=== PATIENT | male | born 1935 | race Caucasian/White ===

== ENCOUNTER 2019-03-17 09:53 | Emergency (ER) | payer MEDICARE, BC, SELFPAY ==
--- NOTE | ~2019-03-17 | CT_ITS ---
EXAMINATION: CT brain wo con EXAM DATE: 03/17/2019 11:10 INDICATION: Confusion, temporary change in awareness. TECHNIQUE: Spiral CT of the head was performed without contrast. Axial, coronal and sagittal images were reviewed. The dose-length product (DLP) for this examination was 605.33 mGy-cm. The exposure w as tailored according to patient size, and iterative reconstruction (ASIR) was used as additional dos e reduction technique. There is no prior study for comparison. FINDINGS: There is no acute intraparenchymal hemorrhage. No evidence of intraparenchymal brain mass lesion. No evidence of acute infarction. Please note that initial head CT has limited sensitivity f or small or acute infarctions. There is mild periventricular and subcortical hypodensity, nonspecific but probably related to small vessel ischemic disease. There is moderate prominence of the sulci a nd ventricles related to cerebral atrophy. There is intracranial carotid arteriosclerosis. There a re no extra-axial collections. There is no mass effect or midline shift. Patient has had bilateral ocular lens surgery. Soft tissue is unremarkable. Mild left maxillary sinus mucoperiosteal thickeni ng. Mildly dense fluid in the left maxillary sinus. IMPRESSION: 1. No acute intracranial findings. 2. Chronic age related findings. 3. Left maxillary sinus mucoperiosteal thickening and fluid. Reviewed, dictated and finalized at location B. [employer]OR OF EVENT MANAGEMENT
[2019-03-17 10:22] VITALS: BP 115/55; PULSE 55; RESP 15; TEMP 36.2; O2SAT 100
--- NOTE | 2019-03-17 10:33 | ED.AMS ---
HPI - Altered Mental Status General Chief Complaint: Altered Mental Status Stated Complaint: confusion Time Seen by Provider: 03/17/19 10:18 Source: patient and family Mode of arrival: ambulatory Limitations: no limitations History of Present Illness HPI narrative: Pt is an 83 y/o male who presents to the ED, from [facility], with c/o increased confusion since last night. Pt's son states that the facility he lives at found him wandering around outside this morning. Pt denies a fall, PUGH, or CP. He notes that he has knee pain. Per son, pt's mental status has been declining recently. A complete HPI is limited d/t pt's dementia. complaint: confusion Onset (ago): day(s) (last night) Consistency of symptoms: getting Worse Context: other (dementia) Associated symptoms: other (knee pain) Related Data Allergies Allergy/AdvReac Type Severity Reaction Status Date / Time lisinopril Allergy Unknown cough Verified 03/17/19 10:37 nicardipine Allergy Unknown gynecomasti Verified 03/17/19 10:37 a Review of Systems Review of Systems: Narrative: A complete ROS is limited d/t pt's dementia. Cardiovascular: Cardiovascular: Denies chest pain Musculoskeletal: Musculoskeletal: Reports arthralgias (knee) Neurologic: Reports confusion and Denies headache(s) [facility] Past Medical History Medical History (Updated 03/17/19 @ 11:39 by Maynor Gardner MD) Dementia Surgical History Surgical History No history of previous surgery Family History Family History (Updated 05/20/17 @ 15:02 by DOCTOR UNKNOWN) Sibling Hypertension Family history of cardiovascular disease Family history of malignant neoplasm of breast Father Patient's father is , Onset Age: 72 Carcinoma of colon Malignant neoplasm of prostate Grandparent Diabetes mellitus Family history of malignant neoplasm of esophagus Mother Depression Family history of cardiovascular disease Social History Social History (Updated 03/17/19 @ 11:10 by Yong Alicea) Smoking status: Former smoker Tobacco type: cigarettes Additional smoking assessment comments: A couple cigarettes a day for a few years Alcohol intake: former Substance use: never Living arrangements: assisted living Gender identity (if verbalized by the patient): Male Spiritual care concerns: No Agree to blood products: Yes Exam Narrative: Exam Narrative: GENERAL: Well-appearing, well-nourished, and in no acute distress. HEAD: Normocephalic, atraumatic. EYES: PERRLA and EOMI. ENT: Nares clear, no rhinorrhea or epistaxis. Mucous membranes moist. NECK: Supple. CHEST: Clear to auscultation. No respiratory distress. HEART: Regular rate and rhythm. No murmur heard. Normal peripheral pulses. ABDOMEN: Soft, no ntender, non distended, normal active bowel sounds. EXTREMITIES: Normal range of motion. has one plus edema. SKIN: Warm, dry, no rash. NEURO: No focal deficits. Alert PSYCH: Normal mood and affect. Course Course Emergency Course: Inform the son about his lab work, CT findings. Advised to continue home medication. Vital Signs Vital signs: Vital Signs Temperature 36.2 C L 03/17/19 10:22 Pulse Rate 55 L 03/17/19 10:22 Respiratory Rate 15 03/17/19 10:22 Blood Pressure 115/55 L 03/17/19 10:22 Pulse Oximetry 100 03/17/19 10:22 Temperature 36.2 C L 03/17/19 10:22 Pulse Rate 69 03/17/19 11:08 Respiratory Rate 18 03/17/19 11:08 Blood Pressure 129/55 L 03/17/19 11:08 Pulse Oximetry 97 03/17/19 11:08 MDM - Altered Mental Status Lab Data Result diagrams: 03/17/19 10:56 03/17/19 10:56 Labs: Lab Results 03/17/19 03/17/19 03/17/19 Range/Units 10:56 10:56 11:00 WBC 7.2 (4.5-10.0) K/mm3 RBC 3.74 L (4.6-6.20) M/mm3 Hgb 10.6 L (14.0-18.0) g/dL Hct 34.5 L (42.0-52.0) % MCV 92.2 (80-100) fl MCH 28.3 (26-
--- NOTE | 2019-03-17 11:07 | PC.NURSE ---
PT TO CT SCAN VIA STRETCHER.
[2019-03-17 11:08] VITALS: BP 129/55; PULSE 69; RESP 18; O2SAT 97
[2019-03-17 11:10] LABS: Basophils Percent Auto 0.3 % (0.2-1.2); Eosinophils Absolute Auto 0.1 K/mm3 (0-0.3); Eosinophils Percent Auto 1.7 % (0-4.4); Hematocrit 34.5 % (42.0-52.0); Hemoglobin 10.6 g/dL (14.0-18.0); Immature Granulocyte Absolute 0.03 K/mm3 (0.00-0.031); Immature Granulocyte Percent A 0.4 % (0-0.5); Lymphocytes Absolute Auto 1.44 K/mm3 (0.9-3.2); Lymphocytes Percent Auto 20.1 % (18.3-44.2); Mean Corpuscular HGB Conc 30.7 g/dl (32-36); Mean Corpuscular Hemoglobin 28.3 pg (26-34); Mean Corpuscular Volume 92.2 fl (80-100); Mean Platelet Volume 10.3 fl (7.4-10.4); Monocytes Absolute Auto 0.9 K/mm3 (0.1-0.6); Monocytes Percent Auto 13.1 % (2.6-8.5); Neutrophils Absolute Auto 4.6 K/mm3 (1.3-6.7); Neutrophils Percent Auto 64.4 % (45.5-73.1); Platelet Count Result 244 k/mm3 (150-375); Red Blood Count 3.74 M/mm3 (4.6-6.20); Red Cell Distribution Width 14.7 % (11.5-14.5); White Blood Count 7.2 K/mm3 (4.5-10.0)
[2019-03-17 11:15] LABS: Add Urine Microscopic? YES; Appearance Urine Cloudy (Clear); Bacteria Urine Trace /hpf; Bilirubin Urine Negative (Negative); Color Urine Amber (Yellow); Glucose Urine UA Negative (Negative); Hyaline Casts Urine 30-49 /lpf; Ketones Urine Negative (Negative); Leukocyte Esterase Ur Negative LEU/UL (Negative); Mucus Urine Few /lpf; Nitrate Urine Negative (Negative); Protein Urine 2+ mg/dL (Negative); Specific Grav Ur 1.026 (1.001-1.035)
[2019-03-17 11:17] LABS: Blood Urine Negative (Negative)
[2019-03-17 11:27] LABS: Blood Urea Nitrogen 25 mg/dL (9-20); Carbon Dioxide 28 mmol/L (22-30); Chloride 102 mmol/L (98-107); Estimated CRCL calculation 39 ml/min; Estimated Glomerular Filt Rate 42; Glucose 109 mg/dL (75-110); Potassium 4.1 mmol/L (3.4-5.0); Sodium 139 mmol/L (137-145)
[2019-03-17 12:28] VITALS: BP 120/66; PULSE 55; O2SAT 97
== END 2019-03-17 12:30 ==
PROVIDERS: Emergency Provider Family Medicine; PCP Family Medicine
DX: G30.9 Alzheimer's disease, unspecified (principal); F02.80 Dementia in other diseases classified elsewhere, unspecified severity, without behavioral disturbance, psychotic disturbance, mood disturbance, and anxiety; Z87.891 Personal history of nicotine dependence
CPT/HCPCS: 36415; 51701; 70450; 80048; 81001; 85025; 87086; 99284

== ENCOUNTER 2019-07-09 18:49 | Emergency (ER) | payer MEDICARE, BC, SELFPAY ==
[2019-07-09 18:53] VITALS: BP 133/87; PULSE 67; RESP 18; TEMP 36.6; O2SAT 98
--- NOTE | 2019-07-09 19:07 | ED.WOUNDLAC ---
HPI - Wound/Laceration General Chief Complaint: Wound/Laceration Stated Complaint: wound Time Seen by Provider: 07/09/19 19:05 History of Present Illness HPI narrative: He reports swelling to the bilateral lower extremities chronically, worse on the left over the past 3 weeks. This was about the same time he noted a sore on the lateral portion of the left lower leg. Today he contacted his PCP because he felt that it was causing problems with his ability to walk and he was refered to the ED. He denies any pain in the leg. He has a history of DM and lower extremity cellulitis. He does not monitor his blood sugar. Related Data Home Medications Medication Instructions Recorded Confirmed donepezil 5 mg tablet 5 mg PO .QHS tablet 04/23/19 duloxetine 30 mg capsule,delayed 30 mg PO DAILY 04/23/19 release sprinkle risperidone 0.5 mg tablet 0.5 mg PO .QHS tablet 04/23/19 Allergies Allergy/AdvReac Type Severity Reaction Status Date / Time lisinopril Allergy Unknown cough Verified 04/23/19 15:54 nicardipine Allergy Unknown gynecomasti Verified 04/23/19 15:54 a Review of Systems Review of Systems: All systems reviewed & are unremarkable except as noted in HPI and below Constitutional: Constitutional: Denies fever(s) and Denies weakness Cardiovascular: Cardiovascular: Denies chest pain Respiratory: Respiratory: Denies dyspnea Gastrointestinal: Gastrointestinal: Denies nausea Musculoskeletal: Musculoskeletal: Denies back pain Neurologic: Denies dizziness and Denies weakness Endocrine: Endocrine: Reports polydipsia and Reports polyuria Hematologic/Lymphatic: Hematologic/Lymphatic: Denies easy bleeding and Denies easy bruising PMF Past Medical History Medical History (Updated 07/10/19 @ 02:01 by Srinivasa Abdalla MD) Cellulitis of left lower extremity Cellulitis of right lower extremity Dementia Diabetes mellitus Hypertension Lower extremity edema Peripheral neuropathy Surgical History Surgical History No history of previous surgery Family History Family History Sibling Hypertension Family history of cardiovascular disease Family history of malignant neoplasm of breast Father Patient's father is , Onset Age: 72 Carcinoma of colon Malignant neoplasm of prostate Grandparent Diabetes mellitus Family history of malignant neoplasm of esophagus Mother Depression Family history of cardiovascular disease Social History Social History Smoking status: Former smoker Tobacco type: cigarettes Additional smoking assessment comments: A couple cigarettes a day for a few years Alcohol intake: former Substance use: never Gender identity (if verbalized by the patient): Male Spiritual care concerns: No Agree to blood products: Yes Exam Const: General: no acute distress and alert Nutritional Appearance: well nourished Orientation/consciousness: patient oriented x3 HENMT: Head: normal to inspection Resp: Effort & Inspection: normal respiratory effort and tachypneic Auscultation: clear to auscultation bilaterally Cardio: Rate: regular rate Rhythm: regular rhythm GI: GI Palp: Yes Soft to palpation and No Tenderness to palpation present (GI) Skin: Other: Erythema of the left lateral lower leg with mild skin breakdown. No open wounds Neuro: General: patient oriented x3 and moves all extremities Speech: normal speech Extrem: General: edema bilateral Course Vital Signs Vital signs: Vital Signs Temperature 36.6 C 07/09/19 18:53 Pulse Rate 67 07/09/19 18:53 Respiratory Rate 18 07/09/19 18:53 Blood Pressure 133/87 07/09/19 18:53 Pulse Oximetry 98 07/09/19 18:53 Temperature 36.6 C 07/09/19 18:53 Pulse Rate 79 07/09/19 23:01 Respiratory Rate 18 07/09/19 23:01
[2019-07-09 20:06] LABS: Basophils Percent Auto 0.3 % (0.2-1.2); Eosinophils Absolute Auto 0.1 K/mm3 (0-0.3); Eosinophils Percent Auto 1.4 % (0-4.4); Hematocrit 36.2 % (42.0-52.0); Hemoglobin 11.4 g/dL (14.0-18.0); Immature Granulocyte Absolute 0.01 K/mm3 (0.00-0.031); Immature Granulocyte Percent A 0.2 % (0-0.5); Lymphocytes Percent Auto 33.2 % (18.3-44.2); Mean Corpuscular HGB Conc 31.5 g/dl (32-36); Mean Corpuscular Hemoglobin 28.9 pg (26-34); Mean Corpuscular Volume 91.6 fl (80-100); Mean Platelet Volume 10.4 fl (7.4-10.4); Monocytes Absolute Auto 0.7 K/mm3 (0.1-0.6); Monocytes Percent Auto 10.8 % (2.6-8.5); Neutrophils Absolute Auto 3.4 K/mm3 (1.3-6.7); Neutrophils Percent Auto 54.1 % (45.5-73.1); Platelet Count Result 223 k/mm3 (150-375); Red Blood Count 3.95 M/mm3 (4.6-6.20); Red Cell Distribution Width 14.2 % (11.5-14.5); White Blood Count 6.3 K/mm3 (4.5-10.0)
[2019-07-09 20:16] LABS: Partial Thromboplastin Time 38.2 SECONDS (22.3-36.8)
[2019-07-09 20:21] LABS: Alanine Aminotransferase 19 U/L (4-50); Albumin Level 3.9 g/dL (3.5-5.1); Alkaline Phosphatase 82 U/L (38-126); Aspartate Amino Transferase 33 U/L (17-59); Bilirubin,Total 0.2 mg/dL (0.2-1.3); Blood Urea Nitrogen 16 mg/dL (9-20); Calcium 8.8 mg/dL (8.4-10.2); Carbon Dioxide 30 mmol/L (22-30); Chloride 104 mmol/L (98-107); Estimated CRCL calculation 60 ml/min; Estimated Glomerular Filt Rate > 60; Glucose 129 mg/dL (75-110); Potassium 4.3 mmol/L (3.4-5.0); Sodium 139 mmol/L (137-145)
[2019-07-09 20:42] LABS: INR 2.2; Prothrombin Time 23.9 Seconds (11.1-14.7)
[2019-07-09 20:56] VITALS: BP 147/76; PULSE 58; RESP 18; O2SAT 100
[2019-07-09] MEDS: AMOXICILLIN/CLAVULANATE K 875-125 MG TAB 1 TABLET PO (22:20)
[2019-07-09 23:01] VITALS: BP 132/77; PULSE 79; RESP 18; O2SAT 98
== END 2019-07-09 23:02 | disposition home or self-care (01) ==
PROVIDERS: Emergency Provider Emergency Medicine; PCP Family Medicine
DX: L03.116 Cellulitis of left lower limb (principal); F03.90 Unspecified dementia, unspecified severity, without behavioral disturbance, psychotic disturbance, mood disturbance, and anxiety; I10 Essential (primary) hypertension; E11.42 Type 2 diabetes mellitus with diabetic polyneuropathy; Z87.891 Personal history of nicotine dependence
CPT/HCPCS: 36415; 80053; 85025; 85610; 85730; 87040; 99283; A9270

== ENCOUNTER 2019-07-15 16:44 | Outpatient (CLI) | payer MEDICARE, BC, SELFPAY ==
--- NOTE | ~2019-07-15 | XR_ITS ---
XR tibia fibula RT 2V 07/15/2019 17:07 Indication: Leg pain. No known injury. Procedure: 2 views right tibia/fibula Comparison: No prior studies for comparison. Findings: There are multiple radiopaque foreign bodies in the soft tissues. There is extensive arteri al calcification. There is severe osteoarthritis of the right knee. No acute fracture or traumatic ma lalignment. Impression: 1: No acute bone or joint abnormality. 2: Severe osteoarthritis of the right knee. 3: Multiple small foreign bodies in the soft tissues posterior to the tibia. Reviewed, dictated and finalized at location A. Impression: 1: No acute bone or joint abnormality. 2: Severe osteoarthritis of the right knee. 3: Multiple small foreign bodies in the soft tissues posterior to the tibia.
== END 2019-07-15 16:45 | disposition home or self-care (01) ==
PROVIDERS: PCP Family Medicine; Visit Provider Physician Assistant
DX: M17.11 Unilateral primary osteoarthritis, right knee (principal)
CPT/HCPCS: 73590

== ENCOUNTER 2021-05-19 11:51 | Emergency (ER) | payer MEDICARE, SELFPAY ==
[2021-05-19 11:57] VITALS: BP 143/64; PULSE 56; RESP 17; O2SAT 96
[2021-05-19 12:25] LABS: Basophils Percent Auto 0.3 % (0.2-1.2); Eosinophils Percent Auto 0.2 % (0-4.4); Hematocrit 38.7 % (42.0-52.0); Hemoglobin 12.5 g/dL (14.0-18.0); Immature Granulocyte Absolute 0.02 K/mm3 (0.00-0.031); Immature Granulocyte Percent A 0.3 % (0-0.5); Lymphocytes Absolute Auto 1.77 K/mm3 (0.9-3.2); Lymphocytes Percent Auto 28.8 % (18.3-44.2); Mean Corpuscular HGB Conc 32.3 g/dl (32-36); Mean Corpuscular Hemoglobin 31.3 pg (26-34); Mean Platelet Volume 10.7 fl (7.4-10.4); Monocytes Absolute Auto 0.9 K/mm3 (0.1-0.6); Monocytes Percent Auto 15.1 % (2.6-8.5); Neutrophils Absolute Auto 3.4 K/mm3 (1.3-6.7); Neutrophils Percent Auto 55.3 % (45.5-73.1); Platelet Count Result 181 k/mm3 (150-375); Red Blood Count 3.99 M/mm3 (4.6-6.20); Red Cell Distribution Width 13.8 % (11.5-14.5); White Blood Count 6.2 K/mm3 (4.5-10.0)
[2021-05-19 12:34] LABS: INR 1.1
[2021-05-19 12:35] LABS: Alanine Aminotransferase 30 U/L (4-50); Albumin Level 3.9 g/dL (3.5-5.1); Alkaline Phosphatase 56 U/L (38-126); Anion Gap 9 mmol/L (8-16); Aspartate Amino Transferase 108 U/L (17-59); Bilirubin,Total 0.6 mg/dL (0.2-1.3); Blood Urea Nitrogen 29 mg/dL (9-20); Calcium 8.2 mg/dL (8.4-10.2); Carbon Dioxide 23 mmol/L (22-30); Chloride 102 mmol/L (98-107); Estimated CRCL calculation 49 ml/min; Estimated Glomerular Filt Rate 58; Glucose 145 mg/dL (65-110); Partial Thromboplastin Time 20.4 SECONDS (22.3-36.8); Potassium 4.5 mmol/L (3.4-5.0); Sodium 134 mmol/L (137-145)
[2021-05-19] MEDS: SODIUM CHLORIDE 0.9% IV 1,000 ML 999 ML IV CONT (12:45)
--- NOTE | 2021-05-19 13:16 | ED.GENADULT ---
HPI - General Adult General Chief complaint: GI Bleed Stated complaint: weakness - dark tarry stool Time Seen by Provider: 05/19/21 12:25 Source: patient, family and EMS Mode of arrival: EMS Limitations: no limitations History of Present Illness HPI narrative: Patient is 85 years old white male came to the emergency room from retirement because of fall. Patient while having a bowel movement, diarrhea, got up and feels down. Patient denies loss of consciousness, head injury, or any other injuries. The retirement staff reported that patient have darker stool. Patient denies any fever, chills, nausea, vomiting, abdominal pain or urinary symptoms. Patient have dementia, DNR. Patient son at the bedside. Related Data Allergies Allergy/AdvReac Type Severity Reaction Status Date / Time lisinopril Allergy Unknown cough Verified 05/25/20 16:34 nicardipine Allergy Unknown gynecomasti Verified 05/25/20 16:34 a Review of Systems Review of Systems: CONSTITUTIONAL: Denies fever, chills, or sweats. EYES: Denies visual changes, redness, or discharge. ENT: Denies rhinorrhea, congestion, sore throat, or otalgia. CARDIOVASCULAR: Denies chest pain, palpitations, or edema. RESPIRATORY: Denies cough or dyspnea. GASTROINTESTINAL: Denies abdominal pain, nausea, vomiting, or diarrhea. GENITOURINARY: Denies dysuria or hematuria. SKIN: Denies rash or itching. MUSCULOSKELETAL: Denies back pain, joint pain, or myalgia. NEUROLOGIC: Denies headache, numbness, or weakness. PSYCHIATRIC: Denies anxiety or depression. ROS unobtainable: Yes unobtainable due to mental status PMFSH Past Medical History Medical History (Updated 05/19/21 @ 14:05 by Shayan Cage MD) Cellulitis of left lower extremity Cellulitis of right lower extremity Dementia Diabetes mellitus Hypertension Lower extremity edema Peripheral neuropathy Surgical History Surgical History No history of previous surgery Family History Family History Sibling Hypertension Family history of cardiovascular disease Family history of malignant neoplasm of breast Father Patient's father is , Onset Age: 72 Carcinoma of colon Malignant neoplasm of prostate Grandparent Diabetes mellitus Family history of malignant neoplasm of esophagus Mother Depression Family history of cardiovascular disease Social History Social History Tobacco type: cigarettes Additional smoking assessment comments: A couple cigarettes a day for a few years Alcohol intake: former Substance use: never Gender identity (if verbalized by the patient): Male Spiritual care concerns: No Agree to blood products: Yes Exam Narrative: General appearance: Well-developed, well-nourished Skin: Normal color Head: Normocephalic, nontraumatic Eyes: Clear conjunctiva ENT: Oropharynx normal, ears normal, nose normal Neck: Supple, nontender Chest and respiratory: Airway patent, no respiratory distress, no accessory muscle use Heart: Regular rate/rhythm Abdomen: Soft, nontender, no organomegaly, quiet bowel sounds, rectal exam showed dark greenish stool, guaiac negative Vascular: Normal peripheral pulses, normal capillary refill. Musculoskeletal: Normal range of motion, nontender back Neurologic: Alert and oriented to his name only, Course Course Emergency Course: Stable Vital Signs Vital signs: Vital Signs Pulse Rate 56 L 05/19/21 11:57 Respiratory Rate 17 05/19/21 11:57 Blood Pressure 143/64 H 05/19/21 11:57 Pulse Oximetry 96 05/19/21 11:57
[2021-05-19 14:11] VITALS: BP 151/75; PULSE 61; RESP 23; O2SAT 98
[2021-05-19 14:55] VITALS: BP 151/75; PULSE 61; RESP 18; O2SAT 98
== END 2021-05-19 15:00 ==
PROVIDERS: Emergency Medicine; Emergency Provider Emergency Medicine; PCP Family Medicine
DX: Z04.3 Encounter for examination and observation following other accident (principal); R19.7 Diarrhea, unspecified; F03.90 Unspecified dementia, unspecified severity, without behavioral disturbance, psychotic disturbance, mood disturbance, and anxiety; E11.42 Type 2 diabetes mellitus with diabetic polyneuropathy; I10 Essential (primary) hypertension; Z79.01 Long term (current) use of anticoagulants; Z66 Do not resuscitate; W18.11XA Fall from or off toilet without subsequent striking against object, initial encounter
CPT/HCPCS: 36415; 80053; 85025; 85610; 85730; 86850; 86900; 86901; 96360; 99283; J7030

== ENCOUNTER 2022-03-19 09:58 | Emergency (ER) | payer MEDICARE, SELFPAY ==
[2022-03-19] VITALS (10 sets, daily range): BP systolic 134–164; BP diastolic 59–93; PULSE 58–77; RESP 16–28; TEMP 36.9; O2SAT 93–100
--- NOTE | ~2022-03-19 | XR_ITS ---
EXAMINATION: XR chest 1V portable INDICATION: Tachypnea TECHNIQUE: Portable AP chest at 1537 hours COMPARISON: 02/10/2019 FINDINGS: The lung volumes are low. There is mild atelectasis of the lung bases. No pleural effusion or pneumothorax. The cardiomediastinal silhouette is normal. IMPRESSION: 1. Mild atelectasis of the lung bases. Reviewed, dictated and finalized at location L. ROL PANEL ASSEMBLER
--- NOTE | ~2022-03-19 | CT_ITS ---
EXAMINATION: CT brain wo con INDICATION: Altered mental status COMPARISON: 03/17/2019 TECHNIQUE: Standard unenhanced head CT. The dose-length product (DLP) was 605.33 mGy-cm. The mA was a djusted according to patient size. Iterative reconstruction technique was employed. FINDINGS: There is no acute intraparenchymal hemorrhage. No evidence of mass lesion. No evidence of a cute infarction. There is mild periventricular and subcortical hypodensity probably related to small vessel ischemic disease. There is mild prominence of the sulci and ventricles related to cerebral atr ophy. Intracranial calcified cerebral atherosclerosis is noted. There are no extra-axial collections. There is no mass effect or midline shift. Changes in the globes are likely from ocular lens surgery. There is a right mastoid effusion. IMPRESSION: 1. No acute intracranial abnormality. 2. Age related findings. Reviewed, dictated and finalized at location L. STITCH SHOULDER JOINER
--- NOTE | 2022-03-19 13:28 | ECG_ITS ---
Measurements Intervals [place] Rate: 64 P: -23 MS: 158 QRS: -49 QRSD: 110 T: 33 QT: 432 QTc: 446 Interpretive Statements SINUS RHYTHM LEFT AXIS DEVIATION INTRAVENTRICULAR CONDUCTION DELAY BORDERLINE R WAVE PROGRESSION, ANTERIOR LEADS BASELINE ARTIFACT- I, II, III, AVR, AVL, AVF, V1-V2 BORDERLINE ECG NO PREVIOUS ECG AVAILABLE FOR COMPARISON Electronically Signed On 03-19-2022 15:13:02 HEEL BREASTER by Vamsi Mancilla D.O.
--- NOTE | 2022-03-19 13:28 | ED.AMS ---
HPI - Altered Mental Status General Chief Complaint: Altered Mental Status Stated Complaint: UTI? Time Seen by Provider: 03/19/22 13:17 History of Present Illness HPI narrative: 86-year-old male with a history of Alzheimer's dementia currently living nursing facility, hx PE on eliquis sent here due to concerns of increased confusion. According to patient's nurse, he has been wandering the halls at nighttime and has been forgetting where his room is which is abnormal for him. She has also noticed a strong odor to his urine. Patient's POA is present in the room and denies any acute confusion, states that patient is at his baseline currently which is ANO x3. POA tells me that the nurse taking care of him is new and is not aware of his baseline. Patient himself denies any complaints, denies any pain. Related Data Allergies Allergy/AdvReac Type Severity Reaction Status Date / Time lisinopril Allergy Unknown cough Verified 10/17/21 09:13 nicardipine Allergy Unknown gynecomasti Verified 10/17/21 09:13 a Review of Systems Review of Systems: ROS unobtainable: Yes unobtainable due to mental status PMFSH Past Medical History Medical History Cellulitis of left lower extremity Cellulitis of right lower extremity Colon polyps Dementia 10.17.21 mmse 5 bed manager judith gaviria resuscitation: no cpr, no intubation. 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 Diabetes mellitus Groin rash History of ischemic colitis 2005 Hx pulmonary embolism 2017 Lower extremity edema Peripheral neuropathy Venous stasis ulcer Yeast infection of the skin Surgical History Surgical History H/O hemicolectomy ischemic colitis 2005 Family History Family History Sibling Hypertension Family history of cardiovascular disease Family history of malignant neoplasm of breast Father Patient's father is , Onset Age: 72 Carcinoma of colon Malignant neoplasm of prostate Grandparent Diabetes mellitus Family history of malignant neoplasm of esophagus Mother Depression Family history of cardiovascular disease Social History Social History (Updated 10/17/21 @ 09:17 by Jeremiah Donald MA) Smoking status: Former smoker Tobacco type: cigarettes Additional smoking assessment comments: A couple cigarettes a day for a few years Alcohol intake: former Substance use: never Living arrangements: assisted living Gender identity (if verbalized by the patient): Male Spiritual care concerns: No Agree to blood products: Yes Exam Narrative: APPEARANCE: Well appearing, no pain in distress, well-nourished. Head: Normocephalic and atraumatic. EYES: Entropia of right eye noted; POA states is chronic. PERRLA/EOMI, conjunctivae clear NOSE: No nasal drainage EARS: External ear normal in appearance THROAT: Oropharynx is clear. Mucous membranes are moist. NECK: Supple. No adenopathy, no masses. RESPIRATORY: Airway patent, respirations nonlabored. Clear to auscultation bilaterally, no rales, rhonchi, wheezing. CARDIOVASCULAR: Regular rate and rhythm without murmurs, rubs, or gallops. ABDOMINAL: Normoactive bowel sounds. Soft, nontender, nondistended. No rebound tenderness or guarding. MUSCULOSKELETAL: Extremities are warm and well-perfused. Moves all extremities well. No edema. NEURO: Alert and oriented x3. Normal speech. No focal neurologic deficits. SKIN: Skin is warm and dry. No rashes. PSYCHIATRIC: Normal affect/mood. Course Vital Signs Vital signs: Vital Signs Temperature 98.4 F 03/19/22 10:01 Pulse Rate 58 L 03/19/22 10:01 Respiratory Rate 20 03/19/22 10:01 Blood Pressure 134/59 L 03/19/22 10:01 Pulse Oximetry 96 03/19/22 10:01 Oxygen Delivery Room Air 03/19/22 10:01 Avery
--- NOTE | 2022-03-19 13:29 | PC.NURSE ---
EDP at bedside to assess pt .
[2022-03-19 14:12] LABS: Basophils Percent Auto 0.5 % (0.2-1.2); Eosinophils Absolute Auto 0.1 K/mm3 (0-0.3); Eosinophils Percent Auto 2.1 % (0-4.4); Hematocrit 45.1 % (42.0-52.0); Hemoglobin 13.7 g/dL (14.0-18.0); Immature Granulocyte Absolute 0.01 K/mm3 (0.00-0.031); Immature Granulocyte Percent A 0.2 % (0-0.5); Immature Platelet Fraction Pct 3.1 % (0.9-11.2); Lymphocytes Absolute Auto 1.99 K/mm3 (0.9-3.2); Mean Corpuscular HGB Conc 30.4 g/dl (32-36); Mean Corpuscular Hemoglobin 31.4 pg (26-34); Mean Corpuscular Volume 103.2 fl (80-100); Mean Platelet Volume 10.4 fl (7.4-10.4); Monocytes Absolute Auto 0.7 K/mm3 (0.1-0.6); Neutrophils Absolute Auto 3.7 K/mm3 (1.3-6.7); Neutrophils Percent Auto 56.2 % (45.5-73.1); Platelet Count Result 161 k/mm3 (150-375); Red Blood Count 4.37 M/mm3 (4.6-6.20); Red Cell Distribution Width 13.1 % (11.5-14.5); White Blood Count 6.6 K/mm3 (4.5-10.0)
[2022-03-19 14:20] LABS: Alanine Aminotransferase 23 U/L (6-50); Albumin Level 3.8 g/dL (3.5-5.1); Alkaline Phosphatase 83 U/L (38-126); Anion Gap 6 mmol/L (8-16); Aspartate Amino Transferase 31 U/L (17-59); Bilirubin,Total 0.4 mg/dL (0.2-1.3); Blood Urea Nitrogen 19 mg/dL (9-20); Calcium 8.7 mg/dL (8.4-10.2); Carbon Dioxide 31 mmol/L (22-30); Chloride 103 mmol/L (98-107); Estimated CRCL calculation 62 ml/min; Estimated Glomerular Filt Rate > 60; Glucose 118 mg/dL (65-110); Magnesium 1.9 mg/dL (1.6-2.3); Potassium 4.2 mmol/L (3.4-5.0); Sodium 140 mmol/L (137-145)
[2022-03-19 14:31] LABS: Appearance Urine Clear (Clear); Bilirubin Urine Negative (Negative); Blood Urine Negative (Negative); Color Urine Yellow (Yellow); Glucose Urine UA Negative (Negative); Ketones Urine Negative (Negative); Leukocyte Esterase Ur 2+ LEU/UL (Negative); Nitrate Urine Negative (Negative); Protein Urine Negative (Negative); Specific Grav Ur 1.015 (1.001-1.035); Squamous Epithelial Cell Urine Rare /hpf (Few); Urobilinogen Urine 0.2 mg/dL (<2.0); pH Urine 8.5 (5.0-9.0)
[2022-03-19 14:32] LABS: INR 1.1; Partial Thromboplastin Time 33.5 SECONDS (22.3-36.8); Prothrombin Time 14.1 Seconds (11.1-14.7)
[2022-03-19 14:38] LABS: Add Urine Microscopic? YES
== END 2022-03-19 16:58 ==
PROVIDERS: Emergency Provider Physician Assistant; PCP Family Medicine
DX: N39.0 Urinary tract infection, site not specified (principal); G30.9 Alzheimer's disease, unspecified; F02.80 Dementia in other diseases classified elsewhere, unspecified severity, without behavioral disturbance, psychotic disturbance, mood disturbance, and anxiety; E11.42 Type 2 diabetes mellitus with diabetic polyneuropathy; Z90.49 Acquired absence of other specified parts of digestive tract; Z86.711 Personal history of pulmonary embolism; Z86.010 Personal history of colon polyps; Z87.891 Personal history of nicotine dependence; Z79.01 Long term (current) use of anticoagulants; I45.9 Conduction disorder, unspecified; R94.31 Abnormal electrocardiogram [ECG] [EKG]
CPT/HCPCS: 36415; 70450; 71045; 80053; 81001; 83735; 85025; 85055; 85610; 85730; 87086; 93005; 96365; 99284; J0696

== ENCOUNTER 2022-10-14 15:40 | Emergency (ER) | payer MEDICARE, SELFPAY ==
[2022-10-14] VITALS (18 sets, daily range): BP systolic 155–185; BP diastolic 60–94; PULSE 55–80; RESP 17–28; TEMP 36.1–36.6; O2SAT 95–100
--- NOTE | ~2022-10-14 | CT_ITS ---
EXAMINATION: CT cervical spine wo con DATE: 10/14/2022 22:04 INDICATION: Neck pain. Fall. TECHNIQUE: Computed tomography (CT) of the cervical spine was performed without intravenous contrast. Automated exposure control and iterative reconstruction technique were employed. The dose-length pro duct was 695.57 mGy-cm. COMPARISON: None FINDINGS: Bone alignment is normal. Vertebral body heights are normal. There is mildly decreased disc height at C3-C4 and moderately decreased disc height from C4-C5 through C6-C7. There are bridging en dplate osteophytes from T2 to T5, consistent with diffuse idiopathic skeletal hyperostosis. The follo wing disc levels are specifically discussed: C2-C3: There is severe right and mild left uncovertebral joint osteoarthritis. There is severe bilate ral facet joint osteoarthritis. There is moderate right and mild left neural foraminal stenosis. Ther e is mild central canal stenosis. C3-C4: There is ankylosis of the uncovertebral joints with moderate hypertrophy. There is ankylosis o f the facet joints with moderate left hypertrophy. There is moderate bilateral neural foraminal steno sis. There is mild central canal stenosis. C4-C5: There is a calcified central extrusion. There is severe right and moderate left uncovertebral joint osteoarthritis. There is severe bilateral facet joint osteoarthritis. There is moderate right a nd mild left neural foraminal stenosis. There is mild central canal stenosis. C5-C6: There is severe bilateral uncovertebral joint osteoarthritis. There is mild bilateral facet josh int osteoarthritis. There is mild bilateral neural foraminal stenosis. There is mild central canal st enosis. C6-C7: There is moderate right and severe left uncovertebral joint osteoarthritis. There is severe ri ght and moderate left facet joint osteoarthritis. There is mild bilateral neural foraminal stenosis. There is mild central canal stenosis. C7-T1: There is no uncovertebral joint osteoarthritis. There is severe bilateral facet joint osteoart hritis. There is mild bilateral neural foraminal stenosis. There is no central canal stenosis. IMPRESSION: 1. No fracture. 2. Moderate cervical spondylosis. Reviewed, dictated and finalized at location E.
--- NOTE | ~2022-10-14 | CT_ITS ---
EXAMINATION: CT lumbar spine wo con DATE: 10/14/2022 22:04 INDICATION: Back pain. Fall. TECHNIQUE: Computed tomography (CT) of the lumbar spine was performed without intravenous contrast. A utomated exposure control and iterative reconstruction technique were employed. The dose-length produ ct was 1300.59 mGy-cm. COMPARISON: None FINDINGS: There is a 2.3 cm cyst in left kidney. There is 5 degrees levocurvature of lumbar spine. Th ere are changes of posterior fusion procedure from L2 to L4 with pedicle screws. The L2 pedicle screw s penetrate the superior endplate. There is mild chronic anterior wedging of T11-L1 vertebral bodies. There is mild chronic height loss of L3 vertebral body. There is severely decreased disc height at L 1-L2, moderately decreased disc height at L2-L3, severely decreased disc height at L3-L4, mildly decr eased disc height at L4-L5, and severely decreased disc height at L5-S1. The following disc levels ar e specifically discussed: L1-L2: The disc is bulging. There is moderate right and severe left facet joint osteoarthritis. There is mild bilateral neural foraminal stenosis. There is mild central canal stenosis. L2-L3: The disc is bulging There is mild right facet joint hypertrophy. There is moderate bilateral n eural foraminal stenosis. There is mild central canal stenosis with posterior decompression. L3-L4: The disc is bulging. There is moderate bilateral facet joint hypertrophy. There is moderate bi lateral neural foraminal stenosis. There is mild central canal stenosis with posterior decompression. L4-L5: The disc is bulging. There is severe bilateral facet joint osteoarthritis. There is moderate b ilateral neural foraminal stenosis. There is mild central canal stenosis. L5-S1: The disc is bulging. There is moderate right and severe left facet joint osteoarthritis. There is moderate bilateral neural foraminal stenosis. There is mild central canal stenosis. IMPRESSION: 1. No acute fracture. 2. Severe lumbar spondylosis. 3. Posterior fusion procedure from L2 to L4. Reviewed, dictated and finalized at location E.
--- NOTE | ~2022-10-14 | XR_ITS ---
EXAMINATION: XR chest 1V portable DATE: 10/14/2022 20:32 INDICATION: Frequent falls. Back pain. TECHNIQUE: A single frontal view of the chest was obtained. COMPARISON: Chest single view 03/19/2022 FINDINGS: The lung volumes are small. There is no pneumonia, pleural effusion, or pneumothorax. The h eart size is normal. IMPRESSION: 1. No acute cardiopulmonary disease. Reviewed, dictated and finalized at location E.
--- NOTE | ~2022-10-14 | CT_ITS ---
EXAMINATION: CT brain wo con DATE: 10/14/2022 22:04 INDICATION: Head injury. TECHNIQUE: Computed tomography (CT) of the head was performed without intravenous contrast. The mA wa s adjusted according to patient size. Iterative reconstruction technique was employed. The dose-lengt h product was 832.33 mGy-cm. COMPARISON: Head CT 03/19/2022, brain MRI 08/08/2017 FINDINGS: There is no intracranial hemorrhage, acute infarction, or abnormal intracranial mass lesion . There are scattered areas of low attenuation in the cerebral white matter, which is within normal l imits for the patient's age. The ventricles are normal in size. There are likely changes of ocular le ns replacement surgeries. There is an old blowout fracture of medial wall of right orbit. There is mi ld mucosal thickening in the paranasal sinuses. There is fixation of the mandible. There is a right m astoid effusion. There is cerumen in the external auditory canals. IMPRESSION: 1. Normal aging brain. Reviewed, dictated and finalized at location E. IMPRESSION: 1. Normal aging brain.
--- NOTE | 2022-10-14 20:11 | ECG_ITS ---
Measurements Intervals [place] Rate: 64 P: 201 AR: 145 QRS: 232 QRSD: 126 T: 123 QT: 413 QTc: 427 Interpretive Statements SINUS RHYTHM POOR R-WAVE PROGRESSION, POSSIBLE PREVIOUS ANTERIOR [place] LEFTWARD AXIS TRANSPOSITION OF RIGHT AND LEFT ARM LEAD ABNORMAL ECG COMPARED TO ECG 03/19/2022 13:51:26 ARM LEAD REVERSAL IS PRESENT ON THIS TRACING Electronically Signed On 10-15-2022 12:01:24 CDT by Leander Jackson M.D.
[2022-10-14 20:33] LABS: Appearance Urine Clear (Clear); Bacteria Urine 1+ /hpf; Bilirubin Urine Negative (Negative); Color Urine Yellow (Yellow); Glucose Urine UA Negative (Negative); Ketones Urine Negative (Negative); Leukocyte Esterase Ur 1+ LEU/UL (Negative); Nitrate Urine Negative (Negative); Protein Urine 1+ mg/dL (Negative); Specific Grav Ur 1.014 (1.001-1.035); Squamous Epithelial Cell Urine Occasional /hpf (Few); Urobilinogen Urine 0.2 mg/dL (<2.0); pH Urine 6.5 (5.0-9.0)
[2022-10-14 20:40] LABS: Add Urine Microscopic? YES
[2022-10-14 21:41] LABS: Basophils Percent Auto 0.4 % (0.2-1.2); Eosinophils Absolute Auto 0.1 K/mm3 (0-0.3); Eosinophils Percent Auto 1.3 % (0-4.4); Hematocrit 40.8 % (42.0-52.0); Hemoglobin 13.2 g/dL (14.0-18.0); Immature Granulocyte Absolute 0.04 K/mm3 (0.00-0.031); Immature Granulocyte Percent A 0.6 % (0-0.5); Lymphocytes Absolute Auto 1.62 K/mm3 (0.9-3.2); Lymphocytes Percent Auto 22.5 % (18.3-44.2); Mean Corpuscular HGB Conc 32.4 g/dl (32-36); Mean Corpuscular Hemoglobin 31.5 pg (26-34); Mean Corpuscular Volume 97.4 fl (80-100); Mean Platelet Volume 10.4 fl (7.4-10.4); Monocytes Absolute Auto 0.7 K/mm3 (0.1-0.6); Monocytes Percent Auto 9.7 % (2.6-8.5); Neutrophils Absolute Auto 4.7 K/mm3 (1.3-6.7); Neutrophils Percent Auto 65.5 % (45.5-73.1); Platelet Count Result 208 k/mm3 (150-375); Red Blood Count 4.19 M/mm3 (4.6-6.20); Red Cell Distribution Width 13.2 % (11.5-14.5); White Blood Count 7.2 K/mm3 (4.5-10.0)
[2022-10-14 21:50] LABS: Lactic Acid Reflex 1.4 mmol/L (0.7-2.0)
[2022-10-14 22:47] LABS: Alanine Aminotransferase 39 U/L (6-50); Albumin Level 4.2 g/dL (3.5-5.1); Alkaline Phosphatase 67 U/L (38-126); Anion Gap 13 mmol/L (8-16); Aspartate Amino Transferase 73 U/L (17-59); Bilirubin,Total 0.9 mg/dL (0.2-1.3); Blood Urea Nitrogen 18 mg/dL (9-20); Calcium 8.9 mg/dL (8.4-10.2); Carbon Dioxide 31 mmol/L (22-30); Chloride 95 mmol/L (98-107); Estimated CRCL calculation 87 ml/min; Estimated Glomerular Filt Rate > 60; Glucose 131 mg/dL (65-110); Magnesium 1.8 mg/dL (1.6-2.3); Potassium 4.4 mmol/L (3.4-5.0); Sodium 139 mmol/L (137-145)
--- NOTE | 2022-10-14 23:20 | ED.GENADULT ---
HPI - General Adult General Chief complaint: Fall Stated complaint: increased falls Time Seen by Provider: 10/14/22 19:57 History of Present Illness HPI narrative: Patient 87-year-old gentleman who presents the emergency department with chief complaint of falls. The patient had 2 falls today and the family noticed that he also has been complaining of burning with urination. The patient complained of pain in his lumbar region reports that he had no nausea vomiting family is unsure if he had any kind of head injury patient currently just complains of low back pain and burning with urination. Related Data Allergies Allergy/AdvReac Type Severity Reaction Status Date / Time lisinopril Allergy Unknown cough Verified 04/16/22 08:59 nicardipine Allergy Unknown gynecomasti Verified 04/16/22 08:59 a Review of Systems Review of Systems: A 10 system review of systems was completed on the patient and is negative except for what is stated in the HPI. Nursing and ancillary documentation was reviewed. 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 Diabetes mellitus Groin rash History of ischemic colitis 2005 Hx pulmonary embolism 2017 Lower extremity edema Peripheral neuropathy Venous stasis ulcer Yeast infection of the skin Surgical History Surgical History H/O hemicolectomy ischemic colitis 2005 Family History Family History Sibling Hypertension Family history of cardiovascular disease Family history of malignant neoplasm of breast Father Patient's father is , Onset Age: 72 Carcinoma of colon Malignant neoplasm of prostate Grandparent Diabetes mellitus Family history of malignant neoplasm of esophagus Mother Depression Family history of cardiovascular disease Social History Social History Smoking status: Former smoker Tobacco type: cigarettes Additional smoking assessment comments: A couple cigarettes a day for a few years Alcohol intake: former Substance use: never Living arrangements: assisted living Gender identity (if verbalized by the patient): Male Spiritual care concerns: No Agree to blood products: Yes Exam Narrative: GENERAL: Well-appearing, well-nourished, and in no acute distress. HEAD: Normocephalic, atraumatic. EYES: PERRLA and EOMI. ENT: Nares clear, no rhinorrhea or epistaxis. Mucous membranes moist. NECK: Supple. CHEST: Clear to auscultation. No respiratory distress. HEART: Regular rate and rhythm. No murmur heard. Normal peripheral pulses. ABDOMEN: Soft, nontender, nondistended, normal active bowel sounds. Back: There is tenderness to palpation of the lumbar spine EXTREMITIES: Normal range of motion. No edema. SKIN: Warm, dry, no rash. NEURO: No focal deficits. Alert and oriented x3. PSYCH: Normal mood and affect. Course Vital Signs Vital signs: Vital Signs Temperature 36.1 C L 10/14/22 15:58 Pulse Rate 55 L 10/14/22 15:58 Respiratory Rate 18 10/14/22 15:58 Blood Pressure 155/60 H 10/14/22 15:58 Pulse Oximetry 100 10/14/22 15:58 Oxygen Delivery Room Air 10/14/22 15:58 Temperature 36.6 C 10/14/22 19:35 Pulse Rate 65 10/14/22 22:23 Respiratory Rate 19 10/14/22 22:23 Blood Pressure 172/79 H 10/14/22 22:23 Pulse Oximetry 100 10/14/22 22:23 Oxygen Delivery Room Air 10/14/22 15:58 Medical Decision Making MDM Narrative Medical decision making narrative: Differential diagnosis includes head i
[2022-10-15] VITALS (11 sets, daily range): BP systolic 165–186; BP diastolic 70–86; PULSE 67–82; RESP 17–27; O2SAT 94–98
--- NOTE | 2022-10-15 04:15 | PC.NURSE ---
EMS arrived to take patient back to [facility]. Notified [facility].
== END 2022-10-15 04:16 ==
PROVIDERS: Emergency Provider Emergency Medicine; PCP Family Medicine
DX: N39.0 Urinary tract infection, site not specified (principal); F03.90 Unspecified dementia, unspecified severity, without behavioral disturbance, psychotic disturbance, mood disturbance, and anxiety; E11.9 Type 2 diabetes mellitus without complications; W19.XXXA Unspecified fall, initial encounter
CPT/HCPCS: 36415; 70450; 71045; 72125; 72131; 80053; 81001; 83605; 83735; 85025; 87086; 87088; 93005; 99284

== ENCOUNTER 2023-02-08 08:34 | Emergency (ER) | payer MEDICARE, SELFPAY ==
[2023-02-08 08:43] VITALS: BP 146/60; PULSE 61; RESP 16; TEMP 36.3; O2SAT 98
--- NOTE | 2023-02-08 09:12 | ED.EXTPRO ---
HPI - Extremity Problem General Chief complaint: Extremity Problem,Nontraumatic Stated complaint: Infected Toe Time Seen by Provider: 02/08/23 09:04 Source: patient, family (Son) and RN notes reviewed Mode of arrival: ambulatory Limitations: no limitations History of Present Illness HPI Narrative: Son presents patient today from his senior living complaining of pain to the right 1st toe/toenail x1 week. States they do have a visiting mica patcher, but he has not come for a visit in some time. Related Data Home Medications Medication Instructions Recorded Confirmed donepezil 10 mg tablet 10 mg PO DAILY 01/28/23 02/08/23 risperidone 1 mg tablet 1 mg PO DIRECTED 01/28/23 02/08/23 cephalexin 250 mg capsule 250 mg PO DAILY 02/08/23 02/08/23 Allergies Allergy/AdvReac Type Severity Reaction Status Date / Time lisinopril Allergy Unknown cough Verified 02/08/23 08:51 nicardipine Allergy Unknown gynecomasti Verified 02/08/23 08:51 a Review of Systems Review of Systems: CONSTITUTIONAL: Denies body aches, fever, chills, or sweats. EYES: Denies visual changes, redness, or discharge. ENT: Denies rhinorrhea, congestion, sore throat, or otalgia. CARDIOVASCULAR: Denies chest pain, palpitations, or edema. RESPIRATORY: Denies cough or dyspnea. GASTROINTESTINAL: Denies abdominal pain, nausea, vomiting, or diarrhea. GENITOURINARY: Denies dysuria or hematuria. SKIN: Denies rash, itching, or wounds. MUSCULOSKELETAL: + right great toe pain NEUROLOGIC: Denies headache, numbness, tingling, or weakness. PSYCH: Denies depression or anxiety. 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 Diabetes mellitus Groin rash History of ischemic colitis 2005 Hx pulmonary embolism 2017 Lower extremity edema Peripheral neuropathy Venous stasis ulcer Yeast infection of the skin Surgical History Surgical History H/O hemicolectomy ischemic colitis 2005 Family History Family History Sibling Hypertension Family history of cardiovascular disease Family history of malignant neoplasm of breast Father Patient's father is , Onset Age: 72 Carcinoma of colon Malignant neoplasm of prostate Grandparent Diabetes mellitus Family history of malignant neoplasm of esophagus Mother Depression Family history of cardiovascular disease Social History Social History Smoking status: Former smoker Tobacco type: cigarettes Additional smoking assessment comments: A couple cigarettes a day for a few years Alcohol intake: former Substance use: never Lack of Transportation: No Lack of Food: Never True Current Housing: I Have Housing Concerned About Future Housing: No Difficulty Paying Gas/Electric Bills: No Difficulty Paying for Meds: No Currently Unemployed: No Education: High School Diploma/GED Difficulty w/ Childcare or Family Care: No Living arrangements: assisted living Gender identity (if verbalized by the patient): Male Spiritual care concerns: No Agree to blood products: Yes Comments At time of signature, I have reviewed and agree with nursing past medical, surgical, social and family history unless otherwise noted. Please see nursing chart for further information. There is no relevant family history pertinent to the presenting complaint Exam Narrative: GENERAL: Well-appearing, well-nourished, and in no acute distress. HEAD: Normocephalic, atraumatic. EYES: EOMI. No redness or drainage.
== END 2023-02-08 09:22 | disposition home or self-care (01) ==
PROVIDERS: Emergency Provider Nurse Practitioner; PCP Family Medicine
DX: L60.0 Ingrowing nail (principal); L03.031 Cellulitis of right toe; Z87.891 Personal history of nicotine dependence; E11.42 Type 2 diabetes mellitus with diabetic polyneuropathy; F03.90 Unspecified dementia, unspecified severity, without behavioral disturbance, psychotic disturbance, mood disturbance, and anxiety; Z86.711 Personal history of pulmonary embolism
CPT/HCPCS: 99213; G0463

== ENCOUNTER 2023-02-13 14:46 | Emergency (ER) | payer MEDICARE, SELFPAY ==
--- NOTE | ~2023-02-13 | US_ITS ---
EXAMINATION: US venous doppler [facility] DATE: 02/13/2023 23:41 INDICATION: pain, swelling, redness . TECHNIQUE: Grayscale images without and with compression and Doppler images of the left lower extremi ty veins were obtained. COMPARISON: None FINDINGS: Lower extremity swelling, redness and open lesions. Left peroneal veins not visualized confidently. T he left common femoral vein, profunda (deep) femoral vein, femoral vein, popliteal vein, posterior t ibial veins, and greater saphenous vein are patent. IMPRESSION: Peroneal veins not visualized due to lower extremity swelling and edema. Otherwise patent left lower extremity veins, without evidence of deep venous thrombosis. Reviewed, dictated and finalized at location K. T PILE HAMMER OPERATOR IMPRESSION: Peroneal veins not visualized due to lower extremity swelling and edema. Otherwise patent left lower extremity veins, without evidence of deep venous th rombosis.
--- NOTE | ~2023-02-13 | XR_ITS ---
EXAMINATION: XR foot LT min 3V DATE: 02/14/2023 01:32 INDICATION: Left foot pain and swelling. TECHNIQUE: 3 views of left foot were obtained. COMPARISON: None. FINDINGS: Bone alignment is normal. No acute fracture. There is mild osteoarthritis of first metatars ophalangeal joint and some of the interphalangeal joints and midfoot joints. There are enthesophytes at the posterior and plantar aspects of calcaneal tuberosity. IMPRESSION: 1. Mild polyarticular osteoarthritis. Reviewed, dictated and finalized at location A. T DEVELOPER AUTOMATIC
[2023-02-13 14:49] VITALS: BP 155/70; PULSE 70; RESP 20; TEMP 36.6; O2SAT 96
[2023-02-13 20:53] VITALS: BP 199/90; PULSE 64; TEMP 37.2; O2SAT 99
[2023-02-13 23:34] LABS: Basophils Percent Auto 0.3 % (0.2-1.2); Eosinophils Absolute Auto 0.1 K/mm3 (0-0.3); Eosinophils Percent Auto 1.1 % (0-4.4); Hematocrit 41.5 % (42.0-52.0); Hemoglobin 13.4 g/dL (14.0-18.0); Immature Granulocyte Absolute 0.02 K/mm3 (0.00-0.031); Immature Granulocyte Percent A 0.3 % (0-0.5); Lymphocytes Absolute Auto 1.27 K/mm3 (0.9-3.2); Lymphocytes Percent Auto 17.6 % (18.3-44.2); Mean Corpuscular HGB Conc 32.3 g/dl (32-36); Mean Corpuscular Hemoglobin 31.1 pg (26-34); Mean Corpuscular Volume 96.3 fl (80-100); Mean Platelet Volume 10.3 fl (7.4-10.4); Monocytes Absolute Auto 0.8 K/mm3 (0.1-0.6); Monocytes Percent Auto 10.7 % (2.6-8.5); Neutrophils Absolute Auto 5.1 K/mm3 (1.3-6.7); Platelet Count Result 221 k/mm3 (150-375); Red Blood Count 4.31 M/mm3 (4.6-6.20); Red Cell Distribution Width 13.3 % (11.5-14.5); White Blood Count 7.2 K/mm3 (4.5-10.0)
[2023-02-13 23:54] LABS: Alanine Aminotransferase 23 U/L (6-50); Albumin Level 3.8 g/dL (3.5-5.1); Alkaline Phosphatase 80 U/L (38-126); Anion Gap 6 mmol/L (8-16); Aspartate Amino Transferase 35 U/L (17-59); Bilirubin,Total 0.6 mg/dL (0.2-1.3); Blood Urea Nitrogen 14 mg/dL (9-20); Calcium 9.1 mg/dL (8.4-10.2); Carbon Dioxide 29 mmol/L (22-30); Chloride 102 mmol/L (98-107); Estimated CRCL calculation 58 ml/min; Estimated Glomerular Filt Rate > 60; Glucose 129 mg/dL (65-110); Potassium 4.5 mmol/L (3.4-5.0); Sodium 137 mmol/L (137-145)
[2023-02-14 00:05] LABS: NT Pro B Type Natriuretic Pept 309 pg/mL (19.9-100)
--- NOTE | 2023-02-14 00:07 | ED.EXTPRO ---
HPI - Extremity Problem General Chief complaint: Extremity Problem,Nontraumatic Stated complaint: foot swelling and pain Time Seen by Provider: 02/13/23 22:12 Source: patient, family and old records reviewed Mode of arrival: EMS Limitations: no limitations History of Present Illness HPI Narrative: Patient is an 87-year-old male who presents the ED via EMS with report of left foot infection. Patient is a resident of [facility]. Son at bedside office assistant providing information. He reports patient has been having issues with his left 1st toenail over the last week. The toenail has been growing outward and laterally and seeming to fall off. Patient was seen at an urgent care for this and prescribed Bactrim, however records show that was concerned about cellulitis in R foot. Has been taking this as prescribed, but denied improvement of redness, swelling of L foot. Presented here for further evaluation. Son reports patient went to the bathroom in the ED waiting room and when he returned, the toenail of L 1st toe had been avulsed off. Patient denies any fevers. Denies significant pain. He has been ambulatory, though is mostly sedentary at [place]. Reports some degree of chronic lower extremity edema. Denies previous history of CHF. Related Data Home Medications Medication Instructions Recorded Confirmed donepezil 10 mg tablet 10 mg PO DAILY 01/28/23 02/08/23 risperidone 1 mg tablet 1 mg PO DIRECTED 01/28/23 02/08/23 cephalexin 250 mg capsule 250 mg PO DAILY 02/08/23 02/08/23 Allergies Allergy/AdvReac Type Severity Reaction Status Date / Time lisinopril Allergy Unknown cough Verified 02/08/23 08:51 nicardipine Allergy Unknown gynecomasti Verified 02/08/23 08:51 a Review of Systems Review of Systems: CONSTITUTIONAL: Denies fever, chills, or sweats. SKIN: See HPI MUSCULOSKELETAL: See HPI. NEUROLOGIC: Denies headache, dizziness, numbness. 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 Diabetes mellitus Groin rash History of ischemic colitis 2005 Hx pulmonary embolism 2017 Lower extremity edema Peripheral neuropathy Venous stasis ulcer Yeast infection of the skin Surgical History Surgical History H/O hemicolectomy ischemic colitis 2005 Family History Family History Sibling Hypertension Family history of cardiovascular disease Family history of malignant neoplasm of breast Father Patient's father is , Onset Age: 72 Carcinoma of colon Malignant neoplasm of prostate Grandparent Diabetes mellitus Family history of malignant neoplasm of esophagus Mother Depression Family history of cardiovascular disease Social History Social History Smoking status: Former smoker Tobacco type: cigarettes Additional smoking assessment comments: A couple cigarettes a day for a few years Alcohol intake: former Substance use: never Lack of Transportation: No Lack of Food: Never True Current Housing: I Have Housing Concerned About Future Housing: No Difficulty Paying Gas/Electric Bills: No Difficulty Paying for Meds: No Currently Unemployed: No Education: High School Diploma/GED Difficulty w/ Childcare or Family Care: No Living arrangements: assisted living Gender identity (if verbalized by the patient): Male Spiritual care concerns: No Agree to blood products: Yes Exam Narrative:
[2023-02-14 00:29] VITALS: BP 168/77; PULSE 63; RESP 17; O2SAT 96
[2023-02-14 01:41] VITALS: BP 122/98; PULSE 68; RESP 17; O2SAT 98
== END 2023-02-14 03:52 ==
PROVIDERS: Emergency Provider Physician Assistant; PCP Family Medicine
DX: L03.032 Cellulitis of left toe (principal); S91.202A Unspecified open wound of left great toe with damage to nail, initial encounter; R60.0 Localized edema; F03.90 Unspecified dementia, unspecified severity, without behavioral disturbance, psychotic disturbance, mood disturbance, and anxiety; G62.9 Polyneuropathy, unspecified; Z86.711 Personal history of pulmonary embolism; Z86.010 Personal history of colon polyps; Z87.891 Personal history of nicotine dependence; Z90.49 Acquired absence of other specified parts of digestive tract; Z79.01 Long term (current) use of anticoagulants; X58.XXXA Exposure to other specified factors, initial encounter
CPT/HCPCS: 36415; 73630; 80053; 83880; 85025; 93971; 99284

== ENCOUNTER 2023-03-28 13:50 | Emergency (ER) | payer MEDICARE, SELFPAY ==
[2023-03-28] VITALS (12 sets, daily range): BP systolic 112–187; BP diastolic 47–90; PULSE 60–74; RESP 13–28; TEMP 36.3; O2SAT 96–100
--- NOTE | ~2023-03-28 | US_ITS ---
EXAMINATION: US venous doppler [facility] DATE: 03/28/2023 19:16 INDICATION: Lower limb swelling. TECHNIQUE: Grayscale ultrasound images without and with compression and Doppler ultrasound images of the bilateral lower extremity veins were obtained. COMPARISON: Ultrasound 02/13/23 FINDINGS: The visualized portions of right common femoral vein, profunda (deep) femoral vein, femoral vein, pop liteal vein, and greater saphenous vein outflow are patent. The calf veins are not well evaluated due to edema. The visualized portions of left common femoral vein, profunda femoral vein, femoral vein, popliteal v ein, and greater saphenous vein outflow are patent. The calf veins are not well evaluated due to peter a. IMPRESSION: 1. No deep venous thrombosis. Reviewed, dictated and finalized at location E. 400 CONSULTANT
--- NOTE | ~2023-03-28 | XR_ITS ---
EXAMINATION: XR chest 2V DATE: 03/28/2023 16:53 INDICATION: Lower extremity edema. TECHNIQUE: Frontal and lateral views of the chest were obtained. COMPARISON: Chest single view 10/14/2022 FINDINGS: The patient is rotated to his left. There is mild elevation of right hemidiaphragm. There i s mild atelectasis at the lung bases. No pleural effusion or pneumothorax. The heart size is normal. IMPRESSION: 1. Mild atelectasis at the lung bases. Reviewed, dictated and finalized at location E. SUPPORT SPECIALIST
--- NOTE | 2023-03-28 16:57 | ECG_ITS ---
Measurements Intervals [place] Rate: 62 P: 39 OR: 175 QRS: -53 QRSD: 110 T: 30 QT: 421 QTc: 430 Interpretive Statements SINUS RHYTHM LEFT ANTERIOR FASCICULAR BLOCK [QRS AXIS <= -45, QR IN I, RS IN II] POSSIBLE ANTERIOR MYOCARDIAL INFARCTION , OF INDETERMINATE AGE [30 ms Q WAVE IN V3/V4, OR R < 0.2 mV IN V4] ABNORMAL ECG COMPARED TO ECG 10/14/2022 21:22:42 LEFT ANTERIOR FASCICULAR BLOCK NOW PRESENT Electronically Signed On 03-29-2023 8:01:47 CIRCLE SHEAR OPERATOR by Bebeto Mckeon M.D.
[2023-03-28 17:13] LABS: Basophils Percent Auto 0.3 % (0.2-1.2); Eosinophils Absolute Auto 0.2 K/mm3 (0-0.3); Eosinophils Percent Auto 2.1 % (0-4.4); Hematocrit 38.6 % (42.0-52.0); Immature Granulocyte Absolute 0.02 K/mm3 (0.00-0.031); Immature Granulocyte Percent A 0.3 % (0-0.5); Lymphocytes Absolute Auto 2.35 K/mm3 (0.9-3.2); Lymphocytes Percent Auto 33.1 % (18.3-44.2); Mean Corpuscular HGB Conc 31.1 g/dl (32-36); Mean Corpuscular Hemoglobin 30.2 pg (26-34); Mean Corpuscular Volume 97.2 fl (80-100); Mean Platelet Volume 9.9 fl (7.4-10.4); Monocytes Absolute Auto 0.9 K/mm3 (0.1-0.6); Monocytes Percent Auto 13.1 % (2.6-8.5); Neutrophils Absolute Auto 3.6 K/mm3 (1.3-6.7); Neutrophils Percent Auto 51.1 % (45.5-73.1); Platelet Count Result 205 k/mm3 (150-375); Red Blood Count 3.97 M/mm3 (4.6-6.20); Red Cell Distribution Width 13.4 % (11.5-14.5); White Blood Count 7.1 K/mm3 (4.5-10.0)
--- NOTE | 2023-03-28 17:22 | ED.EXTPRO ---
HPI - Extremity Problem General Chief complaint: Extremity Problem,Nontraumatic Stated complaint: bilateral leg swelling Time Seen by Provider: 03/28/23 16:57 Source: patient Mode of arrival: EMS Limitations: dementia History of Present Illness HPI Narrative: Patient is an 87 y/o male, with PMH of dementia, who presents to the ED via EMS with report of BLE swelling. patient is a resident of [facility]. He is a poor historian at baseline due to dementia. Alert & oriented x1 at baseline and currently upon my evaluation. Per [place] report, patient was sent to the ED today for evaluation of lower extremity swelling that has been ongoing for the last several days. Patient noted to have redness to lower extremities as well as avulsion of 1st toenail on right foot. Per records, patient has been seen in the ED for similar sx's in the past, has had issues with toenail avulsion in the past. Patient denies any acute complaints. He c/o soreness to feet. Denies difficulty breathing. Denies chest pain. No known fevers. Related Data Home Medications Medication Instructions Recorded Confirmed donepezil 10 mg tablet 10 mg PO DAILY 01/28/23 02/19/23 risperidone 1 mg tablet 1 mg PO DIRECTED 01/28/23 02/19/23 cephalexin 250 mg capsule 250 mg PO DAILY 02/08/23 02/19/23 Allergies Allergy/AdvReac Type Severity Reaction Status Date / Time lisinopril Allergy Unknown cough Verified 02/19/23 13:38 nicardipine Allergy Unknown gynecomasti Verified 02/19/23 13:38 a cimetidine Allergy Unknown Verified 03/28/23 14:58 Review of Systems Review of Systems: CONSTITUTIONAL: Denies fever, chills, or sweats. CARDIOVASCULAR: See HPI. RESPIRATORY: See HPI GASTROINTESTINAL: Denies abdominal pain, nausea, vomiting. MUSCULOSKELETAL: See HPI. NEUROLOGIC: Denies headache, dizziness, numbness, or weakness. 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 Diabetes mellitus Groin rash History of ischemic colitis 2005 Hx pulmonary embolism 2017 Lower extremity edema Peripheral neuropathy Venous stasis ulcer Yeast infection of the skin Surgical History Surgical History H/O hemicolectomy ischemic colitis 2005 Family History Family History Sibling Hypertension Family history of cardiovascular disease Family history of malignant neoplasm of breast Father Patient's father is , Onset Age: 72 Carcinoma of colon Malignant neoplasm of prostate Grandparent Diabetes mellitus Family history of malignant neoplasm of esophagus Mother Depression Family history of cardiovascular disease Social History Social History Smoking status: Former smoker Tobacco type: cigarettes Additional smoking assessment comments: A couple cigarettes a day for a few years Alcohol intake: former Substance use: never Lack of Transportation: No Lack of Food: Never True Current Housing: I Have Housing Concerned About Future Housing: No Difficulty Paying Gas/Electric Bills: No Difficulty Paying for Meds: No Currently Unemployed: No Education: High School Diploma/GED Difficulty w/ Childcare or Family Care: No Living arrangements: assisted living Gender identity (if verbalized by the patient): Male Spiritual care concerns: No Agree to blood products: Yes Exam Narrative: GENERAL: Elderly, obese with BMI of 37.7, non-toxic, in n
[2023-03-28 17:26] LABS: Alanine Aminotransferase 20 U/L (6-50); Albumin Level 3.4 g/dL (3.5-5.1); Alkaline Phosphatase 75 U/L (38-126); Anion Gap 4 mmol/L (8-16); Aspartate Amino Transferase 36 U/L (17-59); Bilirubin,Total 0.5 mg/dL (0.2-1.3); Blood Urea Nitrogen 20 mg/dL (9-20); Calcium 8.7 mg/dL (8.4-10.2); Carbon Dioxide 29 mmol/L (22-30); Chloride 103 mmol/L (98-107); Estimated CRCL calculation 64 ml/min; Estimated Glomerular Filt Rate > 60; Glucose 145 mg/dL (65-110); Potassium 4.3 mmol/L (3.4-5.0); Sodium 136 mmol/L (137-145)
[2023-03-28 17:37] LABS: NT Pro B Type Natriuretic Pept 104 pg/mL (19.9-100)
[2023-03-28 17:38] LABS: Troponin I < 0.012 ng/mL (0.000-0.034)
--- NOTE | 2023-03-28 19:39 | PC.NURSE ---
Assume care of pt. Report from TONI Sellers. Pt resting quietly per cart in nad at this time. Son at bedside. Pt at this time is axox1, normal per son.
[2023-03-28] MEDS: DOXYCYCLINE HYCLATE 100 MG TABLET PO (22:14)
--- NOTE | 2023-03-28 22:28 | PC.NURSE ---
Attempted second time for report to [facility]. Message left with pcts for pt's acute care assistant to call to ED to receive report.
== END 2023-03-28 22:28 ==
PROVIDERS: Physician Assistant; Emergency Provider Physician Assistant; PCP Family Medicine
DX: L03.116 Cellulitis of left lower limb (principal); L03.115 Cellulitis of right lower limb; S91.201A Unspecified open wound of right great toe with damage to nail, initial encounter; F03.90 Unspecified dementia, unspecified severity, without behavioral disturbance, psychotic disturbance, mood disturbance, and anxiety; E11.42 Type 2 diabetes mellitus with diabetic polyneuropathy; Z86.010 Personal history of colon polyps; Z86.711 Personal history of pulmonary embolism; Z87.891 Personal history of nicotine dependence; Z90.49 Acquired absence of other specified parts of digestive tract; Z79.01 Long term (current) use of anticoagulants; I44.4 Left anterior fascicular block; R94.31 Abnormal electrocardiogram [ECG] [EKG]; X58.XXXA Exposure to other specified factors, initial encounter
CPT/HCPCS: 36415; 71046; 80053; 83880; 84484; 85025; 93005; 93970; 99284; A9270

== ENCOUNTER 2023-05-13 10:02 | Outpatient (CLI) | payer MEDICARE, SELFPAY ==
--- NOTE | ~2023-05-13 | US_ITS ---
US pelvic limited 05/13/2023 10:36 Indication: Urinary incontinence Procedure: High-resolution ultrasound pelvis using transabdominal technique. Comparison: No prior studies for comparison. Findings: Bladder wall is unremarkable. Prevoid volume is 10 6 cc. Postvoid volume is 55 cc. No abnor mal pelvic masses are identified. Impression: 1: Small post void residual measures 55 cc. Reviewed, dictated and finalized at location L. Impression: 1: Small post void residual measures 55 cc.
== END 2023-05-13 10:03 ==
LOC: MICIMG 10:03
PROVIDERS: PCP Family Medicine; Visit Provider Family Medicine
DX: R32 Unspecified urinary incontinence (principal)
CPT/HCPCS: 76857

== ENCOUNTER 2023-05-19 09:23 | Inpatient (IN) | payer MEDICARE, SELFPAY ==
[2023-05-19] VITALS (11 sets, daily range): BP systolic 130–182; BP diastolic 59–99; PULSE 59–92; RESP 13–32; TEMP 36.3–37.2; O2SAT 93–100; BMI 36.5
--- NOTE | ~2023-05-19 | US_ITS ---
EXAMINATION: US venous doppler LE RT DATE: 05/19/2023 15:28 INDICATION: swelling . TECHNIQUE: Grayscale images without and with compression and Doppler images of the right lower extrem ity veins were obtained. COMPARISON: 03/28/2023 FINDINGS: The right common femoral vein, profunda (deep) femoral vein, femoral vein, popliteal vein, gastrocnem ius vein, and greater saphenous vein are patent. IMPRESSION: The posterior tibial and peroneal veins could not be visualized due to swelling/edema. Otherwise, pat ent right lower extremity veins, with evidence of deep venous thrombosis. Reviewed, dictated and finalized at location [facility]. IMPRESSION: The posterior tibial and peroneal veins could not be visualized due to swelling /edema. Otherwise, patent right lower extremity veins, with evidence of deep ve nous thrombosis.
--- NOTE | ~2023-05-19 | MR_ITS ---
MRI of the right foot CLINICAL HISTORY: Cellulitis, osteomyelitis TECHNIQUE: Sagittal T1-weighted, STIR, T2 fat-sat images, coronal T1-weighted and T2 fat-sat images, and axial T1-weighted and T2 fat-sat images were performed. Following intravenous administration of 2 0 cc MultiHance gadolinium, T1-weighted fat-sat imaging was performed in the axial, coronal, and sagi ttal planes. FINDINGS: Bone marrow signals throughout the foot are preserved. No fracture or bone marrow edema. No hypointense T1 marrow signal to suggest osteoarthritis. There are scattered minimal degenerative myra nges at the interphalangeal joints of the toes. Remaining joint spaces are well preserved. No signifi cant joint effusion seen. Flexor and extensor tendons appear intact. There is mild edematous change of the intrinsic plantar mu sculature of the foot. There is dorsal subcutaneous soft tissue edema of the foot. No mass lesion or fluid collection seen. No suspicious postcontrast enhancement identified. IMPRESSION: No evidence for osteomyelitis or abscess. Mild soft tissue edema at the dorsal aspect of the foot, nonspecific. Correlate for cellulitis. Nonspecific myositis the plantar musculature of the foot. Reviewed, dictated and finalized at [facility].
--- NOTE | ~2023-05-19 | XR_ITS ---
Right foot Technique: AP, oblique, and lateral views were obtained. Clinical History: Erythema Findings: No acute fracture or dislocation is seen. Generalized osteopenia noted. Joint spaces are pr eserved without erosive or degenerative change. Soft tissues are unremarkable. Impression: No acute abnormality identified. Reviewed, dictated and finalized at [facility]. Impression: No acute abnormality identified.
--- NOTE | ~2023-05-19 | XR_ITS ---
XR chest 1V portable 05/20/2023 08:56 Indication: Shortness of breath Procedure: AP portable chest Comparison: No prior studies for comparison. Findings: No focal air space disease, pulmonary edema, pleural effusion or suspected pneumothorax. Le ft basilar atelectasis. Heart size normal. Impression: 1: Left basilar atelectasis. Reviewed, dictated and finalized at location B. Impression: 1: Left basilar atelectasis.
--- NOTE | 2023-05-19 12:20 | ED.LOWEXIN ---
HPI - Extremity Injury (Lower) General Chief Complaint: Extremity Injury, Lower Stated Complaint: bilateral leg swelling Time Seen by Provider: 05/19/23 11:57 Source: patient and family ( Son) Limitations: dementia History of Present Illness HPI Narrative: 87-year-old male presents with bilateral leg swelling though in particular right foot pain, swelling, erythema, and weeping. he does have a history of congestive heart failure for which he is on a diuretic. Denies shortness of breath or chest pain. patient had been seen for Similar previous last month and was diagnosed with bilateral lower extremity cellulitis; completed antibiotics. Related Data Home Medications Medication Instructions Recorded Confirmed donepezil 10 mg tablet 5 mg PO HS 01/28/23 05/19/23 risperidone 1 mg tablet 1 mg PO HS 01/28/23 05/19/23 cephalexin 250 mg capsule 250 mg PO DAILY 02/08/23 05/19/23 apixaban 2.5 mg tablet (Eliquis) 2.5 mg PO BID 05/19/23 05/19/23 atenolol 25 mg tablet 25 mg PO DAILY 05/19/23 05/19/23 finasteride 5 mg tablet 5 mg PO DAILY 05/19/23 05/19/23 gabapentin 300 mg capsule 300 mg PO QID 05/19/23 05/19/23 simvastatin 40 mg tablet 40 mg PO DAILY 05/19/23 05/19/23 Allergies Allergy/AdvReac Type Severity Reaction Status Date / Time lisinopril Allergy Unknown cough Verified 05/19/23 11:19 nicardipine Allergy Unknown gynecomasti Verified 05/19/23 11:19 a cimetidine Allergy Unknown Verified 05/19/23 11:19 [facility] Past Medical History Medical History Cellulitis of left lower extremity Cellulitis of right lower extremity Colon polyps Dementia 8.31.22 mmse 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 Diabetes mellitus Groin rash History of ischemic colitis 2005 Hx pulmonary embolism 2017 Lower extremity edema Peripheral neuropathy Venous stasis ulcer Yeast infection of the skin Surgical History Surgical History H/O hemicolectomy ischemic colitis 2005 Family History Family History Sibling Hypertension Family history of cardiovascular disease Family history of malignant neoplasm of breast Father Patient's father is , Onset Age: 72 Carcinoma of colon Malignant neoplasm of prostate Grandparent Diabetes mellitus Family history of malignant neoplasm of esophagus Mother Depression Family history of cardiovascular disease Social History Social History (Updated 05/19/23 @ 12:32 by Pooja Obando MD) Smoking status: Former smoker Tobacco type: cigarettes Additional smoking assessment comments: A couple cigarettes a day for a few years Alcohol intake: never Substance use: never Lack of Transportation: No Lack of Food: Never True Current Housing: I Have Housing Concerned About Future Housing: No Difficulty Paying Gas/Electric Bills: No Difficulty Paying for Meds: No Currently Unemployed: No Education: High School Diploma/GED Difficulty w/ Childcare or Family Care: No Living arrangements: intermediate Additional living arrangements comments: Cady NEGRON Gender identity (if verbalized by the patient): Male Spiritual care concerns: No Agree to blood products: Yes Exam Narrative: GENERAL: Well-appearing, well-nourished, and in no acute distress. HEAD: Normocephalic, atraumatic. EYES: Non injected, non icteric ENT: Nares clear, no rhinorrhea or epistaxis. NECK: Supple. CHEST: No respiratory distress. HEART: Regular rate and rhythm. . ABDOMEN: Soft, nondistended. EXTREMITIES: 3+ pitting edema in bilateral lower extremities with venous stasis changes. right foot with significant pedal edema as well as erythema and warmth. SKIN: Warm, dry. Multiple small fluid filled
[2023-05-19 12:50] LABS: Basophils Percent Auto 0.2 % (0.2-1.2); Eosinophils Absolute Auto 0.1 K/mm3 (0-0.3); Eosinophils Percent Auto 1.5 % (0-4.4); Hematocrit 41.5 % (42.0-52.0); Immature Granulocyte Absolute 0.03 K/mm3 (0.00-0.031); Immature Granulocyte Percent A 0.3 % (0-0.5); Lymphocytes Absolute Auto 2.23 K/mm3 (0.9-3.2); Mean Corpuscular HGB Conc 31.3 g/dl (32-36); Mean Corpuscular Hemoglobin 30.2 pg (26-34); Mean Corpuscular Volume 96.3 fl (80-100); Mean Platelet Volume 9.8 fl (7.4-10.4); Monocytes Absolute Auto 0.8 K/mm3 (0.1-0.6); Monocytes Percent Auto 8.8 % (2.6-8.5); Neutrophils Absolute Auto 5.7 K/mm3 (1.3-6.7); Neutrophils Percent Auto 64.2 % (45.5-73.1); Platelet Count Result 220 k/mm3 (150-375); Red Blood Count 4.31 M/mm3 (4.6-6.20); Red Cell Distribution Width 13.8 % (11.5-14.5); White Blood Count 8.9 K/mm3 (4.5-10.0)
[2023-05-19 12:58] LABS: Lactic Acid Reflex 1.8 mmol/L (0.7-2.0)
[2023-05-19 13:01] LABS: Alanine Aminotransferase 22 U/L (6-50); Alkaline Phosphatase 97 U/L (38-126); Anion Gap 5 mmol/L (4-12); Aspartate Amino Transferase 35 U/L (17-59); Bilirubin,Total 0.4 mg/dL (0.2-1.3); Blood Urea Nitrogen 19 mg/dL (9-20); CRP < 0.5 mg/dL (<1.0); Calcium 9.3 mg/dL (8.4-10.2); Carbon Dioxide 33 mmol/L (22-30); Chloride 101 mmol/L (98-107); Estimated Glomerular Filt Rate > 60; Glucose 134 mg/dL (65-110); Potassium 3.7 mmol/L (3.4-5.0); Sodium 139 mmol/L (137-145)
[2023-05-19 13:37] LABS: Erythrocyte Sedimentation Rate 84 mm/hr (0-20)
[2023-05-19 16:24] LABS: Appearance Urine Cloudy (Clear); Color Urine Yellow (Yellow)
[2023-05-19 16:26] LABS: Glucose Urine UA Negative (Negative); Ketones Urine Negative (Negative); Protein Urine Negative (Negative); Specific Grav Ur 1.015 (1.001-1.035); pH Urine 8.5 (5.0-9.0)
[2023-05-19 16:27] LABS: Add Urine Microscopic? YES; Bilirubin Urine 1+ (Negative); Blood Urine Negative (Negative); Leukocyte Esterase Ur 1+ LEU/UL (Negative); Nitrate Urine Negative (Negative); Urobilinogen Urine 0.2 mg/dL (<2.0)
[2023-05-19 16:28] LABS: RBC Urine 0-2 /hpf (0-2)
[2023-05-19 16:29] LABS: Bacteria Urine 1+ /hpf; Squamous Epithelial Cell Urine Few /hpf (Few)
[2023-05-19] MEDS: VANCOMYCIN 1,500 MG/NS 500 ML 1,500 MG/500 ML BAG 250 MG IVPB (18:33)
--- NOTE | 2023-05-19 19:17 | PC.NURSE ---
Report given to Betsy MUÑOZ, all questions answered
--- NOTE | 2023-05-19 22:04 | ADMGEN ---
This patient, Luke Damico, was admitted to 3 [facility] Surg Room 322-01. Patient/family oriented to hospital policies and general routines including ID bracelet, bed and alarms, visiting hours, pain management, procedures, bathroom and other care routines, personal items, smoking policy, room service/diet, and visiting hours. Information on how to activate the Rapid Response Team has been discussed. Patient/Family are encouraged to report perceived risks to care and to ask questions if they do not understand what they are told or what they should do.
[2023-05-20 05:46] VITALS: BP 161/72; PULSE 69; RESP 20; TEMP 36.4; O2SAT 96
[2023-05-20 07:09] LABS: Hematocrit 37.1 % (42.0-52.0); Hemoglobin 11.8 g/dL (14.0-18.0); Mean Corpuscular HGB Conc 31.8 g/dl (32-36); Mean Corpuscular Hemoglobin 30.6 pg (26-34); Mean Corpuscular Volume 96.4 fl (80-100); Mean Platelet Volume 10.4 fl (7.4-10.4); Platelet Count Result 192 k/mm3 (150-375); Red Blood Count 3.85 M/mm3 (4.6-6.20); White Blood Count 7.9 K/mm3 (4.5-10.0)
[2023-05-20 07:14] LABS: Anion Gap 3 mmol/L (4-12); Blood Urea Nitrogen 16 mg/dL (9-20); Calcium 8.8 mg/dL (8.4-10.2); Carbon Dioxide 29 mmol/L (22-30); Chloride 107 mmol/L (98-107); Estimated CRCL calculation 75 ml/min; Estimated Glomerular Filt Rate > 60; Glucose 130 mg/dL (65-110); Potassium 3.7 mmol/L (3.4-5.0); Sodium 139 mmol/L (137-145)
--- NOTE | 2023-05-20 07:15 | PM.IMHP ---
H&P: HPI History of Present Illness Date/Time: 05/20/23 05:30 Chief Complaint: Worsening leg swelling Narrative: 87-year-old male with a past medical history of CHF, borderline diabetes, dementia, BPH, heart failure and chronic lymphedema who presented to the ER via private vehicle where his probably his family members due to increased leg swelling and right foot pain. Patient has had a history of recurrent infections of his lower extremities with his last admission be for left lower extremity cellulitis in 2019. Patient had decreased leg swelling right greater than left. The family had noted erythema and weeping the right lower extremity notably to the right foot and dorsum of the foot. Patient denied having any increased shortness of breath from baseline or chest pain. He was evaluated in February and was diagnosed with bilateral lower extremity cellulitis and completed a course of Keflex. He was evaluated again on the 11 May and given a course of Keflex which he completed as well. He denies any fevers or chills. He had a venous Doppler performed in the ER of the right lower extremity that was negative hand x-ray of the right foot which demonstrated no acute process. He received 1 dose of Ancef in the ER. Source of information is ER records and past medical records. The patient is only alert and oriented to person and the fact that he is at [facility]. He is confused as to the month in year and could not provide the name of the manager agency. He denied any leg pain and did not recall exactly why he was brought to the hospital. 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 Diabetes mellitus Groin rash History of ischemic colitis 2005 Hx pulmonary embolism 2017 Lower extremity edema Peripheral neuropathy Venous stasis ulcer Yeast infection of the skin Surgical History Surgical History H/O hemicolectomy ischemic colitis 2005 Family History Family History Sibling Hypertension Family history of cardiovascular disease Family history of malignant neoplasm of breast Father Patient's father is , Onset Age: 72 Carcinoma of colon Malignant neoplasm of prostate Grandparent Diabetes mellitus Family history of malignant neoplasm of esophagus Mother Depression Family history of cardiovascular disease Social History Social History (Updated 05/20/23 @ 07:52 by Rima Palma DO) Social History: Code status: DNR/DNI Healthcare power of senior attorney: Karen Smoking status: Former smoker Tobacco type: cigarettes Additional smoking assessment comments: A couple cigarettes a day for a few years Alcohol intake: never Substance use: never Lack of Transportation: No Lack of Food: Never True Current Housing: I Have Housing Concerned About Future Housing: No Difficulty Paying Gas/Electric Bills: No Difficulty Paying for Meds: No Currently Unemployed: No Education: High School Diploma/GED Difficulty w/ Childcare or Family Care: No Living arrangements: [facility] Additional living arrangements comments: Cady NEGRON Gender identity (if verbalized by the patient): Male Spiritual care concerns: No Agree to blood products: Yes Meds Home Medications and Allergies Home Medications Medication Instructions Recorded Confirmed Type ferrous sulfate 325 mg (65 mg 325 mg PO BID #60 tabs 04/24/20 05/19/23 Rx iron) table
[2023-05-20 08:07] LABS: NT Pro B Type Natriuretic Pept 662 pg/mL (19.9-100)
[2023-05-20 08:26] VITALS: O2SAT 95
[2023-05-20] MEDS: FUROSEMIDE INJ 40 MG/4 ML VIAL IV PUSH ×2 (09:00→18:00)
[2023-05-20] MEDS: FINASTERIDE 5 MG TABLET PO (09:00)
[2023-05-20] MEDS: atenoloL 25 MG TABLET PO (09:00)
[2023-05-20] MEDS: APIXABAN 2.5 MG TABLET PO ×2 (09:00→20:08)
[2023-05-20] MEDS: FERROUS SULFATE 325 MG TABLET DR BY MOUTH ×2 (09:00→18:00)
[2023-05-20] MEDS: GABAPENTIN 300 MG CAPSULE PO ×2 (09:00→14:03)
[2023-05-20] MEDS: SIMVASTATIN 20 MG TABLET 40 MG PO (09:00)
[2023-05-20] MEDS: DULoxetine HCL 30 MG CAPSULE.DR PO (09:01)
[2023-05-20] MEDS: PIPERACILLN/TAZ 3.375GM/NS50ML 3.375 GM/50 ML BAG IVPB ×4 (09:01→23:06)
--- NOTE | 2023-05-20 09:48 | PM.IMPN ---
Progress Note: A&P Assessment and Plan (1) Cellulitis of foot, right: Code(s): L03.115 - Cellulitis of right lower limb Status: Acute Assessment and Plan: Failed outpatient Keflex x2, IV Zosyn and vancomycin in place. MRI ordered to assess for osteomyelitis. (2) Cellulitis of toe of right foot: Code(s): L03.031 - Cellulitis of right toe Status: Acute Assessment and Plan: Failed outpatient Keflex x2, IV Zosyn and vancomycin in place. MRI ordered to assess for osteomyelitis. (3) Type 2 diabetes mellitus with diabetic neuropathy, unspecified: Qualifiers: Diabetes mellitus supervisor intermediates insulin use: without prison use Qualified Code(s): E11.40 - Type 2 diabetes mellitus with diabetic neuropathy, unspecified Code(s): E11.40 - Type 2 diabetes mellitus with diabetic neuropathy, unspecified Status: Acute Assessment and Plan: Fingerstick glucose ACHS with sliding scale insulin (4) [facility] (current) use of anticoagulants: Code(s): Z79.01 - [facility] (current) use of anticoagulants Status: Acute Assessment and Plan: Continue Eliquis (5) Venous stasis dermatitis: Code(s): I87.2 - Venous insufficiency (chronic) (peripheral) Status: Acute Assessment and Plan: Noted (6) Dementia: Qualifiers: Dementia type: Alzheimer's Alzheimer's disease onset: unspecified onset Dementia behavioral disturbance: without behavioral disturbance Qualified Code(s): G30.9 - Alzheimer's disease, unspecified; F02.80 - Dementia in other diseases classified elsewhere without behavioral disturbance Code(s): F03.90 - Unspecified dementia, unspecified severity, without behavioral disturbance, psychotic disturbance, mood disturbance, and anxiety Status: Acute Assessment and Plan: Chronic, worsened by being hospitalized. Time Spent With Patient Time with patient: 25 - 35 minutes Subjective Date/time seen: 05/20/23 09:48 Interval history: This is an 87-year-old male patient admitted to the hospital for recurrent right foot cellulitis. Patient has failed outpatient antibiotics with Keflex 2 separate rounds. Initiated vancomycin on admission. Will obtain MRI to assess for osteomyelitis. Discussed with patient's son who is POA and the son notes that patient has significant dementia which explains his confusion. Vital signs stable. Review of Systems Review of Systems: All systems reviewed & are unremarkable except as noted in HPI and below Exam Narrative: Weight 114.8 kg BMI 36.3 Const: Other: No acute distress, elderly, obese HENMT: Other: Mucous membranes are tacky, upper dentures in place, poor dentition in lower jaw, crowded posterior oropharynx Eyes: Other: No scleral icterus, pupils are equal and reactive Neck: Other: Large neck circumference, nontender, no JVD Resp: Other: Decreased breath sounds bilaterally, no increased work of breathing Cardio: Other: Regular rate, 2+ palpable pulses bilateral upper extremities difficult to palpate lower atrial pulses due to edema GI: Other: Obese, nontender, lower abdominal scar noted : Other: Incontinent of urine Skin: Other: Chronic venous stasis changes of bilateral lower extremities almost circumferential in the calves skin is pink slightly erythematous but equal and warmth, however patient has significant increased warmth of the dorsum of the right foot with a small ulcer to the top of the 3rd toe with a small amount clear drainage, there is some yellow-colored vesicles on the left upper calf laterally at the top of the the patient has venous stasis changes although there is no increased warmth around the area to suggest infection Neuro: Other: Patient is alert oriented only to person, speech is clear, no facial asymmetry, is moving extremities equally, confused as to month in year and why he wa
[2023-05-20 13:54] VITALS: BP 132/57; PULSE 57; RESP 18; TEMP 36.9; O2SAT 97
[2023-05-20] MEDS: VANCOMYCIN 1,500 MG/NS 500 ML 1,500 MG/500 ML BAG 250 MG IVPB (14:39)
[2023-05-20] MEDS: GABAPENTIN 300 MG CAPSULE 600 MG PO (20:08)
[2023-05-20] MEDS: DONEPEZIL HCL 5 MG TABLET PO (20:08)
[2023-05-20] MEDS: risperiDONE 1 MG TABLET PO (20:08)
[2023-05-20 21:10] VITALS: BP 141/68; PULSE 58; RESP 20; TEMP 36.6; O2SAT 94
[2023-05-21] VITALS (11 sets, daily range): BP systolic 141–169; BP diastolic 51–73; PULSE 60–71; RESP 16–20; TEMP 36.1–36.7; O2SAT 94–100
--- NOTE | 2023-05-21 04:52 | PC.NURSE ---
Attempt to insert barrientos catheter for urinary retention. 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 Note clear yellow urine from meatus in small amts. Area cleansed with betadine, and attempt per this RN to place #10F barrientos without success. #8F barrientos then attempted, also unsuccessful. RN Francis notifying RAMÓN Araujo.
[2023-05-21] MEDS: PIPERACILLN/TAZ 3.375GM/NS50ML 3.375 GM/50 ML BAG IVPB (05:12)
[2023-05-21] MEDS: VANCOMYCIN 1,500 MG/NS 500 ML 1,500 MG/500 ML BAG 250 MG IVPB (06:09)
--- NOTE | 2023-05-21 06:56 | PC.NURSE ---
It was noticed that pt was just persistently dribbling urine and pt complained of severe pain when urinating. It was also noticed that when pt urinates along with his severe pain his penis will swell up while he tries to be but he does not get a stream of urine, only dribbles. A bladder scan showed 360cc, Gayle Leal notified. She ordered a 1x straight cath to be done. Pt was unable to be cath'd due to urethra opening being too small. Unable to insert the catheter and the smallest catheter available also would not fit. Gayle came to assess the pt and decided on a Urology consult and to continue with bladder scans.
[2023-05-21 07:05] LABS: Basophils Percent Auto 0.5 % (0.2-1.2); Eosinophils Absolute Auto 0.3 K/mm3 (0-0.3); Eosinophils Percent Auto 3.7 % (0-4.4); Hematocrit 37.8 % (42.0-52.0); Immature Granulocyte Absolute 0.02 K/mm3 (0.00-0.031); Immature Granulocyte Percent A 0.3 % (0-0.5); Lymphocytes Absolute Auto 1.94 K/mm3 (0.9-3.2); Lymphocytes Percent Auto 24.7 % (18.3-44.2); Mean Corpuscular HGB Conc 31.7 g/dl (32-36); Mean Corpuscular Hemoglobin 30.4 pg (26-34); Mean Corpuscular Volume 95.7 fl (80-100); Mean Platelet Volume 10.2 fl (7.4-10.4); Monocytes Percent Auto 12.8 % (2.6-8.5); Neutrophils Absolute Auto 4.6 K/mm3 (1.3-6.7); Platelet Count Result 184 k/mm3 (150-375); Red Blood Count 3.95 M/mm3 (4.6-6.20); White Blood Count 7.9 K/mm3 (4.5-10.0)
[2023-05-21 07:14] LABS: Alanine Aminotransferase 22 U/L (6-50); Albumin Level 3.4 g/dL (3.5-5.1); Alkaline Phosphatase 75 U/L (38-126); Anion Gap 6 mmol/L (4-12); Aspartate Amino Transferase 40 U/L (17-59); Bilirubin,Total 0.9 mg/dL (0.2-1.3); Blood Urea Nitrogen 19 mg/dL (9-20); Calcium 8.6 mg/dL (8.4-10.2); Carbon Dioxide 31 mmol/L (22-30); Chloride 102 mmol/L (98-107); Estimated CRCL calculation 59 ml/min; Estimated Glomerular Filt Rate > 60; Glucose 122 mg/dL (65-110); Magnesium 1.9 mg/dL (1.6-2.3); Potassium 3.2 mmol/L (3.4-5.0); Sodium 139 mmol/L (137-145)
--- NOTE | 2023-05-21 09:00 | PM.IMPN ---
Progress Note: A&P Assessment and Plan (1) Cellulitis of foot, right: Code(s): L03.115 - Cellulitis of right lower limb Status: Acute Assessment and Plan: Failed outpatient Keflex x2, IV Zosyn and vancomycin in place. MRI ordered to assess for osteomyelitis. 4/3: Stopping Zosyn and placed on Rocephin Showing improvement in redness Expect to change to oral agents tomorrow MRI negative for osteomyelitis (2) Cellulitis of toe of right foot: Code(s): L03.031 - Cellulitis of right toe Status: Acute Assessment and Plan: see # 1 (3) Type 2 diabetes mellitus with diabetic neuropathy, unspecified: Qualifiers: Diabetes mellitus custodial insulin use: without terminal gauger use Qualified Code(s): E11.40 - Type 2 diabetes mellitus with diabetic neuropathy, unspecified Code(s): E11.40 - Type 2 diabetes mellitus with diabetic neuropathy, unspecified Status: Acute Assessment and Plan: Fingerstick glucose ACHS with sliding scale insulin 4/3: Blood glucose ranging 122-140 (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: Code(s): 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 Status: Acute Assessment and Plan: Continue Eliquis (5) Venous stasis dermatitis: Code(s): I87.2 - Venous insufficiency (chronic) (peripheral) Status: Acute Assessment and Plan: Noted (6) Dementia: Qualifiers: Alzheimer's disease onset: unspecified onset Dementia behavioral disturbance: without behavioral disturbance Dementia type: Alzheimer's Qualified Code(s): G30.9 - Alzheimer's disease, unspecified; F02.80 - Dementia in other diseases classified elsewhere without behavioral disturbance Code(s): F03.90 - Unspecified dementia, unspecified severity, without behavioral disturbance, psychotic disturbance, mood disturbance, and anxiety Status: Acute Assessment and Plan: Chronic, worsened by being hospitalized. (7) Urinary retention: Code(s): R33.9 - Retention of urine, unspecified Status: Acute Assessment and Plan: Post void residual 350 ml with overflow unsuccessful placement of barrientos catheter urology was consulted see below (8) Acquired phimosis of penis: Code(s): N47.1 - Phimosis Status: Acute Assessment and Plan: Urology was unable to place barrientos 4/3: Taken to the OR for dorsal slit circumcision and barrientos catheter insertion Plan Feeding:regular diet Analgesia:tylenol Thromboembolic prophylaxis: Ulcer prophylaxis: Glycemic control: Bowel regimen: Lines: Antibiotics: Disposition: Subjective Date/time seen: 05/21/23 09:00 Interval history: HPI obtained from the chart, 87-year-old male with a past medical history of CHF, borderline diabetes, dementia, BPH, heart failure and chronic lymphedema who presented to the ER via private vehicle where his probably his family members due to increased leg swelling and right foot pain.? Patient has had a history of recurrent infections of his lower extremities with his last admission be for left lower extremity cellulitis in 2019.? Patient had decreased leg swelling right greater than left.? The family had noted erythema and weeping the right lower extremity notably to the right foot and dorsum of the foot.? Patient denied having any increased shortness of breath from baseline or chest pain.? He was evaluated in February and was diagnosed with bilateral lower extremity cellulitis and completed a course of Keflex.? He was evaluated again on the 11 May and given a course of Keflex which he completed as well.? He denies any fevers or chills.? He had a venous Doppler performed in the ER of the right lower extremity that was negative hand x-ray of the right foot which demonstrated no acute process.? He received 1 dose of Ancef in the ER. Interval history: 05/20: Patient is seen sitting in chair. He is alert and
[2023-05-21] MEDS: cefTRIAXone 2 GM/NS 100 ML 2 GM/100 ML BAG IVPB (10:42)
--- NOTE | 2023-05-21 10:44 | WPDURCON ---
Assessment and Plan Assessment and plan (1) Acquired phimosis of penis: Code(s): N47.1 - Phimosis Status: Acute Assessment and Plan: Will proceed to OR this afternoon for dorsal slit circumcision and barrientos catheter placement with Dr. Vences. Discussed details of procedure, risks, benefits with patient and POA. Continue NPO diet (2) Urinary retention: Code(s): R33.9 - Retention of urine, unspecified Status: Acute Assessment and Plan: Noted to have overflow incontinence and PVR >350 cc. Secondary to above. Proceed to OR as above. Urology Consult Note HPI Date Seen: 05/21/23 Requesting Physician: Tobin Thomas MD Primary Care Provider: Fany Mcgraw MD Consult Narrative Narrative: Luke Damico is a 87 year old male with a history of BPH on finasteride, recurrent UTIs followed by Dr. Silverio (recently started on daily suppressive Keflex), and prior PE on Eliquis who is being seen in consultation for urinary retention. He is a poor historian and not able to provide much reliable history. He was noted to have persistent urinary leakage. A bladder scan was completed with 360 cc. Attempts at barrientos catheterization by nursing staff were unsuccessful. At the time of my evaluation, the patient denies suprapubic pain or pressure. He has no urge to void. His vital signs are stable. His WBC is within normal limits at 7.9. Creatinine normal at 1.0. Urine culutre collected on 05/19/23 was negative. On examination, he is noted to have phimosis. He did not tolerate attempts to reduce phimosis at the bedside, therefore will proceed to OR this afternoon for dorsal slit circumcision and barrientos catheter placement. Dr. Vences discussed details of procedure with patient and he was agreeable. At the patients request, I spoke with the patient's son/POA via phone who is also agreeable to proceed. All questions answered. 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 Diabetes mellitus Groin rash History of ischemic colitis 2005 Hx pulmonary embolism 2017 Lower extremity edema Peripheral neuropathy Venous stasis ulcer Yeast infection of the skin Surgical History Surgical History H/O hemicolectomy ischemic colitis 2005 Family History Family History Sibling Hypertension Family history of cardiovascular disease Family history of malignant neoplasm of breast Father Patient's father is , Onset Age: 72 Carcinoma of colon Malignant neoplasm of prostate Grandparent Diabetes mellitus Family history of malignant neoplasm of esophagus Mother Depression Family history of cardiovascular disease Social History Social History (Updated 05/20/23 @ 07:52 by Rima Palma DO) Social History: Code status: DNR/DNI Healthcare power of family law attorney: Karen Smoking status: Former smoker Tobacco type: cigarettes Additional smoking assessment comments: A couple cigarettes a day for a few years Alcohol intake: never Substance use: never Lack of Transportation: No Lack of Food: Never True Current Housing: I Have Housing Concerned About Future Housing: No Difficulty Paying Gas/Electric Bills: No Difficulty Paying for Meds: No Currently Unemployed: No Education: High School Diploma/GED Difficulty w/ Childcare or Family Care: No Living arrangements: longterm Additional living arrangements comments: Cady NEGRON Gender identity (if ve
--- NOTE | 2023-05-21 12:49 | WPDHPUPDATE1 ---
History and Physical Update Update Date/Time: 05/21/23 12:49 History and Physical has been reviewed, including an updated exam of the patient. There are NO changes in the patient's condition. Risks, benefits, and alternatives have been discussed and questions answered. Patient agrees to proceed with procedure.
--- NOTE | 2023-05-21 14:15 | WPDANESEPPF ---
Anes - Initial Pre Proc Eval Procedure: Operation Date: 05/21/23 14:30 Proposed Procedures p Dorsal Slit Circumcision, - Tequila Vences MD s Cystoscopy with Howard Catheter Placement - Tequila Vences MD Date/Time: 05/21/23 14:15 Surgeon: Tobin Thomas MD Pre Op Diagnosis: Cellulitis (failed outpatient therapy) + UTI Patient Data Age: 87 Gender: M Height: 1.78 m Weight: 110.5 kg Last Vital Signs Temp 98.1 F 05/21/23 06:00 Pulse 60 05/21/23 06:00 Resp 20 05/21/23 06:00 BP 168/73 H 05/21/23 06:00 Pulse Ox 94 05/21/23 06:00 O2 Del Method Room Air 05/21/23 12:17 Allergies Allergy/AdvReac Type Severity Reaction Status Date / Time lisinopril Allergy Unknown cough Verified 05/19/23 11:19 nicardipine Allergy Unknown gynecomasti Verified 05/19/23 11:19 a cimetidine Allergy Unknown Verified 05/19/23 11:19 Home Medications Medication Instructions Recorded Confirmed Type ferrous sulfate 325 mg (65 mg 325 mg PO BID #60 tabs 04/24/20 05/19/23 Rx iron) tablet duloxetine 30 mg capsule,delayed 30 mg PO DAILY #90 caps 05/23/20 05/19/23 Rx release donepezil 10 mg tablet 5 mg PO HS 01/28/23 05/19/23 History risperidone 1 mg tablet 1 mg PO HS 01/28/23 05/19/23 History cephalexin 250 mg capsule 250 mg PO DAILY 02/08/23 05/19/23 History Diabetic shoes #1 ea 02/19/23 05/19/23 Rx furosemide 40 mg tablet 40 mg PO QAM #30 tabs 04/02/23 05/19/23 Rx apixaban 2.5 mg tablet (Eliquis) 2.5 mg PO BID 05/19/23 05/19/23 History atenolol 25 mg tablet 25 mg PO DAILY 05/19/23 05/19/23 History finasteride 5 mg tablet 5 mg PO DAILY 05/19/23 05/19/23 History gabapentin 300 mg capsule 300 mg PO QID 05/19/23 05/19/23 History simvastatin 40 mg tablet 40 mg PO DAILY 05/19/23 05/19/23 History Laboratory Tests 05/21/23 06:42 WBC 7.9 K/mm3 (4.5-10.0) RBC 3.95 L M/mm3 (4.6-6.20) Hgb 12.0 L g/dL (14.0-18.0) Hct 37.8 L % (42.0-52.0) MCV 95.7 fl (80-100) MCH 30.4 pg (26-34) MCHC 31.7 L g/dl (32-36) RDW 14.0 % (11.5-14.5) Plt Count 184 k/mm3 (150-375) MPV 10.2 fl (7.4-10.4) Immature Gran % (Auto) 0.3 % (0-0.5) Neut % (Auto) 58.0 % (45.5-73.1) Lymph % (Auto) 24.7 % (18.3-44.2) [place] % (Auto) 12.8 H % (2.6-8.5) Eos % (Auto) 3.7 % (0-4.4) Baso % (Auto) 0.5 % (0.2-1.2) Lymph # (Auto) 1.94 K/mm3 (0.9-3.2) [place] # (Auto) 1.0 H K/mm3 (0.1-0.6) Eos # (Auto) 0.3 K/mm3 (0-0.3) Baso # (Auto) 0.0 K/mm3 (0.0-0.1) Abs Immat Gran (auto) 0.02 K/mm3 (0.00-0.031) Absolute Neuts (auto) 4.6 K/mm3 (1.3-6.7) Absolute Nucleated RBC 0.000 K/mm3 (0.0-0.012) Nucleated RBC % 0.0 % (0.0-0.2) Sodium 139 mmol/L (137-145) Potassium 3.2 L mmol/L (3.4-5.0) Chloride 102 mmol/L (98-107) Carbon Dioxide 31 H mmol/L (22-30) Anion Gap 6 L mmol/L (4-12) BUN 19 mg/dL (9-20) Creatinine 1.00 mg/dL (0.7-1.3) Estim Creat Clear Calc 59 ml/min Estimated GFR > 60 (59 - ) Glucose 122 H mg/dL (65-110) Calcium 8.6 mg/dL (8.4-10.2) Magnesium 1.9 mg/dL (1.6-2.3) Total Bilirubin 0.9 mg/dL (0.2-1.3) AST 40 U/L (17-59) ALT 22 U/L (6-50) Alkaline Phosphatase 75 U/L (38-126) Total Protein 7.0 g/dL (6.3-8.2) Albumin 3.4 L g/dL (3.5-5.1) Patient hx anesthesia problems: none Family hx anesthesia problems: none Results Review: All pre-operative results and documents have been reviewed as part of the pre-operative evaluation. FOR[facility] Past Medical History Medical History Cellulitis of left lower extremity Cellulitis of right lower extremity Colon polyps Dementia 8.31.22 mmse 5 hand tube winder judith gaviria resuscitation: no cpr, no intubation. 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
--- NOTE | 2023-05-21 14:21 | SUR.PREOP ---
1417-Dr. Vences made aware by Lucas Chan RN that pt had 2 doses of Eliquis yesterday.
[2023-05-21] MEDS: LIDOCAINE HCL 2% GEL UROJET 10 ML PKG MUCOUS MEM (14:44)
[2023-05-21] MEDS: BUPivacaine HCL 0.5% 10 ML AMP 20 ML INFILTRATE (14:45)
--- NOTE | 2023-05-21 14:56 | W.PM.PROC2 ---
Procedure Note - Detailed Date of Procedure 05/21/23 Pre-op Diagnosis Phimosis Urinary retention Post-op Diagnosis Same Procedure Performed Dorsal slit circumcision, Howard catheter insertion Surgeon Tequila Vences MD Anesthesia General Indications This 87-year-old gentleman has a history of chronic urine tract infections. Upon examination patient was found to have phimotic unretractable foreskin. I discussed the risks and benefits. The patient agrees to proceed with dorsal slit circumcision to allow for catheter drainage Description of Procedure Informed consent was obtained. Patient taken the operating room. He was given preoperative IV antibiotics floor. He was induced anesthesia. The patient had only a pinpoint opening in the foreskin. We injected 0.5% Marcaine without epinephrine into the dorsum of the preputial skin. We then incised the phimotic foreskin dorsally. We then re-prepped the glans that was now visible. Electrocautery was performed to the bleeding sites. We then used a 3-0 Vicryl suture at the most proximal portion of the incision to act as a stay suture we then used interrupted 3-0 chromic sutures to reapproximate skin edges. The patient a appropriate cosmetic result. The glans was visible and normal in appearance without mass. We then placed a 16 F Howard catheter with return of clear urine. Patient was taken recovery room stable condition Urine Output 50 Drains Yes Packing No Pathology None sent Complications No immediate complications Condition Stable Disposition PACU
[2023-05-21] MEDS: LACTATED RINGERS 1,000 ML 30 ML IV CONT (15:02)
[2023-05-21 15:20] LABS: Glucose Point of Care 140 mg/dl (65-105)
--- NOTE | 2023-05-21 16:10 | PC.NURSE ---
Returned from OR per stretcher at 1610. Report received from TONI Mckeon.
[2023-05-21] MEDS: FERROUS SULFATE 325 MG TABLET DR BY MOUTH (17:16)
[2023-05-21] MEDS: SIMVASTATIN 20 MG TABLET 40 MG PO (17:16)
[2023-05-21] MEDS: atenoloL 25 MG TABLET PO (17:16)
[2023-05-21] MEDS: DULoxetine HCL 30 MG CAPSULE.DR PO (17:17)
[2023-05-21] MEDS: FINASTERIDE 5 MG TABLET PO (17:17)
[2023-05-21] MEDS: GABAPENTIN 300 MG CAPSULE PO (17:19)
[2023-05-21] MEDS: POTASSIUM CHLORIDE 20 MEQ ER TABLET 40 MEQ PO (17:22)
[2023-05-21] MEDS: FUROSEMIDE INJ 40 MG/4 ML VIAL IV PUSH (17:33)
[2023-05-21] MEDS: POTASSIUM CHLORIDE 20 MEQ ER TABLET 40 MEQ (17:34)
--- NOTE | 2023-05-21 19:10 | PC.NURSE ---
On 05/21/23, the CLOTH WEIGHER, Ольга, provided care and completed [facility] on this patient. I have reviewed the CLOTH WEIGHER's documentation and agree with the findings.
[2023-05-21] MEDS: GABAPENTIN 300 MG CAPSULE 600 MG PO (20:19)
[2023-05-21] MEDS: DONEPEZIL HCL 5 MG TABLET PO (20:20)
[2023-05-21] MEDS: risperiDONE 1 MG TABLET PO (20:20)
[2023-05-21 23:29] LABS: Vancomycin Trough 13.5 ug/mL (10.0-20.0)
[2023-05-22] MEDS: VANCOMYCIN 1,500 MG/NS 500 ML 1,500 MG/500 ML BAG 250 MG IVPB (00:34)
[2023-05-22 05:56] VITALS: BP 147/57; PULSE 64; RESP 16; TEMP 36.4; O2SAT 93
[2023-05-22 06:43] LABS: Basophils Percent Auto 0.4 % (0.2-1.2); Eosinophils Absolute Auto 0.3 K/mm3 (0-0.3); Hematocrit 37.9 % (42.0-52.0); Hemoglobin 11.8 g/dL (14.0-18.0); Immature Granulocyte Absolute 0.03 K/mm3 (0.00-0.031); Immature Granulocyte Percent A 0.4 % (0-0.5); Lymphocytes Absolute Auto 1.72 K/mm3 (0.9-3.2); Lymphocytes Percent Auto 20.8 % (18.3-44.2); Mean Corpuscular HGB Conc 31.1 g/dl (32-36); Mean Corpuscular Hemoglobin 30.3 pg (26-34); Mean Corpuscular Volume 97.2 fl (80-100); Mean Platelet Volume 10.6 fl (7.4-10.4); Monocytes Percent Auto 12.3 % (2.6-8.5); Neutrophils Absolute Auto 5.1 K/mm3 (1.3-6.7); Neutrophils Percent Auto 62.1 % (45.5-73.1); Platelet Count Result 200 k/mm3 (150-375); Red Cell Distribution Width 13.9 % (11.5-14.5); White Blood Count 8.3 K/mm3 (4.5-10.0)
[2023-05-22 06:55] LABS: Alanine Aminotransferase 20 U/L (6-50); Albumin Level 3.4 g/dL (3.5-5.1); Alkaline Phosphatase 70 U/L (38-126); Anion Gap 1 mmol/L (4-12); Aspartate Amino Transferase 35 U/L (17-59); Bilirubin,Total 0.7 mg/dL (0.2-1.3); Blood Urea Nitrogen 19 mg/dL (9-20); Calcium 8.7 mg/dL (8.4-10.2); Carbon Dioxide 32 mmol/L (22-30); Chloride 103 mmol/L (98-107); Estimated CRCL calculation 65 ml/min; Estimated Glomerular Filt Rate > 60; Glucose 121 mg/dL (65-110); Potassium 3.7 mmol/L (3.4-5.0); Sodium 136 mmol/L (137-145)
[2023-05-22] MEDS: DULoxetine HCL 30 MG CAPSULE.DR PO (08:14)
[2023-05-22] MEDS: FERROUS SULFATE 325 MG TABLET DR BY MOUTH ×2 (08:14→16:42)
[2023-05-22] MEDS: SIMVASTATIN 20 MG TABLET 40 MG PO (08:14)
[2023-05-22] MEDS: FUROSEMIDE 40 MG TABLET PO (08:14)
[2023-05-22] MEDS: FINASTERIDE 5 MG TABLET PO (08:14)
[2023-05-22 08:15] VITALS: PULSE 66
[2023-05-22] MEDS: atenoloL 25 MG TABLET PO (08:15)
[2023-05-22] MEDS: cefTRIAXone 2 GM/NS 100 ML 2 GM/100 ML BAG IVPB (08:16)
[2023-05-22] MEDS: GABAPENTIN 300 MG CAPSULE PO ×2 (08:25→13:05)
--- NOTE | 2023-05-22 08:35 | WPDANESPN ---
Anes - Prog Note Post-Op Date/Time: 05/22/23 08:35 Vital Signs: Last Vital Signs Temp 36.4 C L 05/22/23 05:56 Pulse 64 05/22/23 05:56 Resp 16 05/22/23 05:56 BP 147/57 H 05/22/23 05:56 Pulse Ox 93 05/22/23 05:56 O2 Del Method Room Air 05/21/23 15:55 O2 Flow Rate 8 05/21/23 15:15 Pain Score (VAS): 0 I/O: Intake & Output 05/21/23 05/22/23 05/22/23 23:59 07:59 15:59 Intake Total 360 500 Output Total 1350 800 Balance -990 -300 Laboratory Tests 05/22/23 05:47 05/22/23 05:47 05/21/23 05/21/23 05/22/23 15:16 23:08 05:47 WBC 8.3 RBC 3.90 L Hgb 11.8 L Hct 37.9 L MCV 97.2 MCH 30.3 MCHC 31.1 L RDW 13.9 Plt Count 200 MPV 10.6 H Immature Gran % (Auto) 0.4 Neut % (Auto) 62.1 Lymph % (Auto) 20.8 [place] % (Auto) 12.3 H Eos % (Auto) 4.0 Baso % (Auto) 0.4 Lymph # (Auto) 1.72 [place] # (Auto) 1.0 H Eos # (Auto) 0.3 Baso # (Auto) 0.0 Abs Immat Gran (auto) 0.03 Absolute Neuts (auto) 5.1 Absolute Nucleated RBC 0.000 Nucleated RBC % 0.0 Sodium 136 L Potassium 3.7 Chloride 103 Carbon Dioxide 32 H Anion Gap 1 L BUN 19 Creatinine 0.90 Estim Creat Clear Calc 65 Estimated GFR > 60 Glucose 121 H POC Capillary Glucose 140 H Calcium 8.7 Magnesium 2.0 Total Bilirubin 0.7 AST 35 ALT 20 Alkaline Phosphatase 70 Total Protein 7.0 Albumin 3.4 L Vancomycin Trough 13.5 Patient Feedback: Patient satisfied with anesthetic care.
--- NOTE | 2023-05-22 09:30 | P.PNIM_ITS ---
Progress Note: A&P Assessment and Plan (1) Cellulitis of foot, right: Code(s): L03.115 - Cellulitis of right lower limb Status: Acute Assessment and Plan: Failed outpatient Keflex x2, IV Zosyn and vancomycin in place. MRI ordered to assess for osteomyelitis. 05/20: * Stopping Zosyn and placed on Rocephin * Showing improvement in redness * Expect to change to oral agents tomorrow * MRI negative for osteomyelitis 05/21: * Cellulitis is improved with less erythema, warmth, and no pain. No edema * Bilateral feet are extremely dry. Applied Eucerin cream. * Can DC Rocephin and vancomycin * Transition oral amoxicillin for 14 day treatment given recurrent cellulitis * I do not feel strongly that he needs MRSA coverage as there is no open and draining areas (2) Cellulitis of toe of right foot: Code(s): L03.031 - Cellulitis of right toe Status: Acute Assessment and Plan: see # 1 (3) Type 2 diabetes mellitus with diabetic neuropathy, unspecified: Qualifiers: Diabetes mellitus snf insulin use: without snf use Qualified Code(s): E11.40 - Type 2 diabetes mellitus with diabetic neuropathy, unspecified Code(s): E11.40 - Type 2 diabetes mellitus with diabetic neuropathy, unspecified Status: Acute Assessment and Plan: Fingerstick glucose ACHS with sliding scale insulin 05/20: * Blood glucose ranging 122-140 (4) long term care administrator (current) use of anticoagulants: Code(s): Z79.01 - long term care administrator (current) use of anticoagulants Status: Acute Assessment and Plan: Continue Eliquis (5) Venous stasis dermatitis: Code(s): I87.2 - Venous insufficiency (chronic) (peripheral) Status: Acute Assessment and Plan: Noted (6) Dementia: Qualifiers: Alzheimer's disease onset: unspecified onset Dementia behavioral disturbance: without behavioral disturbance Dementia type: Alzheimer's Qualified Code(s): G30.9 - Alzheimer's disease, unspecified; F02.80 - Dementia in other diseases classified elsewhere without behavioral disturbance Code(s): F03.90 - Unspecified dementia, unspecified severity, without behavioral disturbance, psychotic disturbance, mood disturbance, and anxiety Status: Acute Assessment and Plan: Chronic, worsened by being hospitalized. (7) Urinary retention: Code(s): R33.9 - Retention of urine, unspecified Status: Acute Assessment and Plan: Post void residual 350 ml with overflow * unsuccessful placement of barrientos catheter * urology was consulted * see below (8) Acquired phimosis of penis: Code(s): N47.1 - Phimosis Status: Acute Assessment and Plan: Urology was unable to place barrientos 05/20: * Taken to the OR for dorsal slit circumcision and barrientos catheter insertion 05/21: * Postop day 1 dorsal slit circumcision with Barrientos placement * Awaiting further recommendations from Urology for Barrientos removal and follow-up Plan Feeding:regular diet Analgesia:tylenol Thromboembolic prophylaxis: Ulcer prophylaxis: Glycemic control: Bowel regimen: Lines: Antibiotics: Disposition: Discharged to [facility] when okay with Urology Subjective Date/time seen: 05/22/23 09:30 Interval history: HPI obtained from the chart, 87-year-old male with a past medical history of CHF, borderline diabetes, dementia, BPH, heart failure and chronic lymphedema who presented to the ER via private vehicle where his probably his family members due to increased leg
--- NOTE | 2023-05-22 09:30 | PM.IMPN ---
Progress Note: A&P Assessment and Plan (1) Cellulitis of foot, right: Code(s): L03.115 - Cellulitis of right lower limb Status: Acute Assessment and Plan: Failed outpatient Keflex x2, IV Zosyn and vancomycin in place. MRI ordered to assess for osteomyelitis. 4/3: Stopping Zosyn and placed on Rocephin Showing improvement in redness Expect to change to oral agents tomorrow MRI negative for osteomyelitis 4/: Cellulitis is improved with less erythema, warmth, and no pain. No edema Bilateral feet are extremely dry. Applied Eucerin cream. Can DC Rocephin and vancomycin Transition oral amoxicillin for 14 day treatment given recurrent cellulitis I do not feel strongly that he needs MRSA coverage as there is no open and draining areas (2) Cellulitis of toe of right foot: Code(s): L03.031 - Cellulitis of right toe Status: Acute Assessment and Plan: see # 1 (3) Type 2 diabetes mellitus with diabetic neuropathy, unspecified: Qualifiers: Diabetes mellitus manager terminal insulin use: without senior living use Qualified Code(s): E11.40 - Type 2 diabetes mellitus with diabetic neuropathy, unspecified Code(s): E11.40 - Type 2 diabetes mellitus with diabetic neuropathy, unspecified Status: Acute Assessment and Plan: Fingerstick glucose ACHS with sliding scale insulin 05/20: Blood glucose ranging 122-140 (4) halfway (current) use of anticoagulants: Code(s): Z79.01 - intermediate accountant (current) use of anticoagulants Status: Acute Assessment and Plan: Continue Eliquis (5) Venous stasis dermatitis: Code(s): I87.2 - Venous insufficiency (chronic) (peripheral) Status: Acute Assessment and Plan: Noted (6) Dementia: Qualifiers: Alzheimer's disease onset: unspecified onset Dementia behavioral disturbance: without behavioral disturbance Dementia type: Alzheimer's Qualified Code(s): G30.9 - Alzheimer's disease, unspecified; F02.80 - Dementia in other diseases classified elsewhere without behavioral disturbance Code(s): F03.90 - Unspecified dementia, unspecified severity, without behavioral disturbance, psychotic disturbance, mood disturbance, and anxiety Status: Acute Assessment and Plan: Chronic, worsened by being hospitalized. (7) Urinary retention: Code(s): R33.9 - Retention of urine, unspecified Status: Acute Assessment and Plan: Post void residual 350 ml with overflow unsuccessful placement of barrientos catheter urology was consulted see below (8) Acquired phimosis of penis: Code(s): N47.1 - Phimosis Status: Acute Assessment and Plan: Urology was unable to place barrientos 05/20: Taken to the OR for dorsal slit circumcision and barrientos catheter insertion 05/21: Postop day 1 dorsal slit circumcision with Barrientos placement Awaiting further recommendations from Urology for Barrientos removal and follow-up Plan Feeding:regular diet Analgesia:tylenol Thromboembolic prophylaxis: Ulcer prophylaxis: Glycemic control: Bowel regimen: Lines: Antibiotics: Disposition: Discharged to [facility] when okay with Urology Subjective Date/time seen: 05/22/23 09:30 Interval history: HPI obtained from the chart, 87-year-old male with a past medical history of CHF, borderline diabetes, dementia, BPH, heart failure and chronic lymphedema who presented to the ER via private vehicle where his probably his family members due to increased leg swelling and right foot pain.? Patient has had a history of recurrent infections of his lower extremities with his last admission be for left lower extremity cellulitis in 2019.? Patient had decreased leg swelling right greater than left.? The family had noted erythema and weeping the right lower extremity notably to the right foot and dorsum of the foot.? Patient denied having any increased shortness of breath from baseline or chest
--- NOTE | 2023-05-22 09:35 | WPDUROPN2 ---
Progress Note: A&P Assessment and Plan (1) Acquired phimosis of penis: Code(s): N47.1 - Phimosis Status: Acute Assessment and Plan: Underwent dorsal slit circumcision and barrientos catheter placement on 05/21/[address] Vences. Tolerated this well. (2) Urinary retention: Code(s): R33.9 - Retention of urine, unspecified Status: Acute Assessment and Plan: Noted to have overflow incontinence and PVR >350 cc. Secondary to phimosis as above. Anticipate he will be able to void without difficulty following procedure. Remove barrientos today. Monitor urine output to ensure patient is voiding well following removal. (3) Recurrent UTI: Code(s): N39.0 - Urinary tract infection, site not specified Status: Acute Assessment and Plan: Likely related to phimosis and retention. Anticipate resolution of recurrent infections following dorsal slit circumcision. Plan Okay to resume Eliquis tomorrow 05/23/23 Subjective Subjective Date/Time Seen: 05/22/23 09:35 Interval history: Doing well today. Sitting up in bed and appears comfortable. Offers no complaints. Denies penile pain or discomfort. No issues with barrientos catheter which is draining clear yellow urine. Further history unobtainable due to dementia. Review of Systems Review of Systems: ROS unobtainable: Yes unobtainable due to mental status Exam Narrative: General: Awake, alert, comfortable, no acute distress HEENT: Normocephalic, atraumatic, sclerae anicteric Respiratory: Normal respiratory effort, no accessory muscle use Abdomen: Nondistended, soft, nontender : glans penis visible without erythema, urethral meatus without drainage or bleeding, surrounding skin incision intact without signs of infection, covered with dressing with scant dried blood, barrientos draining clear yellow urine. Skin: Normal coloration, warm and dry Neurologic: No focal neuro deficits noted Psychiatric: Pleasantly confused Objective Data Vital Signs Vital Signs: Vital Signs - 24 hr 05/21/23 12:17 05/21/23 13:50 05/21/23 15:02 Temperature 97.7 F 98.1 F Pulse Rate 65 71 Respiratory Rate 18 16 Blood Pressure 153/70 H 162/70 H Pulse Oximetry 99 100 Oxygen Delivery Room Air Room Air Simple Face Mask Oxygen Flow Rate 8 05/21/23 15:15 05/21/23 15:20 05/21/23 15:30 Temperature Pulse Rate 69 65 Respiratory Rate 20 20 Blood Pressure 169/71 H 154/72 H Pulse Oximetry 100 97 95 Oxygen Delivery Simple Face Mask Room Air Room Air Oxygen Flow Rate 8 05/21/23 15:42 05/21/23 15:55 05/21/23 17:16 Temperature Pulse Rate 67 67 68 Respiratory Rate 20 20 Blood Pressure 157/62 H 163/67 H Pulse Oximetry 100 99 Oxygen Delivery Room Air Room Air Oxygen Flow Rate 05/21/23 18:13 05/21/23 22:00 05/22/23 05:56 Temperature 96.9 F L 97.3 F L 97.5 F L Pulse Rate 65 61 64 Respiratory Rate 18 18 16 Blood Pressure 141/51 H 153/53 H 147/57 H Pulse Oximetry 95 96 93 Oxygen Delivery Oxygen Flow Rate 05/22/23 08:15 Temperature Pulse Rate 66 Respiratory Rate Blood Pressure Pulse Oximetry Oxygen Delivery Oxygen Flow Rate Intake/Output Intake/Output: Intake & Output 05/19/23 05/20/23 05/21/23 05/22/23 23:59 23:59 23:59 23:59 Intake Total 550 1620 1010 500 Output Total 50 1400 800 Balance 550 1570 -390 -300 Meds/Results Medications: Active Medications Generic Name Dose Route Start Last Admin Trade Name Rosi PRN Reason Stop Dose Admin Acetaminophen 650 mg 05/19/23 17:55 Acetaminophen 325 Mg Tablet PO Q4H PRN Mild Pain (1-3) or Fever Atenolol 25 mg 05/20/23 09:00 05/22/23 08:15 Atenolol 25 Mg Tablet PO 25 mg DAILY CATHERINE Administration Donepezil HCl 5 mg 05/20/23 21:00 05/21/23 20:20 Donepezil Hcl 5 Mg Tablet PO 5 mg HS CATHERINE Administration Duloxetine HCl 30 mg 05/20/23 09:00 05/22/23 08:14 Duloxetine Hcl 30 Mg Capsule.Dr PO 30 mg
[2023-05-22] MEDS: EUCERIN CREAM 120 GM JAR 1 APPLIC TOPICAL (12:58)
[2023-05-22] MEDS: AMOXICILLIN 500 MG CAPSULE PO (13:05)
[2023-05-22 14:07] VITALS: BP 127/52; PULSE 62; RESP 17; TEMP 36.7; O2SAT 100
[2023-05-22] MEDS: CEPHALEXIN 500 MG CAPSULE PO (17:33)
--- NOTE | 2023-05-22 18:35 | PC.NURSE ---
On 05/22/23, the PARKING ATTENDANT, Ольга, provided care and [facility]. I have reviewed the PARKING ATTENDANT's documentation and agree with the findings.
[2023-05-22 20:34] VITALS: BP 166/67; PULSE 65; RESP 16; TEMP 36.3; O2SAT 98
[2023-05-22] MEDS: DONEPEZIL HCL 5 MG TABLET PO (20:37)
[2023-05-22] MEDS: risperiDONE 1 MG TABLET PO (20:37)
[2023-05-22] MEDS: GABAPENTIN 300 MG CAPSULE 600 MG PO (20:38)
[2023-05-23 05:02] VITALS: BP 140/48; PULSE 70; RESP 16; TEMP 36.5; O2SAT 93
[2023-05-23] MEDS: CEPHALEXIN 500 MG CAPSULE PO ×2 (05:11→13:19)
[2023-05-23 07:27] LABS: Basophils Percent Auto 0.4 % (0.2-1.2); Eosinophils Absolute Auto 0.3 K/mm3 (0-0.3); Eosinophils Percent Auto 4.1 % (0-4.4); Hematocrit 37.4 % (42.0-52.0); Hemoglobin 11.5 g/dL (14.0-18.0); Immature Granulocyte Absolute 0.03 K/mm3 (0.00-0.031); Immature Granulocyte Percent A 0.4 % (0-0.5); Lymphocytes Absolute Auto 1.48 K/mm3 (0.9-3.2); Lymphocytes Percent Auto 18.8 % (18.3-44.2); Mean Corpuscular HGB Conc 30.7 g/dl (32-36); Mean Corpuscular Hemoglobin 29.9 pg (26-34); Mean Corpuscular Volume 97.4 fl (80-100); Mean Platelet Volume 10.4 fl (7.4-10.4); Monocytes Absolute Auto 1.1 K/mm3 (0.1-0.6); Monocytes Percent Auto 14.5 % (2.6-8.5); Neutrophils Absolute Auto 4.9 K/mm3 (1.3-6.7); Neutrophils Percent Auto 61.8 % (45.5-73.1); Platelet Count Result 191 k/mm3 (150-375); Red Blood Count 3.84 M/mm3 (4.6-6.20); Red Cell Distribution Width 14.1 % (11.5-14.5); White Blood Count 7.9 K/mm3 (4.5-10.0)
[2023-05-23 07:44] LABS: Alanine Aminotransferase 19 U/L (6-50); Albumin Level 3.3 g/dL (3.5-5.1); Alkaline Phosphatase 70 U/L (38-126); Anion Gap 2 mmol/L (4-12); Aspartate Amino Transferase 28 U/L (17-59); Bilirubin,Total 0.5 mg/dL (0.2-1.3); Blood Urea Nitrogen 31 mg/dL (9-20); Calcium 8.8 mg/dL (8.4-10.2); Carbon Dioxide 32 mmol/L (22-30); Chloride 103 mmol/L (98-107); Estimated CRCL calculation 46 ml/min; Estimated Glomerular Filt Rate 52; Glucose 132 mg/dL (65-110); Magnesium 2.1 mg/dL (1.6-2.3); Potassium 3.7 mmol/L (3.4-5.0); Sodium 137 mmol/L (137-145)
[2023-05-23] MEDS: GABAPENTIN 300 MG CAPSULE PO ×2 (10:41→13:20)
[2023-05-23 10:43] VITALS: PULSE 66
[2023-05-23] MEDS: atenoloL 25 MG TABLET PO (10:43)
[2023-05-23] MEDS: DULoxetine HCL 30 MG CAPSULE.DR PO (10:43)
[2023-05-23] MEDS: FUROSEMIDE 40 MG TABLET PO (10:43)
[2023-05-23] MEDS: FINASTERIDE 5 MG TABLET PO (10:44)
[2023-05-23] MEDS: FERROUS SULFATE 325 MG TABLET DR BY MOUTH (10:44)
[2023-05-23] MEDS: SIMVASTATIN 20 MG TABLET 40 MG PO (10:44)
[2023-05-23] MEDS: EUCERIN CREAM 120 GM JAR 1 APPLIC TOPICAL (10:45)
--- NOTE | 2023-05-23 10:45 | WPDUROPN2 ---
Progress Note: A&P Assessment and Plan (1) Acquired phimosis of penis: Code(s): N47.1 - Phimosis Status: Acute Assessment and Plan: Underwent dorsal slit circumcision and barrientos catheter placement on 05/21/[address] Vences. Tolerated this well. Okay for discharge from urologic standpoint. He has follow up scheduled in 1 month. (2) Urinary retention: Code(s): R33.9 - Retention of urine, unspecified Status: Acute Assessment and Plan: Noted to have overflow incontinence and PVR >350 cc. Secondary to phimosis as above. Retention has resolved following circumcision. Barrientos removed on 05/22/23 and he has had multiple incontinent voids. (3) Recurrent UTI: Code(s): N39.0 - Urinary tract infection, site not specified Status: Acute Assessment and Plan: Likely related to phimosis and retention. Anticipate resolution of recurrent infections following dorsal slit circumcision. Plan Okay to resume Eliquis. Subjective Subjective Date/Time Seen: 05/23/23 10:45 Interval history: Doing well today. Offers no complaints. No pain surrounding surgical site. Unable to provide much history due to dementia. Has been having incontinent voids following barrientos removal. Review of Systems Review of Systems: ROS unobtainable: Yes unobtainable due to mental status Exam Narrative: General: Awake, alert, comfortable, no acute distress HEENT: Normocephalic, atraumatic, sclerae anicteric Respiratory: Normal respiratory effort, no accessory muscle use Abdomen: Nondistended, soft, nontender : glans penis visible without erythema, urethral meatus without drainage or bleeding, surrounding skin incision intact without signs of infection Skin: Normal coloration, warm and dry Neurologic: No focal neuro deficits noted Psychiatric: Pleasantly confused Objective Data Vital Signs Vital Signs: Vital Signs - 24 hr 05/22/23 14:07 05/22/23 20:34 05/23/23 05:02 Temperature 98.0 F 97.4 F L 97.7 F Pulse Rate 62 65 70 Respiratory Rate 17 16 16 Blood Pressure 127/52 L 166/67 H 140/48 L Pulse Oximetry 100 98 93 Intake/Output Intake/Output: Intake & Output 05/20/23 05/21/23 05/22/23 05/23/23 23:59 23:59 23:59 23:59 Intake Total 1620 1010 1770 240 Output Total 50 1400 950 Balance 1570 -390 820 240 Meds/Results Medications: Active Medications Generic Name Dose Route Start Last Admin Trade Name Rosi PRN Reason Stop Dose Admin Acetaminophen 650 mg 05/19/23 17:55 Acetaminophen 325 Mg Tablet PO Q4H PRN Mild Pain (1-3) or Fever Atenolol 25 mg 05/20/23 09:00 05/22/23 08:15 Atenolol 25 Mg Tablet PO 25 mg DAILY CATHERINE Administration Cephalexin HCl 500 mg 05/22/23 18:00 05/23/23 05:11 Cephalexin 500 Mg Capsule PO 05/25/23 23:59 500 mg Q6HR CATHERINE Administration Donepezil HCl 5 mg 05/20/23 21:00 05/22/23 20:37 Donepezil Hcl 5 Mg Tablet PO 5 mg HS CATHERINE Administration Duloxetine HCl 30 mg 05/20/23 09:00 05/22/23 08:14 Duloxetine Hcl 30 Mg Capsule.Dr PO 30 mg DAILY CATHERINE Administration Ferrous Sulfate 325 mg 05/20/23 09:00 05/22/23 16:42 Ferrous Sulfate [address] BY MOUTH 325 mg BID CATHERINE Administration Finasteride 5 mg 05/20/23 09:00 05/22/23 08:14 Finasteride 5 Mg Tablet PO 5 mg DAILY CATHERINE Administration Furosemide 40 mg 05/22/23 09:00 05/22/23 08:14 Furosemide 40 Mg Tablet PO 40 mg DAILY CATHERINE Administration Gabapentin 300 mg 05/20/23 08:00 05/22/23 13:05 Gabapentin 300 Mg Capsule PO 300 mg 0800,1300 CATHERINE Administration Gabapentin 600 mg 05/20/23 21:00 05/22/23 20:38 Gabapentin 300 Mg Capsule PO 600 mg HS CATHERINE Administration Multi-Ingred Cream/Lotion/Oil/Oint 1 applic 05/22/23 09:00 05/22/23 12:58 Eucerin Cream 120 Gm Jar TOPICAL 1 applic DAILY CATHERINE Administration Ondansetron HCl 4 mg 05/19/23 17:55 Ondansetron Inj 4 Mg/2 Ml Vial IV PUSH
[2023-05-23 13:38] VITALS: BP 139/69; PULSE 57; RESP 17; TEMP 36.8; O2SAT 97
--- NOTE | 2023-05-23 14:16 | PM.DS ---
DS: Admitting Diagnosis Discharge Date 05/22 Admitting Diagnosis cellulitis DS: Discharge Diagnosis Discharge Diagnosis (1) Acquired phimosis of penis: Code(s): N47.1 - Phimosis Status: Acute Assessment and Plan: Underwent dorsal slit circumcision and barrientos catheter placement on 05/21/[address] Vences. Tolerated this well. Okay for discharge from urologic standpoint. He has follow up scheduled in 1 month. (2) Urinary retention: Code(s): R33.9 - Retention of urine, unspecified Status: Acute Assessment and Plan: Noted to have overflow incontinence and PVR >350 cc. Secondary to phimosis as above. Retention has resolved following circumcision. Barrientos removed on 05/22/23 and he has had multiple incontinent voids. (3) Recurrent UTI: Code(s): N39.0 - Urinary tract infection, site not specified Status: Acute Assessment and Plan: Likely related to phimosis and retention. Anticipate resolution of recurrent infections following dorsal slit circumcision. Plan Okay to resume Eliquis. DS: Summary Hospital Course Reason for hospitalization: cellulitis Hospital Course: 87-year-old male with a past medical history of CHF, borderline diabetes, dementia, BPH, heart failure and chronic lymphedema who presented to the ER via private vehicle where his probably his family members due to increased leg swelling and right foot pain.? Patient has had a history of recurrent infections of his lower extremities with his last admission be for left lower extremity cellulitis in 2019.? Patient had decreased leg swelling right greater than left.? The family had noted erythema and weeping the right lower extremity notably to the right foot and dorsum of the foot.? Patient denied having any increased shortness of breath from baseline or chest pain.? He was evaluated in February and was diagnosed with bilateral lower extremity cellulitis and completed a course of Keflex.? He was evaluated again on the 11 May and given a course of Keflex which he completed as well.? He denies any fevers or chills.? He had a venous Doppler performed in the ER of the right lower extremity that was negative hand x-ray of the right foot which demonstrated no acute process.? He received 1 dose of Ancef in the ER. Interval history: 05/20: Patient is seen sitting in chair. He is alert and orientated? to person only. He reports difficulty with urinating but he cannot tell me how long this has been a problem. He is a poor historian given his confusion. His right foot has redness to the distal aspect but it appears to be improving. There is slight warmth present but no pain with palpation. He is going to the OR today for dorsal slit circumcision and barrientos catheter insertion after a barrientos was unable to be placed for urinary retention and overflow incontinence. 05/21:? Patient is seen sitting up at the bedside with his son present.? I updated son on the plan of care.? MRI was negative for concerns for osteomyelitis.? Patient is postop day 1 after having a distal circumcision with Barrientos placement.? The cellulitis to his right foot is improved from yesterday.? The son reports that the redness and swelling has gone down considerably since his admission.? Will transition to oral antibiotics today.? From my standpoint he is okay to discharge back to [facility].? Son says that in [facility] would like him to go to the rehab portion of the facility given his prolonged hospitalization.? Awaiting to see how long his Barrientos catheter needs to be in place and further recs from Urology prior to discharge. Status at Discharge Cognitive/behavioral status at discharge: A&Ox1-2 Time Spent with Patient Time attestation: Total time spent providing and/or coordinating discharge services:45 Exam Narrative: General: well appearing, well developed, well nourished, appears stated age. HEENT: normocephalic, atraumatic. Mucous membranes moist. EOMI, PERRLA, bilate
--- NOTE | 2023-05-23 14:26 | PCOTNOTE ---
Attempted to see Patient this P.M. Patient declined, stating, I'm done for today, I'm so tired .
== END 2023-05-23 17:55 | DRG 603 ==
LOC: ANHED 12:16 → ANH3MEDSUR 20:03
PROVIDERS: Internal Medicine; Nurse Practitioner; Urology; Admitting Provider Internal Medicine; Emergency Provider Student in an Organized Health Care Education/Training Program; PCP Family Medicine; Visit Provider Nurse Practitioner Acute Care
PROC: 0VTTXZZ Resection of Prepuce, External Approach (ICD-10-PCS; CPT 54161; principal; 2023-05-21 14:30)
DX: L03.115 Cellulitis of right lower limb (principal); N39.0 Urinary tract infection, site not specified; L03.031 Cellulitis of right toe; E11.621 Type 2 diabetes mellitus with foot ulcer; E11.42 Type 2 diabetes mellitus with diabetic polyneuropathy; L97.519 Non-pressure chronic ulcer of other part of right foot with unspecified severity; I89.0 Lymphedema, not elsewhere classified; I50.9 Heart failure, unspecified; I87.2 Venous insufficiency (chronic) (peripheral); N40.1 Benign prostatic hyperplasia with lower urinary tract symptoms; N47.1 Phimosis; R33.8 Other retention of urine; F03.90 Unspecified dementia, unspecified severity, without behavioral disturbance, psychotic disturbance, mood disturbance, and anxiety; Z86.010 Personal history of colon polyps; Z79.01 Long term (current) use of anticoagulants; Z86.711 Personal history of pulmonary embolism; Z87.891 Personal history of nicotine dependence
CPT/HCPCS: 36415; 71045; 73630; 73720; 80048; 80053; 80202; 81001; 82948; 83605; 83735; 83880; 85025; 85027; 85652; 86140; 87086; 87088; 93971; 96365; 96366; 96367; 97110; 97116; 97161; 97165; 97530; 97535; 99285; A9270; A9577; G0378; J0696; J1940; J2405; J2543; J2704; J3010; J3370; J7030; J7120

== ENCOUNTER 2023-08-12 14:51 | Emergency (ER) | payer MEDICARE, BC, SELFPAY ==
--- NOTE | ~2023-08-12 | CT_ITS ---
CTA brain carotid Ordering provider: Barry Kwok MD History: . vision change . Comparison: None. Technique: CT angiogram head and neck was performed following timed intravenous injection of contrast . Thin slice axial images and reformatted coronal images were obtained. Three dimensional reformatted images of the brain were also obtained using a evolso workstation. Radiation reduction technique ut ilized. The dose-length product was 1835.48 mGy-cm. 100 mL Omnipaque 350 was given IV. FINDINGS: HEAD: --ANTERIOR AND MIDDLE CEREBRAL ARTERIES AND BRANCHES: Normal caliber and contour. --INTERNAL CAROTID ARTERIES: Mild atheromatous disease but no significant stenosis. No occlusion. --BASILAR ARTERY AND BRANCHES: Normal caliber and contour. No atheromatous disease. --POSTERIOR CEREBRAL ARTERIES: Normal caliber and contour --POSTERIOR COMMUNICATING ARTERIES: The right is demonstrated and continues as the right posterior ce rebral artery. The left is small in caliber. --ANEURYSM: None visualized. --BRAIN: Mild brain atrophy with deep white matter ischemic changes and ventricular dilatation.--BONE S AND SUPERFICIAL SOFT TISSUES: Normal. --PARANASAL SINUSES AND MASTOIDS: Right maxillary sinus disease. Bilateral ethmoid sinus disease. NECK: --RIGHT CERVICAL CAROTID SYSTEM: Mild atheromatous disease of the carotid bulb and proximal internal carotid artery without significant stenosis. Percent stenosis per NASCET criteria is 80%. No carotid dissection. Otherwise, no significant atheromatous disease or stenosis of the cervical carotid syste m. --LEFT CERVICAL CAROTID SYSTEM: Mild atheromatous disease of the carotid bulb and proximal internal c arotid artery without significant stenosis. Percent stenosis per NASCET criteria is 40%. No carotid dissection. Otherwise, no significant atheromatous disease or stenosis of the cervical carotid system. --VERTEBRAL ARTERIES: Dominant left vertebral artery. Otherwise, Normal caliber and contour. --VISUALIZED AORTIC ARCH AND BRANCHING VESSELS: Mild atheromatous disease but no significant stenosis . --SOFT TISSUES: Normal. --CERVICAL SPINE: Age appropriate degenerative changes. IMPRESSION: 1. CTA head and neck. Percent stenosis per NASCET criteria is 80% on the right and 40% on the left Reviewed, dictated and finalized at location A. IMPRESSION: 1. CTA head and neck. Percent stenosis per NASCET criteria is 80% on the rig ht and 40% on the left
[2023-08-12 14:52] VITALS: BP 148/63; PULSE 59; RESP 22; TEMP 36.9; O2SAT 95
--- NOTE | 2023-08-12 15:09 | PC.NURSE ---
ems states they did FAST ED test in route that was zero
--- NOTE | 2023-08-12 15:42 | ED.EYEPROB ---
HPI - Eye Problem General Chief complaint: Eye Problems Stated complaint: VISUAL CHANGES Time Seen by Provider: 08/12/23 15:19 History of Present Illness HPI Narrative: 87-year-old male presenting to the emergency department for evaluation for possible loss of vision on left eye. Upon arrival emergency department patient denies any vision complaints. Patient's visual jones are intact for both eyes. Patient denies any complaints at this time. Patient also does have a recent COVID diagnosis. Related Data Home Medications Medication Instructions Recorded Confirmed donepezil 10 mg tablet 5 mg PO HS 01/28/23 06/19/23 risperidone 1 mg tablet 1 mg PO HS 01/28/23 06/19/23 apixaban 2.5 mg tablet (Eliquis) 2.5 mg PO BID 05/19/23 06/19/23 gabapentin 300 mg capsule 300 mg PO QID 05/19/23 06/19/23 simvastatin 40 mg tablet 40 mg PO DAILY 05/19/23 06/19/23 Allergies Allergy/AdvReac Type Severity Reaction Status Date / Time lisinopril Allergy Unknown cough Verified 06/19/23 14:55 nicardipine Allergy Unknown gynecomasti Verified 06/19/23 14:55 a cimetidine Allergy Unknown Verified 06/19/23 14:55 Review of Systems Review of Systems: All systems reviewed & are unremarkable except as noted in HPI and below PMFSH Past Medical History Medical History (Updated 08/12/23 @ 18:10 by Barry Kwok MD) Acquired phimosis of penis Cellulitis of left lower extremity Cellulitis of right lower extremity Colon polyps Dementia 8.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 Diabetes mellitus Groin rash History of ischemic colitis 2005 Hx pulmonary embolism 2017 Lower extremity edema Peripheral neuropathy Venous stasis ulcer Yeast infection of the skin Surgical History Surgical History H/O hemicolectomy ischemic colitis 2005 Family History Family History Sibling Hypertension Family history of cardiovascular disease Family history of malignant neoplasm of breast Father Patient's father is , Onset Age: 72 Carcinoma of colon Malignant neoplasm of prostate Grandparent Diabetes mellitus Family history of malignant neoplasm of esophagus Mother Depression Family history of cardiovascular disease Social History Social History Social History: Code status: DNR/DNI Healthcare power of environmental attorney: Karen Smoking status: Former smoker Tobacco type: cigarettes Additional smoking assessment comments: A couple cigarettes a day for a few years Alcohol intake: never Substance use: never Lack of Transportation: No Lack of Food: Never True Current Housing: I Have Housing Concerned About Future Housing: No Difficulty Paying Gas/Electric Bills: No Difficulty Paying for Meds: No Currently Unemployed: No Education: High School Diploma/GED Difficulty w/ Childcare or Family Care: No Living arrangements: [facility] Additional living arrangements comments: [facility] Gender identity (if verbalized by the patient): Male Spiritual care concerns: No Agree to blood products: Yes Exam Narrative: APPEARANCE: Well appearing, no pain, no distress, well-nourished. HEAD: normocephalic, atraumatic. EYES: PERRLA/EOMI, conjunctivae clear. Visual jones intact for both eyes. Normal fundus exam NOSE: Normal no drainage EARS:TMS clear with good light reflex. THROAT: Pharynx clear, no exudate. NECK: Supple. No adenopathy, no masses. RESPIRATORY: Airway patent, respirations nonlabored. Clear to auscultation bilaterally, no rales, rhonchi, wheezing. CARDIOVASCULAR: Regular rate and rhythm without murmurs rubs or gallops. ABDOMINAL: Soft, nontender, nondistended, normal bowel sounds MUSCULOSKELETA
[2023-08-12 16:50] VITALS: BP 155/69; PULSE 69; RESP 22; O2SAT 96
[2023-08-12 17:01] LABS: Estimated Glomerular Filt Rate 52
[2023-08-12 19:00] VITALS: BP 149/83; PULSE 65; RESP 20; O2SAT 97
--- NOTE | 2023-08-12 19:46 | PC.NURSE ---
called family member ALCIDES about patient update at 180, all questions answered. 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 after giving report I called Cady craven for report at 194 and to give ETA. all questions answered.
[2023-08-12 20:00] VITALS: BP 150/86; PULSE 83; RESP 21; TEMP 37; O2SAT 96
== END 2023-08-12 20:00 ==
PROVIDERS: Emergency Provider Emergency Medicine; PCP Family Medicine
DX: H54.62 Unqualified visual loss, left eye, normal vision right eye (principal); E11.9 Type 2 diabetes mellitus without complications; F03.90 Unspecified dementia, unspecified severity, without behavioral disturbance, psychotic disturbance, mood disturbance, and anxiety; Z87.891 Personal history of nicotine dependence
CPT/HCPCS: 70496; 70498; 99284; Q9967

== ENCOUNTER 2023-08-22 07:34 | Observation (INO) | payer MEDICARE, SELFPAY ==
[2023-08-22] VITALS (20 sets, daily range): BP systolic 144–178; BP diastolic 53–96; PULSE 54–71; RESP 15–30; TEMP 36.2–36.6; O2SAT 93–100; BMI 37.3
--- NOTE | ~2023-08-22 | CT_ITS ---
EXAMINATION: CT brain wo con DATE: 08/22/2023 09:03 INDICATION: Fall. TECHNIQUE: Computed tomography (CT) of the head was performed without intravenous contrast. The mA wa s adjusted according to patient size. Iterative reconstruction technique was employed. The dose-lengt h product was 908.00 mGy-cm. COMPARISON: Head CT 08/12/2023 FINDINGS: There are scattered areas of low attenuation in the cerebral white matter, which is within normal limits for the patient's age. There is no intracranial hemorrhage, acute infarction, or abnorm al intracranial mass lesion. The ventricles are normal in size. There is mucosal thickening in the pa ranasal sinuses.. There is dependent fluid in the maxillary sinuses. There is an old blowout fracture of medial wall of right orbit. There are likely changes of ocular lens replacement surgeries. The ma stoid air cells are normal. There is cerumen in the external auditory canals. IMPRESSION: 1. Stable moderate nonspecific cerebral white matter disease, which likely represents chronic small v essel ischemic disease. Reviewed, dictated and finalized at location A. IMPRESSION: 1. Stable moderate nonspecific cerebral white matter disease, which likely repr esents chronic small vessel ischemic disease.
--- NOTE | ~2023-08-22 | CT_ITS ---
EXAMINATION: CT abdomen pelvis w con DATE: 08/22/2023 09:17 INDICATION: Left lower quadrant abdominal pain. TECHNIQUE: Computed tomography (CT) of the abdomen and pelvis was performed with 100 mL Omnipaque 350 intravenous contrast. Automated exposure control and iterative reconstruction technique were employe d. The dose-length product was 1636.79 mGy-cm. COMPARISON: None. FINDINGS: The visualized portions of the lung bases demonstrate mild atelectasis. No pleural effusion . The heart size is normal. No pericardial effusion. The liver, gallbladder, spleen, pancreas, and ad renal glands are normal. There is cortical thinning of the kidneys. There is a 2.1 cm cyst in left ki dney. The bladder is distended. The prostate is mildly enlarged. There is diverticulosis of the colon without evidence of diverticulitis. There are changes of right hemicolectomy. There are no pathologi mana enlarged lymph nodes. There is no free intraperitoneal fluid. There is a right inguinal hernia containing fat. There is bilateral gynecomastia. There are bridging endplate osteophytes at multiple levels in the thoracic spine, consistent with diffuse idiopathic skeletal hyperostosis (DISH). There is severe lumbar spondylosis. There are changes of posterior fusion procedure from L2 to L4. There ar e Schmorl's nodes at multiple levels. IMPRESSION: 1. No etiology for the patient's symptoms. Reviewed, dictated and finalized at location A.
--- NOTE | ~2023-08-22 | XR_ITS ---
EXAMINATION: XR chest 1V portable DATE: 08/22/2023 08:52 INDICATION: Weakness. TECHNIQUE: A single frontal view of the chest was obtained. COMPARISON: Chest single view 05/20/2023 FINDINGS: There is mild elevation of right hemidiaphragm. No pneumonia, pleural effusion, or pneumoth orax. The heart size is normal. IMPRESSION: 1. No acute cardiopulmonary disease. Reviewed, dictated and finalized at location A.
--- NOTE | ~2023-08-22 | CT_ITS ---
EXAMINATION: CT cervical spine wo con DATE: 08/22/2023 09:11 INDICATION: Neck injury. Fall from chair. TECHNIQUE: Computed tomography (CT) of the cervical spine was performed without intravenous contrast. Automated exposure control and iterative reconstruction technique were employed. The dose-length pro duct was 519.44 mGy-cm. COMPARISON: CT cervical spine 10/14/2022 FINDINGS: Bone alignment is normal. Vertebral body heights are normal. There is moderately decreased disc height at C4-C5 and severely decreased disc height at C5-C6 and C6-C7. The following disc levels are specifically discussed: C2-C3: There is severe right and moderate left uncovertebral joint osteoarthritis. There is severe bi lateral facet joint osteoarthritis. There is moderate right and mild left neural foraminal stenosis. There is mild central canal stenosis. C3-C4: There is ankylosis of the uncovertebral joints with severe hypertrophy. There is ankylosis of the facet joints with moderate left hypertrophy. There is moderate bilateral neural foraminal stenosi s. There is mild central canal stenosis. C4-C5: There is severe bilateral uncovertebral joint osteoarthritis. There is severe bilateral facet joint osteoarthritis. There is moderate right and mild left neural foraminal stenosis. There is mild central canal stenosis. C5-C6: There is severe bilateral uncovertebral joint osteoarthritis. There is moderate right and mild left facet joint osteoarthritis. There is mild bilateral neural foraminal stenosis. There is mild ce ntral canal stenosis. C6-C7: There is severe bilateral uncovertebral joint osteoarthritis. There is severe bilateral facet joint osteoarthritis. There is mild bilateral neural foraminal stenosis. There is mild central canal stenosis. C7-T1: There is no uncovertebral joint osteoarthritis. There is severe bilateral facet joint osteoart hritis. There is mild bilateral neural foraminal stenosis. There is no central canal stenosis. IMPRESSION: 1. No fracture. 2. Severe cervical spondylosis. Reviewed, dictated and finalized at location A.
--- NOTE | 2023-08-22 07:46 | ECG_ITS ---
Test Date: 2023-08-22 08:12:24 Measurements Intervals [place] Rate: 59 P: 100 LA: 220 QRS: -58 QRSD: 117 T: 28 QT: 444 QTc: 441 Interpretive Statements SINUS BRADYCARDIA WITH FIRST DEGREE AV BLOCK LEFT ANTERIOR FASCICULAR BLOCK BASELINE ARTIFACT- I, II, III, AVR, AVL, AVF, V1-V6 ABNORMAL ECG No previous ECG available for comparison Electronically Signed On 08-22-2023 08:26:35 CDT by Vamsi Mancilla D.O.
--- NOTE | 2023-08-22 08:02 | ED.GENADULT ---
HPI - General Adult General Chief complaint: Weakness Stated complaint: weakness Time Seen by Provider: 08/22/23 07:36 History of Present Illness HPI narrative: Patient 87-year-old gentleman presents time of generalized weakness. Patient is resident of [facility] and slid out of his chair this morning patient is on an anticoagulant patient reports no real significant pain but was unable to get up after a fall when EMS picked up patient the had difficulty ambulating and they decided to bring the patient to the emergency department for evaluation. The patient does have underlying dementia and history is limited Related Data Home Medications Medication Instructions Recorded Confirmed risperidone 1 mg tablet 1 mg PO HS 01/28/23 08/22/23 apixaban 2.5 mg tablet (Eliquis) 2.5 mg PO BID 05/19/23 08/22/23 gabapentin 300 mg capsule 300 mg PO BID 05/19/23 08/22/23 simvastatin 40 mg tablet 40 mg PO DAILY 05/19/23 08/22/23 cephalexin 500 mg capsule 500 mg PO DAILY 08/22/23 08/22/23 donepezil 10 mg tablet 10 mg PO HS 08/22/23 08/22/23 gabapentin 300 mg capsule 600 mg PO HS 08/22/23 08/22/23 Allergies Allergy/AdvReac Type Severity Reaction Status Date / Time lisinopril Allergy Unknown cough Verified 08/22/23 07:41 nicardipine Allergy Unknown gynecomasti Verified 08/22/23 07:41 a cimetidine Allergy Unknown Verified 08/22/23 07:41 Review of Systems Review of Systems: A 10 system review of systems was completed on the patient and is negative except for what is stated in the HPI. Nursing and ancillary documentation was reviewed. [facility] Past Medical History Medical History Acquired phimosis of penis Aortic arch atherosclerosis CTA 08.12.23 VISUALIZED AORTIC ARCH AND BRANCHING VESSELS: Mild atheromatous disease but no significant stenosis. BPH loc w urin obs/LUTS Carotid stenosis CTA 08.12.23: RIGHT CERVICAL CAROTID SYSTEM: stenosis 80%. No carotid dissection. --LEFT CERVICAL CAROTID SYSTEM: stenosis 40%. No carotid dissection. 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 Diabetes mellitus Entropion and trichiasis of eyelid Frequent falls Groin rash History of ischemic colitis 2005 Hx pulmonary embolism 2017 long-term (current) use of anticoagulants hx pulmonary embolism Peripheral neuropathy Recurrent UTI Stage 3a chronic kidney disease (CKD) Urinary retention Venous stasis ulcer Yeast infection of the skin Surgical History Surgical History H/O hemicolectomy ischemic colitis 2005 Family History Family History Sibling Hypertension Family history of cardiovascular disease Family history of malignant neoplasm of breast Father Patient's father is , Onset Age: 72 Carcinoma of colon Malignant neoplasm of prostate Grandparent Diabetes mellitus Family history of malignant neoplasm of esophagus Mother Depression Family history of cardiovascular disease Social History Social History Social History: Code status: DNR/DNI Healthcare power of real estate attorney: Karen Smoking status: Unknown if ever smoked Tobacco type: cigarettes Additional smoking assessment comments: A couple cigarettes a day for a few years Alcohol intake: never Substance use: never Lack of Transportation: No Lack of Food: Never True Current Housing: I Have Housing Concerned About Future Housing: No Difficulty Paying Gas/Electric Bills: No Difficulty Paying for Meds: No Currently Unemployed: No Education: High School Diploma/GED Difficulty w/ Childcare or Family Care: No Living arrangements: [facility]
[2023-08-22 08:08] LABS: Basophils Percent Auto 0.3 % (0.2-1.2); Eosinophils Absolute Auto 0.2 K/mm3 (0-0.3); Eosinophils Percent Auto 2.2 % (0-4.4); Hematocrit 38.9 % (42.0-52.0); Hemoglobin 12.8 g/dL (14.0-18.0); Immature Granulocyte Absolute 0.05 K/mm3 (0.00-0.031); Immature Granulocyte Percent A 0.7 % (0-0.5); Lymphocytes Absolute Auto 1.79 K/mm3 (0.9-3.2); Lymphocytes Percent Auto 24.5 % (18.3-44.2); Mean Corpuscular HGB Conc 32.9 g/dl (32-36); Mean Corpuscular Hemoglobin 30.1 pg (26-34); Mean Corpuscular Volume 91.5 fl (80-100); Mean Platelet Volume 9.8 fl (7.4-10.4); Monocytes Absolute Auto 0.8 K/mm3 (0.1-0.6); Monocytes Percent Auto 10.8 % (2.6-8.5); Neutrophils Absolute Auto 4.5 K/mm3 (1.3-6.7); Neutrophils Percent Auto 61.5 % (45.5-73.1); Platelet Count Result 198 k/mm3 (150-375); Red Blood Count 4.25 M/mm3 (4.6-6.20); Red Cell Distribution Width 13.9 % (11.5-14.5); White Blood Count 7.3 K/mm3 (4.5-10.0)
[2023-08-22 08:23] LABS: Lactic Acid Reflex 1.2 mmol/L (0.7-2.0)
[2023-08-22 08:24] LABS: Alanine Aminotransferase 21 U/L (6-50); Alkaline Phosphatase 76 U/L (38-126); Anion Gap 7 mmol/L (4-12); Aspartate Amino Transferase 34 U/L (17-59); Bilirubin,Total 0.8 mg/dL (0.2-1.3); Blood Urea Nitrogen 18 mg/dL (9-20); Carbon Dioxide 31 mmol/L (22-30); Chloride 103 mmol/L (98-107); Estimated CRCL calculation 70 ml/min; Estimated Glomerular Filt Rate > 60; Glucose 128 mg/dL (65-110); Magnesium 1.8 mg/dL (1.6-2.3); Potassium 3.6 mmol/L (3.4-5.0); Sodium 141 mmol/L (137-145)
[2023-08-22 08:25] LABS: Add Urine Microscopic? YES; Appearance Urine Clear (Clear); Bacteria Urine None Seen /hpf; Bilirubin Urine Negative (Negative); Blood Urine Negative (Negative); Color Urine Yellow (Yellow); Glucose Urine UA Negative (Negative); Ketones Urine Negative (Negative); Leukocyte Esterase Ur 1+ LEU/UL (Negative); Need Manual Microscopic Reviewed; Nitrate Urine Negative (Negative); Non Pathogenic Casts 0-2; Protein Urine Negative (Negative); RBC Urine 0-2 /hpf (0-2); Specific Grav Ur 1.008 (1.001-1.035); Squamous Epithelial Cell Urine None Seen /hpf (Few); Urobilinogen Urine 0.2 mg/dL (<2.0); WBC Urine 0-5 /hpf (0-3)
[2023-08-22 08:25] LABS: INR 1.1; Prothrombin Time 14.4 Seconds (11.1-14.7)
[2023-08-22 08:27] LABS: Partial Thromboplastin Time 29.5 Seconds (22.3-36.8)
[2023-08-22 08:36] LABS: NT Pro B Type Natriuretic Pept 155 pg/mL (19.9-100); Troponin I < 0.012 ng/mL (0.000-0.034)
[2023-08-22 08:47] LABS: Influenza A QL RT-PCR Negative (Negative); Influenza B QL RT-PCR Negative (Negative); RSV RNA, RT-PCR Negative (Negative); SARS-CoV-2 RNA PCR Positive (Negative)
[2023-08-22] MEDS: MAGNESIUM SULF 1 GM/D5W 100 ML 1 GM/100 ML BAG IVPB (09:22)
[2023-08-22] MEDS: REMDESIVIR 200 MG/NS 250 ML 200 MG/250 ML BAG 250 MG IVPB (10:42)
--- NOTE | 2023-08-22 10:52 | PC.NURSE ---
updates given to NH and family
--- NOTE | 2023-08-22 11:05 | ADMGEN ---
This patient, Luke Damico, was admitted to Medical Room 244-. Patient/family oriented to hospital policies and general routines including ID bracelet, bed and alarms, visiting hours, pain management, procedures, bathroom and other care routines, personal items, smoking policy, room service/diet, and visiting hours. Information on how to activate the Rapid Response Team has been discussed. Patient/Family are encouraged to report perceived risks to care and to ask questions if they do not understand what they are told or what they should do.
--- NOTE | 2023-08-22 13:22 | PM.IMHP ---
H&P: HPI History of Present Illness Date/Time: 08/22/23 13:22 Chief Complaint: Weakness Narrative: 87 y/o M presents here with weakness with PMH of phimosis, dementia, diabetes, ischemic colitis in 2004, PE in 2017, peripheral neuropathy, urinary retention, frequent UTIs, and venous stasis ulcers. The patient presents here via EMS from [facility] with generalized weakness. EMS originally called for lift assist after patient slid out of his recliner this morning. EMS reported to ED staff that patient was more you weak than usual and was unable to ambulate without heavy assistance. Patient has history of dementia, currently A&Ox1 (self only). The patient is currently reporting mild fatigue a few days prior that has since resolved. Denying cough, shortness of breath, palpitations, fever, chills, or body aches. Also told the ED staff that he was experiencing left lower quadrant pain this morning. Now denying pain. Limited HPI given dementia. Initial VS at presentation: 97.5? F, HR 65, RR 24, 178/88, 100% on RA. ED workup showed: No leukocytosis, hemoglobin 12.8, normal coags, no significant electrolyte derangements, creatinine 0.8 and GFR >60, lactic 1.2, initial troponin negative, BNP 155, UA showed 1+ leuks, and tested positive for COVID. CXR showed no acute cardiopulmonary disease. Head CT showed stable moderate nonspecific cerebral white matter disease. C-spine CT showed no fracture and severe cervical spondylosis. CT of the abdomen/pelvis showed no etiology for patient's symptoms. Review of Systems Review of Systems: Limited, unreliable ROS unobtainable: Yes unobtainable due to mental status PMFSH Past Medical History Medical History Acquired phimosis of penis Aortic arch atherosclerosis CTA 08.12.23 VISUALIZED AORTIC ARCH AND BRANCHING VESSELS: Mild atheromatous disease but no significant stenosis. BPH loc w urin obs/LUTS Carotid stenosis CTA 08.12.23: RIGHT CERVICAL CAROTID SYSTEM: stenosis 80%. No carotid dissection. --LEFT CERVICAL CAROTID SYSTEM: stenosis 40%. No carotid dissection. Colon polyps Dementia 8.31. 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 hx pulmonary embolism Peripheral neuropathy Recurrent UTI Stage 3a chronic kidney disease (CKD) Urinary retention Venous stasis ulcer Yeast infection of the skin Surgical History Surgical History H/O hemicolectomy ischemic colitis 2005 Family History Family History Sibling Hypertension Family history of cardiovascular disease Family history of malignant neoplasm of breast Father Patient's father is , Onset Age: 72 Carcinoma of colon Malignant neoplasm of prostate Grandparent Diabetes mellitus Family history of malignant neoplasm of esophagus Mother Depression Family history of cardiovascular disease Social History Social History Social History: Code status: DNR/DNI Healthcare power of sports attorney: Karen Smoking status: Unknown if ever smoked Tobacco type: cigarettes Additional smoking assessment comments: A couple cigarettes a day for a few years Alcohol intake: never Substance use: never Lack of Transportation: No Lack of Food: Never True Current Housing: I Have Housing Concerned About Future Housing: No Difficulty Paying Gas/Electric Bills: No Difficulty Paying for Meds: No Currently Unemployed: No Education: High School Diploma/GED Difficulty w/ Childcare or F
[2023-08-22 16:41] LABS: Glucose Point of Care 138 mg/dl (65-105)
[2023-08-22] MEDS: GABAPENTIN 300 MG CAPSULE PO (16:57)
[2023-08-22] MEDS: FERROUS SULFATE 325 MG TABLET DR PO (16:57)
[2023-08-22] MEDS: risperiDONE 1 MG TABLET PO (19:43)
[2023-08-22] MEDS: BENZONATATE 100 MG CAPSULE PO (19:43)
[2023-08-22] MEDS: GABAPENTIN 300 MG CAPSULE 600 MG PO (19:43)
[2023-08-22] MEDS: APIXABAN 2.5 MG TABLET PO (19:43)
[2023-08-22] MEDS: ACETAMINOPHEN 325 MG TABLET 650 MG PO (19:44)
[2023-08-22] MEDS: DONEPEZIL HCL 10 MG TABLET PO (19:44)
[2023-08-23 05:00] LABS: Basophils Percent Auto 0.3 % (0.2-1.2); Eosinophils Absolute Auto 0.1 K/mm3 (0-0.3); Eosinophils Percent Auto 2.2 % (0-4.4); Hematocrit 36.9 % (42.0-52.0); Hemoglobin 11.8 g/dL (14.0-18.0); Immature Granulocyte Absolute 0.03 K/mm3 (0.00-0.031); Immature Granulocyte Percent A 0.5 % (0-0.5); Lymphocytes Absolute Auto 1.78 K/mm3 (0.9-3.2); Lymphocytes Percent Auto 29.8 % (18.3-44.2); Mean Corpuscular Hemoglobin 29.9 pg (26-34); Mean Corpuscular Volume 93.4 fl (80-100); Mean Platelet Volume 10.7 fl (7.4-10.4); Monocytes Absolute Auto 0.8 K/mm3 (0.1-0.6); Monocytes Percent Auto 12.7 % (2.6-8.5); Neutrophils Absolute Auto 3.3 K/mm3 (1.3-6.7); Neutrophils Percent Auto 54.5 % (45.5-73.1); Platelet Count Result 188 k/mm3 (150-375); Red Blood Count 3.95 M/mm3 (4.6-6.20); Red Cell Distribution Width 13.7 % (11.5-14.5)
[2023-08-23 05:11] LABS: Alanine Aminotransferase 17 U/L (6-50); Albumin Level 3.4 g/dL (3.5-5.1); Alkaline Phosphatase 73 U/L (38-126); Anion Gap 3 mmol/L (4-12); Aspartate Amino Transferase 26 U/L (17-59); Bilirubin,Total 0.5 mg/dL (0.2-1.3); Blood Urea Nitrogen 19 mg/dL (9-20); CRP 0.8 mg/dL (<1.0); Calcium 8.3 mg/dL (8.4-10.2); Carbon Dioxide 34 mmol/L (22-30); Chloride 102 mmol/L (98-107); Estimated CRCL calculation 62 ml/min; Estimated Glomerular Filt Rate > 60; Glucose 116 mg/dL (65-110); Potassium 3.2 mmol/L (3.4-5.0); Sodium 139 mmol/L (137-145)
[2023-08-23 05:22] LABS: Hemoglobin A1C 6.1 % (<5.7)
[2023-08-23 05:36] VITALS: BP 143/57; PULSE 60; RESP 18; TEMP 36.6; O2SAT 96
[2023-08-23 05:47] LABS: Magnesium 2.1 mg/dL (1.6-2.3)
[2023-08-23] MEDS: POTASSIUM CHLORIDE 20 MEQ ER TABLET PO (06:20)
--- NOTE | 2023-08-23 07:04 | P.PNIM_ITS ---
Progress Note: A&P Assessment and Plan (1) COVID: Code(s): U07.1 - COVID-19 Status: Acute (2) Generalized weakness: Code(s): R53.1 - Weakness Status: Acute (3) Stage 3a chronic kidney disease (CKD): Code(s): N18.31 - Chronic kidney disease, stage 3a Status: Acute (4) Type 2 diabetes mellitus with diabetic neuropathy, unspecified: Qualifiers: Diabetes mellitus rn long term care insulin use: without long-term use Qualified Code(s): E11.40 - Type 2 diabetes mellitus with diabetic neuropathy, unspecified Code(s): E11.40 - Type 2 diabetes mellitus with diabetic neuropathy, unspecified Status: Acute Plan COVID * on RA, afebrile, No WBC * Supportive care. * Monitor for COVID pneumonia, acute respiratory distress syndrome. * remdesivir for 5 days for patient with high risk for hypoxemia * supplemental oxygen as needed to maintain 90% oxygen saturation Currently 97% on RA * CXR with no cardiopulmonary process * monitor LFTs daily * incentive spirometer while awake * DuoNebs * procalcitonin/CRP negative * guaifenesin scheduled for cough * Antipyretics Generalized Weakness * Secondary COVID/UTI (Treatment for UTI prior to admission) * PT/OT Chronic Kidney Disease * Stable * Avoid nephrotoxic drugs. * Monitor antihypertensive drug therapy. * Avoid NSAIDs. * Routine CMP monitoring GFR. * Monitor electrolytes especially potassium. Diabetes * HX of not on medication currently * A1c 6.1 * Diet control * follow-up with PCP o/p HX Anemia: Resumed Iron supplement, monitor H&H HX Dementia: Resumed donepezil Hx BPH: Resumed finasteride HX neuropathy: resumed gabapentin Code status: Full code per patient DVT prophylaxis: Eliquis Stress ulcer prophylaxis: Protonix PT/OT notes: PT/OT pending Disposition: Patient was admitted for generalized weakness and COVID-19 on RA. PT/OT pending will continue with supportive care plan to discharge back to [facility] when medically stable. Time Spent With Patient Time with patient: 15 - 25 minutes Subjective Date/time seen: 08/23/23 07:04 Interval history: Admission: Medical Chart 87 y/o M presents here with weakness with PMH of phimosis, dementia, diabetes, ischemic colitis in 2005, PE in 2017, peripheral neuropathy, urinary retention, frequent UTIs, and venous stasis ulcers. The patient presents here via EMS from [facility] with generalized weakness. EMS originally called for lift assist after patient slid out of his recliner this morning. EMS reported to ED staff that patient was more you weak than usual and was unable to ambulate without heavy assistance. Patient has history of dementia, currently A&Ox1 (self only). The patient is currently reporting mild fatigue a few days prior that has since resolved. Denying cough, shortness of breath, palpitations, fever, chills, or body aches. Also told the ED staff that he was experiencing left lower quadrant pain this morning. Now denying pain. Limited HPI given dementia. Initial VS at presentation: 97.5? F, HR 65, RR 24, 178/88, 100% on RA. ED workup showed: No leukocytosis, hemoglobin 12.8, normal coags, no significant electrolyte derangements, creatinine 0.8 and GFR >60, lactic 1.2, initial troponin negative, BNP 155, UA showed 1+ leuks, and tested positive for COVID. CXR showed no acute cardiopulmonary disease. Head CT showed stable moderate nonspecific cerebral white matter disease. C-spine CT showed no
--- NOTE | 2023-08-23 07:04 | PM.IMPN ---
Progress Note: A&P Assessment and Plan (1) COVID: Code(s): U07.1 - COVID-19 Status: Acute (2) Generalized weakness: Code(s): R53.1 - Weakness Status: Acute (3) Stage 3a chronic kidney disease (CKD): Code(s): N18.31 - Chronic kidney disease, stage 3a Status: Acute (4) Type 2 diabetes mellitus with diabetic neuropathy, unspecified: Qualifiers: Diabetes mellitus intermediate card tender insulin use: without jail use Qualified Code(s): E11.40 - Type 2 diabetes mellitus with diabetic neuropathy, unspecified Code(s): E11.40 - Type 2 diabetes mellitus with diabetic neuropathy, unspecified Status: Acute Plan COVID on RA, afebrile, No WBC Supportive care. Monitor for COVID pneumonia, acute respiratory distress syndrome. remdesivir for 5 days for patient with high risk for hypoxemia supplemental oxygen as needed to maintain 90% oxygen saturation Currently 97% on RA CXR with no cardiopulmonary process monitor LFTs daily incentive spirometer while awake DuoNebs procalcitonin/CRP negative guaifenesin scheduled for cough Antipyretics Generalized Weakness Secondary COVID/UTI (Treatment for UTI prior to admission) PT/OT Chronic Kidney Disease Stable Avoid nephrotoxic drugs. Monitor antihypertensive drug therapy. Avoid NSAIDs. Routine CMP monitoring GFR. Monitor electrolytes especially potassium. Diabetes HX of not on medication currently A1c 6.1 Diet control follow-up with PCP o/p HX Anemia: Resumed Iron supplement, monitor H&H HX Dementia: Resumed donepezil Hx BPH: Resumed finasteride HX neuropathy: resumed gabapentin Code status: Full code per patient DVT prophylaxis: Eliquis Stress ulcer prophylaxis: Protonix PT/OT notes: PT/OT pending Disposition: Patient was admitted for generalized weakness and COVID-19 on RA. PT/OT pending will continue with supportive care plan to discharge back to [facility] when medically stable. Time Spent With Patient Time with patient: 15 - 25 minutes Subjective Date/time seen: 08/23/23 07:04 Interval history: Admission: Medical Chart 87 y/o M presents here with weakness with PMH of phimosis, dementia, diabetes, ischemic colitis in 2005, PE in 2017, peripheral neuropathy, urinary retention, frequent UTIs, and venous stasis ulcers. The patient presents here via EMS from [facility] with generalized weakness. EMS originally called for lift assist after patient slid out of his recliner this morning. EMS reported to ED staff that patient was more you weak than usual and was unable to ambulate without heavy assistance. Patient has history of dementia, currently A&Ox1 (self only). The patient is currently reporting mild fatigue a few days prior that has since resolved. Denying cough, shortness of breath, palpitations, fever, chills, or body aches. Also told the ED staff that he was experiencing left lower quadrant pain this morning. Now denying pain. Limited HPI given dementia. Initial VS at presentation: 97.5? F, HR 65, RR 24, 178/88, 100% on RA. ED workup showed: No leukocytosis, hemoglobin 12.8, normal coags, no significant electrolyte derangements, creatinine 0.8 and GFR >60, lactic 1.2, initial troponin negative, BNP 155, UA showed 1+ leuks, and tested positive for COVID. CXR showed no acute cardiopulmonary disease. Head CT showed stable moderate nonspecific cerebral white matter disease. C-spine CT showed no fracture and severe cervical spondylosis. CT of the abdomen/pelvis showed no etiology for patient's symptoms. 08/23/2023: Patient in no acute distress denied any complaints remains on RA. Plan was to discharge back to SNF however they are unable to take him back today since he is COVID+. Replenished K+ otherwise labs unremarkable and afebrile overnight. PT/OT pending. Review of Systems Review of Systems: Limited, unreliable ROS unob
[2023-08-23] MEDS: GABAPENTIN 300 MG CAPSULE PO ×2 (09:36→18:01)
[2023-08-23] MEDS: FERROUS SULFATE 325 MG TABLET DR PO ×2 (09:36→18:01)
[2023-08-23] MEDS: FUROSEMIDE 40 MG TABLET PO (09:36)
[2023-08-23] MEDS: MULTIVITAMINS THERAPEUTIC TAB (*BKC) 1 TABLET PO (09:36)
[2023-08-23] MEDS: APIXABAN 2.5 MG TABLET PO ×2 (09:36→20:28)
[2023-08-23] MEDS: guaiFENesin 12 HR 600 MG TABCR PO ×2 (09:36→20:28)
[2023-08-23] MEDS: DULoxetine HCL 30 MG CAPSULE.DR PO (09:36)
[2023-08-23] MEDS: CEPHALEXIN 500 MG CAPSULE PO (09:36)
[2023-08-23] MEDS: SIMVASTATIN 20 MG TABLET 40 MG PO (09:36)
[2023-08-23] MEDS: FOLIC ACID 1 MG TABLET PO (09:36)
[2023-08-23] MEDS: BENZONATATE 100 MG CAPSULE PO ×2 (09:36→20:28)
[2023-08-23] MEDS: FINASTERIDE 5 MG TABLET PO (09:36)
[2023-08-23 09:37] VITALS: PULSE 76
[2023-08-23] MEDS: atenoloL 25 MG TABLET PO (09:37)
[2023-08-23] MEDS: REMDESIVIR 100 MG/NS 250 ML 100 MG/250 ML BAG 250 MG IVPB (09:38)
[2023-08-23 10:25] VITALS: O2SAT 98
[2023-08-23] MEDS: POTASSIUM CHLORIDE 20 MEQ ER TABLET 40 MEQ PO (12:14)
[2023-08-23 14:00] VITALS: BP 128/54; PULSE 59; RESP 16; TEMP 36.3; O2SAT 96
--- NOTE | 2023-08-23 14:44 | PCRCNOTE ---
Pt. states does not wear a home CPAP/BIPAP.
[2023-08-23] MEDS: DONEPEZIL HCL 10 MG TABLET PO (20:28)
[2023-08-23] MEDS: GABAPENTIN 300 MG CAPSULE 600 MG PO (20:28)
[2023-08-23] MEDS: risperiDONE 1 MG TABLET PO (20:28)
[2023-08-23 20:37] VITALS: BP 154/66; PULSE 67; RESP 18; TEMP 36.8; O2SAT 98
[2023-08-24 05:15] LABS: Hematocrit 36.4 % (42.0-52.0); Hemoglobin 11.7 g/dL (14.0-18.0); Mean Corpuscular HGB Conc 32.1 g/dl (32-36); Mean Corpuscular Hemoglobin 30.5 pg (26-34); Mean Corpuscular Volume 94.8 fl (80-100); Mean Platelet Volume 10.6 fl (7.4-10.4); Platelet Count Result 181 k/mm3 (150-375); Red Blood Count 3.84 M/mm3 (4.6-6.20); Red Cell Distribution Width 14.2 % (11.5-14.5); White Blood Count 7.5 K/mm3 (4.5-10.0)
[2023-08-24 05:19] LABS: INR 1.2; Prothrombin Time 15.9 Seconds (11.1-14.7)
[2023-08-24 05:33] LABS: Alanine Aminotransferase 16 U/L (6-50); Albumin Level 3.3 g/dL (3.5-5.1); Alkaline Phosphatase 69 U/L (38-126); Anion Gap 4 mmol/L (4-12); Aspartate Amino Transferase 30 U/L (17-59); Bilirubin,Total 0.6 mg/dL (0.2-1.3); Blood Urea Nitrogen 19 mg/dL (9-20); Calcium 8.4 mg/dL (8.4-10.2); Carbon Dioxide 30 mmol/L (22-30); Chloride 105 mmol/L (98-107); Estimated CRCL calculation 69 ml/min; Estimated Glomerular Filt Rate > 60; Glucose 116 mg/dL (65-110); Potassium 3.9 mmol/L (3.4-5.0); Sodium 139 mmol/L (137-145)
[2023-08-24 05:38] VITALS: BP 142/65; PULSE 55; RESP 18; TEMP 36.2; O2SAT 95
--- NOTE | 2023-08-24 07:18 | PM.IMPN ---
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 Monitor for COVID pneumonia, acute respiratory distress syndrome. remdesivir for 5 days for patient with high risk for hypoxemia supplemental oxygen as needed to maintain 90% oxygen saturation Currently 97% on RA CXR with no cardiopulmonary process monitor LFTs daily incentive spirometer while awake DuoNebs procalcitonin/CRP negative guaifenesin scheduled for cough Antipyretics Generalized Weakness Secondary COVID/UTI (Treatment for UTI prior to admission) PT/OT Chronic Kidney Disease Stable Avoid nephrotoxic drugs. Monitor antihypertensive drug therapy. Avoid NSAIDs. Routine CMP monitoring GFR. Monitor electrolytes especially potassium. Diabetes HX of not on medication currently A1c 6.1 Diet control follow-up with PCP o/p HX Anemia: Resumed Iron supplement, monitor H&H HX Dementia: Resumed donepezil Hx BPH: Resumed finasteride HX neuropathy: resumed gabapentin Code status: Full code per patient DVT prophylaxis: Eliquis Stress ulcer prophylaxis: Protonix PT/OT notes: PT/OT pending Disposition: Patient was admitted for generalized weakness and COVID-19 on RA. PT/OT pending will continue with supportive care plan to discharge back to [facility] when medically stable. Time Spent With Patient Time with patient: 15 - 25 minutes Subjective Date/time seen: 08/24/23 07:18 Interval history: Admission: Medical Chart 87 y/o M presents here with weakness with PMH of phimosis, dementia, diabetes, ischemic colitis in 2005, PE in 2017, peripheral neuropathy, urinary retention, frequent UTIs, and venous stasis ulcers. The patient presents here via EMS from [facility] with generalized weakness. EMS originally called for lift assist after patient slid out of his recliner this morning. EMS reported to ED staff that patient was more you weak than usual and was unable to ambulate without heavy assistance. Patient has history of dementia, currently A&Ox1 (self only). The patient is currently reporting mild fatigue a few days prior that has since resolved. Denying cough, shortness of breath, palpitations, fever, chills, or body aches. Also told the ED staff that he was experiencing left lower quadrant pain this morning. Now denying pain. Limited HPI given dementia. Initial VS at presentation: 97.5? F, HR 65, RR 24, 178/88, 100% on RA. ED workup showed: No leukocytosis, hemoglobin 12.8, normal coags, no significant electrolyte derangements, creatinine 0.8 and GFR >60, lactic 1.2, initial troponin negative, BNP 155, UA showed 1+ leuks, and tested positive for COVID. CXR showed no acute cardiopulmonary disease. Head CT showed stable moderate nonspecific cerebral white matter disease. C-spine CT showed no fracture and severe cervical spondylosis. CT of the abdomen/pelvis showed no etiology for patient's symptoms. 08/23/2023: Patient in no acute distress denied any complaints remains on RA. Plan was to discharge back to SNF however they are unable to take him back today since he is COVID+. Replenished K+ otherwise labs unremarkable and afebrile overnight. PT/OT pending. 08/24/2023: Patient with no complaints appears comfortable A&O x 1-2. Denies CP
[2023-08-24 08:00] VITALS: O2SAT 95
[2023-08-24] MEDS: BENZOCAINE/MENTHOL (*BKC) 18 EA LOZENGE 1 LOZENGE PO (09:24)
[2023-08-24] MEDS: SIMVASTATIN 20 MG TABLET 40 MG PO (09:24)
[2023-08-24 09:25] VITALS: PULSE 69
[2023-08-24] MEDS: atenoloL 25 MG TABLET PO (09:25)
[2023-08-24] MEDS: CEPHALEXIN 500 MG CAPSULE PO (09:25)
[2023-08-24] MEDS: DULoxetine HCL 30 MG CAPSULE.DR PO (09:25)
[2023-08-24] MEDS: FOLIC ACID 1 MG TABLET PO (09:25)
[2023-08-24] MEDS: APIXABAN 2.5 MG TABLET PO ×2 (09:25→20:19)
[2023-08-24] MEDS: FERROUS SULFATE 325 MG TABLET DR PO ×2 (09:25→17:47)
[2023-08-24] MEDS: FUROSEMIDE 40 MG TABLET PO (09:25)
[2023-08-24] MEDS: guaiFENesin 12 HR 600 MG TABCR PO ×2 (09:26→20:19)
[2023-08-24] MEDS: MULTIVITAMINS THERAPEUTIC TAB (*BKC) 1 TABLET PO (09:26)
[2023-08-24] MEDS: GABAPENTIN 300 MG CAPSULE PO ×2 (09:26→17:47)
[2023-08-24] MEDS: FINASTERIDE 5 MG TABLET PO (09:26)
[2023-08-24] MEDS: REMDESIVIR 100 MG/NS 250 ML 100 MG/250 ML BAG 250 MG IVPB (11:32)
[2023-08-24 14:00] VITALS: BP 120/58; PULSE 78; RESP 16; TEMP 36.7; O2SAT 95
[2023-08-24 19:30] VITALS: PULSE 78; RESP 16; O2SAT 95
[2023-08-24] MEDS: GABAPENTIN 300 MG CAPSULE 600 MG PO (20:18)
[2023-08-24] MEDS: DONEPEZIL HCL 10 MG TABLET PO (20:18)
[2023-08-24] MEDS: BENZONATATE 100 MG CAPSULE PO (20:19)
[2023-08-24] MEDS: ACETAMINOPHEN 325 MG TABLET 650 MG PO (20:19)
[2023-08-24] MEDS: risperiDONE 1 MG TABLET PO (20:19)
[2023-08-24 20:49] VITALS: BP 150/56; PULSE 64; RESP 16; TEMP 36.8; O2SAT 100
[2023-08-25 04:57] VITALS: BP 131/54; PULSE 60; RESP 16; TEMP 36.5; O2SAT 95
[2023-08-25 05:13] LABS: Hematocrit 38.7 % (42.0-52.0); Hemoglobin 12.7 g/dL (14.0-18.0); Mean Corpuscular HGB Conc 32.8 g/dl (32-36); Mean Corpuscular Hemoglobin 30.8 pg (26-34); Mean Corpuscular Volume 93.7 fl (80-100); Mean Platelet Volume 10.5 fl (7.4-10.4); Platelet Count Result 201 k/mm3 (150-375); Red Blood Count 4.13 M/mm3 (4.6-6.20); White Blood Count 8.7 K/mm3 (4.5-10.0)
[2023-08-25 05:22] LABS: Alanine Aminotransferase 17 U/L (6-50); Albumin Level 3.5 g/dL (3.5-5.1); Alkaline Phosphatase 76 U/L (38-126); Anion Gap 6 mmol/L (4-12); Aspartate Amino Transferase 26 U/L (17-59); Bilirubin,Total 0.6 mg/dL (0.2-1.3); Blood Urea Nitrogen 20 mg/dL (9-20); Calcium 8.5 mg/dL (8.4-10.2); Carbon Dioxide 34 mmol/L (22-30); Chloride 98 mmol/L (98-107); Estimated CRCL calculation 62 ml/min; Estimated Glomerular Filt Rate > 60; Glucose 121 mg/dL (65-110); Potassium 3.9 mmol/L (3.4-5.0); Sodium 138 mmol/L (137-145)
[2023-08-25] MEDS: REMDESIVIR 100 MG/NS 250 ML 100 MG/250 ML BAG 250 MG IVPB (09:25)
[2023-08-25 09:32] VITALS: PULSE 60
[2023-08-25] MEDS: FINASTERIDE 5 MG TABLET PO (09:32)
[2023-08-25] MEDS: FUROSEMIDE 40 MG TABLET PO (09:32)
[2023-08-25] MEDS: DULoxetine HCL 30 MG CAPSULE.DR PO (09:32)
[2023-08-25] MEDS: CEPHALEXIN 500 MG CAPSULE PO (09:32)
[2023-08-25] MEDS: atenoloL 25 MG TABLET PO (09:32)
[2023-08-25] MEDS: guaiFENesin 12 HR 600 MG TABCR PO ×2 (09:32→21:35)
[2023-08-25] MEDS: FOLIC ACID 1 MG TABLET PO (09:32)
[2023-08-25] MEDS: APIXABAN 2.5 MG TABLET PO ×2 (09:32→21:39)
[2023-08-25] MEDS: FERROUS SULFATE 325 MG TABLET DR PO ×2 (09:33→16:41)
[2023-08-25] MEDS: MULTIVITAMINS THERAPEUTIC TAB (*BKC) 1 TABLET PO (09:33)
[2023-08-25] MEDS: GABAPENTIN 300 MG CAPSULE PO ×2 (09:36→16:41)
[2023-08-25] MEDS: SIMVASTATIN 20 MG TABLET 40 MG PO (09:36)
--- NOTE | 2023-08-25 09:44 | PM.IMPN ---
Progress Note: A&P Assessment and Plan (1) COVID: Code(s): U07.1 - COVID-19 Status: Acute (2) Generalized weakness: Code(s): R53.1 - Weakness Status: Acute (3) Stage 3a chronic kidney disease (CKD): Code(s): N18.31 - Chronic kidney disease, stage 3a Status: Acute (4) Type 2 diabetes mellitus with diabetic neuropathy, unspecified: Qualifiers: Diabetes mellitus supervisor intermediates insulin use: without assisted use Qualified Code(s): E11.40 - Type 2 diabetes mellitus with diabetic neuropathy, unspecified Code(s): E11.40 - Type 2 diabetes mellitus with diabetic neuropathy, unspecified Status: Acute Plan COVID on RA, afebrile, No WBC Supportive care. Monitor for COVID pneumonia, acute respiratory distress syndrome. remdesivir for 5 days for patient with high risk for hypoxemia supplemental oxygen as needed to maintain 90% oxygen saturation Currently 97% on RA CXR with no cardiopulmonary process monitor LFTs daily incentive spirometer while awake DuoNebs procalcitonin/CRP negative guaifenesin scheduled for cough Antipyretics Generalized Weakness Secondary COVID/UTI (Treatment for UTI prior to admission) PT/OT Chronic Kidney Disease Stable Avoid nephrotoxic drugs. Monitor antihypertensive drug therapy. Avoid NSAIDs. Routine CMP monitoring GFR. Monitor electrolytes especially potassium. Diabetes HX of not on medication currently A1c 6.1 Diet control follow-up with PCP o/p HX Anemia: Resumed Iron supplement, monitor H&H HX Dementia: Resumed donepezil Hx BPH: Resumed finasteride HX neuropathy: resumed gabapentin Code status: Full code per patient DVT prophylaxis: Eliquis Stress ulcer prophylaxis: Protonix PT/OT notes: PT/OT pending Disposition: Patient was admitted for generalized weakness and COVID-19 on RA. PT/OT [facility] will not take patient back due to COVID + status CC working on SNF placement. Time Spent With Patient Time with patient: 15 - 25 minutes Subjective Date/time seen: 08/25/23 09:44 Interval history: Admission: Medical Chart 87 y/o M presents here with weakness with PMH of phimosis, dementia, diabetes, ischemic colitis in 2005, PE in 2017, peripheral neuropathy, urinary retention, frequent UTIs, and venous stasis ulcers. The patient presents here via EMS from [facility] with generalized weakness. EMS originally called for lift assist after patient slid out of his recliner this morning. EMS reported to ED staff that patient was more you weak than usual and was unable to ambulate without heavy assistance. Patient has history of dementia, currently A&Ox1 (self only). The patient is currently reporting mild fatigue a few days prior that has since resolved. Denying cough, shortness of breath, palpitations, fever, chills, or body aches. Also told the ED staff that he was experiencing left lower quadrant pain this morning. Now denying pain. Limited HPI given dementia. Initial VS at presentation: 97.5? F, HR 65, RR 24, 178/88, 100% on RA. ED workup showed: No leukocytosis, hemoglobin 12.8, normal coags, no significant electrolyte derangements, creatinine 0.8 and GFR >60, lactic 1.2, initial troponin negative, BNP 155, UA showed 1+ leuks, and tested positive for COVID. CXR showed no acute cardiopulmonary disease. Head CT showed stable moderate nonspecific cerebral white matter disease. C-spine CT showed no fracture and severe cervical spondylosis. CT of the abdomen/pelvis showed no etiology for patient's symptoms. 08/23/2023: Patient in no acute distress denied any complaints remains on RA. Plan was to discharge back to SNF however they are unable to take him back today since he is COVID+. Replenished K+ otherwise labs unremarkable and afebrile overnight. PT/OT pending. 08/24/2023: Patient with no complaints appears comfortable A&O x 1-2. Denies CP or SOB remains o
[2023-08-25 09:50] VITALS: PULSE 60; RESP 16; O2SAT 95
[2023-08-25 14:00] VITALS: BP 128/60; PULSE 64; RESP 16; TEMP 36.5; O2SAT 96
[2023-08-25] MEDS: ACETAMINOPHEN 325 MG TABLET 650 MG PO (14:40)
[2023-08-25 20:38] VITALS: BP 153/58; PULSE 58; RESP 18; TEMP 36.7; O2SAT 97
[2023-08-25] MEDS: risperiDONE 1 MG TABLET PO (21:00)
[2023-08-25] MEDS: GABAPENTIN 300 MG CAPSULE 600 MG PO (21:30)
[2023-08-25] MEDS: DONEPEZIL HCL 10 MG TABLET PO (21:39)
[2023-08-26 04:42] VITALS: BP 131/60; PULSE 58; RESP 16; TEMP 36.6; O2SAT 95
[2023-08-26 05:05] LABS: Hematocrit 38.9 % (42.0-52.0); Hemoglobin 12.5 g/dL (14.0-18.0); Mean Corpuscular HGB Conc 32.1 g/dl (32-36); Mean Corpuscular Hemoglobin 30.2 pg (26-34); Mean Platelet Volume 10.6 fl (7.4-10.4); Platelet Count Result 202 k/mm3 (150-375); Red Blood Count 4.14 M/mm3 (4.6-6.20); White Blood Count 8.8 K/mm3 (4.5-10.0)
[2023-08-26 05:10] LABS: INR 1.4; Prothrombin Time 17.6 Seconds (11.1-14.7)
[2023-08-26 05:14] LABS: Alanine Aminotransferase 17 U/L (6-50); Albumin Level 3.4 g/dL (3.5-5.1); Alkaline Phosphatase 72 U/L (38-126); Anion Gap 6 mmol/L (4-12); Aspartate Amino Transferase 27 U/L (17-59); Bilirubin,Total 0.6 mg/dL (0.2-1.3); Blood Urea Nitrogen 24 mg/dL (9-20); Calcium 8.6 mg/dL (8.4-10.2); Carbon Dioxide 32 mmol/L (22-30); Chloride 100 mmol/L (98-107); Estimated CRCL calculation 62 ml/min; Estimated Glomerular Filt Rate > 60; Glucose 125 mg/dL (65-110); Potassium 3.9 mmol/L (3.4-5.0); Sodium 138 mmol/L (137-145)
[2023-08-26 09:03] VITALS: PULSE 64
[2023-08-26] MEDS: FINASTERIDE 5 MG TABLET PO (09:03)
[2023-08-26] MEDS: atenoloL 25 MG TABLET PO (09:03)
[2023-08-26] MEDS: SIMVASTATIN 20 MG TABLET 40 MG PO (09:03)
[2023-08-26 09:04] VITALS: PULSE 64; RESP 18; O2SAT 95
[2023-08-26] MEDS: DULoxetine HCL 30 MG CAPSULE.DR PO (09:04)
[2023-08-26] MEDS: guaiFENesin 12 HR 600 MG TABCR PO ×2 (09:04→20:35)
[2023-08-26] MEDS: CEPHALEXIN 500 MG CAPSULE PO (09:04)
[2023-08-26] MEDS: MULTIVITAMINS THERAPEUTIC TAB (*BKC) 1 TABLET PO (09:04)
[2023-08-26] MEDS: GABAPENTIN 300 MG CAPSULE PO ×2 (09:04→16:39)
[2023-08-26] MEDS: FUROSEMIDE 40 MG TABLET PO (09:04)
[2023-08-26] MEDS: FERROUS SULFATE 325 MG TABLET DR PO ×2 (09:04→16:39)
[2023-08-26] MEDS: APIXABAN 2.5 MG TABLET PO ×2 (09:04→20:35)
[2023-08-26] MEDS: FOLIC ACID 1 MG TABLET PO (09:04)
[2023-08-26] MEDS: REMDESIVIR 100 MG/NS 250 ML 100 MG/250 ML BAG 250 MG IVPB (09:51)
--- NOTE | 2023-08-26 12:12 | PM.IMPN ---
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 Monitor for COVID pneumonia, acute respiratory distress syndrome. remdesivir for 5 days for patient with high risk for hypoxemia supplemental oxygen as needed to maintain 90% oxygen saturation Currently 97% on RA CXR with no cardiopulmonary process monitor LFTs daily incentive spirometer while awake DuoNebs procalcitonin/CRP negative guaifenesin scheduled for cough Antipyretics Generalized Weakness Secondary COVID/UTI (Treatment for UTI prior to admission) PT/OT Chronic Kidney Disease Stable Avoid nephrotoxic drugs. Monitor antihypertensive drug therapy. Avoid NSAIDs. Routine CMP monitoring GFR. Monitor electrolytes especially potassium. Diabetes HX of not on medication currently A1c 6.1 Diet control follow-up with PCP o/p HX Anemia: Resumed Iron supplement, monitor H&H HX Dementia: Resumed donepezil Hx BPH: Resumed finasteride HX neuropathy: resumed gabapentin Code status: Full code per patient DVT prophylaxis: Eliquis Stress ulcer prophylaxis: Protonix PT/OT notes: PT/OT pending Disposition: Patient was admitted for generalized weakness and COVID-19 on RA. PT/OT [facility] will not take patient back due to COVID + status CC working on SNF placement. Time Spent With Patient Time with patient: 15 - 25 minutes Subjective Date/time seen: 08/26/23 12:12 Interval history: Admission: Medical Chart 87 y/o M presents here with weakness with PMH of phimosis, dementia, diabetes, ischemic colitis in 2005, PE in 2017, peripheral neuropathy, urinary retention, frequent UTIs, and venous stasis ulcers. The patient presents here via EMS from [facility] with generalized weakness. EMS originally called for lift assist after patient slid out of his recliner this morning. EMS reported to ED staff that patient was more you weak than usual and was unable to ambulate without heavy assistance. Patient has history of dementia, currently A&Ox1 (self only). The patient is currently reporting mild fatigue a few days prior that has since resolved. Denying cough, shortness of breath, palpitations, fever, chills, or body aches. Also told the ED staff that he was experiencing left lower quadrant pain this morning. Now denying pain. Limited HPI given dementia. Initial VS at presentation: 97.5? F, HR 65, RR 24, 178/88, 100% on RA. ED workup showed: No leukocytosis, hemoglobin 12.8, normal coags, no significant electrolyte derangements, creatinine 0.8 and GFR >60, lactic 1.2, initial troponin negative, BNP 155, UA showed 1+ leuks, and tested positive for COVID. CXR showed no acute cardiopulmonary disease. Head CT showed stable moderate nonspecific cerebral white matter disease. C-spine CT showed no fracture and severe cervical spondylosis. CT of the abdomen/pelvis showed no etiology for patient's symptoms. 08/23/2023: Patient in no acute distress denied any complaints remains on RA. Plan was to discharge back to SNF however they are unable to take him back today since he is COVID+. Replenished K+ otherwise labs unremarkable and afebrile overnight. PT/OT pending. 08/24/2023: Patient with no complaints appears comfortable A&O x 1-2. Denies CP or SOB remains o
[2023-08-26 14:00] VITALS: BP 115/54; PULSE 65; RESP 17; TEMP 36.4; O2SAT 98
[2023-08-26 19:41] VITALS: BP 155/85; PULSE 69; RESP 18; TEMP 36.4; O2SAT 98
[2023-08-26 20:00] VITALS: PULSE 69; RESP 18; O2SAT 98
[2023-08-26] MEDS: GABAPENTIN 300 MG CAPSULE 600 MG PO (20:35)
[2023-08-26] MEDS: BENZONATATE 100 MG CAPSULE PO (20:35)
[2023-08-26] MEDS: ACETAMINOPHEN 325 MG TABLET 650 MG PO (20:35)
[2023-08-26] MEDS: risperiDONE 1 MG TABLET PO (20:35)
[2023-08-26] MEDS: DONEPEZIL HCL 10 MG TABLET PO (20:35)
[2023-08-27 05:15] LABS: Hematocrit 37.4 % (42.0-52.0); Hemoglobin 11.8 g/dL (14.0-18.0); Mean Corpuscular HGB Conc 31.6 g/dl (32-36); Mean Corpuscular Hemoglobin 29.9 pg (26-34); Mean Corpuscular Volume 94.9 fl (80-100); Mean Platelet Volume 10.9 fl (7.4-10.4); Platelet Count Result 228 k/mm3 (150-375); Red Blood Count 3.94 M/mm3 (4.6-6.20); White Blood Count 7.4 K/mm3 (4.5-10.0)
[2023-08-27 05:30] LABS: Alanine Aminotransferase 16 U/L (6-50); Albumin Level 3.3 g/dL (3.5-5.1); Alkaline Phosphatase 71 U/L (38-126); Anion Gap 8 mmol/L (4-12); Aspartate Amino Transferase 37 U/L (17-59); Bilirubin,Total 0.4 mg/dL (0.2-1.3); Blood Urea Nitrogen 33 mg/dL (9-20); Calcium 8.8 mg/dL (8.4-10.2); Carbon Dioxide 30 mmol/L (22-30); Chloride 100 mmol/L (98-107); Estimated CRCL calculation 51 ml/min; Estimated Glomerular Filt Rate > 60; Glucose 132 mg/dL (65-110); Potassium 3.8 mmol/L (3.4-5.0); Sodium 138 mmol/L (137-145)
[2023-08-27 06:00] VITALS: BP 133/48; PULSE 60; RESP 18; TEMP 36.9; O2SAT 95
--- NOTE | 2023-08-27 07:06 | P.PNIM_ITS ---
Progress Note: A&P Assessment and Plan (1) COVID: Code(s): U07.1 - COVID-19 Status: Acute (2) Generalized weakness: Code(s): R53.1 - Weakness Status: Acute (3) Stage 3a chronic kidney disease (CKD): Code(s): N18.31 - Chronic kidney disease, stage 3a Status: Acute (4) Type 2 diabetes mellitus with diabetic neuropathy, unspecified: Qualifiers: Diabetes mellitus line prep cook insulin use: without shelter use Qualified Code(s): E11.40 - Type 2 diabetes mellitus with diabetic neuropathy, unspecified Code(s): E11.40 - Type 2 diabetes mellitus with diabetic neuropathy, unspecified Status: Acute Plan COVID * on RA, afebrile, No WBC * Supportive care. * Monitor for COVID pneumonia, acute respiratory distress syndrome. * remdesivir for 5 days for patient with high risk for hypoxemia * supplemental oxygen as needed to maintain 90% oxygen saturation Currently 97% on RA * CXR with no cardiopulmonary process * monitor LFTs daily * incentive spirometer while awake * DuoNebs * procalcitonin/CRP negative * guaifenesin scheduled for cough * Antipyretics Generalized Weakness * Secondary COVID/UTI (Treatment for UTI prior to admission) * PT/OT Chronic Kidney Disease * Stable * Avoid nephrotoxic drugs. * Monitor antihypertensive drug therapy. * Avoid NSAIDs. * Routine CMP monitoring GFR. * Monitor electrolytes especially potassium. Diabetes * HX of not on medication currently * A1c 6.1 * Diet control * follow-up with PCP o/p HX Anemia: Resumed Iron supplement, monitor H&H HX Dementia: Resumed donepezil Hx BPH: Resumed finasteride HX neuropathy: resumed gabapentin Code status: Full code per patient DVT prophylaxis: Eliquis Stress ulcer prophylaxis: Protonix PT/OT notes: PT/OT pending Disposition: Patient was admitted for generalized weakness and COVID-19 on RA. PT/OT [facility] not [facility] patient [facility] due to COVID + status CC working on SNF placement. Subjective Date/time seen: 08/27/23 07:06 Interval history: 87 y/o M presents here with weakness with PMH of phimosis, dementia, diabetes, ischemic colitis in 2005, PE in 2017, peripheral neuropathy, urinary retention, frequent UTIs, and venous stasis ulcers. 08/26: Review of Systems Review of Systems: ROS unobtainable: Yes unobtainable due to mental status Objective Data Vital Signs Vital Signs: Vital Signs - 24 hr 08/26/23 09:03 08/26/23 09:04 08/26/23 14:00 Temperature 97.6 F Pulse Rate 64 64 65 Respiratory Rate 18 17 Blood Pressure 115/54 L Pulse Oximetry 95 98 Oxygen Delivery Room Air 08/26/23 19:41 08/26/23 20:00 08/27/23 06:00 Temperature 97.5 F L 98.5 F Pulse Rate 69 69 60 Respiratory Rate 18 18 18 Blood Pressure 155/85 H 133/48 L Pulse Oximetry 98 98 95 Oxygen Delivery Room Air Intake/Output Intake/Output: Intake & Output 08/24/23 08/25/23 08/26/23 08/27/23 23:59 23:59 23:59 23:59 Intake Total 1600 1080 870 Output Total 200 1350 2100 305 Balance 4563 -270 -1230 -305 Meds/Results Medications: Acti
--- NOTE | 2023-08-27 07:06 | PM.IMPN ---
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 Monitor for COVID pneumonia, acute respiratory distress syndrome. remdesivir for 5 days for patient with high risk for hypoxemia supplemental oxygen as needed to maintain 90% oxygen saturation Currently 97% on RA CXR with no cardiopulmonary process monitor LFTs daily incentive spirometer while awake DuoNebs procalcitonin/CRP negative guaifenesin scheduled for cough Antipyretics Generalized Weakness Secondary COVID/UTI (Treatment for UTI prior to admission) PT/OT Chronic Kidney Disease Stable Avoid nephrotoxic drugs. Monitor antihypertensive drug therapy. Avoid NSAIDs. Routine CMP monitoring GFR. Monitor electrolytes especially potassium. Diabetes HX of not on medication currently A1c 6.1 Diet control follow-up with PCP o/p HX Anemia: Resumed Iron supplement, monitor H&H HX Dementia: Resumed donepezil Hx BPH: Resumed finasteride HX neuropathy: resumed gabapentin Code status: Full code per patient DVT prophylaxis: Eliquis Stress ulcer prophylaxis: Protonix PT/OT notes: PT/OT pending Disposition: Patient was admitted for generalized weakness and COVID-19 on RA. PT/OT [facility] will not take patient back due to COVID + status CC working on SNF placement. Subjective Date/time seen: 08/27/23 07:06 Interval history: 87 y/o M presents here with weakness with PMH of phimosis, dementia, diabetes, ischemic colitis in 2005, PE in 2017, peripheral neuropathy, urinary retention, frequent UTIs, and venous stasis ulcers. 08/26: Review of Systems Review of Systems: ROS unobtainable: Yes unobtainable due to mental status Objective Data Vital Signs Vital Signs: Vital Signs - 24 hr 08/26/23 09:03 08/26/23 09:04 08/26/23 14:00 Temperature 97.6 F Pulse Rate 64 64 65 Respiratory Rate 18 17 Blood Pressure 115/54 L Pulse Oximetry 95 98 Oxygen Delivery Room Air 08/26/23 19:41 08/26/23 20:00 08/27/23 06:00 Temperature 97.5 F L 98.5 F Pulse Rate 69 69 60 Respiratory Rate 18 18 18 Blood Pressure 155/85 H 133/48 L Pulse Oximetry 98 98 95 Oxygen Delivery Room Air Intake/Output Intake/Output: Intake & Output 08/24/23 08/25/23 08/26/23 08/27/23 23:59 23:59 23:59 23:59 Intake Total 1600 1080 870 Output Total 200 1350 2100 305 Balance 8422 -456 -6690 -305 Meds/Results Medications: Active Medications Generic Name Dose Route Start Last Admin Trade Name Freq PRN Reason Stop Dose Admin Acetaminophen 650 mg 08/22/23 10:01 08/26/23 20:35 Acetaminophen 325 Mg Tablet PO 650 mg Q4H PRN Administration Mild Pain (1-3) or Fever Albuterol/Ipratropium 3 ml 08/22/23 13:40 Ipratropium 0.5 Mg/Albuterol Sulfate 2.5 Mg Ampul.Neb 3 Ml INHALATION Q6HRT PRN Shortness Of Breath Or Wheezing Apixaban 2.5 mg 08/22/23 21:00 08/26/23 20:35 Apixaban 2.5 Mg Tablet PO 2.5 mg Q12HR CATHERINE Administration Atenolol 25 mg 08/23/23 09:00 08/26/23 09:03 Atenolol 25 Mg Tablet PO 25 mg DAILY CATHERINE Administration Benzocaine 1 lozenge 08/22/23 13:41 08/24/23 09:24 Benzocaine/Menthol (*Bkc) 18 Ea Lozenge PO 1 lozenge PRN PRN Administration Sore Throat Benzonatate 100 mg
[2023-08-27 08:42] VITALS: PULSE 70
[2023-08-27] MEDS: FERROUS SULFATE 325 MG TABLET DR PO (08:42)
[2023-08-27] MEDS: SIMVASTATIN 20 MG TABLET 40 MG PO (08:42)
[2023-08-27] MEDS: CEPHALEXIN 500 MG CAPSULE PO (08:42)
[2023-08-27] MEDS: guaiFENesin 12 HR 600 MG TABCR PO (08:42)
[2023-08-27] MEDS: FINASTERIDE 5 MG TABLET PO (08:42)
[2023-08-27] MEDS: MULTIVITAMINS THERAPEUTIC TAB (*BKC) 1 TABLET PO (08:42)
[2023-08-27] MEDS: DULoxetine HCL 30 MG CAPSULE.DR PO (08:42)
[2023-08-27] MEDS: atenoloL 25 MG TABLET PO (08:42)
[2023-08-27] MEDS: FOLIC ACID 1 MG TABLET PO (08:42)
[2023-08-27] MEDS: APIXABAN 2.5 MG TABLET PO (08:43)
[2023-08-27] MEDS: FUROSEMIDE 40 MG TABLET PO (08:43)
[2023-08-27] MEDS: GABAPENTIN 300 MG CAPSULE PO (08:43)
[2023-08-27] MEDS: ACETAMINOPHEN 325 MG TABLET 650 MG PO (12:21)
[2023-08-27 14:00] VITALS: BP 127/58; PULSE 55; RESP 18; TEMP 36.7; O2SAT 98
--- NOTE | 2023-08-28 13:17 | PM.DS ---
DS: Admitting Diagnosis Discharge Date 08/27/23 Admitting Diagnosis Shortness of breath DS: Discharge Diagnosis Discharge Diagnosis Plan COVID on RA, afebrile, No WBC Supportive care. Monitor for COVID pneumonia, acute respiratory distress syndrome. remdesivir for 5 days for patient with high risk for hypoxemia supplemental oxygen as needed to maintain 90% oxygen saturation Currently 97% on RA CXR with no cardiopulmonary process monitor LFTs daily incentive spirometer while awake DuoNebs procalcitonin/CRP negative guaifenesin scheduled for cough Antipyretics Generalized Weakness Secondary COVID/UTI (Treatment for UTI prior to admission) PT/OT Chronic Kidney Disease Stable Avoid nephrotoxic drugs. Monitor antihypertensive drug therapy. Avoid NSAIDs. Routine CMP monitoring GFR. Monitor electrolytes especially potassium. Diabetes HX of not on medication currently A1c 6.1 Diet control follow-up with PCP o/p HX Anemia: Resumed Iron supplement, monitor H&H HX Dementia: Resumed donepezil Hx BPH: Resumed finasteride HX neuropathy: resumed gabapentin DS: Summary Hospital Course Reason for hospitalization: COVID Hospital Course: 87 y/o M presents here with weakness with PMH of phimosis, dementia, diabetes, ischemic colitis in 2005, PE in 2017, peripheral neuropathy, urinary retention, frequent UTIs, and venous stasis ulcers. He was diagnosed with COVID in received remdesivir for 5 days. His stay was uneventful and prolonged as his initial SNF did not bed availability. He was discharged in stable condition. Time Spent with Patient Time attestation: Total time spent providing and/or coordinating discharge services: 65 Exam Narrative: General: well appearing, appears stated age. HEENT: normocephalic, atraumatic. Mucous membranes moist. EOMI, PERRLA, bilateral sclera anicteric, no conjunctival injection. Neck supple without JVD, lymphadenopathy, or bruit. Respiratory: clear and diminished auscultation bilaterally. No rales/rhonic/wheezes. Cardiovascular: Regular rate and rhythm, normal S1-S2 upon auscultation. No murmurs, rubs, or clicks. PMI is nondisplaced, capillary refill less than 3 second. Abdomen: Soft, round, no pulsatile masses, nondistended and nontender. No rebound, no guarding. No CVA tenderness, no hepatosplenomegaly. Bowel sounds present to all four quadrants. No high pitch or tinkling sounds, resonant to percussion. Extremities: No cyanosis, clubbing, or edema present. Pulses are palpable 2/2. Active ROM to all four extremities. Neuro: Alert and orientated 1-2. PERRLA. Cranial nerves 2-12 intact without focal deficit. Skin: Warm, dry, and intact, without rash, erythema, or lesion. Lines: Incisions: Psych: pleasant, cooperative, normal speech, normal affect, no hallucinations, no dysarthria Discharge Plan Discharge Attending physician on discharge: Tu Venegas Consulting providers: Gayle Leal; Vamsi Mancilla; Rodolfo Madrigal V. Discharging Clinician: Peace Haywood Patient Disposition: SNF Activity: june shower Diet: diabetic Discharge Instructions: Continue take medications as prescribed. Your diagnosed with COVID and completed 5 days of remdesivir. You are on room air not requiring oxygen. Discharge disposition: Take medications as prescribed Monitor blood pressures Avoid social areas, you wear a mask when in social settings Encouraged to continue with yearly vaccinations Return to the emergency department if he developed sudden shortness of breath, chest pain, nausea, vomiting, upset stomach or intractable diarrhea Return to the emergency department if you develop fever greater than 101.5 Follow-up with the primary care physician within 1-2 weeks Thank you for choosing [facility] for your healthcare needs Stand Alone Forms: General Discharge Information Follow-up/Referrals: Fany Mcgraw MD [Prim
== END 2023-08-27 16:48 ==
LOC: ANHED 07:47 → ANH2MED 10:36
PROVIDERS: General Practice; Nurse Practitioner Family; Student in an Organized Health Care Education/Training Program; Admitting Provider Internal Medicine; Emergency Provider Emergency Medicine; PCP Family Medicine; Visit Provider Nurse Practitioner Acute Care
DX: U07.1 COVID-19 (principal); R53.1 Weakness; N18.31 Chronic kidney disease, stage 3a; E11.22 Type 2 diabetes mellitus with diabetic chronic kidney disease; E11.42 Type 2 diabetes mellitus with diabetic polyneuropathy; D64.9 Anemia, unspecified; F03.90 Unspecified dementia, unspecified severity, without behavioral disturbance, psychotic disturbance, mood disturbance, and anxiety; I70.0 Atherosclerosis of aorta; I65.23 Occlusion and stenosis of bilateral carotid arteries; N40.1 Benign prostatic hyperplasia with lower urinary tract symptoms; Z86.711 Personal history of pulmonary embolism; Z79.01 Long term (current) use of anticoagulants; Z66 Do not resuscitate
CPT/HCPCS: 36415; 70450; 71045; 72125; 74177; 80053; 81001; 82948; 83036; 83605; 83735; 83880; 84145; 84484; 85025; 85027; 85610; 85730; 86140; 87637; 93005; 96365; 96366; 96367; 97110; 97161; 97166; 97530; 97535; 99285; A9270; G0378; J0248; J3475; Q9967

== ENCOUNTER 2024-06-25 04:26 | Emergency (ER) | payer MEDICARE, SELFPAY ==
--- NOTE | ~2024-06-25 | CT_ITS ---
CT head without contrast Indication: Head injury COMPARISON: 08/22/2023 Technique: Serial scans were obtained through the brain without the administration of contrast. Dose reduction technique was used on this scan by utilizing automated exposure control and iterative recon struction technique. The dose-length product (DLP) was 681.00 mGy-cm. Findings: There is no evidence of intracranial hemorrhage, mass lesion, or acute infarct. The ventri cles and subarachnoid spaces are dilated, consistent with moderate atrophy. Low attenuation regions are seen within the periventricular white matter bilaterally, likely representing changes from chroni c microvascular ischemic disease. There is no evidence of edema, mass effect or midline shift. The visualized paranasal sinuses and mastoid air cells are clear. Soft tissue/hematoma present in the sca lp at the left forehead. Impression: No intracranial hemorrhage, mass, or acute infarct. Atrophy and chronic white matter changes, as above. Soft tissue swelling/hematoma in the scalp at the left forehead. Reviewed, dictated and finalized at [facility]. Impression: No intracranial hemorrhage, mass, or acute infarct. Atrophy and chronic white matter changes, as above. Soft tissue swelling/hematoma in the scalp at the left forehead.
--- NOTE | ~2024-06-25 | XR_ITS ---
AP and lateral views of the right tibia/fibula Clinical History: Trauma Findings: No acute fracture or dislocation is seen. Osseous alignment is anatomic. Joint there is adv anced degenerative change of the medial compartment of the knee.. Soft tissues are unremarkable. Impression: No acute fracture or dislocation seen. Degenerative change at the knee, as above. Reviewed, dictated and finalized at location . Impression: No acute fracture or dislocation seen. Degenerative change at the knee, as above.
--- NOTE | ~2024-06-25 | CT_ITS ---
CT Facial Bones and Cervical Spine Clinical Indication: Injury Technique: Contiguous axial scans were obtained through the facial bones and cervical spine followed by coronal and sagittal reconstructions. Dose reduction technique was used on this scan by utilizing automated exposure control and iterative reconstruction technique. The dose-length product (DLP) was 523.76 mGy-cm. Findings: CT facial bones: Suspected acute, essentially nondisplaced bilateral nasal bone fractures. There is o ld blowout fracture of the right lamina papyracea. The visualized paranasal sinuses are clear. Intrao rbital soft tissues appear normal. There is advanced degenerative change of the bilateral temporomand ibular joints. CT cervical spine: No fractures or subluxation. There is moderate to advanced degenerative disc narr owing from C3 through C7. There is advanced degenerative change at the articulation of the odontoid p rocess with the anterior arch of C1. There is extensive facet arthropathy throughout the cervical spi ne bilaterally. There is severe right neural foraminal narrowing at C2-C3 with mild left neural winsome inal narrowing. There is severe bilateral neural foraminal narrowing at C3-C4. There is severe right neural foraminal narrowing at C4-C5 with moderate to severe left neural foraminal narrowing as well. There is advanced bilateral neural foraminal narrowing at C5-C6. There is mild degenerative change ot herwise at C6-C7. No prevertebral soft tissue swelling. Impression: Probable acute nondisplaced bilateral nasal bone fractures. Old blowout fracture of the right lamina papyracea. Advanced degenerative change of the bilateral temporomandibular joints. No fracture or subluxation of the cervical spine. Extensive, advanced degenerative change of the cervical spine, as above. Reviewed, dictated and finalized at [facility]. Impression: Probable acute nondisplaced bilateral nasal bone fractures. Old blowout fracture of the right lamina papyracea. Advanced degenerative change of the bilateral temporomandibular joints. No fracture or subluxation of the cervical spine. Extensive, advanced degenerative change of the cervical spine, as above.
[2024-06-25 04:27] VITALS: BP 151/52; PULSE 74; RESP 17; O2SAT 97
--- NOTE | 2024-06-25 04:38 | ECG_ITS ---
Test Date: 2024-06-25 04:40:13 Measurements Intervals [place] Rate: 66 P: 34 NC: 175 QRS: -52 QRSD: 124 T: 48 QT: 424 QTc: 447 Interpretive Statements SINUS RHYTHM LEFT ANTERIOR FASCICULAR BLOCK [QRS AXIS <= -45, QR IN I, RS IN II] Compared to ECG 08/22/2023 08:12:24 NO SIGNIFICANT CHANGES Electronically Signed On 06-25-2024 12:14:00 CDT by Moe Garcia M.D.
[2024-06-25 04:43] VITALS: BP 151/52; PULSE 67; RESP 20; O2SAT 97
--- OUTSIDE RECORDS SUMMARY | 2024-06-25 04:52 | XMS_ITS | Patient Health Record ---
Author Organization [facility] As [employer] Address [address] [place] [address] Care Team Providers Care Fish Drier Name Role Phone Von Chambers Unavailable [phone] Migration, Provider Unavailable Unavailable Allergies Allergen (clinical drug ingredient) Drug/Non Drug Allergy documented on EMR Reaction Allergy Type Onset Date Status cimetidine Cimetidine Unknown Drug Allergy 04/22/2023 Acti ve lisinopril Lisinopril Unknown Drug Allergy 04/22/2023 Acti ve Reason For Referral No Information Medications Medication SIG (Take, Route, Frequency, Duration) Notes Start Date End Date Status Atenolol 25 MG Oral 04/22/2023 Acti ve Furosemide 40 MG Oral 04/22/2023 Ac tive Finasteride 5 MG Oral 04/22/2023 Ac tive Nystatin 338942 UNIT/GM External 04/22/2023 Active Simvastatin 40 MG Oral 04/22/2023 A ctive COVID-19 mRNA Vac-Agata([employer]) 30 MCG/0.3ML Intramuscular *Reorder from [employer] for eRx and Interaction Alerts* 04/22/2023 Active Eliquis 2.5 MG Oral 04/22/2023 Acti ve Donepezil HCl 10 MG Oral 04/22/2023 Active Gabapentin 300 MG TAKE 1 CAPSULE BY MOUTH TWICE DAILY AND 2 CAPSULES EVERY NIGHT AT BEDTIME for 30 appointment needed Active Acetaminophen-Codein e #3 300-30 MG Oral 04/22/2023 Active risperiDONE 1 MG 1 tablet Oral Once a day for 30 days 04/22/2023 Active Triamcinolone Acetonide 0.1% External 04/22/2023 Active Immunizations Vaccine Route Administration Date Status Comme nts Pfizer [employer] Covid-19 Vac cine 2nd dose Unknown 02/23/2020 Administered Pfizer [employer] Covid-19 Vac cine 2nd dose Unknown 03/15/2020 Administered Social History Sex Assigned At : Social History Observation Description Sex Assigned At Male Vital Signs Heart Rate 56 /min 10/29/2023 Height-cm 175.26 cm 10/29/2023 Blood pressure diastolic 65 mm Hg 10/29/2023 Weight-kg 108.86 kg 10/29/2023 Height 69.00 in 10/29/2023 Blood pressure systolic 135 mm Hg 10/29/2023 Weight 240 lbs 10/29/2023 BMI 35.44 kg/m2 10/29/2023 Encounters Encounter Location Date Provider Diagnosis [address] [address] 10/29/2023 Von Chambers Major depressive disorder, recurrent, 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 ; Primary insomnia F51.01 ; Generalized anxiety disorder F41.1 ; Mild cognitive impairment, so stated G31.84 and Other polyneuropathy G62.[address] [address] 07/05/2023 Provider Migration [address] [address] 07/06/2023 Provider Migration [address] [address] 09/23/2023 Von Chambers Major depressive disorder, recurrent, severe with psychotic symptoms F33.[address] [address] 02/12/2024 Von Chambers Assessments Encounter Date Diagnosis (ICD Code) Assessment Notes Treatment Notes Treatment Clinical Notes Section Notes 09/23/2023 Major depressive disorder, recurrent, severe with psychotic symptoms (ICD-10 - F33.3) 10/29/2023 Major depressive disorder, recurrent, mild (ICD-10 - F33.0) risperidone 1mg hs 10/29/2023 Primary insomnia (ICD-10 - F51.01) 10/29/2023 Generalized anxiety disorder (ICD-10 - F41.1) 10/29/2023 Mild cognitive impairment, so stated (ICD-10 - G31.84) donepezil 10mg hs 10/29/2023 Other polyneuropathy (ICD-10 - G62.89) gabapentin 300 mg capsule - Take 1 capsule twice daily and 2 capsules at bedtime Plan Of Treatment No Information Insurance Providers Payer Name Payer Address Payer Phone Subscriber Number Group Number Insured Name Patient Relationship to Insured Coverage Start Date Coverage End Date [facility] [address] [place] [address] [id number] DUSTY GLASS Self - patient is the insured Medical (General) History Medical History History ICD Code Problems: Diabetic peripheral neuropathy Generalized anxiety disorder Memory impairment 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
--- OUTSIDE RECORDS SUMMARY | 2024-06-25 04:52 | XMS_ITS ---
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 Name Role Phone Von Chambers Unavailable [phone] Allergies Allergen (clinical drug ingredient) Drug/Non Drug Allergy documented on EMR Reaction Allergy Type Onset Date Status cimetidine Cimetidine Unknown Drug Allergy 04/22/2023 Acti ve lisinopril Lisinopril Unknown Drug Allergy 04/22/2023 Acti ve REASON FOR VISIT Follow Up Visit Medications Medication SIG (Take, Route, Frequency, Duration) Notes Start Date End Date Status Finasteride 5 MG Oral 04/22/2023 Ac tive Donepezil HCl 10 MG Oral 04/22/2023 Active risperiDONE 1 MG 1 tablet Oral Once a day for 30 days 04/22/2023 Active COVID-19 mRNA Vac-Agata(Pfizer) 30 MCG/0.3ML Intramuscular *Reorder from [employer] for eRx and Interaction Alerts* 04/22/2023 Active Triamcinolone Acetonide 0.1% External 04/22/2023 Active Eliquis 2.5 MG Oral 04/22/2023 Acti ve Acetaminophen-Codein e #3 300-30 MG Oral 04/22/2023 Active Atenolol 25 MG Oral 04/22/2023 Acti ve Furosemide 40 MG Oral 04/22/2023 Ac tive Nystatin 202236 UNIT/GM External 04/22/2023 Active Simvastatin 40 MG Oral 04/22/2023 A ctive Gabapentin 300 MG 4 capsules Oral see sign for 30 days take 1 capsule twice daily, take 2 capsules at bedtime 04/22/2023 Active Social History Sex Assigned At : Social History Observation Description Sex Assigned At Male Vital Signs Blood pressure systolic 135 mm Hg 10/29/19 24 Blood pressure diastolic 65 mm Hg 024 Heart Rate 56 /min 10/29/2023 Height 69.00 in 10/29/2023 Weight 240 lbs 10/29/2023 BMI 35.44 kg/m2 10/29/2023 Height-cm 175.26 cm 10/29/2023 Weight-kg 108.86 kg 10/29/2023 Encounters Encounter Location Date Provider Diagnosis [facility] [employer] [facility] [address] [facility] [address] [place] [address] 10/29/2023 Von Chambers Major depressive disorder, recurrent, 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 ; Primary insomnia F51.01 ; Generalized anxiety disorder F41.1 ; Mild cognitive impairment, so stated G31.84 and Other polyneuropathy G62.89 Assessments Encounter Date Diagnosis (ICD Code) Assessment Notes Treatment Notes Treatment Clinical Notes Section Notes 10/29/2023 Major depressive disorder, recurrent, mild (ICD-10 - F33.0) risperidone 1mg hs 10/29/2023 Primary insomnia (ICD-10 - F51.01) 10/29/2023 Generalized anxiety disorder (ICD-10 - F41.1) 10/29/2023 Mild cognitive impairment, so stated (ICD-10 - G31.84) donepezil 10mg hs 10/29/2023 Other polyneuropathy (ICD-10 - G62.89) gabapentin 300 mg capsule - Take 1 capsule twice daily and 2 capsules at bedtime Plan Of Treatment Medication Medication Name Sig Start Date Stop Date Notes risperiDONE 1 MG 1 tablet Oral Once a day for 30 days 06/2023 Gabapentin 300 MG 4 capsules Oral see sign for 30 days 06/2023 Treatment Notes Assessment Notes Major depressive disorder, recurrent, mi ld risperidone 1mg hs Mild cognitive impairment, so stated don epezil 10mg hs Other polyneuropathy gabapentin 300 mg c apsule - Take 1 capsule twice daily and 2 capsules at bedtime Next Appt Details Follow Up: 6 Months, Reason: f/u dementia, depression Progress Notes * YANG GLASSOB: 8 (88 yo M)Acc No.[id number]:10/29/2023 Patient: DUSTY XIE Provider: RIDDHI CABANHNChichi :1935 A ge:88 Y S ex:Male Date:10/29/2023 Address:[address] [place] [address] [facility] Subjective: * Chief Complaints: * 1 . Follow Up Visit. * HPI: D epression screening: PHQ-9 L ittle interest or pleasure in doing things?Not at all F eeling down, depressed, or hopeless N ot at all T rouble falling or staying asleep, or sleeping too much N ot at all F eeling tired or having little energy N ot at all P oor appetite or overeating N ot at all F eeling bad about yourself or that you are a failure, or have let yourself or your family down N ot at all T rouble concentrating on things, such as reading the newspaper or watching television N early every day M oving or speaking so slowly that other people could have noticed; or the opposite, being so fidgety or restless that you have been moving around a lot more than usual N ot at all T houghts that you would be better off or of hurting yourself in some way N ot at all T otal Score 3 I nterpretation M inimal Depression D epression Screening: KAITY-7 (2018 Edition) F eeling nervous, anxious, or on edge N ot at all N ot being able to stop or control worrying?Several days W orrying too much about different things N ot at all T rouble relaxing N ot at all B eing so restless that it is hard to sit still N ot at all B ecoming easily annoyed or irritable N ot at all F eeling afraid as if something awful might happen N ot at all T otal KAITY-7 Score 1 I f you checked any problems, how difficult have they made it for you to do your work, take care of things at home, or get along with other people? E xtremely difficult I nterpretation of Total ( 0 to 4) No Anxiety H istory of Presenting Problem: Psychosis h as thought has things in his body that shouldn't be there h x hallucinations. Memory d ementia progressing, some delusions, Short term memory impaired, no anger, no aggression. C ontributing Factors: ... r esides at [facility]. * Medical History: P elham: Diabetic peripheral neuropathy, Generalized anxiety disorder, Memory impairment, Mild neurocognitive disorder, Mild recurrent major depression, Primary insomnia, Recurrent major depressive episodes, severe, with psychosis, ,. * Medications: T aking Nystatin [id number] UNIT/GM Powder External , Taking Simvastatin 40 MG Tablet Oral , Taking Atenolol 25 MG Tablet Oral , Taking Furosemide 40 MG Tablet Oral , Taking Eliquis 2.5 MG Tablet Oral , Taking Acetaminophen-Codeine #3 300-30 MG Tablet Oral , Taking Triamcinolone Acetonide 0.1% Cream External , Taking COVID-19 mRNA Vac-Agata(Pfizer) 30 MCG/0.3ML Suspension Intramuscular , Notes to Pharmacist: *Reorder from [facility] for eRx and Interaction Alerts*, Taking Gabapentin 300 MG Capsule Oral , Taking Finasteride 5 MG Tablet Oral , Taking Donepezil HCl 10 MG Tablet Oral , Taking risperiDONE 1 MG Tablet 1 tablet Oral Once a day , Discontinued Cephalexin 250 MG Capsule Oral , Discontinued Sulfamethoxazole-Trimethoprim 800- 160 MG Tablet Oral , Discontinued Tobramycin 0.30% Solution Ophthalmic , Discontinued Doxycycline Monohydrate 100 MG Tablet Oral , Discontinued Myrbetriq 25 MG Tablet Extended Release 24 Hour Oral , Discontinued Ciclopirox 8% Solution External , Discontinued amLODIPine Besylate 5 MG Tablet Oral , Discontinued DULoxetine HCl 30 MG Capsule Delayed Release Particles 1 capsule Oral Once a day , Medication List reviewed and reconciled with the patient * Allergies: C imetidine: Allergy - Onset Date 04/22/2023, Lisinopril: Allergy - Onset Date 04/22/2023. Objective: * Vitals: B P:135/65mm Hg, HR:56/min, Wt:240lbs, Wt-k.86 kg, Ht: 69.00 in, Ht-cm: 175.26 cm, BMI:35.44Index, Body Surface Area: 2.3. * Examination: P sychiatry: Separation from caregiver during interview process: s on present. Abnormal body movements: s itting in w/c, propelled by son.? Assessment: * Assessment: 1. M ajor depressive disorder, recurrent, mild - F33.0 (Primary) 2 . P rimary insomnia - F51.01 3 . G eneralized anxiety disorder - F41.1 4 . M ild cognitive impairment, so stated - G31.84 5 . O ther polyneuropathy - G62.89 Plan: * Treatment: 2. M ild cognitive impairment, so stated Notes:donepezil 10mg hs 3. O ther polyneuropathy Refill Gabapentin Capsule, 300 MG, 4 capsules, Oral, see sign take 1 capsule twice daily, take 2 capsules at bedtime, 30 days, 120, Refills 5. Notes: gabapentin 300 mg capsule -Take 1 capsule twice daily and 2 capsules at bedtime * Procedure Codes: G 2211 VISIT COMPLEXITY INHERENT TO ONGOING CARE RELATED TO A PATIENT'S SINGLE, SERIOUS CONDITION OR A COMPLEX CONDITION * Follow Up: 6 Months (Reason: f/u dementia, depression) * Billing Information: * Visit Code: 39506 OFFICE OUTPATIENT VISIT 25 MINUTES DETAILED HISTORY AND EXAM/MODERATE MEDICAL DECISION MAKING. * Procedure Codes: G2211 VISIT COMPLEXITY INHERENT TO ONGOING CARE RELATED TO A PATIENT'S SINGLE, SERIOUS CONDITION OR A COMPLEX CONDITION. * Electronic signature of KUN De La Paz on 06/25/2024 at 04:52 AM CDT Sign off status: Pending * Provider: KUN CABAN Date: 0 10/29/2023 Generated for Austen la/Bradly/Bertram on: 0 06/25/2024 04:52 AM CDT History and Physical Notes * HPI (History of Present Illness) Category Sub-Category Detail Notes Category Not es History of Presenting Problem Psychosis has thought has things in hi s body that shouldn't be there hx hallucinations Memory dementia progressing , some delusions, Short term memory impaired, no anger, no aggression Contributing Factors ... resides at [facility] Depression screening PHQ-9 Little inte rest or pleasure in doing things: Not at all Feeling down, depressed, or hopeless: No t at all Trouble falling or staying asleep, or sl eeping too much: Not at all Feeling tired or having little energy: N ot at all Poor appetite or overeating: Not at all Feeling bad about yourself o r that you are a failure, or have let yourself or your family down: Not at all Trouble concentrating on thi ngs, such as reading the newspaper or watching television: Nearly every day Moving or speaking so slowly that other people could have noticed; or the opposite, being so fidgety or restless that you have been moving around a lot more than usual: Not at all Thoughts that you would be b reymundo off or of hurting yourself in some way: Not at all Total Score: 3 Interpretation: Minimal Depression Depression Screening KAITY-7 (2018 Edition) Feelin g nervous, anxious, or on edge: Not at all Not being able to stop or control worryi ng: Several days Worrying too much about different things : Not at all Trouble relaxing: Not at all Being so restless that it is hard to sit still: Not at all Becoming easily annoyed or irritable: No t at all Feeling afraid as if something awful deb ht happen: Not at all Total KAITY-7 Score: 1 If you checked any problems, how difficult have they made it for you to do your work, take care of things at home, or get along with other people?: Extremely difficult Interpretation of Total: (0 to 4) No Anx iety Examination Category Sub-Category Detail Notes Category Not es Psychiatry Abnormal body movements: sitting in w/c, propelled by son Separation from caregiver during intervi ew process: son present
--- OUTSIDE RECORDS SUMMARY | 2024-06-25 04:52 | XMS_ITS | Clinical Summary ---
Author Organization [facility] Address [address] [place] [address] Care Team Providers Care Bindery Chief Name Role Phone Fany Mcgraw MD Primary Care Provider [phone] Source Comments [facility],non-owned Affiliates and Associated Physician Practices is amultiple site organization consisting of ambulatory clinics and hospital sitesin [place], [place], [place] and [place]. This disclosure is being madepursuant to the Care Everywhere program and may not contain all information available regarding this patient. Last updated 17.[facility] Allergies Active Allergy Reactions Criticality Noted Date Comments Cimetidine Other 11/28/2021 unknown Lisinopril Other 11/28/2021 Unknown Nicardipine Other 11/28/2021 Unknown Shellfish Allergy Anaphylaxis,Urticari a ,Rash High 11/28/2021 Nausea, itching, anaphylaxis Medications * Be aware that medications may not be up to date on this document. Alwaysverify current medications with the patient. amLODIPine (Norvasc) 5 MG tablet TAKE 1 TABLET BY MOUTH DAILY IN THE MORNING 09/11/2021 Active Eliquis 2.5 MG tablet Take 2.5 mg by mouth 2 times daily 10/04/2021 Active atenolol (Tenormin) 25 MG tablet Take 25 mg by mouth once daily 10/04/2021 Active donepezil (Aricept) 5 MG tablet Take 5 mg by mouth at bedtime 05/14/2021 Active DULoxetine (Cymbalta) 30 MG capsule Take 30 mg by mouth once daily 07/22/2021 Active gabapentin (Neurontin) 300 MG capsule TAKE 1 CAPSULE BY MOUTH TWICE DAILY AND 2 CAPSULES EVERY NIGHT AT BEDTIME 07/22/2021 Active finasteride (Proscar) 5 MG tablet Take 5 mg by mouth once daily 10/04/2021 Active risperiDONE (RisperDAL) 0.5 MG tablet TAKE 1 TABLET BY MOUTH EVERY DAY AT BEDTIME 07/22/2021 Active simvastatin (Zocor) 40 MG tablet Take 40 mg by mouth at bedtime 09/11/2021 Active ferrous sulfate 325 (65 FE) MG tablet Take 325 mg by mouth once daily Active loperamide (Imodium) 2 MG capsule Take 1 (one) capsule by mouth 4 times daily as needed for Diarrhea Active erythromycin (Romycin) 5 MG/GM ophthalmic ointment Instill into left eye 4 times daily Apply thin ribbon to lower lid(s) 3.5 g 2 12/17/2021 Active Active Problems Problem Noted Date Diagnosed Date Entropion of left eyelid 12/17/2021 Family History Medical History Relation Name Comments Cancer - Colon Father Cancer - Prostate Father Depression Mother Relation Name Status Comments Father Mother Social History Tobacco Use Types Packs/Day Years Used Date Smoking Tobacco: Former Cigarettes Smokeless Tobacco: Never Tobacco Cessation:Counseling Given: Not Answered Alcohol Use Standard Drinks/Week Comments Not Currently 0 (1 standard drink = 0.6 oz pur e alcohol) AUDIT-C Answer Date Recorded Q1: How often do you have a drink containing alcohol? Never 12/17/2021 Q2: How many drinks containi ng alcohol do you have on a typical day when you are drinking? Patient does not drink Q3: How often do you have si x or more drinks on one occasion? Never 12/17/2021 Sex and Gender Information Value Date Recorded Sex Assigned at Not on file Legal Sex Male 3:25 PM CDT Gender Identity Not on file Sexual Orientation Not on file Last Filed Vital Signs Vital Sign Reading Time Taken Comments Blood Pressure 115/77 12/17/2021 4:25 PM CDT Pulse 70 12/17/2021 4:25 PM CDT Temperature 36.6 C (97.8 F) 12/17/2021 3:45 PM CDT Respiratory Rate 19 12/17/2021 4:25 PM CDT Oxygen Saturation 98% 12/17/2021 4:25 PM CDT Inhaled Oxygen Concentration - - Weight 107 kg (236 lb) 12/17/2021 11:49 AM CDT Height 175.3 cm (5' 9 ) 12/17/2021 11:49 AM CDT Body Mass Index 34.85 12/17/2021 11:49 AM CDT Plan of Treatment Health Maintenance Due Date Last Done Comments DTAP/TDAP/TD VACCINES (1 - Tdap) 1954 PNEUMOCOCCAL VACCINE 50+ (1 of 1 - PCV) 08/29/1987 ZOSTER VACCINE (1 of 2) 08/29/1987 Respiratory Syncytial Virus (RSV) Vaccine Pt: or over 60 yrs (1 - 1-dose 75+ series) 2012 COVID-19 VACCINE ( - 2023-2 5 season) 2023 DEPRESSION SCREENING 02/18/2024 INFLUENZA VACCINE (Season Ended) 2024 HEPATITIS B VACCINE Aged Out No longe r eligible based on patient's age to complete this topic HIB VACCINE Aged Out No longer eligi ble based on patient's age to complete this topic HPV VACCINE Aged Out No longer eligi ble based on patient's age to complete this topic MENINGOCOCCAL (Group B) VACC INE SHARED DECISION-MAKING Aged Out No longer eligibl e based on patient's age to complete this topic MENINGOCOCCAL GROUPS A/C/Y/W VACCINE Aged Out No longer eligible b ased on patient's age to complete this topic Insurance [facility] Care Address: [facility] [address] [place] [address] UHC MANAGED MEDICARE ADV Advance Directives Documents on File Type Date Recorded 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
--- OUTSIDE RECORDS SUMMARY | 2024-06-25 04:53 | XMS_ITS | Patient Health Record ---
Author Organization [facility] Address [address] [place] [address] Support Name Relationship Address Phone Luke Damico Guarantor Unknown [phone] Reason For Referral No Information Medications Medication SIG (Take, Route, Frequency, Duration) Notes Start Date End Date Status Aspirin 81 81 MG Oral 02/20/2004 Ac tive Atenolol 50 MG TAKE 1 TABLET IN THE MORNING AND ONE-HALF (1/2) TABLET IN THE EVENING Oral 04/19/2016 Active CPAP 11 cm H2O *Reorder from [facility] for eRx and Interaction Alerts* 09/08/2008 Active Immunizations Vaccine Route Administration Date Status Comme nts Pneumococcal conjugate PCV 13 Unknown 08/18/2002 Administered migrated LegPatid= [id number] Date=08/18/2002 Vac= PCV series Pneumococcal conjugate PCV 13 Unknown 01/28/2004 Administered migrated LegPatid= [id number] Date=01/28/2004 Vac= PCV series Pneumococcal conjugate PCV 13 Unknown 2010 Administered migrated LegPatid= [id number] Date=2010 Vac= Pneumonia vaccine Influenza high dose > 65 [facility] IM Intramuscular 11/25/2014 Administered Problems Problem Type SNOMED Code ICD Code Onset Dates Problem Status W/U Status Risk Notes Problem Scabies (721103825) Scabies (B86) Active confir med Problem Mononeuropathy due t o type 1 diabetes mellitus (disorder) (659113602) 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 Wait for the treatme tn. Problem Pure hypercholesterolemia (472673000) Pure hypercholesterolemia (E78.0) 2004 Active confirmed Problem Obstructive sleep apnea syndrome (disorder) (03621987) Obstructive sleep apnea (adult) (pediatric) (G47.33) 2008 Active confirmed Problem Pruritus (985705524) Pruritus, unspecified (L29.9) Active confirmed Problem Dermatitis (176201883) Dermatitis, unspecified (L30.9) Active confirmed Problem Fibromyalgia (760315085) Fibromyalgia (M79.7) 2005 Active confirmed Problem Type II diabetes mellitus without complication (746655371) Type 2 diabetes mellitus without complications (E11.9) 2004 Active confirmed Problem Essential hypertension (85944807) Essential (primary) hypertension (I10) 2004 Active confirmed Plan Of Treatment No Information Insurance Providers Payer Name Payer Address Payer Phone Subscriber Number Group Number Insured Name Patient Relationship to Insured Coverage Start Date Coverage End Date DO NOT USE [place] [id number] Luke Damico Self - patient is the insured [employer] [address] [place] [address] [id number] Luke Damico Self - patient is the insured 7 [facility] [place] [address] [place] [address] [id number] Luke Damico Self - patient is the insured [employer] [address] [place] [address] [id number] Luke Damico Self - patient is the insured [facility] [address] [place] [address] [id number] Luke Damico Self - patient is the insured 1 Medical (General) History Surgical History Surgery Date(Month/Year) Parotid Gland: right dissection 1980; 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 COLON. ISHBandar COLIMARGRET S., Date of Procedure: 2004; 2011-02-15 Varicocele; 2011-02-15 Lumbar disc surgery: 1971; 2011-02-15 Lumbosacral spine surgery: L2-3 Fusion a nd decompression; 2014-04-25
--- NOTE | 2024-06-25 06:58 | ED.FALL ---
HPI - Fall General Chief Complaint: Fall Stated Complaint: fall/hit face, spinal tenderness Time Seen by Provider: 06/25/24 04:36 Source: EMS Mode of arrival: EMS Limitations: dementia History of Present Illness HPI Narrative: 88-year-old with a history of fibromyalgia, dementia was brought in from senior care with the complaints of fall. Patient was found on the floor. As per the EMS patient has frequent falls and last night he had another fall and sustained facial abrasions and bruises. Upon arrival to the ER patient is wide awake alert has no complaints except for headache. he was placed in C collar MD complaint: fall Onset (ago): unknown Fall from: standing Fall witnessed: yes, by living facility staff Place fall occurred: senior care/SNF Location of injury: face Related Data Home Medications ?Medication ?Instructions ?Recorded ?Confirmed ?Last Taken ?Type gabapentin 300 mg capsule 300 mg PO BID 05/19/23 01/27/24 Unknown History donepezil 10 mg tablet 10 mg PO HS 08/22/23 01/27/24 Unknown History gabapentin 300 mg capsule 600 mg PO HS 08/22/23 01/27/24 Unknown History magnesium hydroxide 400 mg/5 mL 5 ml PO DAILY PRN 09/25/23 01/27/24 Unknown History oral suspension (Milk of Magnesia) Allergies Allergy/AdvReac Type Severity Reaction Status Date / Time lisinopril Allergy Unknown cough Verified 01/27/24 14:32 nicardipine Allergy Unknown gynecomasti Verified 01/27/24 14:32 a cimetidine Allergy Unknown Verified 01/27/24 14:32 Review of Systems Review of Systems: ROS unobtainable: Yes unobtainable due to mental status PMFSH Past Medical History Medical History Aortic arch atherosclerosis CTA 08.12.23 VISUALIZED AORTIC ARCH AND BRANCHING VESSELS: Mild atheromatous disease but no significant stenosis. Carotid stenosis CTA 08.12.23: RIGHT CERVICAL CAROTID SYSTEM: stenosis 80%. No carotid dissection. --LEFT CERVICAL CAROTID SYSTEM: stenosis 40%. No carotid dissection. 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 Yeast infection of the skin Groin rash Surgical History Surgical History H/O hemicolectomy ischemic colitis 2005 Family History Family History Sibling Hypertension Family history of cardiovascular disease Family history of malignant neoplasm of breast Father Patient's father is , Onset Age: 72 Carcinoma of colon Malignant neoplasm of prostate Grandparent Diabetes mellitus Family history of malignant neoplasm of esophagus Mother Depression Family history of cardiovascular disease Social History Social History Social History: Code status: DNR/DNI Healthcare power of sports attorney: Karen Smoking status: Unknown if ever smoked Tobacco type: cigarettes Additional smoking assessment comments: A couple cigarettes a day for a few years Alcohol intake: never Substance use: never Lack of Transportation: No Lack of Food: Never True Current Housing: I Have Housing Concerned About Future Housing: No Difficulty Paying Gas/Electric Bills: No Difficulty Paying for Meds: No Currently Unemployed: No Education: High School Diploma/GED Difficulty w/ Childcare or Family Care: No Living arrangements: senior care Additional living arrangements comments: [facility] Gender identity (if verbalized by the patient): Male Spiritual care concerns: No Agree to blood products: Yes Exam Narrative: GENERAL: Well-appearing, well-nourished, and in no acute distress. HEAD: Normocephalic, atraumatic. has abrasion on the left eye brow EYES: PERRLA and EOMI. ENT: Nares clear, no rhinorrhea or epistaxis. Mucous membranes moist.abrasion on the nose NECK: Supple. CHEST: Clear to auscultation. No respiratory distress. HEART: Regular rate and rhythm. No murmur heard. Normal peripheral pulses. ABDOMEN: Soft, nontender, nondistended, normal active bowel sounds. EXTREMITIES: Normal range of motion. No edema. SKIN: Warm, dry, no rash. NEURO: No focal deficits. Alert and oriented x3. PSYCH: Normal mood and affect. Course Course Emergency Course: Notified patient about his CT findings. There is no suturable laceration on his face. Discharging to the senior care with fall precautions Vital Signs Vital signs: Vital Signs Pulse Rate 74 06/25/24 04:27 Respiratory Rate 17 06/25/24 04:27 Blood Pressure 151/52 H 06/25/24 04:27 Pulse Oximetry 97 06/25/24 04:27 Oxygen Delivery Room Air 06/25/24 04:27 Pulse Rate 67 06/25/24 04:43 Respiratory Rate 20 06/25/24 04:43 Blood Pressure 151/52 H 06/25/24 04:43 Pulse Oximetry 97 06/25/24 04:43 Oxygen Delivery Room Air 06/25/24 04:27 MDM - Fall Differential Diagnosis Differential diagnosis: Likely syncope, concussion with loss of consciousness and concussion without loss of consciousness Medical Records Attestation: I reviewed the patient's medical records. Imaging Data Radiologist's impression: ITS Impressions Head CT 06/25/24 05:33 Impression: No intracranial hemorrhage, mass, or acute infarct. Atrophy and chronic white matter changes, as above. Soft tissue swelling/hematoma in the scalp at the left forehead. Head/Cervical Spine/Facial Bones CT 06/25/24 05:34 Impression: Probable acute nondisplaced bilateral nasal bone fractures. Old blowout fracture of the right lamina papyracea. Advanced degenerative change of the bilateral temporomandibular joints. No fracture or subluxation of the cervical spine. Extensive, advanced degenerative change of the cervical spine, as above. Tibia/Fibula X-Ray 06/25/24 06:08 Impression: No acute fracture or dislocation seen. Degenerative change at the knee, as above. ECG Data EKG #1: ECG completion date: 06/25/24 ECG completion time: 04:40 EKG Interpretation: normal rate (66), sinus rhythm, non-specific ST changes, no ST changes and normal QRS Discharge Plan Discharge Clinical Impression: Contusion of face Qualifiers: Encounter type: initial encounter Qualified Code(s): S00.83XA - Contusion of other part of head, initial encounter Fracture closed, nasal bone Qualifiers: Encounter type: initial encounter Qualified Code(s): S02.2XXA - Fracture of nasal bones, initial encounter for closed fracture Contusion of leg, right Qualifiers: Encounter type: initial encounter Qualified Code(s): S80.11XA - Contusion of right lower leg, initial encounter Patient Disposition: NH Retirement/Asst Living Condition: Stable Instructions: Contusion in Adults (ED), Abrasion (ED) Patient Language: Chadian Prescriptions: No Action (DME) Diabetic shoes See Rx Instructions .Route .MEDSUPPLY Qty: 1 0RF Rx Instructions: As directed magnesium hydroxide [Milk of Magnesia] 400 mg/5 mL suspension 5 ml PO DAILY PRN (DME) folding wheel chair See Rx Instructions .Route .MEDSUPPLY Qty: 1 0RF Rx Instructions: As directed gabapentin 300 mg capsule 300 mg PO BID gabapentin 300 mg Capsule 600 mg PO HS donepezil 10 mg tablet 10 mg PO HS folic acid 1 mg Tablet 1 mg PO DAILY Qty: 30 0RF multivitamin with folic acid [Thera] 400 mcg Tablet 1 tablet PO QAM Qty: 30 0RF atenolol 25 mg tablet 25 mg PO DAILY Qty: 90 5RF risperidone [Risperdal] 2 mg tablet 2 mg PO QHS Qty: 90 3RF bisacodyl 10 mg suppository 10 mg RECTAL DAILY PRN (Reason: constipation) Qty: 12 0RF loperamide [Anti-Diarrheal (loperamide)] 2 mg tablet 2 mg PO .COMPLEX PRN (Reason: loose stool) Qty: 30 8RF Rx Instructions: 2 mg orally PRN; administer 2 after first loose stool, then 1 after each loose stool until symptoms controlled; do not exceed 8 mg per 24 hrs furosemide 40 mg tablet See Rx Instructions .ROUTE .COMPLEX Qty: 90 0RF Dose Instruction: TAKE 1 TABLET BY MOUTH EVERY MORNING Rx Instructions: TAKE 1 TABLET BY MOUTH EVERY MORNING sulfamethoxazole-trimethoprim [Bactrim DS] 800-160 mg tablet 1 tablet PO Q12H Qty: 14 0RF potassium chloride 10 mEq capsule, extended release 10 meq PO DAILY Qty: 30 3RF (DME) diabetic shoes See Rx Instructions .Route .MEDSUPPLY Qty: 1 1RF Rx Instructions: As directed finasteride 5 mg tablet See Rx Instructions .ROUTE .COMPLEX Qty: 90 1RF Dose Instruction: TAKE 1 TABLET BY MOUTH DAILY Rx Instructions: TAKE 1 TABLET BY MOUTH DAILY Eliquis 2.5 mg tablet See Rx Instructions .ROUTE .COMPLEX Qty: 180 1RF Dose Instruction: TAKE 1 TABLET BY MOUTH TWICE DAILY Rx Instructions: TAKE 1 TABLET BY MOUTH TWICE DAILY (DME) vaccine See Rx Instructions .Route .MEDSUPPLY Qty: 1 0RF Rx Instructions: Administer Covid and RSV vaccines Follow-up/Referrals: Fany Mcgraw MD [Primary Care Provider] - Time of Disposition: 06:59
[2024-06-25] MEDS: HYDROGEN PEROXIDE 3% SOLN(*SP) 473 ML BOTTLE (07:02)
[2024-06-25 07:30] VITALS: BP 105/54; PULSE 74; RESP 16; TEMP 36.6; O2SAT 97
--- NOTE | 2024-06-25 07:31 | PC.NURSE ---
Addendum entered by Violetta Alfaro RN 06/25/24 08:02: Pt getting agitated when RN attempted wound care & cleaning off dried blood. Pt pushing RN away stating Don't touch Original Note: Assumed care of pt. A/O x2. Hematoma to left forehead & eye with bruising. No open lacerations noted. Abrasions to face
[2024-06-25 07:57] VITALS: BP 148/75; PULSE 71; RESP 18; TEMP 36.6; O2SAT 97
== END 2024-06-25 07:57 ==
PROVIDERS: Emergency Provider Family Medicine; PCP Family Medicine
DX: S00.83XA Contusion of other part of head, initial encounter (principal); S02.2XXA Fracture of nasal bones, initial encounter for closed fracture; S80.11XA Contusion of right lower leg, initial encounter; W19.XXXA Unspecified fall, initial encounter; Z91.81 History of falling; F03.90 Unspecified dementia, unspecified severity, without behavioral disturbance, psychotic disturbance, mood disturbance, and anxiety; M79.7 Fibromyalgia; N18.31 Chronic kidney disease, stage 3a; Z86.711 Personal history of pulmonary embolism; Z79.01 Long term (current) use of anticoagulants; E11.9 Type 2 diabetes mellitus without complications
CPT/HCPCS: 70450; 70486; 72125; 73590; 93005; 99284; A9270; J2003

== ENCOUNTER 2024-11-13 11:53 | Inpatient (IN) | payer MEDICARE, SELFPAY ==
[2024-11-13] VITALS (7 sets, daily range): BP systolic 110–170; BP diastolic 67–89; PULSE 62–65; RESP 18–20; TEMP 36.4; O2SAT 98–100; BMI 34.0
--- NOTE | ~2024-11-13 | XR_ITS ---
EXAMINATION: XR chest 1V portable COMPARISON: No comparisons available. HISTORY: Syncope FINDINGS: The lungs are clear, no effusion. No pneumothorax. Heart is normal size. Mediastinal and hilar contours are within normal limits. Bony thorax no acute abnormality. Miscellaneous: None Impression: No acute cardiopulmonary abnormality. Reviewed, dictated and finalized at location P. Impression: No acute cardiopulmonary abnormality.
--- NOTE | ~2024-11-13 | CT_ITS ---
EXAMINATION: CT brain rachid carlos, 11/13/2024 14:35 CDT HISTORY: syncope, best possible images, patient could not hold still COMPARISON: No comparisons available. Technique: Axial images obtained of the brain without contrast. One or more of the following dose reduction techniques were used: automated exposure control, adjustment of the mA and/or kV according to patient size, use of iterative reconstruction technique. Findings: No acute infarct or parenchymal hemorrhage. No abnormal mass or mass effect. No midline shift. No extra-axial fluid collections. No hydrocephalus. Mastoid air cells unremarkable. Sinuses and orbits unremarkable. No acute fracture. No significant facial or scalp soft tissue swelling evident. No radiopaque foreign body is seen. Impression: Motion artifact limits evaluation. No acute infarct or hemorrhage Reviewed, dictated and finalized at location P. Impression: Motion artifact limits evaluation. No acute infarct or hemorrhage
--- NOTE | ~2024-11-13 | XR_ITS ---
Examination: XR chest 1V portable Clinical History: Edema Comparison: Hours prior Technique: Portable AP Findings: Heart size normal. Left basilar opacities. No acute bony abnormality. IMPRESSION: 1. Left basilar atelectasis and/or airspace disease. Reviewed, dictated and finalized at location R.
--- NOTE | 2024-11-13 12:59 | ED.AMS ---
HPI - Altered Mental Status General Chief Complaint: Altered Mental Status Stated Complaint: ?syncope, leg pain Time Seen by Provider: 11/13/24 12:54 Source: family and EMS Mode of arrival: EMS History of Present Illness HPI narrative: detention, complaining of brief episode of unresponsiveness prior to arrival history of Alzheimer, bilateral lower extremity edema, patient told EMS that he was trying to get some sleep. Related Data Home Medications ?Medication ?Instructions ?Recorded ?Confirmed ?Last Taken ?Type gabapentin 300 mg capsule 300 mg PO BID 05/19/23 07/20/24 Unknown History gabapentin 300 mg capsule 600 mg PO HS 08/22/23 07/20/24 Unknown History magnesium hydroxide 400 mg/5 mL 5 ml PO DAILY PRN 09/25/23 07/20/24 Unknown History oral suspension (Milk of Magnesia) Allergies Allergy/AdvReac Type Severity Reaction Status Date / Time lisinopril Allergy Unknown cough Verified 07/20/24 14:13 nicardipine Allergy Unknown gynecomasti Verified 07/20/24 14:13 a cimetidine Allergy Unknown Verified 07/20/24 14:13 Review of Systems Review of Systems: ROS unobtainable: Yes unobtainable due to mental status PMFSH Past Medical History Medical History COVID-19 Aortic arch atherosclerosis CTA 08.12.23 VISUALIZED AORTIC ARCH AND BRANCHING VESSELS: Mild atheromatous disease but no significant stenosis. Carotid stenosis CTA 08.12.23: RIGHT CERVICAL CAROTID SYSTEM: stenosis 80%. No carotid dissection. --LEFT CERVICAL CAROTID SYSTEM: stenosis 40%. No carotid dissection. 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 Yeast infection of the skin Groin rash Surgical History Surgical History H/O hemicolectomy ischemic colitis 2005 Family History Family History Sibling Hypertension Family history of cardiovascular disease Family history of malignant neoplasm of breast Father Patient's father is , Onset Age: 72 Carcinoma of colon Malignant neoplasm of prostate Grandparent Diabetes mellitus Family history of malignant neoplasm of esophagus Mother Depression Family history of cardiovascular disease Social History Social History Social History: Code status: DNR/DNI Healthcare power of trademark attorney: Karen Smoking status: Unknown if ever smoked Tobacco type: cigarettes Additional smoking assessment comments: A couple cigarettes a day for a few years Alcohol intake: never Substance use: never Lack of Transportation: No Lack of Food: Never True Current Housing: I Have Housing Concerned About Future Housing: No Difficulty Paying Gas/Electric Bills: No Difficulty Paying for Meds: No Currently Unemployed: No Education: High School Diploma/GED Difficulty w/ Childcare or Family Care: No Living arrangements: care home Additional living arrangements comments: [facility] Gender identity (if verbalized by the patient): Male Spiritual care concerns: No Agree to blood products: Yes Exam Narrative: General appearance: Well-developed, well-nourished, laying down in bed, sleepy, responsive to painful stimulation, mouth breather Skin: Normal color, lower extremity edema bilaterally Head: Normocephalic, nontraumatic Eyes: Clear conjunctiva ENT: Dry oral cavity Neck: Supple, nontender Chest and respiratory: Airway patent, no respiratory distress, no accessory muscle use Heart: Regular rate/rhythm Abdomen: Soft, nontender, no organomegaly, quiet bowel sounds Vascular: Normal peripheral pulses, normal capillary refill. Musculoskeletal: Normal range of motion, nontender back Neurologic: Alert and oriented oriented to his name only, trying to answer questions his mouth is extremely dry Course Vital Signs Vital signs: Vital Signs Temperature 36.4 C 11/13/24 12:00 Pulse Rate 65 11/13/24 12:00 Respiratory Rate 20 11/13/24 12:00 Blood Pressure 169/75 H 11/13/24 12:00 Pulse Oximetry 99 11/13/24 12:00 Oxygen Delivery Room Air 11/13/24 12:00 Temperature 36.4 C 11/13/24 12:00 Pulse Rate 63 11/13/24 15:17 Respiratory Rate 20 11/13/24 15:17 Blood Pressure 128/67 11/13/24 15:17 Pulse Oximetry 98 11/13/24 15:17 Oxygen Delivery Room Air 11/13/24 12:09 MDM - Altered Mental Status MDM Narrative Medical decision making narrative: Patient came with unresponsiveness for few seconds Vital sign: Blood pressure 169/75 otherwise within normal limit Physical examination showing sleepy, yawning patient does not look in pain or distress, oral breathing, 3+ edema lower extremity bilaterally Differential diagnose: Orthostatic hypotension, electrolyte imbalance, dehydration, infection Blood workup today includes CBC, CMP, troponin and proBNP showed BMP of [address] head without contrast showed no acute abnormalities Chest x-ray showed no acute cardiopulmonary Urinalysis showed evidence of infection Diagnosis syncope-suspected, urinary tract infection Differential Diagnosis Differential diagnosis: Likely other (As above) Medical Records Attestation: I reviewed the patient's medical records. Lab Data Attestation: I reviewed the patient's lab results. 11/13/24 13:25 11/13/24 13:25 Labs: Lab Results 11/13/24 11/13/24 Range/Units 13:25 14:20 WBC 5.7 (4.5-10.0) K/mm3 RBC 4.22 L (4.6-6.20) M/mm3 Hgb 12.4 L (14.0-18.0) g/dL Hct 38.4 L (42.0-52.0) % MCV 91.0 (80-100) fl MCH 29.4 (26-34) pg MCHC 32.3 (32-36) g/dl RDW 13.5 (11.5-14.5) % Plt Count 192 (150-375) k/mm3 MPV 9.7 (7.4-10.4) fl Immature Gran % (Auto) 0.3 (0-0.5) % Neut % (Auto) 53.3 (45.5-73.1) % Lymph % (Auto) 31.6 (18.3-44.2) % [place] % (Auto) 11.2 H (2.6-8.5) % Eos % (Auto) 3.3 (0-4.4) % Baso % (Auto) 0.3 (0.2-1.2) % Lymph # (Auto) 1.81 (0.9-3.2) K/mm3 [place] # (Auto) 0.6 (0.1-0.6) K/mm3 Eos # (Auto) 0.2 (0-0.3) K/mm3 Baso # (Auto) 0.0 (0.0-0.1) K/mm3 Abs Immat Gran (auto) 0.02 (0.00-0.031) K/mm3 Absolute Neuts (auto) 3.1 (1.3-6.7) K/mm3 Absolute Nucleated RBC 0.000 (0.0-0.012) K/mm3 Nucleated RBC % 0.0 (0.0-0.2) % PT 13.9 (11.1-14.7) Seconds INR 1.1 APTT 33.5 (22.3-36.8) Seconds Sodium 139 (137-145) mmol/L Potassium 3.8 (3.4-5.0) mmol/L Chloride 101 (98-107) mmol/L Carbon Dioxide 33 H (22-30) mmol/L Anion Gap 5 (4-12) mmol/L BUN 25 H (9-20) mg/dL Creatinine 1.06 (0.7-1.3) mg/dL Estim Creat Clear Calc 56 ml/min Estimated GFR > 60 (59 - ) Glucose 135 H (65-110) mg/dL Calcium 9.0 (8.4-10.2) mg/dL Total Bilirubin 0.2 (0.2-1.3) mg/dL AST 37 (17-59) U/L ALT 32 (6-50) U/L Alkaline Phosphatase 117 (38-126) U/L Troponin I < 0.012 (0.000-0.034) ng/mL NT-Pro-B Natriuret Pep 477 H (19.9-100) pg/mL Total Protein 7.5 (6.3-8.2) g/dL Albumin 3.8 (3.5-5.1) g/dL Urine Color Yellow (Yellow) Urine Appearance Clear (Clear) Urine pH 5.0 (5.0-9.0) Ur Specific [place] 1.009 (1.001-1.035) Urine Protein Negative (Negative) mg/dL Urine Glucose (UA) Negative (Negative) mg/dL Urine Ketones Negative (Negative) mg/dL Ur Blood (Man) Trace (Negative) Urine Nitrate Positive H (Negative) Urine Bilirubin Negative (Negative) Urine Urobilinogen 0.2 (<2.0) mg/dL Leukocyte Esterase Rfl 2+ H (Negative) KELLY/UL Urine RBC 0-2 (0-2) /hpf Urine WBC 6-10 H (0-3) /hpf Ur Squamous Epith Cells None seen (Few) /hpf Urine Bacteria 4+ H /hpf Urine Casts 0-2 Imaging Data Radiologist's impression: Impressions Chest X-Ray 11/13/24 14:19 Impression: No acute cardiopulmonary abnormality. Head CT 11/13/24 15:04 Impression: Motion artifact limits evaluation. No acute infarct or hemorrhage ECG Data EKG #1: Attestation: I personally reviewed and interpreted this ECG as follows: ECG completion date: 11/13/24 Interpretation: Sinus bradycardia at 57 beats per minute, poor R-wave progression, anterior septal myocardial infarction of indeterminate age, Critical Care Time Critical Care Time Critical Care Time: Yes Total Critical Care Time: 30 Discharge Plan Discharge Clinical Impression: Urinary tract infection, Syncope Patient Disposition: Still a Patient Condition: Stable Patient Language: Congolese Prescriptions: No Action (DME) Diabetic shoes See Rx Instructions .Route .MEDSUPPLY Qty: 1 0RF Rx Instructions: As directed magnesium hydroxide [Milk of Magnesia] 400 mg/5 mL suspension 5 ml PO DAILY PRN (DME) diabetic shoes See Rx Instructions .Route .MEDSUPPLY Qty: 1 0RF Rx Instructions: As directed (DME) folding wheel chair See Rx Instructions .Route .MEDSUPPLY Qty: 1 0RF Rx Instructions: As directed gabapentin 300 mg capsule 300 mg PO BID gabapentin 300 mg Capsule 600 mg PO HS folic acid 1 mg Tablet 1 mg PO DAILY Qty: 30 0RF multivitamin with folic acid [Thera] 400 mcg Tablet 1 tablet PO QAM Qty: 30 0RF atenolol 25 mg tablet 25 mg PO DAILY Qty: 90 5RF risperidone [Risperdal] 2 mg tablet 2 mg PO QHS Qty: 90 3RF loperamide [Anti-Diarrheal (loperamide)] 2 mg tablet 2 mg PO .COMPLEX PRN (Reason: loose stool) Qty: 30 8RF Rx Instructions: 2 mg orally PRN; administer 2 after first loose stool, then 1 after each loose stool until symptoms controlled; do not exceed 8 mg per 24 hrs potassium chloride 10 mEq capsule, extended release 10 meq PO DAILY Qty: 30 3RF (DME) diabetic shoes See Rx Instructions .Route .MEDSUPPLY Qty: 1 1RF Rx Instructions: As directed finasteride 5 mg tablet See Rx Instructions .ROUTE .COMPLEX Qty: 90 1RF Dose Instruction: TAKE 1 TABLET BY MOUTH DAILY Rx Instructions: TAKE 1 TABLET BY MOUTH DAILY Eliquis 2.5 mg tablet See Rx Instructions .ROUTE .COMPLEX Qty: 180 1RF Dose Instruction: TAKE 1 TABLET BY MOUTH TWICE DAILY Rx Instructions: TAKE 1 TABLET BY MOUTH TWICE DAILY (DME) vaccine See Rx Instructions .Route .MEDSUPPLY Qty: 1 0RF Rx Instructions: Administer Covid and RSV vaccines furosemide 40 mg tablet See Rx Instructions .ROUTE .COMPLEX Qty: 90 0RF Dose Instruction: TAKE 1 TABLET BY MOUTH EVERY MORNING Rx Instructions: TAKE 1 TABLET BY MOUTH EVERY MORNING Follow-up/Referrals: Fany Mcgraw MD [Physician, Family Practice]
--- NOTE | 2024-11-13 13:03 | ECG_ITS ---
Test Date: 2024-11-13 15:12:30 Measurements Intervals [place] Rate: 57 P: 255 ME: 122 QRS: -53 QRSD: 116 T: 55 QT: 439 QTc: 431 Interpretive Statements SINUS BRADYCARDIA LEFT ANTERIOR FASCICULAR BLOCK Electronically Signed On 11-14-2024 20:44:52 CDT by Rafa Poon D.O
--- OUTSIDE RECORDS SUMMARY | 2024-11-13 13:06 | XMS_ITS | Patient Health Record ---
Author Organization [facility] [employer] Address [address] [place] [address] Care Team Providers Care Cassandra Architect Name Role Phone Von Chambers Unavailable [phone] Allergies Allergen (clinical drug ingredient) Drug/Non Drug Allergy documented on EMR Reaction Allergy Type Onset Date Status cimetidine Cimetidine Unknown Drug Allergy 04/22/2023 Acti ve lisinopril Lisinopril Unknown Drug Allergy 04/22/2023 Acti ve Reason For Referral No Information Medications Medication SIG (Take, Route, Frequency, Duration) Notes Start Date End Date Status Atenolol 25 MG Tablet Oral 04/22/2023 Active risperiDONE 1 MG Tablet TAKE 1 TABLET BY MOUTH DAILY; Duration: 30 Active Furosemide 40 MG Tablet Oral 04/22/2023 Active Finasteride 5 MG Tablet Oral 04/22/2023 Active Nystatin 684757 UNIT/GM Powder External 04/22/2023 Active Simvastatin 40 MG Tablet Oral 04/22/2023 Active COVID-19 mRNA Vac-Agata([employer]) 30 MCG/0.3ML Suspension Intramuscular *Reorder from [email or web address] for eRx and Interaction Alerts* 04/22/2023 Active Eliquis 2.5 MG Tablet Oral 04/22/2023 Active Donepezil HCl 10 MG Tablet Oral 04/22/2023 Active Gabapentin 300 MG Capsule TAKE 1 CAPSULE BY MOUTH TWICE DAILY AND 2 CAPSULES EVERY NIGHT AT BEDTIME; Duration: 30 appointment needed Active Acetaminophen-Codein e #3 300-30 MG Tablet Oral 04/22/2023 Active Triamcinolone Acetonide 0.1% Cream External 04/22/2023 Active Immunizations Vaccine Route Administration Date Status Comme nts Pfizer Bion[employer] Covid-19 Vac cine 2nd dose Unknown 02/23/2020 Administered Pfizer [employer]ion[employer] Covid-19 Vac cine 2nd dose Unknown 03/15/2020 Administered Social History Sex Assigned At : Social History Observation Description Sex Assigned At Male Social History Additional Details Category Social Info Options Details Migrated Social History Migrated Social History Alcohol Intake: None 11/28/2017,Tobacco Years: Former smoker 04/19/2022 Encounters Encounter Location Date Provider Diagnosis [facility] [employer] [address] [facility] [address] [place] [address] 02/12/2024 Von Chambers Plan Of Treatment No Information Insurance Providers Payer Name Payer Address Payer Phone Subscriber Number Group Number Insured Name Patient Relationship to Insured Coverage Start Date Coverage End Date [facility] [address] [place] [address] [id number] DUSTY GLASS Self - patient is the insured Medical (General) History Medical History History ICD Code Problems: Diabetic peripheral neuropathy Generalized anxiety disorder Memory impairment 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
--- OUTSIDE RECORDS SUMMARY | 2024-11-13 13:06 | XMS_ITS | Patient Health Record ---
Author Organization [facility] Address [address] [facility] [address] [place] [address] Support Name Relationship Address Phone Luke Damico Guarantor Unknown [phone] Reason For Referral No Information Medications Medication SIG (Take, Route, Frequency, Duration) Notes Start Date End Date Status Aspirin 81 81 MG Oral 02/20/2004 Ac tive Atenolol 50 MG TAKE 1 TABLET IN THE MORNING AND ONE-HALF (1/2) TABLET IN THE EVENING Oral 04/19/2016 Active CPAP 11 cm H2O *Reorder from [employer] for eRx and Interaction Alerts* 09/08/2008 Active Immunizations Vaccine Route Administration Date Status Comme nts Influenza high dose > 65 [facility] IM Intramuscular 11/25/2014 Administered Pneumococcal conjugate PCV 13 Unknown 08/18/2002 Administered migrated [employer]= [id number] Date=08/18/2002 Vac= PCV series Pneumococcal conjugate PCV 13 Unknown 01/28/2004 Administered migrated [employer]Pat[employer]= [id number] Date=01/28/2004 Vac= PCV series Pneumococcal conjugate PCV 13 Unknown 2010 Administered migrated LegPatid= [id number] Date=2010 Vac= Pneumonia vaccine Problems Problem Type SNOMED Code ICD Code Onset Dates Problem Status W/U Status Risk Notes Problem Scabies (426123369) Scabies (B86) Active confir med Problem Mononeuropathy due t o type 1 diabetes mellitus (disorder) (566074545) 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 Wait for the treatme tn. Problem Pure hypercholesterolemia (649212796) Pure hypercholesterolemia (E78.0) 2004 Active confirmed Problem Obstructive sleep apnea syndrome (disorder) (74316017) Obstructive sleep apnea (adult) (pediatric) (G47.33) 2008 Active confirmed Problem Pruritus (118027265) Pruritus, unspecified (L29.9) Active confirmed Problem Dermatitis (806040996) Dermatitis, unspecified (L30.9) Active confirmed Problem Fibromyalgia (456116224) Fibromyalgia (M79.7) 2005 Active confirmed Problem Type II diabetes mellitus without complication (345661282) Type 2 diabetes mellitus without complications (E11.9) 2004 Active confirmed Problem Essential hypertension (82471067) Essential (primary) hypertension (I10) 2004 Active confirmed Plan Of Treatment No Information Insurance Providers Payer Name Payer Address Payer Phone Subscriber Number Group Number Insured Name Patient Relationship to Insured Coverage Start Date Coverage End Date DO NOT USE [place] [id number] Luke Damico Self - patient is the insured [employer] [address] [place] [phone] [id number] Lkue Damico Self - patient is the insured [id number] [address] [place] [address] [id number] Luke Damico Self - patient is the insured [employer] [address] [place] [address] [phone] [id number] Luke Damico Self - patient is the insured [facility] [address] [place] [address] [id number] Luke Damico Self - patient is the insured 1 Medical (General) History Surgical History Surgery Date(Month/Year) Parotid Gland: right dissection 1980; 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 COLON. MITCH Sneed, Date of Procedure: 2004; 2011-02-15 Varicocele; 2011-02-15 Lumbar disc surgery: 1971; 2011-02-15 Lumbosacral spine surgery: L2-3 Fusion a nd decompression; 2014-04-25
[2024-11-13 13:32] LABS: Hematocrit 38.4 % (42.0-52.0); Hemoglobin 12.4 g/dL (14.0-18.0); Immature Granulocyte Percent A 0.3 % (0-0.5); Lymphocytes Absolute Auto 1.81 K/mm3 (0.9-3.2); Mean Corpuscular HGB Conc 32.3 g/dl (32-36); Mean Corpuscular Hemoglobin 29.4 pg (26-34); Mean Corpuscular Volume 91.0 fl (80-100); Nucleated Red Blood Cells Absolute Auto 0.000 K/mm3 (0.0-0.012); Nucleated Red Blood Cells Perc 0.0 % (0.0-0.2); Platelet Count Result 192 k/mm3 (150-375); Red Blood Count 4.22 M/mm3 (4.6-6.20); White Blood Count 5.7 K/mm3 (4.5-10.0)
[2024-11-13 13:49] LABS: Alanine Aminotransferase 32 U/L (6-50); Albumin Level 3.8 g/dL (3.5-5.1); Alkaline Phosphatase 117 U/L (38-126); Anion Gap 5 mmol/L (4-12); Aspartate Amino Transferase 37 U/L (17-59); Bilirubin,Total 0.2 mg/dL (0.2-1.3); Blood Urea Nitrogen 25 mg/dL (9-20); Calcium 9.0 mg/dL (8.4-10.2); Carbon Dioxide 33 mmol/L (22-30); Chloride 101 mmol/L (98-107); Estimated CRCL calculation 56 ml/min; Estimated Glomerular Filt Rate > 60; Glucose 135 mg/dL (65-110); Potassium 3.8 mmol/L (3.4-5.0); Sodium 139 mmol/L (137-145); Total Protein 7.5 g/dL (6.3-8.2)
[2024-11-13 13:59] LABS: INR 1.1; NT Pro B Type Natriuretic Pept 477 pg/mL (19.9-100); Partial Thromboplastin Time 33.5 Seconds (22.3-36.8); Prothrombin Time 13.9 Seconds (11.1-14.7); Troponin I < 0.012 ng/mL (0.000-0.034)
[2024-11-13 14:31] LABS: Add Urine Microscopic? YES; Appearance Urine Clear (Clear); Glucose Urine UA Negative (Negative); Leukocyte Esterase Ur 2+ LEU/UL (Negative); Nitrate Urine Positive (Negative); Non Pathogenic Casts 0-2; Specific Grav Ur 1.009 (1.001-1.035)
[2024-11-13] MEDS: cefTRIAXone 1 GM in SODIUM CHLORIDE 0.9% IV 50 ML 100 ML IVPB (16:40)
--- NOTE | 2024-11-13 17:03 | ADMGEN ---
This patient, Luke Damico, was admitted to 3 [facility] Surg Room 316-02. Patient/family oriented to hospital policies and general routines including ID bracelet, bed and alarms, visiting hours, pain management, procedures, bathroom and other care routines, personal items, smoking policy, room service/diet, and visiting hours. Information on how to activate the Rapid Response Team has been discussed. Patient/Family are encouraged to report perceived risks to care and to ask questions if they do not understand what they are told or what they should do.
[2024-11-13 17:12] LABS: Troponin I < 0.012 ng/mL (0.000-0.034)
--- NOTE | 2024-11-13 18:16 | P.HP_ITS ---
H&P: HPI History of Present Illness Date/Time: 11/13/24 18:16 Chief Complaint: Altered mental status Narrative: 89-year-old male past medical history of Alzheimer's, BPH, diabetes, CKD stage 3, and frequent falls that presents with altered mental status. HPI is limited as patient is altered mental status. Per the chart in the ED, his intermediate had it complained of brief episode of unresponsiveness so they called EMS. Patient told EMS that he was trying to get some sleep. Patient denies complaints at this time. Lab work in the ED shows hemoglobin of 12.4, carbon dioxide 33, BUN of 25, glucose 135, BNP 477, UA positive with nitrates 2+ leukocyte esterase 0-10 wbc's and 4+ bacteria. Head CT negative for acute process. Chest x-ray negative for acute process. EKG shows junctional rhythm rate of 57 Review of Systems Review of Systems: Altered mental status ROS unobtainable: Yes unobtainable due to mental status PMFSH Past Medical History Medical History COVID-19 Aortic arch atherosclerosis CTA 08.12.23 VISUALIZED AORTIC ARCH AND BRANCHING VESSELS: Mild atheromatous disease but no significant stenosis. Carotid stenosis CTA 08.12.23: RIGHT CERVICAL CAROTID SYSTEM: stenosis 80%. No carotid dissection. --LEFT CERVICAL CAROTID SYSTEM: stenosis 40%. No carotid dissection. 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 Yeast infection of the skin Groin rash Surgical History Surgical History H/O hemicolectomy ischemic colitis 2005 Family History Family History Sibling Hypertension Family history of cardiovascular disease Family history of malignant neoplasm of breast Father Patient's father is , Onset Age: 72 Carcinoma of colon Malignant neoplasm of prostate Grandparent Diabetes mellitus Family history of malignant neoplasm of esophagus Mother Depression Family history of cardiovascular disease Social History Social History Social History: Code status: DNR/DNI Healthcare power of business attorney: Karen Smoking status: Unknown if ever smoked Tobacco type: cigarettes Additional smoking assessment comments: A couple cigarettes a day for a few years Alcohol intake: unknown Substance use: unknown Substance use type: unknown Lack of Transportation: No Lack of Food: Never True Current Housing: I Have Housing Concerned About Future Housing: No Difficulty Paying Gas/Electric Bills: No Difficulty Paying for Meds: No Currently Unemployed: No Education: High School Diploma/GED Difficulty w/ Childcare or Family Care: No Living arrangements: intermediate Additional living arrangements comments: [facility] Gender identity (if verbalized by the patient): Male Spiritual care concerns: No Agree to blood products: Yes Meds Home Medications and Allergies Home Medications ?Medication ?Instructions ?Recorded ?Confirmed ?Type Diabetic shoes #1 ea 02/19/23 07/20/24 Rx gabapentin 300 mg capsule 300 mg PO TID 05/19/2311/13 History atenolol 25 mg tablet 25 mg PO DAILY #90 tabs 04/04/1211/13/24 Rx folding wheel chair #1 ea 06/19/23 07/20/24 Rx folic acid 1 mg tablet 1 mg PO DAILY #30 tabs 08/2611/13/24 Rx multivitamin with folic acid 400 1 tablet PO QAM #30 t abs 08/27/23 11/13/24 Rx mcg tablet (Thera) magnesium hydroxide 400 mg/5 mL 5 ml PO DAILY PRN cons tipation 09/25/23 11/13/24 History oral suspension (Milk of Magnesia) loperamide 2 mg tablet 2 mg PO .COMPLEX PRN loose s tool 02/17/24 11/13/24 Rx (Anti-Diarrheal (loperamide)) #30 tabs risperidone 2 mg tablet (Risperdal) 2 mg PO QHS #90 ta bs 02/17/24 11/13/24 Rx potassium chloride 10 mEq 10 meq PO DAILY #30 caps 11/13/24 Rx capsule,extended release diabetic shoes #1 ea 05/06/24 07/20/24 Rx apixaban 2.5 mg tablet (Eliquis) See Rx Instructions . Route 05/24/24 11/13/24 Rx .COMPLEX #180 tabs finasteride 5 mg tablet See Rx Instructions .Route 0 05/24/24 11/13/24 Rx .COMPLEX #90 tabs vaccine #1 ea 06/01/24 07/20/24 Rx furosemide 40 mg tablet See Rx Instructions .Route 0 07/14/24 11/13/24 Rx .COMPLEX #90 tabs diabetic shoes #1 ea 07/20/24 07/20/24 Rx acetaminophen 325 mg capsule 325 mg PO Q6H PRN pain (s jaycee 11/13/24 11/13/24 History score 1-3) haloperidol 5 mg tablet 5 mg PO HS 11/13/24 11/13/24 History hydroxyzine HCl 50 mg tablet 50 mg PO BID 11/13/24 History Allergies Allergy/AdvReac Type Severity Reaction Status Date / Time lisinopril Allergy Unknown cough Verified 07/20/24 14:13 nicardipine Allergy Unknown gynecomasti Verified 07/20/24 14:13 a cimetidine Allergy Unknown Verified 07/20/24 14:13 Vital Signs Vital Signs - 24 hr 11/13/24 12:00 11/13/24 12:09 11/13/24 12:09 Temperature 97.6 F Pulse Rate 65 63 Respiratory Rate 20 Blood Pressure 169/75 H Pulse Oximetry 99 99 Oxygen Delivery Room Air Room Air 11/13/24 15:17 11/13/24 16:36 Temperature Pulse Rate 63 64 Respiratory Rate 20 19 Blood Pressure 128/67 110/89 Pulse Oximetry 98 98 Oxygen Delivery Exam Narrative: General: well appearing, appears stated age. No acute distress HEENT: normocephalic, atraumatic. Mucous membranes moist. EOMI, PERRLA, bilateral sclera anicteric, no conjunctival injection. Neck supple without JVD, lymphadenopathy, or bruit. Respiratory: Diminished to ascultation bilaterally. No rales/rhonic/wheezes. Cardiovascular: Regular rate and rhythm, normal S1-S2 upon ascultation. No murmurs, rubs, or clicks. PMI is nondisplaced, capillary refill less than 3 second. Abdomen: Soft, round, no pulsatile masses, nondistended and nontender. No rebound, no guarding. No CVA tenderness, no hepatosplenomegaly. Bowel sounds present to all four quadrants. No high pitch or tinkling sounds, resonant to percussion. Extremities: No cyanosis, clubbing, Pulses are palpable 2/2. Active ROM to all four extremities. 3+ pedal edema and 2+ edema in the shins Neuro: Alert and orientated x 0. PERRLA. Cranial nerves 2-12 intact without focal deficit. Skin: Warm, dry, and intact, without rash, erythema, or lesion. Psych: pleasant, cooperative, normal speech, normal affect, no hallucinations, no dysarthia H&P: Results Labs Labs: Short CBC 11/13/24 Range/Units 13:25 WBC 5.7 (4.5-10.0) K/mm3 Hgb 12.4 L (14.0-18.0) g/dL Hct 38.4 L (42.0-52.0) % Plt Count 192 (150-375) k/mm3 BMP 11/13/24 13:25 Sodium 139 Potassium 3.8 Chloride 101 Carbon Dioxide 33 H BUN 25 H Creatinine 1.06 Glucose 135 H Calcium 9.0 Cardiac Enzymes 11/13/24 11/13/24 Range/Units 13:25 16:45 Troponin I < 0.012 < 0.012 (0.000-0.034) ng/mL Liver Function 11/13/24 Range/Units 13:25 Total Bilirubin 0.2 (0.2-1.3) mg/dL AST 37 (17-59) U/L ALT 32 (6-50) U/L Alkaline Phosphatase 117 (38-126) U/L Albumin 3.8 (3.5-5.1) g/dL Urine 11/13/24 Range/Units 14:20 Urine Color Yellow (Yellow) Urine Appearance Clear (Clear) Urine pH 5.0 (5.0-9.0) Ur Specific [place] 1.009 (1.001-1.035) Urine Protein Negative (Negative) mg/dL Urine Glucose (UA) Negative (Negative) mg/dL Assessment and Plan Assessment and plan (1) Altered mental status: Code(s): R41.82 - Altered mental status, unspecified Status: Acute Assessment and Plan: Infection versus polypharmacy versus advanced dementia Head CT negative for acute findings UA positive for infection Chest x-ray negative for acute findings NPO until more alert (2) Urinary tract infection: Code(s): N39.0 - Urinary tract infection, site not specified Status: Acute Assessment and Plan: IV Rocephin IVF Culture and sensitivity pending (3) Syncope: Code(s): R55 - Syncope and collapse Status: Acute Assessment and Plan: Hospital syncope per intermediate Telemetry monitoring PT OT eval and treat (4) Type 2 diabetes mellitus with diabetic neuropathy, unspecified: Qualifiers: Diabetes mellitus halfway insulin use: without molder inflated ball use Qualifie d Code(s): E11.40 - Type 2 diabetes mellitus with diabetic neuropathy, unspecified Code(s): E11.40 - Type 2 diabetes mellitus with diabetic neuropathy, unspecified Status: Acute Assessment and Plan: Patient on diabetic meds at home A.cGriselda HS SSI (5) Stage 3a chronic kidney disease (CKD): Code(s): N18.31 - Chronic kidney disease, stage 3a Status: Acute Assessment and Plan: BMP in the morning continue monitor (6) Normocytic anemia: Code(s): D64.9 - Anemia, unspecified Status: Chronic Assessment and Plan: No signs of acute bleeding continue to monitor (7) ACS (acute coronary syndrome): Code(s): I24.9 - Acute ischemic heart disease, unspecified Status: Acute Assessment and Plan: Continue Eliquis, atenolol (8) BPH (benign prostatic hyperplasia): Code(s): N40.0 - Benign prostatic hyperplasia without lower urinary tract symptoms Status: Acute Assessment and Plan: Continue Proscar (9) Dementia: Qualifiers: Alzheimer's disease onset: unspecified onset Dementia behavioral disturbance: without behavioral disturbance Dementia type: Alzheimer's Qualified Code(s): G30.9 - Alzheimer's disease, unspecified; F02.80 - Dementia in other diseases classified elsewhere without behavioral disturbance Code(s): F03.90 - Unspecified dementia, unspecified severity, without behavioral disturbance, psychotic disturbance, mood disturbance, and anxiety Status: Acute Assessment and Plan: Hold Haldol tabs and Atarax, risperidone due to altered mental status (10) CHF (congestive heart failure): Code(s): I50.9 - Heart failure, unspecified Status: Acute Assessment and Plan: IV LasixB.i.d. Chest x-ray Daily weights Fluid restriction Quality VTE Prophylaxis VTE prophylaxis: mechanical ordered and pharmacologic ordered Hospitalist MIPS Advance Care Plan I have confirmed that the patient's Advanced Care Plan is present, code status is documented, or surrogate decision maker is listed in patient medical record.: Yes Medication Reconciliation I have utilized all available resources to obtain, update and review the patients current medications (includes all prescriptions, OTC, herbals, cannabis, and nutritional supplements).: Yes
[2024-11-13 20:37] LABS: Troponin I < 0.012 ng/mL (0.000-0.034)
[2024-11-13] MEDS: APIXABAN 2.5 MG TABLET BY MOUTH (20:40)
[2024-11-13] MEDS: ACETAMINOPHEN 325 MG TABLET 650 MG PO (22:27)
[2024-11-13] MEDS: FUROSEMIDE INJ 40 MG/4 ML VIAL IV PUSH (23:13)
[2024-11-14] VITALS (12 sets, daily range): BP systolic 114–173; BP diastolic 68–97; PULSE 61–78; RESP 16–18; TEMP 36.1–36.5; O2SAT 93–100
--- NOTE | 2024-11-14 07:20 | P.PNIM_ITS ---
Progress Note: A&P Assessment and Plan (1) Altered mental status: Code(s): R41.82 - Altered mental status, unspecified Status: Acute Assessment and Plan: * Infection versus polypharmacy versus advanced dementia * Head CT negative for acute findings * UA positive for infection * Chest x-ray negative for acute findings * NPO until more alert * Son states that he appears to be at his baseline mentation status. States that he can sometimes tell you his birthday/ name but otherwise is not very responsive. 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: without terminal gauger supervisor use Qualified Code(s): E11.40 - Type 2 diabetes mellitus with diabetic neuropathy, unspecified Code(s): E11.40 - Type 2 diabetes mellitus with diabetic neuropathy, unspecified Status: Acute Assessment and Plan: * Patient on diabetic meds at home * Deidra THOMPSON * SSI (5) Stage 3a chronic kidney disease (CKD): Code(s): N18.31 - Chronic kidney disease, stage 3a Status: Acute Assessment and Plan: * BMP in the morning continue monitor (6) Normocytic anemia: Code(s): D64.9 - Anemia, unspecified Status: Chronic Assessment and Plan: * No signs of acute bleeding continue to monitor (7) ACS (acute coronary syndrome): Code(s): I24.9 - Acute ischemic heart disease, unspecified Status: Acute Assessment and Plan: * Continue Eliquis, atenolol (8) BPH (benign prostatic hyperplasia): Code(s): N40.0 - Benign prostatic hyperplasia without lower urinary tract symptoms Status: Acute Assessment and Plan: * Continue Proscar (9) Dementia: Qualifiers: Alzheimer's disease onset: unspecified onset Dementia behavioral disturbance: without behavioral disturbance Dementia type: Alzheimer's Qualified Code(s): G30.9 - Alzheimer's disease, unspecified; F02.80 - Dementia in other diseases classified elsewhere without behavioral disturbance Code(s): F03.90 - Unspecified dementia, unspecified severity, without behavioral disturbance, psychotic disturbance, mood disturbance, and anxiety Status: Acute Assessment and Plan: * Hold Haldol tabs and Atarax, risperidone due to altered mental status (10) CHF (congestive heart failure): Code(s): I50.9 - Heart failure, unspecified Status: Acute Assessment and Plan: * IV LasixB.i.d. * Chest x-ray * Daily weights * Fluid restriction Subjective Date/time seen: 11/14/24 07:20 Interval history: 89-year-old male past medical history of Alzheimer's, BPH, diabetes, CKD stage 3, and frequent falls that presents with altered mental status. HPI is limited as patient is altered mental status. 11/14/2024 Patient sitting in bed at time of examination. Accompanied by son who states that the patient's baseline mentation status is A&O times 0-1, and that he can sometimes toe you his birthday or name and that his Alzheimer's/dementia has been declining for the past several months. Blood work remains fairly unremarkable, pending urine cultures. Review of Systems Review of Systems: Altered mental status ROS unobtainable: Yes unobtainable due to mental status Exam Narrative: General: well appearing, appears stated age. No acute distress HEENT: normocephalic, atraumatic. Mucous membranes moist. EOMI, PERRLA, bilateral sclera anicteric, no conjunctival injection. Neck supple without JVD, lymphadenopathy, or bruit. Respiratory: Diminished to auscultation bilaterally. No rales/rhonchi/wheezes. Cardiovascular: Regular rate and rhythm, normal S1-S2 upon auscultation. No murmurs, rubs, or clicks. PMI is nondisplaced, capillary refill less than 3 second. Abdomen: Soft, round, no pulsatile masses, nondistended and nontender. No rebound, no guarding. No CVA tenderness, no hepatosplenomegaly. Bowel sounds present to all four quadrants. No high pitch or tinkling sounds, resonant to percussion. Extremities: No cyanosis, clubbing, Pulses are palpable 2/2. Active ROM to all four extremities. 3+ pedal edema and 2+ edema in the shins Neuro: Alert and orientated x 0. PERRLA. Cranial nerves 2-12 intact without focal deficit. Skin: Warm, dry, and intact, without rash, erythema, or lesion. Psych: pleasant, cooperative, normal speech, normal affect, no hallucinations, no dysarthia Objective Data Vital Signs Vital Signs: Vital Signs - 24 hr 11/13/24 12:00 11/13/24 12:09 11/13/24 12:09 Temperature 97.6 F Pulse Rate 65 63 Respiratory Rate 20 Blood Pressure 169/75 H Pulse Oximetry 99 99 Oxygen Delivery Room Air Room Air 11/13/24 15:17 11/13/24 16:36 11/13/24 18:33 Temperature Pulse Rate 63 64 Respiratory Rate 20 19 Blood Pressure 128/67 110/89 Pulse Oximetry 98 98 Oxygen Delivery Room Air 11/13/24 20:40 11/13/24 22:00 Temperature 97.6 F Pulse Rate 63 Respiratory Rate 18 Blood Pressure 170/70 H Pulse Oximetry 100 100 Oxygen Delivery Room Air Meds/Results Medications: Active Medications Generic Name Dose Route Start Last Admin Trade Name Freq PRN Reason Stop Dose Admin Acetaminophen 650 mg 11/13/24 15:49 11/13/24 22:27 Acetaminophen 325 Mg Tablet PO 650 mg Q4H PRN Administration Mild Pain (1-3) or Fever Acetaminophen 325 mg 11/13/24 18:44 Acetaminophen 325 Mg Tablet PO Q6H PRN pain (scale score 1-3) Apixaban 2.5 mg 11/13/24 21:00 11/13/24 20:40 Apixaban 2.5 Mg Tablet BY MOUTH 2.5 mg Q12HR CATHERINE Administration Atenolol 25 mg 11/14/24 09:00 Atenolol 25 Mg Tablet PO DAILY CATHERINE Dextrose 12.5 gm 11/13/24 18:43 Dextrose 50% 25 Gm/50 Ml Syringe IV PUSH PRN PRN Hypoglycemia Protocol Finasteride 5 mg 11/14/24 09:00 Finasteride 5 Mg Tablet BY MOUTH DAILY [facility] Furosemide 40 mg 11/14/24 09:00 Furosemide 40 Mg Tablet BY MOUTH QAM [facility] Furosemide 40 mg 11/14/24 09:00 Furosemide Inj 40 Mg/4 Ml Vial IV PUSH BID CATHERINE Glucagon 1 mg 11/13/24 18:43 Glucagon For Inj 1 Mg Vial IM PRN PRN Hypoglycemia Protocol Glucose 15 gm 11/13/24 18:43 Glucose Oral Gel 15 Gm Of Glucse In 37.5 Gm Tube PO PRN PRN Hypoglycemia Protocol Ceftriaxone Sodium 1 gm/ 50 mls @ 100 mls/hr 11/14/24 17:00 Sodium Chloride IVPB Q24H CATHERINE Dextrose 1,000 mls @ 100 mls/hr 11/13/24 18:43 Dextrose 5% 1,000 Ml IVPB PRN PRN Hypoglycemia Protocol Insulin Aspart 2 - 5 units 11/14/24 08:00 Insulin Aspart (*Bkc) 100 Units/Ml SUB-Q TIDWM [facility] Protocol Potassium Chloride 10 meq 11/14/24 09:00 Potassium Chloride 10 Meq Er Tablet PO DAILY [facility] Radiology Results: ITS Impressions Head CT 11/13/24 15:04 Impression: Motion artifact limits evaluation. No acute infarct or hemorrhage Labs Labs: Laboratory Results - last 24 hr 11/13/24 11/13/24 11/13/24 13:25 14:20 16:45 WBC 5.7 RBC 4.22 L Hgb 12.4 L Hct 38.4 L MCV 91.0 MCH 29.4 MCHC 32.3 RDW 13.5 Plt Count 192 MPV 9.7 Immature Gran % (Auto) 0.3 Neut % (Auto) 53.3 Lymph % (Auto) 31.6 [place] % (Auto) 11.2 H Eos % (Auto) 3.3 Baso % (Auto) 0.3 Lymph # (Auto) 1.81 [place] # (Auto) 0.6 Eos # (Auto) 0.2 Baso # (Auto) 0.0 Abs Immat Gran (auto) 0.02 Absolute Neuts (auto) 3.1 Absolute Nucleated RBC 0.000 Nucleated RBC % 0.0 PT 13.9 INR 1.1 APTT 33.5 Sodium 139 Potassium 3.8 Chloride 101 Carbon Dioxide 33 H Anion Gap 5 BUN 25 H Creatinine 1.06 Estim Creat Clear Calc 56 Estimated GFR > 60 Glucose 135 H POC Capillary Glucose Calcium 9.0 Total Bilirubin 0.2 AST 37 ALT 32 Alkaline Phosphatase 117 Troponin I < 0.012 < 0.012 NT-Pro-B Natriuret Pep 477 H Total Protein 7.5 Albumin 3.8 Urine Color Yellow Urine Appearance Clear Urine pH 5.0 Ur Specific [place] 1.009 Urine Protein Negative Urine Glucose (UA) Negative Urine Ketones Negative Ur Blood (Man) Trace Urine Nitrate Positive H Urine Bilirubin Negative Urine Urobilinogen 0.2 Leukocyte Esterase Rfl 2+ H Urine RBC 0-2 Urine WBC 6-10 H Ur Squamous Epith Cells None seen Urine Bacteria 4+ H Urine Casts 0-2 11/13/24 11/13/24 20:06 23:13 WBC RBC Hgb Hct MCV MCH MCHC RDW Plt Count MPV Immature Gran % (Auto) Neut % (Auto) Lymph % (Auto) [place] % (Auto) Eos % (Auto) Baso % (Auto) Lymph # (Auto) [place] # (Auto) Eos # (Auto) Baso # (Auto) Abs Immat Gran (auto) Absolute Neuts (auto) Absolute Nucleated RBC Nucleated RBC % PT INR APTT Sodium Potassium Chloride Carbon Dioxide Anion Gap BUN Creatinine Estim Creat Clear Calc Estimated GFR Glucose POC Capillary Glucose 117 H Calcium Total Bilirubin AST ALT Alkaline Phosphatase Troponin I < 0.012 NT-Pro-B Natriuret Pep Total Protein Albumin Urine Color Urine Appearance Urine pH Ur Specific [place] Urine Protein Urine Glucose (UA) Urine Ketones Ur Blood (Man) Urine Nitrate Urine Bilirubin Urine Urobilinogen Leukocyte Esterase Rfl Urine RBC Urine WBC Ur Squamous Epith Cells Urine Bacteria Urine Casts Quality VTE Prophylaxis VTE prophylaxis: mechanical ordered and pharmacologic ordered
[2024-11-14 07:49] LABS: Hematocrit 39.3 % (42.0-52.0); Hemoglobin 12.7 g/dL (14.0-18.0); Immature Granulocyte Percent A 0.2 % (0-0.5); Lymphocytes Absolute Auto 2.02 K/mm3 (0.9-3.2); Mean Corpuscular HGB Conc 32.3 g/dl (32-36); Mean Corpuscular Hemoglobin 29.5 pg (26-34); Mean Corpuscular Volume 91.2 fl (80-100); Nucleated Red Blood Cells Absolute Auto 0.000 K/mm3 (0.0-0.012); Nucleated Red Blood Cells Perc 0.0 % (0.0-0.2); Platelet Count Result 185 k/mm3 (150-375); Red Blood Count 4.31 M/mm3 (4.6-6.20); White Blood Count 6.2 K/mm3 (4.5-10.0)
[2024-11-14 08:19] LABS: Alanine Aminotransferase 32 U/L (6-50); Albumin Level 3.6 g/dL (3.5-5.1); Alkaline Phosphatase 121 U/L (38-126); Anion Gap 4 mmol/L (4-12); Aspartate Amino Transferase 39 U/L (17-59); Bilirubin,Total 0.3 mg/dL (0.2-1.3); Blood Urea Nitrogen 24 mg/dL (9-20); Calcium 9.0 mg/dL (8.4-10.2); Carbon Dioxide 34 mmol/L (22-30); Chloride 99 mmol/L (98-107); Estimated CRCL calculation 64 ml/min; Estimated Glomerular Filt Rate > 60; Glucose 100 mg/dL (65-110); Potassium 3.8 mmol/L (3.4-5.0); Sodium 137 mmol/L (137-145); Total Protein 7.0 g/dL (6.3-8.2)
[2024-11-14] MEDS: FUROSEMIDE INJ 40 MG/4 ML VIAL IV PUSH ×2 (08:56→17:25)
[2024-11-14] MEDS: cefTRIAXone 1 GM in SODIUM CHLORIDE 0.9% IV 50 ML 100 ML IVPB (17:25)
[2024-11-15] VITALS (9 sets, daily range): BP systolic 102–125; BP diastolic 48–71; PULSE 63–87; RESP 16–18; TEMP 36.2–36.5; O2SAT 94–100; BMI 10.0; BMI 32.9
[2024-11-15 06:40] LABS: Hematocrit 43.7 % (42.0-52.0); Hemoglobin 13.8 g/dL (14.0-18.0); Immature Granulocyte Percent A 0.3 % (0-0.5); Lymphocytes Absolute Auto 2.95 K/mm3 (0.9-3.2); Mean Corpuscular HGB Conc 31.6 g/dl (32-36); Mean Corpuscular Hemoglobin 28.9 pg (26-34); Mean Corpuscular Volume 91.4 fl (80-100); Nucleated Red Blood Cells Absolute Auto 0.000 K/mm3 (0.0-0.012); Nucleated Red Blood Cells Perc 0.0 % (0.0-0.2); Platelet Count Result 229 k/mm3 (150-375); Red Blood Count 4.78 M/mm3 (4.6-6.20); White Blood Count 7.7 K/mm3 (4.5-10.0)
[2024-11-15 07:28] LABS: Alanine Aminotransferase 36 U/L (6-50); Albumin Level 3.9 g/dL (3.5-5.1); Alkaline Phosphatase 134 U/L (38-126); Anion Gap 7 mmol/L (4-12); Aspartate Amino Transferase 45 U/L (17-59); Bilirubin,Total 0.5 mg/dL (0.2-1.3); Blood Urea Nitrogen 27 mg/dL (9-20); Calcium 9.4 mg/dL (8.4-10.2); Carbon Dioxide 33 mmol/L (22-30); Chloride 97 mmol/L (98-107); Estimated CRCL calculation 50 ml/min; Estimated Glomerular Filt Rate > 60; Glucose 100 mg/dL (65-110); Potassium 4.1 mmol/L (3.4-5.0); Sodium 137 mmol/L (137-145); Total Protein 7.9 g/dL (6.3-8.2)
--- NOTE | 2024-11-15 07:42 | P.PNIM_ITS ---
Progress Note: A&P Assessment and Plan (1) Altered mental status: Code(s): R41.82 - Altered mental status, unspecified Status: Acute Assessment and Plan: * Infection versus polypharmacy versus advanced dementia * Head CT negative for acute findings * UA positive for infection * Chest x-ray negative for acute findings * NPO until more alert * Son states that he appears to be at his baseline mentation status. States that he can sometimes tell you his birthday/ name but otherwise is not very responsive. Also states that he has been essentially bed-bound for the past several months since arriving to the [facility] facility * Speech/swallow evaluation (2) Urinary tract infection: Code(s): N39.0 - Urinary tract infection, site not specified Status: Acute Assessment and Plan: * IV Rocephin * IVF * Culture and sensitivity pending (3) Syncope: Code(s): R55 - Syncope and collapse Status: Acute Assessment and Plan: * Hospital syncope per intermediate * Telemetry monitoring * PT OT eval and treat (4) Type 2 diabetes mellitus with diabetic neuropathy, unspecified: Qualifiers: Diabetes mellitus terminal operations manager insulin use: without fci use Qualified Code(s): E11.40 - Type 2 diabetes mellitus with diabetic neuropathy, unspecified Code(s): E11.40 - Type 2 diabetes mellitus with diabetic neuropathy, unspecified Status: Acute Assessment and Plan: * Patient on diabetic meds at home * Deidra THOMPSON * SSI (5) Stage 3a chronic kidney disease (CKD): Code(s): N18.31 - Chronic kidney disease, stage 3a Status: Acute Assessment and Plan: * BMP in the morning continue monitor (6) Normocytic anemia: Code(s): D64.9 - Anemia, unspecified Status: Chronic Assessment and Plan: * No signs of acute bleeding continue to monitor (7) ACS (acute coronary syndrome): Code(s): I24.9 - Acute ischemic heart disease, unspecified Status: Acute Assessment and Plan: * Continue Elilalita, atenolol (8) BPH (benign prostatic hyperplasia): Code(s): N40.0 - Benign prostatic hyperplasia without lower urinary tract symptoms Status: Acute Assessment and Plan: * Continue Proscar (9) Dementia: Qualifiers: Alzheimer's disease onset: unspecified onset Dementia behavioral disturbance: without behavioral disturbance Dementia type: Alzheimer's Qualified Code(s): G30.9 - Alzheimer's disease, unspecified; F02.80 - Dementia in other diseases classified elsewhere without behavioral disturbance Code(s): F03.90 - Unspecified dementia, unspecified severity, without behavioral disturbance, psychotic disturbance, mood disturbance, and anxiety Status: Acute Assessment and Plan: * Hold Haldol tabs and Atarax, risperidone due to altered mental status (10) CHF (congestive heart failure): Code(s): I50.9 - Heart failure, unspecified Status: Acute Assessment and Plan: * IV LasixB.i.d. * Chest x-ray * Daily weights * Fluid restriction Subjective Date/time seen: 11/15/24 07:42 Interval history: 89-year-old male past medical history of Alzheimer's, BPH, diabetes, CKD stage 3, and frequent falls that presents with altered mental status. HPI is limited as patient is altered mental status. 11/15/2024 Patient sitting in bed at time of examination. Plan for speech eval/swallow study today. He remains somnolent/minimally responsive. Remains afebrile, no leukocytosis. Urine cultures pending. Review of Systems Review of Systems: Altered mental status ROS unobtainable: Yes unobtainable due to mental status Exam Narrative: General: well appearing, appears stated age. No acute distress HEENT: normocephalic, atraumatic. Mucous membranes moist. EOMI, PERRLA, bilateral sclera anicteric, no conjunctival injection. Neck supple without JVD, lymphadenopathy, or bruit. Respiratory: Diminished to auscultation bilaterally. No rales/rhonchi/wheezes. Cardiovascular: Regular rate and rhythm, normal S1-S2 upon auscultation. No murmurs, rubs, or clicks. PMI is nondisplaced, capillary refill less than 3 second. Abdomen: Soft, round, no pulsatile masses, nondistended and nontender. No rebound, no guarding. No CVA tenderness, no hepatosplenomegaly. Bowel sounds present to all four quadrants. No high pitch or tinkling sounds, resonant to percussion. Extremities: No cyanosis, clubbing, Pulses are palpable 2/2. Active ROM to all four extremities. 3+ pedal edema and 2+ edema in the shins Neuro: Alert and orientated x 0. PERRLA. Cranial nerves 2-12 intact without focal deficit. Skin: Warm, dry, and intact, without rash, erythema, or lesion. Psych: pleasant, cooperative, normal speech, normal affect, no hallucinations, no dysarthia Objective Data Vital Signs Vital Signs: Vital Signs - 24 hr 11/14/24 08:56 11/14/24 09:00 11/14/24 09:00 Temperature Pulse Rate 63 Respiratory Rate Blood Pressure 165/92 H Pulse Oximetry Oxygen Delivery Room Air 11/14/24 12:00 11/14/24 14:00 11/14/24 16:00 Temperature 96.9 F L Pulse Rate 62 64 64 Respiratory Rate 16 Blood Pressure 114/73 Pulse Oximetry 93 Oxygen Delivery 11/14/24 17:32 11/14/24 20:00 11/14/24 20:04 Temperature Pulse Rate 71 Respiratory Rate Blood Pressure 140/68 Pulse Oximetry 100 Oxygen Delivery Room Air 11/14/24 20:41 11/15/24 00:26 11/15/24 04:00 Temperature 97.2 F L Pulse Rate 71 77 85 Respiratory Rate 18 Blood Pressure 142/72 H Pulse Oximetry 100 Oxygen Delivery 11/15/24 05:30 Temperature 97.7 F Pulse Rate 63 Respiratory Rate 16 Blood Pressure 125/71 Pulse Oximetry 94 Oxygen Delivery Meds/Results Medications: Active Medications Generic Name Dose Route Start Last Admin Trade Name Freq PRN Reason Stop Dose Admin Acetaminophen 650 mg 11/13/24 15:49 11/13/24 22:27 Acetaminophen 325 Mg Tablet PO 650 mg Q4H PRN Administration Mild Pain (1-3) or Fever Acetaminophen 325 mg 11/13/24 18:44 Acetaminophen 325 Mg Tablet PO Q6H PRN pain (scale score 1-3) Apixaban 2.5 mg 11/13/24 21:00 11/14/24 08:56 Apixaban 2.5 Mg Tablet BY MOUTH Not Given Q12HR CATHERINE Atenolol 25 mg 11/14/24 09:00 11/14/24 08:56 Atenolol 25 Mg Tablet PO Not Given DAILY CATHERINE Dextrose 12.5 gm 11/13/24 18:43 Dextrose 50% 25 Gm/50 Ml Syringe IV PUSH PRN PRN Hypoglycemia Protocol Finasteride 5 mg 11/14/24 09:00 11/14/24 08:57 Finasteride 5 Mg Tablet BY MOUTH Not Given DAILY CATHERINE Furosemide 40 mg 11/14/24 09:00 11/14/24 08:57 Furosemide 40 Mg Tablet BY MOUTH Not Given QAM CATHERINE Furosemide 40 mg 11/14/24 09:00 11/14/24 17:25 Furosemide Inj 40 Mg/4 Ml Vial IV PUSH 40 mg BID CATHERINE Administration Glucagon 1 mg 11/13/24 18:43 Glucagon For Inj 1 Mg Vial IM PRN PRN Hypoglycemia Protocol Glucose 15 gm 11/13/24 18:43 Glucose Oral Gel 15 Gm Of Glucse In 37.5 Gm Tube PO PRN PRN Hypoglycemia Protocol Ceftriaxone Sodium 1 gm/ 50 mls @ 100 mls/hr 11/14/24 17:00 11/14/24 17:25 Sodium Chloride IVPB 100 mls/hr Q24H CATHERINE Administration Dextrose 1,000 mls @ 100 mls/hr 11/13/24 18:43 Dextrose 5% 1,000 Ml IVPB PRN PRN Hypoglycemia Protocol Insulin Aspart 2 - 5 units 11/14/24 08:00 11/14/24 17:25 Insulin Aspart (*Bkc) 100 Units/Ml SUB-Q Not Given TIDWM CATHERINE Protocol Potassium Chloride 10 meq 11/14/24 09:00 11/14/24 08:57 Potassium Chloride 10 Meq Er Tablet PO Not Given DAILY [facility], [facility]1983 Radiology Results: ITS Impressions Head CT 11/13/24 15:04 Impression: Motion artifact limits evaluation. No acute infarct or hemorrhage Chest X-Ray 11/14/24 08:34 IMPRESSION: 1. Left basilar atelectasis and/or airspace disease. Labs Labs: Laboratory Results - last 24 hr 11/14/24 11/14/24 11/14/24 07:43 07:47 11:34 WBC 6.2 RBC 4.31 L Hgb 12.7 L Hct 39.3 L MCV 91.2 MCH 29.5 MCHC 32.3 RDW 13.2 Plt Count 185 MPV 9.5 Immature Gran % (Auto) 0.2 Neut % (Auto) 51.5 Lymph % (Auto) 32.5 Esmeralda % (Auto) 12.4 H Eos % (Auto) 2.9 Baso % (Auto) 0.5 Lymph # (Auto) 2.02 Esmeralda # (Auto) 0.8 H Eos # (Auto) 0.2 Baso # (Auto) 0.0 Abs Immat Gran (auto) 0.01 Absolute Neuts (auto) 3.2 Absolute Nucleated RBC 0.000 Nucleated RBC % 0.0 Sodium 137 Potassium 3.8 Chloride 99 Carbon Dioxide 34 H Anion Gap 4 BUN 24 H Creatinine 0.88 Estim Creat Clear Calc 64 Estimated GFR > 60 Glucose 100 POC Capillary Glucose 100 100 Calcium 9.0 Total Bilirubin 0.3 AST 39 ALT 32 Alkaline Phosphatase 121 Total Protein 7.0 Albumin 3.6 11/14/24 11/14/24 11/15/24 17:01 22:02 06:07 WBC 7.7 RBC 4.78 Hgb 13.8 L Hct 43.7 MCV 91.4 MCH 28.9 MCHC 31.6 L RDW 13.5 Plt Count 229 MPV 10.0 Immature Gran % (Auto) 0.3 Neut % (Auto) 47.8 Lymph % (Auto) 38.5 Esmeralda % (Auto) 11.7 H Eos % (Auto) 1.4 Baso % (Auto) 0.3 Lymph # (Auto) 2.95 Esmeralda # (Auto) 0.9 H Eos # (Auto) 0.1 Baso # (Auto) 0.0 Abs Immat Gran (auto) 0.02 Absolute Neuts (auto) 3.7 Absolute Nucleated RBC 0.000 Nucleated RBC % 0.0 Sodium 137 Potassium 4.1 Chloride 97 L Carbon Dioxide 33 H Anion Gap 7 BUN 27 H Creatinine 1.11 Estim Creat Clear Calc 50 Estimated GFR > 60 Glucose 100 POC Capillary Glucose 123 H 124 H Calcium 9.4 Total Bilirubin 0.5 AST 45 ALT 36 Alkaline Phosphatase 134 H Total Protein 7.9 Albumin 3.9 Quality VTE Prophylaxis VTE prophylaxis: mechanical ordered and pharmacologic ordered
[2024-11-15] MEDS: FUROSEMIDE INJ 40 MG/4 ML VIAL IV PUSH ×2 (08:41→17:22)
--- NOTE | 2024-11-15 14:22 | PCSTNOTE ---
Please refer to the Bedside Swallow Evaluation in the EMR. Please note, silent aspiration cannot be ruled out at bedside. The above pt, admitted with UTI and syncope, was seen for a bedside swallow evaluation; pt is from a [facility] and has a h/o Alzheimer's. He is currently NPO; the patient is very confused and noted to be edentulous. He was not able to state whether he has dentures & not able to consistently follow directions for an oral motor evaluation (no obvious facial weakness noted). He was positioned upright and presented with 5ml thin liquids via a spoon, applesauce, and pudding trials via a spoon, a crumbled cracker in pudding via a spoon, a bite-sized piece of cracker, and uncontrolled thin liquids via a cup and straw. The oral stages were WFL for the thin liquid and purees; however, the patient demonstrated difficulty masticating the solids due to his poor dentition. The crumbled cracker was independently cleared, but he required a liquid wash to clear the bite-sized cracker piece. No leakage or pocketing was then noted. The pharyngeal stage appeared to trigger promptly with adequate laryngeal elevation. Vocal quality remained clear after each trial; no overt s/s of aspiration were exhibited except after the uncontrolled straw drinking trial. Several more trials of water via cup drinking were tested and again did not reveal any overt s/s of aspiration. Impression: Functional swallowing for a level 4 pureed diet; due to poor dentition pt could not effectively masticate the solid trials; overt s/s of aspiration occurred only after the thin liquids when taken via a straw. Recommendations: level 4 pureed diet and level 0 thin/regular liquids. No Straws. Pt must be positioned upright with all oral intake. Pt may require 1:1 assist at meals due to his sever confusion. Pt could be reassessed upon returning to [place] if dentures are present for possible upgrade from puree.
[2024-11-15] MEDS: cefTRIAXone 1 GM in SODIUM CHLORIDE 0.9% IV 50 ML 100 ML IVPB (17:17)
[2024-11-15] MEDS: APIXABAN 2.5 MG TABLET BY MOUTH (21:49)
[2024-11-16] VITALS (9 sets, daily range): BP systolic 113–127; BP diastolic 50–60; PULSE 58–78; RESP 14–18; TEMP 36.2–36.9; O2SAT 94–96
[2024-11-16 05:59] LABS: Hematocrit 41.6 % (42.0-52.0); Hemoglobin 13.3 g/dL (14.0-18.0); Immature Granulocyte Percent A 0.1 % (0-0.5); Lymphocytes Absolute Auto 2.90 K/mm3 (0.9-3.2); Mean Corpuscular HGB Conc 32.0 g/dl (32-36); Mean Corpuscular Hemoglobin 29.1 pg (26-34); Mean Corpuscular Volume 91.0 fl (80-100); Nucleated Red Blood Cells Absolute Auto 0.000 K/mm3 (0.0-0.012); Nucleated Red Blood Cells Perc 0.0 % (0.0-0.2); Platelet Count Result 212 k/mm3 (150-375); Red Blood Count 4.57 M/mm3 (4.6-6.20); White Blood Count 7.7 K/mm3 (4.5-10.0)
[2024-11-16 06:37] LABS: Alanine Aminotransferase 34 U/L (6-50); Albumin Level 3.8 g/dL (3.5-5.1); Alkaline Phosphatase 126 U/L (38-126); Anion Gap 5 mmol/L (4-12); Aspartate Amino Transferase 39 U/L (17-59); Bilirubin,Total 0.6 mg/dL (0.2-1.3); Blood Urea Nitrogen 42 mg/dL (9-20); Calcium 9.1 mg/dL (8.4-10.2); Carbon Dioxide 33 mmol/L (22-30); Chloride 98 mmol/L (98-107); Estimated CRCL calculation 38 ml/min; Estimated Glomerular Filt Rate 45; Glucose 131 mg/dL (65-110); Potassium 3.9 mmol/L (3.4-5.0); Sodium 136 mmol/L (137-145); Total Protein 7.5 g/dL (6.3-8.2)
--- NOTE | 2024-11-16 07:53 | P.PNIM_ITS ---
Progress Note: A&P Assessment and Plan (1) Altered mental status: Code(s): R41.82 - Altered mental status, unspecified Status: Acute Assessment and Plan: * Infection versus polypharmacy versus advanced dementia * Head CT negative for acute findings * UA positive for infection * Chest x-ray negative for acute findings * NPO until more alert * Son states that he appears to be at his baseline mentation status. States that he can sometimes tell you his birthday/ name but otherwise is not very responsive. Also states that he has been essentially bed-bound for the past several months since arriving to the [facility] * Speech/swallow evaluation (2) Urinary tract infection: Code(s): N39.0 - Urinary tract infection, site not specified Status: Acute Assessment and Plan: * IV Rocephin * IVF * Culture and sensitivity pending (3) Pneumonia: Code(s): J18.9 - Pneumonia, unspecified organism Status: Acute Assessment and Plan: * CXR: Left basilar atelectasis and/or airspace disease * Viral PCR pending * no supplemental O2 requirement * Monitor vital signs, I&Os, neuro status and patient is a fall risk * Follow WBC, serum electrolytes, temperature curves and cultures * Send sputum cultures * Gentle IV fluid resuscitation * Afebrile, no leukocytosis, or adventitious lung sounds * Already was on Ceftriaxone for suspected UTI - will add Azithromycin (4) Syncope: Code(s): R55 - Syncope and collapse Status: Acute Assessment and Plan: * Hospital syncope per assisted * Telemetry monitoring * PT OT eval and treat (5) JAISON (acute kidney injury): Code(s): N17.9 - Acute kidney failure, unspecified Status: Acute Assessment and Plan: * Creatinine: 1.47, GFR: 45, BUN: 42 * IV Fluids: NS @ 100 mls/hr * Trend renal function * Trend electrolytes, correct as needed (6) Type 2 diabetes mellitus with diabetic neuropathy, unspecified: Qualifiers: Diabetes mellitus terminal superintendent insulin use: without terminal superintendent use Qualified Code(s): E11.40 - Type 2 diabetes mellitus with diabetic neuropathy, unspecified Code(s): E11.40 - Type 2 diabetes mellitus with diabetic neuropathy, unspecified Status: Acute Assessment and Plan: * Patient on diabetic meds at home * A.torsten HS * SSI (7) Stage 3a chronic kidney disease (CKD): Code(s): N18.31 - Chronic kidney disease, stage 3a Status: Acute Assessment and Plan: * BMP in the morning continue monitor (8) Normocytic anemia: Code(s): D64.9 - Anemia, unspecified Status: Chronic Assessment and Plan: * No signs of acute bleeding continue to monitor (9) ACS (acute coronary syndrome): Code(s): I24.9 - Acute ischemic heart disease, unspecified Status: Acute Assessment and Plan: * Continue Elilalita, atenolol (10) BPH (benign prostatic hyperplasia): Code(s): N40.0 - Benign prostatic hyperplasia without lower urinary tract symptoms Status: Acute Assessment and Plan: * Continue Proscar (11) Dementia: Qualifiers: Alzheimer's disease onset: unspecified onset Dementia behavioral disturbance: without behavioral disturbance Dementia type: Alzheimer's Qualified Code(s): G30.9 - Alzheimer's disease, unspecified; F02.80 - Dementia in other diseases classified elsewhere without behavioral disturbance Code(s): F03.90 - Unspecified dementia, unspecified severity, without behavioral disturbance, psychotic disturbance, mood disturbance, and anxiety Status: Acute Assessment and Plan: * Hold Haldol tabs and Atarax, risperidone due to altered mental status (12) CHF (congestive heart failure): Code(s): I50.9 - Heart failure, unspecified Status: Acute Assessment and Plan: * IV LasixB.i.d. - switch to oral as patient can take oral medications * Chest x-ray * Daily weights * Fluid restriction Subjective Date/time seen: 11/16/24 07:53 Interval history: 89-year-old male past medical history of Alzheimer's, BPH, diabetes, CKD stage 3, and frequent falls that presents with altered mental status. HPI is limited as patient is altered mental status. 11/16/2024 Patient sitting in bed at time of examination. Denies any pain or complaints today. Does not appear fluid overloaded on exam. Urine culture still pending. Creatinine up from 1.11 -> 1.47, will give fluids for JAISON. CXR suspect atelectasis/pneumonia - will add Azithromycin as pt already on Ceftriaxone. He is afebrile, non-septic, with no adventitious lung sounds. Review of Systems Review of Systems: Altered mental status ROS unobtainable: Yes unobtainable due to mental status Exam Narrative: General: well appearing, appears stated age. No acute distress HEENT: normocephalic, atraumatic. Mucous membranes moist. EOMI, PERRLA, bilateral sclera anicteric, no conjunctival injection. Neck supple without JVD, lymphadenopathy, or bruit. Respiratory: Diminished to auscultation bilaterally. No rales/rhonchi/wheezes. Cardiovascular: Regular rate and rhythm, normal S1-S2 upon auscultation. No murmurs, rubs, or clicks. PMI is nondisplaced, capillary refill less than 3 second. Abdomen: Soft, round, no pulsatile masses, nondistended and nontender. No rebound, no guarding. No CVA tenderness, no hepatosplenomegaly. Bowel sounds present to all four quadrants. No high pitch or tinkling sounds, resonant to percussion. Extremities: No cyanosis, clubbing, Pulses are palpable 2/2. Active ROM to all four extremities. 3+ pedal edema and 2+ edema in the shins Neuro: Alert and orientated x 0. PERRLA. Cranial nerves 2-12 intact without focal deficit. Skin: Warm, dry, and intact, without rash, erythema, or lesion. Psych: pleasant, cooperative, normal speech, normal affect, no hallucinations, no dysarthia Objective Data Vital Signs Vital Signs: Vital Signs - 24 hr 11/15/24 08:00 11/15/24 08:00 11/15/24 10:05 Temperature Pulse Rate 79 Respiratory Rate Blood Pressure Pulse Oximetry Oxygen Delivery Room Air Room Air 11/15/24 14:00 11/15/24 16:00 11/15/24 20:06 Temperature 97.7 F 97.2 F L Pulse Rate 79 72 87 Respiratory Rate 18 16 Blood Pressure 102/50 L 121/48 L Pulse Oximetry 97 100 Oxygen Delivery 11/15/24 20:29 11/15/24 21:47 11/16/24 00:02 Temperature Pulse Rate 79 72 Respiratory Rate Blood Pressure Pulse Oximetry 100 Oxygen Delivery Room Air 11/16/24 04:04 11/16/24 06:05 Temperature 98.1 F Pulse Rate 72 68 Respiratory Rate 18 Blood Pressure 127/58 L Pulse Oximetry 96 Oxygen Delivery Intake/Output Intake/Output: Intake & Output 11/13/24 11/14/24 11/15/24 11/16/24 23:59 23:59 23:59 23:59 Intake Total 50 240 500 Balance 50 240 500 Meds/Results Medications: Active Medications Generic Name Dose Route Start Last Admin Trade Name Freq PRN Reason Stop Dose Admin Acetaminophen 650 mg 11/13/24 15:49 11/13/24 22:27 Acetaminophen 325 Mg Tablet PO 650 mg Q4H PRN Administration Mild Pain (1-3) or Fever Acetaminophen 325 mg 11/13/24 18:44 Acetaminophen 325 Mg Tablet PO Q6H PRN pain (scale score 1-3) Apixaban 2.5 mg 11/13/24 21:00 11/15/24 21:49 Apixaban 2.5 Mg Tablet BY MOUTH 2.5 mg Q12HR CATHERINE Administration Atenolol 25 mg 11/14/24 09:00 11/15/24 10:04 Atenolol 25 Mg Tablet PO Not Given DAILY CATHERINE Dextrose 12.5 gm 11/13/24 18:43 Dextrose 50% 25 Gm/50 Ml Syringe IV PUSH PRN PRN Hypoglycemia Protocol Finasteride 5 mg 11/14/24 09:00 11/15/24 10:04 Finasteride 5 Mg Tablet BY MOUTH Not Given DAILY CATHERINE Furosemide 40 mg 11/14/24 09:00 11/15/24 10:04 Furosemide 40 Mg Tablet BY MOUTH Not Given QAM CATHERINE Furosemide 40 mg 11/14/24 09:00 11/15/24 17:22 Furosemide Inj 40 Mg/4 Ml Vial IV PUSH 40 mg BID CATHERINE Administration Glucagon 1 mg 11/13/24 18:43 Glucagon For Inj 1 Mg Vial IM PRN PRN Hypoglycemia Protocol Glucose 15 gm 11/13/24 18:43 Glucose Oral Gel 15 Gm Of Glucse In 37.5 Gm Tube PO PRN PRN Hypoglycemia Protocol Ceftriaxone Sodium 1 gm/ 50 mls @ 100 mls/hr 11/14/24 17:00 11/15/24 17:17 Sodium Chloride IVPB 100 mls/hr Q24H CATHERINE Administration Dextrose 1,000 mls @ 100 mls/hr 11/13/24 18:43 Dextrose 5% 1,000 Ml IVPB PRN PRN Hypoglycemia Protocol Insulin Aspart 2 - 5 units 11/14/24 08:00 11/15/24 17:44 Insulin Aspart (*Bkc) 100 Units/Ml SUB-Q Not Given TIDWM CATHERINE Protocol Potassium Chloride 10 meq 11/14/24 09:00 11/15/24 10:04 Potassium Chloride 10 Meq Er Tablet PO Not Given DAILY CATHERINE Radiology Results: ITS Impressions Head CT 11/13/24 15:04 Impression: Motion artifact limits evaluation. No acute infarct or hemorrhage Chest X-Ray 11/14/24 08:34 IMPRESSION: 1. Left basilar atelectasis and/or airspace disease. Labs Labs: Laboratory Results - last 24 hr 11/15/24 11/15/24 11/15/24 07:59 17: 20:09 WBC RBC Hgb Hct MCV MCH MCHC RDW Plt Count MPV Immature Gran % (Auto) Neut % (Auto) Lymph % (Auto) Cooper % (Auto) Eos % (Auto) Baso % (Auto) Lymph # (Auto) Cooper # (Auto) Eos # (Auto) Baso # (Auto) Abs Immat Gran (auto) Absolute Neuts (auto) Absolute Nucleated RBC Nucleated RBC % Sodium Potassium Chloride Carbon Dioxide Anion Gap BUN Creatinine Estim Creat Clear Calc Estimated GFR Glucose POC Capillary Glucose 112 H 118 H 180 H Calcium Total Bilirubin AST ALT Alkaline Phosphatase Total Protein Albumin 11/16/24 11/16/24 05:36 07:28 WBC 7.7 RBC 4.57 L Hgb 13.3 L Hct 41.6 L MCV 91.0 MCH 29.1 MCHC 32.0 RDW 13.7 Plt Count 212 MPV 9.7 Immature Gran % (Auto) 0.1 Neut % (Auto) 45.4 L Lymph % (Auto) 37.9 Cooper % (Auto) 15.1 H Eos % (Auto) 1.2 Baso % (Auto) 0.3 Lymph # (Auto) 2.90 Cooper # (Auto) 1.2 H Eos # (Auto) 0.1 Baso # (Auto) 0.0 Abs Immat Gran (auto) 0.01 Absolute Neuts (auto) 3.5 Absolute Nucleated RBC 0.000 Nucleated RBC % 0.0 Sodium 136 L Potassium 3.9 Chloride 98 Carbon Dioxide 33 H Anion Gap 5 BUN 42 H D Creatinine 1.47 H Estim Creat Clear Calc 38 Estimated GFR 45 L Glucose 131 H POC Capillary Glucose 130 H Calcium 9.1 Total Bilirubin 0.6 AST 39 ALT 34 Alkaline Phosphatase 126 Total Protein 7.5 Albumin 3.8 Quality VTE Prophylaxis VTE prophylaxis: mechanical ordered and pharmacologic ordered
--- NOTE | 2024-11-16 08:25 | P.CDI_ITS ---
CDI Query Clarification Request 1) Please specify type and acuity of heart failure if known. * Acute * Chronic * Acute on Chronic * Unknown * Systolic * Diastolic * Combined Systolic and Diastolic * Unknown 2) Please clarify the underlying possible/probable/suspected cause for the altered mental status in the progress notes: ? Encephalopathy (metabolic, COVID, hepatic, hypoxic, uremic, Wernicke, other) ? Neurologic condition (CVA/TIA/NPH/seizure) ? Electrolyte/metabolic imbalance/dehydration ? Infectious process (i.e. meningitis/encephalitis) ? Psychiatric condition ? Respiratory condition ? Dementia ? Other, please specify ? Unknown/unable to determine (1) Altered mental status: Code(s): R41.82 - Altered mental status, unspecified Status: Acute Assessment and Plan: * Infection versus polypharmacy versus advanced dementia * Head CT negative for acute findings * UA positive for infection * Chest x-ray negative for acute findings * NPO until more alert * Son states that he appears to be at his baseline mentation status. States that he can sometimes tell you his birthday/ name but otherwise is not very responsive. Also states that he has been essentially bed-bound for the past several months since arriving to the memory care facility * Speech/swallow evaluation (2) Urinary tract infection: Code(s): N39.0 - Urinary tract infection, site not specified Status: Acute Assessment and Plan: * IV Rocephin * IVF * Culture and sensitivity pending (3) Syncope: Code(s): R55 - Syncope and collapse Status: Acute Assessment and Plan: * [facility] syncope per [facility] * Telemetry monitoring * PT OT eval and treat (4) JAISON (acute kidney injury): Code(s): N17.9 - Acute kidney failure, unspecified Status: Acute Assessment and Plan: * Creatinine: 1.47, GFR: 45, BUN: 42 * IV Fluids: NS @ 100 mls/hr * Trend renal function * Trend electrolytes, correct as needed(5) Type 2 diabetes mellitus with diabetic neuropathy, unspecified: Qualifiers: Diabetes mellitus longterm insulin use: without longterm use Qualified Code(s): E11.40 - Type 2 diabetes mellitus with diabetic neuropathy, unspecified Code(s): E11.40 - Type 2 diabetes mellitus with diabetic neuropathy, unspecified Status: Acute Assessment and Plan: * Patient on diabetic meds at home * A.c. HS * SSI (6) Stage 3a chronic kidney disease (CKD): Code(s): N18.31 - Chronic kidney disease, stage 3a Status: Acute Assessment and Plan: * BMP in the morning continue monitor (7) Normocytic anemia: Code(s): D64.9 - Anemia, unspecified Status: Chronic Assessment and Plan: * No signs of acute bleeding continue to monitor (8) ACS (acute coronary syndrome): Code(s): I24.9 - Acute ischemic heart disease, unspecified Status: Acute Assessment and Plan: * Continue Eliquis, atenolol (9) BPH (benign prostatic hyperplasia): Code(s): N40.0 - Benign prostatic hyperplasia without lower urinary tract symptoms Status: Acute Assessment and Plan: * Continue Proscar (10) Dementia: Qualifiers: Dementia type: Alzheimer's Alzheimer's disease onset: unspecified onset Dementia behavioral disturbance: without behavioral disturbance Qualified Code(s): G30.9 - Alzheimer's disease, unspecified; F02.80 - Dementia in other diseases classified elsewhere without behavioral disturbance Code(s): F03.90 - Unspecified dementia, unspecified severity, without behavioral disturbance, psychotic disturbance, mood disturbance, and anxiety Status: Acute Assessment and Plan: * Hold Haldol tabs and Atarax, risperidone due to altered mental status (11) CHF (congestive heart failure): Code(s): I50.9 - Heart failure, unspecified Status: Acute Assessment and Plan: * IV LasixB.i.d. * Chest x-ray * Daily weights * Fluid restriction BNP 477 IV lasix BID CXR: Impression: No acute cardiopulmonary abnormality. <Erika King RN - Last Filed: 11/16/24 08:36> Clarified Diagnosis Clarified Diagnosis: 1) CHF Unknown type/specificity 2) AMS likely due to dementia worsened by underlying infectious process (UTI, CAP) <Andrew Hylton PA-C - Last Filed: 11/16/24 10:15>
--- NOTE | 2024-11-16 08:25 | WPDCDIQUERY2 ---
CDI Query Clarification Request 1) Please specify type and acuity of heart failure if known. Acute Chronic Acute on Chronic Unknown Systolic Diastolic Combined Systolic and Diastolic Unknown 2) Please clarify the underlying possible/probable/suspected cause for the altered mental status in the progress notes: ? Encephalopathy (metabolic, COVID, hepatic, hypoxic, uremic, Wernicke, other) ? Neurologic condition (CVA/TIA/NPH/seizure) ? Electrolyte/metabolic imbalance/dehydration ? Infectious process (i.e. meningitis/encephalitis) ? Psychiatric condition ? Respiratory condition ? Dementia ? Other, please specify ? Unknown/unable to determine (1) Altered mental status: Code(s): R41.82 - Altered mental status, unspecified Status: Acute Assessment and Plan: Infection versus polypharmacy versus advanced dementia Head CT negative for acute findings UA positive for infection Chest x-ray negative for acute findings NPO until more alert Son states that he appears to be at his baseline mentation status. States that he can sometimes tell you his birthday/ name but otherwise is not very responsive. Also states that he has been essentially bed-bound for the past several months since arriving to the [facility] Speech/swallow evaluation (2) Urinary tract infection: Code(s): N39.0 - Urinary tract infection, site not specified Status: Acute Assessment and Plan: IV Rocephin IVF Culture and sensitivity pending (3) Syncope: Code(s): R55 - Syncope and collapse Status: Acute Assessment and Plan: Hospital syncope per group home Telemetry monitoring PT OT eval and treat (4) JAISON (acute kidney injury): Code(s): N17.9 - Acute kidney failure, unspecified Status: Acute Assessment and Plan: Creatinine: 1.47, GFR: 45, BUN: 42 IV Fluids: NS @ 100 mls/hr Trend renal function Trend electrolytes, correct as needed(5) Type 2 diabetes mellitus with diabetic neuropathy, unspecified: Qualifiers: Diabetes mellitus exterminator termite insulin use: without exterminator termite use Qualified Code(s): E11.40 - Type 2 diabetes mellitus with diabetic neuropathy, unspecified Code(s): E11.40 - Type 2 diabetes mellitus with diabetic neuropathy, unspecified Status: Acute Assessment and Plan: Patient on diabetic meds at home A.c. HS SSI (6) Stage 3a chronic kidney disease (CKD): Code(s): N18.31 - Chronic kidney disease, stage 3a Status: Acute Assessment and Plan: BMP in the morning continue monitor (7) Normocytic anemia: Code(s): D64.9 - Anemia, unspecified Status: Chronic Assessment and Plan: No signs of acute bleeding continue to monitor (8) ACS (acute coronary syndrome): Code(s): I24.9 - Acute ischemic heart disease, unspecified Status: Acute Assessment and Plan: Continue Eliquis, atenolol (9) BPH (benign prostatic hyperplasia): Code(s): N40.0 - Benign prostatic hyperplasia without lower urinary tract symptoms Status: Acute Assessment and Plan: Continue Proscar (10) Dementia: Qualifiers: Dementia type: Alzheimer's Alzheimer's disease onset: unspecified onset Dementia behavioral disturbance: without behavioral disturbance Qualified Code(s): G30.9 - Alzheimer's disease, unspecified; F02.80 - Dementia in other diseases classified elsewhere without behavioral disturbance Code(s): F03.90 - Unspecified dementia, unspecified severity, without behavioral disturbance, psychotic disturbance, mood disturbance, and anxiety Status: Acute Assessment and Plan: Hold Haldol tabs and Atarax, risperidone due to altered mental status (11) CHF (congestive heart failure): Code(s): I50.9 - Heart failure, unspecified Status: Acute Assessment and Plan: IV LasixB.i.d. Chest x-ray Daily weights Fluid restriction BNP 477 IV lasix BID CXR: Impression: No acute cardiopulmonary abnormality. <Erika King RN - Last Filed: 11/16/24 08:36> Clarified Diagnosis Clarified Diagnosis: 1) CHF Unknown type/specificity 2) AMS likely due to dementia worsened by underlying infectious process (UTI, CAP) <Andrew Hylton PA-C - Last Filed: 11/16/24 10:15>
[2024-11-16] MEDS: FINASTERIDE 5 MG TABLET BY MOUTH (08:51)
[2024-11-16] MEDS: APIXABAN 2.5 MG TABLET BY MOUTH ×2 (08:52→20:24)
[2024-11-16] MEDS: POTASSIUM CHLORIDE 10 MEQ ER TABLET PO (08:52)
[2024-11-16] MEDS: FUROSEMIDE 40 MG TABLET BY MOUTH (08:52)
[2024-11-16] MEDS: SODIUM CHLORIDE 0.9% IV 1,000 ML 100 ML IV CONT (08:58)
[2024-11-16] MEDS: AZITHROMYCIN IV 500 MG in SODIUM CHLORIDE 0.9% IV 250 ML IVPB (11:46)
[2024-11-16 12:43] LABS: Influenza A QL RT-PCR Negative (Negative); Influenza B QL RT-PCR Negative (Negative); RSV RNA, RT-PCR Negative (Negative); SARS-CoV-2 RNA PCR Negative (Negative)
[2024-11-16] MEDS: cefTRIAXone 1 GM in SODIUM CHLORIDE 0.9% IV 50 ML 100 ML IVPB (17:22)
[2024-11-17] VITALS (11 sets, daily range): BP systolic 121–167; BP diastolic 48–70; PULSE 50–61; RESP 16–18; TEMP 36.3–36.4; O2SAT 97–100
[2024-11-17 06:49] LABS: Hematocrit 42.5 % (42.0-52.0); Hemoglobin 13.5 g/dL (14.0-18.0); Immature Granulocyte Percent A 0.3 % (0-0.5); Lymphocytes Absolute Auto 2.50 K/mm3 (0.9-3.2); Mean Corpuscular HGB Conc 31.8 g/dl (32-36); Mean Corpuscular Hemoglobin 29.4 pg (26-34); Mean Corpuscular Volume 92.6 fl (80-100); Nucleated Red Blood Cells Absolute Auto 0.000 K/mm3 (0.0-0.012); Nucleated Red Blood Cells Perc 0.0 % (0.0-0.2); Platelet Count Result 204 k/mm3 (150-375); Red Blood Count 4.59 M/mm3 (4.6-6.20); White Blood Count 6.7 K/mm3 (4.5-10.0)
[2024-11-17 07:09] LABS: Alanine Aminotransferase 37 U/L (6-50); Albumin Level 3.8 g/dL (3.5-5.1); Alkaline Phosphatase 111 U/L (38-126); Anion Gap 6 mmol/L (4-12); Aspartate Amino Transferase 42 U/L (17-59); Bilirubin,Total 0.6 mg/dL (0.2-1.3); Blood Urea Nitrogen 42 mg/dL (9-20); Calcium 9.2 mg/dL (8.4-10.2); Carbon Dioxide 35 mmol/L (22-30); Chloride 101 mmol/L (98-107); Estimated CRCL calculation 48 ml/min; Estimated Glomerular Filt Rate 60; Glucose 129 mg/dL (65-110); Potassium 3.7 mmol/L (3.4-5.0); Sodium 142 mmol/L (137-145); Total Protein 7.6 g/dL (6.3-8.2)
--- NOTE | 2024-11-17 07:37 | P.PNIM_ITS ---
Progress Note: A&P Assessment and Plan (1) Altered mental status: Code(s): R41.82 - Altered mental status, unspecified Status: Acute Assessment and Plan: -Infection versus polypharmacy versus advanced dementia -Head CT negative for acute findings -UA positive for infection -Chest x-ray negative for acute findings -Son states that he appears to be at his baseline mentation status. States that he can sometimes tell you his birthday/ name but otherwise is not very responsive. Also states that he has been essentially bed-bound for the past several months since arriving to the [facility] -Speech/swallow evaluation - recommended pureed diet (2) Urinary tract infection: Code(s): N39.0 - Urinary tract infection, site not specified Status: Acute Assessment and Plan: - UA with positive nitrates, 2+ LE, 6-10 WBC, 4+ bacteria - urine culture with gram negative bacilli. Awaiting speciation and sensitivities. - continue IV Rocephin. (3) Pneumonia: Code(s): J18.9 - Pneumonia, unspecified organism Status: Acute Assessment and Plan: -CXR: Left basilar atelectasis and/or airspace disease -Viral PCR pending -no supplemental O2 requirement - s/p gentle IV fluid resuscitation -Afebrile, no leukocytosis, or adventitious lung sounds - currently on Rocephin and azithromycin (4) Syncope: Code(s): R55 - Syncope and collapse Status: Acute Assessment and Plan: -possible syncope per custodial - CT head no acute process -Telemetry monitoring - patient with bradycardia. Stop atenolol. - no further episodes here. May have been related to bradycardia vs. infection? (5) JAISON (acute kidney injury): Code(s): N17.9 - Acute kidney failure, unspecified Status: Acute Assessment and Plan: -Creatinine peaked at 1.47. Baseline 1.0. Cr normalized with IV fluids -Trend renal function (6) Type 2 diabetes mellitus with diabetic neuropathy, unspecified: Qualifiers: Diabetes mellitus retirement insulin use: without retirement use Qualified Code(s): E11.40 - Type 2 diabetes mellitus with diabetic neuropathy, unspecified Code(s): E11.40 - Type 2 diabetes mellitus with diabetic neuropathy, unspecified Status: Acute Assessment and Plan: - continue with low dose SSI - POCT glucose qACHS - hypoglycemia management protocol (7) Stage 3a chronic kidney disease (CKD): Code(s): N18.31 - Chronic kidney disease, stage 3a Status: Acute Assessment and Plan: - monitor BMP (8) BPH (benign prostatic hyperplasia): Code(s): N40.0 - Benign prostatic hyperplasia without lower urinary tract symptoms Status: Acute Assessment and Plan: -Continue Proscar (9) Dementia: Qualifiers: Alzheimer's disease onset: unspecified onset Dementia behavioral disturbance: without behavioral disturbance Dementia type: Alzheimer's Qualified Code(s): G30.9 - Alzheimer's disease, unspecified; F02.80 - Dementia in other diseases classified elsewhere without behavioral disturbance Code(s): F03.90 - Unspecified dementia, unspecified severity, without behavioral disturbance, psychotic disturbance, mood disturbance, and anxiety Status: Acute Assessment and Plan: -Hold Haldol tabs and Atarax, risperidone due to altered mental status (10) CHF (congestive heart failure): Code(s): I50.9 - Heart failure, unspecified Status: Acute Assessment and Plan: - appears euvolemic - continue home Lasix Subjective Date/time seen: 11/17/24 07:37 Interval history: 89-year-old male past medical history of Alzheimer's, BPH, diabetes, CKD stage 3, and frequent falls that presents with altered mental status. HPI is limited as patient is altered mental status. Patient seen and examined at bedside. Patient sleeping, awakens to name and falls back asleep. Review of Systems Review of Systems: ROS unobtainable: Yes unobtainable due to mental status Exam Narrative: General: NAD. Chronically ill-appearing Eyes: EOMI ENT: neck supple Cardiovascular: Regular rate and rhythm Respiratory: Clear to auscultation, respirations even and unlabored on RA Gastrointestinal: Soft, non tender Genitourinary: no suprapubic tenderness Musculoskeletal: No edema Skin: warm, dry Neuro: sleeping, awakens to name, otherwise nonconversive and falls back asleep. Psych: Mood appropriate Objective Data Vital Signs Vital Signs: Vital Signs - 24 hr 11/16/24 08:00 11/16/24 08:55 11/16/24 12:00 Temperature Pulse Rate 78 66 Respiratory Rate Blood Pressure Pulse Oximetry Oxygen Delivery Room Air 11/16/24 13:53 11/16/24 16:00 11/16/24 20:05 Temperature 97.1 F L Pulse Rate 63 58 L 60 Respiratory Rate 18 Blood Pressure 113/50 L Pulse Oximetry 96 Oxygen Delivery 11/16/24 21:25 11/17/24 00:11 11/17/24 04:00 Temperature 98.5 F Pulse Rate 62 58 L 56 L Respiratory Rate 14 Blood Pressure 119/60 Pulse Oximetry 94 Oxygen Delivery 11/17/24 05:30 Temperature 97.4 F L Pulse Rate 55 L Respiratory Rate 16 Blood Pressure 166/69 H Pulse Oximetry 99 Oxygen Delivery Intake/Output Intake/Output: Intake & Output 11/14/24 11/15/24 11/16/24 11/17/24 23:59 23:59 23:59 23:59 Intake Total 50 290 1060 50 Output Total 240 Balance 50 290 820 50 Meds/Results Medications: Active Medications Generic Name Dose Route Start Last Admin Trade Name Freq PRN Reason Stop Dose Admin Acetaminophen 650 mg 11/13/24 15:49 11/13/24 22:27 Acetaminophen 325 Mg Tablet PO 650 mg Q4H PRN Administration Mild Pain (1-3) or Fever Acetaminophen 325 mg 11/13/24 18:44 Acetaminophen 325 Mg Tablet PO Q6H PRN pain (scale score 1-3) Apixaban 2.5 mg 11/13/24 21:00 11/16/24 20:24 Apixaban 2.5 Mg Tablet BY MOUTH 2.5 mg Q12HR CATHERINE Administration Atenolol 25 mg 11/14/24 09:00 11/16/24 08:52 Atenolol 25 Mg Tablet PO 25 mg DAILY CATHERINE Administration Dextrose 12.5 gm 11/13/24 18:43 Dextrose 50% 25 Gm/50 Ml Syringe IV PUSH PRN PRN Hypoglycemia Protocol Finasteride 5 mg 11/14/24 09:00 11/16/24 08:51 Finasteride 5 Mg Tablet BY MOUTH 5 mg DAILY CATHERINE Administration Furosemide 40 mg 11/14/24 09:00 11/16/24 08:52 Furosemide 40 Mg Tablet BY MOUTH 40 mg QAM CATHERINE Administration Furosemide 40 mg 11/14/24 09:00 11/16/24 20:25 Furosemide Inj 40 Mg/4 Ml Vial IV PUSH Not Given On Hold: 11/16/24 17:25 BID CATHERINE Glucagon 1 mg 11/13/24 18:43 Glucagon For Inj 1 Mg Vial IM PRN PRN Hypoglycemia Protocol Glucose 15 gm 11/13/24 18:43 Glucose Oral Gel 15 Gm Of Glucse In 37.5 Gm Tube PO PRN PRN Hypoglycemia Protocol Ceftriaxone Sodium 1 gm/ 50 mls @ 100 mls/hr 11/14/24 17:00 11/16/24 17:22 Sodium Chloride IVPB 100 mls/hr Q24H CATHERINE Administration Dextrose 1,000 mls @ 100 mls/hr 11/13/24 18:43 Dextrose 5% 1,000 Ml IVPB PRN PRN Hypoglycemia Protocol Azithromycin 500 mg/ Sodium 250 mls @ 250 mls/hr 11/16/24 11:00 11/16/24 11:46 Chloride IVPB 11/20/24 11:59 250 mls/hr Q24H CATEHRINE Administration Insulin Aspart 2 - 5 units 11/14/24 08:00 11/16/24 17:22 Insulin Aspart (*Bkc) 100 Units/Ml SUB-Q Not Given TIDWM [facility] Protocol Potassium Chloride 10 meq 11/14/24 09:00 11/16/24 08:52 Potassium Chloride 10 Meq Er Tablet PO 10 meq DAILY CATHERINE Administration Radiology Results: ITS Impressions Head CT 11/13/24 15:04 Impression: Motion artifact limits evaluation. No acute infarct or hemorrhage Chest X-Ray 11/14/24 08:34 IMPRESSION: 1. Left basilar atelectasis and/or airspace disease. Labs Labs: Laboratory Results - last 24 hr 11/16/24 11/16/24 11/16/24 11:15 11:51 16:29 WBC RBC Hgb Hct MCV MCH MCHC RDW Plt Count MPV Immature Gran % (Auto) Neut % (Auto) Lymph % (Auto) [place] % (Auto) Eos % (Auto) Baso % (Auto) Lymph # (Auto) [place] # (Auto) Eos # (Auto) Baso # (Auto) Abs Immat Gran (auto) Absolute Neuts (auto) Absolute Nucleated RBC Nucleated RBC % Sodium Potassium Chloride Carbon Dioxide Anion Gap BUN Creatinine Estim Creat Clear Calc Estimated GFR Glucose POC Capillary Glucose 151 H 156 H Calcium Total Bilirubin AST ALT Alkaline Phosphatase Total Protein Albumin Influenza A (RT-PCR) Negative Influenza B (RT-PCR) Negative RSV (RT-PCR) Negative SARS-CoV-2 RNA (RT-PCR) Negative 11/16/24 11/17/24 11/17/24 20:17 05:54 07:26 WBC 6.7 RBC 4.59 L Hgb 13.5 L Hct 42.5 MCV 92.6 MCH 29.4 MCHC 31.8 L RDW 13.4 Plt Count 204 MPV 9.9 Immature Gran % (Auto) 0.3 Neut % (Auto) 47.5 Lymph % (Auto) 37.1 [place] % (Auto) 12.9 H Eos % (Auto) 1.9 Baso % (Auto) 0.3 Lymph # (Auto) 2.50 [place] # (Auto) 0.9 H Eos # (Auto) 0.1 Baso # (Auto) 0.0 Abs Immat Gran (auto) 0.02 Absolute Neuts (auto) 3.2 Absolute Nucleated RBC 0.000 Nucleated RBC % 0.0 Sodium 142 Potassium 3.7 Chloride 101 Carbon Dioxide 35 H Anion Gap 6 BUN 42 H Creatinine 1.16 Estim Creat Clear Calc 48 Estimated GFR 60 Glucose 129 H POC Capillary Glucose 176 H 121 H Calcium 9.2 Total Bilirubin 0.6 AST 42 ALT 37 Alkaline Phosphatase 111 Total Protein 7.6 Albumin 3.8 Influenza A (RT-PCR) Influenza B (RT-PCR) RSV (RT-PCR) SARS-CoV-2 RNA (RT-PCR) Quality VTE Prophylaxis VTE prophylaxis: mechanical ordered and pharmacologic ordered
[2024-11-17] MEDS: APIXABAN 2.5 MG TABLET BY MOUTH ×2 (08:08→20:32)
[2024-11-17] MEDS: FINASTERIDE 5 MG TABLET BY MOUTH (08:08)
[2024-11-17] MEDS: FUROSEMIDE 40 MG TABLET BY MOUTH (08:10)
[2024-11-17] MEDS: POTASSIUM CHLORIDE 10 MEQ ER TABLET PO (08:11)
[2024-11-17 09:58] LABS: Procalcitonin 0.1 ng/mL
--- NOTE | 2024-11-17 11:14 | PCNFU ---
Nutrition Follow-Up Complete: Inadequate energy intake related to NPO status as evidenced by current diet orders Goal:Diet order PO Intake adequate Pt meeting goal. New goal of continued intake at 75% or greater Pt current nutrition is Pureed level 4, Glucerna shakes BID. Nutrition recommendation: continue with current plan of care Last recorded weight is 103 kg. Bowel Motility: +BM 11/16 Labs Reviewed: Hgb:13.2, BUN:42, Glu:129 Meds Noted: novolog, eliquis, lasix, KCL Skin: WNL Additional Notes:Pt evaluated by speech, recommendations for a pureed diet. Pureed level 4 ordered, Intake good at 50-100%. Glucerna shakes BID in place. Agree with orders, encourage po intake. Monitor for diet orders, intake, wt, labs. Follow up in 7 days.
[2024-11-17] MEDS: AZITHROMYCIN IV 500 MG in SODIUM CHLORIDE 0.9% IV 250 ML IVPB (11:21)
[2024-11-17] MEDS: ACETAMINOPHEN 325 MG TABLET 650 MG PO (16:53)
[2024-11-18 00:02] VITALS: PULSE 65
[2024-11-18 04:04] VITALS: PULSE 57
[2024-11-18 05:59] LABS: Hematocrit 40.5 % (42.0-52.0); Hemoglobin 12.9 g/dL (14.0-18.0); Immature Granulocyte Percent A 0.4 % (0-0.5); Lymphocytes Absolute Auto 2.65 K/mm3 (0.9-3.2); Mean Corpuscular HGB Conc 31.9 g/dl (32-36); Mean Corpuscular Hemoglobin 29.3 pg (26-34); Mean Corpuscular Volume 92.0 fl (80-100); Nucleated Red Blood Cells Absolute Auto 0.000 K/mm3 (0.0-0.012); Nucleated Red Blood Cells Perc 0.0 % (0.0-0.2); Platelet Count Result 212 k/mm3 (150-375); Red Blood Count 4.40 M/mm3 (4.6-6.20); White Blood Count 9.4 K/mm3 (4.5-10.0)
[2024-11-18 06:00] VITALS: BP 154/65; PULSE 60; RESP 16; TEMP 37.2; O2SAT 99
[2024-11-18 06:24] LABS: Alanine Aminotransferase 40 U/L (6-50); Albumin Level 3.8 g/dL (3.5-5.1); Alkaline Phosphatase 113 U/L (38-126); Anion Gap 7 mmol/L (4-12); Aspartate Amino Transferase 40 U/L (17-59); Bilirubin,Total 0.7 mg/dL (0.2-1.3); Blood Urea Nitrogen 35 mg/dL (9-20); Calcium 9.4 mg/dL (8.4-10.2); Carbon Dioxide 31 mmol/L (22-30); Chloride 103 mmol/L (98-107); Estimated CRCL calculation 48 ml/min; Estimated Glomerular Filt Rate 60; Glucose 124 mg/dL (65-110); Potassium 3.8 mmol/L (3.4-5.0); Sodium 141 mmol/L (137-145); Total Protein 7.6 g/dL (6.3-8.2)
[2024-11-18 08:00] VITALS: PULSE 60
[2024-11-18] MEDS: FUROSEMIDE 40 MG TABLET BY MOUTH (08:09)
[2024-11-18] MEDS: FINASTERIDE 5 MG TABLET BY MOUTH (08:09)
[2024-11-18] MEDS: APIXABAN 2.5 MG TABLET BY MOUTH (08:09)
[2024-11-18] MEDS: POTASSIUM CHLORIDE 10 MEQ ER TABLET PO (08:09)
[2024-11-18 11:45] LABS: SARS-CoV-2 RNA PCR Negative (Negative)
--- NOTE | 2024-11-18 13:43 | P.DS_ITS ---
DS: Admitting Diagnosis Discharge Date 11/18/24 Admitting Diagnosis - AMS - UTI - pneumonia - syncope - T2DM - CKD - BPH - dementia - CHF DS: Discharge Diagnosis Discharge Diagnosis (1) Altered mental status: Code(s): R41.82 - Altered mental status, unspecified Status: Acute (2) Urinary tract infection: Code(s): N39.0 - Urinary tract infection, site not specified Status: Acute (3) Pneumonia: Code(s): J18.9 - Pneumonia, unspecified organism Status: Acute (4) Syncope: Code(s): R55 - Syncope and collapse Status: Acute (5) JAISON (acute kidney injury): Code(s): N17.9 - Acute kidney failure, unspecified Status: Acute (6) Type 2 diabetes mellitus with diabetic neuropathy, unspecified: Qualifiers: 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 insulin use: without prison use Qualified Code(s): E11.40 - Type 2 diabetes mellitus with diabetic neuropathy, unspecified Code(s): E11.40 - Type 2 diabetes mellitus with diabetic neuropathy, unspecified Status: Acute (7) Stage 3a chronic kidney disease (CKD): Code(s): N18.31 - Chronic kidney disease, stage 3a Status: Acute (8) BPH (benign prostatic hyperplasia): Code(s): N40.0 - Benign prostatic hyperplasia without lower urinary tract symptoms Status: Acute (9) Dementia: Qualifiers: Alzheimer's disease onset: unspecified onset Dementia behavioral disturbance: without behavioral disturbance Dementia type: Alzheimer's Qualified Code(s): G30.9 - Alzheimer's disease, unspecified; F02.80 - Dementia in other diseases classified elsewhere without behavioral disturbance Code(s): F03.90 - Unspecified dementia, unspecified severity, without behavioral disturbance, psychotic disturbance, mood disturbance, and anxiety Status: Acute (10) CHF (congestive heart failure): Code(s): I50.9 - Heart failure, unspecified Status: Acute DS: Summary Hospital Course Reason for hospitalization: - AMS - UTI - pneumonia - syncope - T2DM - CKD - BPH - dementia - CHF Hospital Course: 89-year-old male past medical history of Alzheimer's, BPH, diabetes, CKD stage 3, and frequent falls that presents with altered mental status. HPI is limited as patient is altered mental status. Per the chart in the ED, his long-term had it complained of brief episode of unresponsiveness so they called EMS. Patient told EMS that he was trying to get some sleep. Lab work in the ED shows hemoglobin of 12.4, carbon dioxide 33, BUN of 25, glucose 135, BNP 477, UA positive with nitrates 2+ leukocyte esterase 0-10 wbc's and 4+ bacteria. Head CT negative for acute process. Chest x-ray negative for acute process. Patient was admitted for concerns for UTI. Patient was started on Rocephin. Urine culture grew Enterobacter cloacae sensitive to fluoroquinolones. Patient was transitioned to Levaquin to complete a 5-day course. There was documented concern for syncope vs. alteration in consciousness at SNF. No documented seizure-like activity. Patient did not have any further loss of consciousness while admitted. Telemetry monitoring showed sinus bradycardia and his atenolol was stopped. He was started on amlodipine for hypertension management. Suspect alteration in consciousness due to UTI. On day of discharge patient was alert and oriented to self which is his baseline. Patient stated that he felt well. Patient was evaluated by speech while admitted who recommended pureed diet with thin liquids. Patient discharged back to his long-term in stable condition. Time Spent with Patient Time attestation: Total time spent providing and/or coordinating discharge services: Time spent: Greater than 30 minutes Exam Narrative: General: NAD. Eyes: EOMI ENT: neck supple Cardiovascular: Regular rate and rhythm Respiratory: Clear to auscultation, respirations even and unlabored on RA Gastrointestinal: Soft, non tender Genitourinary: no suprapubic tenderness Musculoskeletal: No edema Skin: warm, dry Neuro: alert and oriented to self only (baseline) Psych: Mood appropriate DS: Data Data Completed and Pending Completed studies during hospitalization: ITS Impressions Chest X-Ray 11/13/24 14:19 Impression: No acute cardiopulmonary abnormality. Head CT 11/13/24 15:04 Impression: Motion artifact limits evaluation. No acute infarct or hemorrhage Chest X-Ray 11/14/24 08:34 IMPRESSION: 1. Left basilar atelectasis and/or airspace disease. Labs on day of discharge: Labs from last 24 hours 11/18/24 11/18/24 11/18/24 11:23 10:57 07:33 WBC RBC Hgb Hct MCV MCH MCHC RDW Plt Count MPV Immature Gran % (Auto) Neut % (Auto) Lymph % (Auto) Ocean % (Auto) Eos % (Auto) Baso % (Auto) Lymph # (Auto) Ocean # (Auto) Eos # (Auto) Baso # (Auto) Abs Immat Gran (auto) Absolute Neuts (auto) Absolute Nucleated RBC Nucleated RBC % Sodium Potassium Chloride Carbon Dioxide Anion Gap BUN Creatinine Estim Creat Clear Calc Estimated GFR Glucose POC Capillary Glucose 136 H 113 H Calcium Total Bilirubin AST ALT Alkaline Phosphatase Total Protein Albumin SARS-CoV-2 RNA (RT-PCR) Negative 11/18/24 11/17/24 11/17/24 05:40 21:19 16:47 WBC 9.4 RBC 4.40 L Hgb 12.9 L Hct 40.5 L MCV 92.0 MCH 29.3 MCHC 31.9 L RDW 13.2 Plt Count 212 MPV 10.0 Immature Gran % (Auto) 0.4 Neut % (Auto) 58.1 Lymph % (Auto) 28.3 Ocean % (Auto) 11.6 H Eos % (Auto) 1.3 Baso % (Auto) 0.3 Lymph # (Auto) 2.65 Ocean # (Auto) 1.1 H Eos # (Auto) 0.1 Baso # (Auto) 0.0 Abs Immat Gran (auto) 0.04 H Absolute Neuts (auto) 5.4 Absolute Nucleated RBC 0.000 Nucleated RBC % 0.0 Sodium 141 Potassium 3.8 Chloride 103 Carbon Dioxide 31 H Anion Gap 7 BUN 35 H Creatinine 1.16 Estim Creat Clear Calc 48 Estimated GFR 60 Glucose 124 H POC Capillary Glucose 138 H 119 H Calcium 9.4 Total Bilirubin 0.7 AST 40 ALT 40 Alkaline Phosphatase 113 Total Protein 7.6 Albumin 3.8 SARS-CoV-2 RNA (RT-PCR) Discharge Plan Discharge Attending physician on discharge: Coby Ruggiero Consulting providers: Andrew Hylton; Mayda Garcia Discharging Clinician: Mayda Garcia Anticipated Discharge Date/Time: 11/18/24 10:33 Patient Disposition: NH Nursing Home/Asst Living Activity: as tolerated Diet: other - see discharge instructions Discharge Instructions: Patient had speech eval - recommended pureed diet and thin liquids. Patient was started on Levaquin to treat a UTI caused by enterococcus. Also treating for possible pneumonia. Patient needs 2 more doses, every other day starting on 11/19. Hydroxyzine and Haldol were made PRN to avoid altered mental status Atenolol was stopped due to bradycardia. Amlodipine was added for hypertension. Monitor BP and adjust as needed. Return to the emergency department if you develop chest pain, shortness of breath, persistent fever >100.4, confusion, loss of consciousness. Patient Instructions: Antibiotic Form Patient Language: Iranian Stand Alone Forms: General Discharge Information Discharge Medications: New amlodipine [Norvasc] 5 mg Tablet 5 mg PO DAILY 30 Days Qty: 30 0RF levofloxacin 750 mg tablet 750 mg PO Q48H Qty: 2 0RF Rx Instructions: Start 11/19 Continued (DME) Diabetic shoes See Rx Instructions .Route .MEDSUPPLY Qty: 1 0RF Rx Instructions: As directed magnesium hydroxide [Milk of Magnesia] 400 mg/5 mL suspension 5 ml PO DAILY PRN (Reason: constipation) (DME) diabetic shoes See Rx Instructions .Route .MEDSUPPLY Qty: 1 0RF Rx Instructions: As directed ([facility]) folding wheel chair See Rx Instructions .Route .MEDSUPPLY Qty: 1 0RF Rx Instructions: As directed gabapentin 300 mg capsule 300 mg PO TID folic acid 1 mg Tablet 1 mg PO DAILY Qty: 30 0RF multivitamin with folic acid [Thera] 400 mcg Tablet 1 tablet PO QAM Qty: 30 0RF acetaminophen 325 mg capsule 325 mg PO Q6H PRN (Reason: pain (scale score 1-3)) risperidone [Risperdal] 2 mg tablet 2 mg PO QHS Qty: 90 3RF Patient Comments: takes 1/2 tab loperamide [Anti-Diarrheal (loperamide)] 2 mg tablet 2 mg PO .COMPLEX PRN (Reason: loose stool) Qty: 30 8RF Rx Instructions: 2 mg orally PRN; administer 2 after first loose stool, then 1 after each loose stool until symptoms controlled; do not exceed 8 mg per 24 hrs potassium chloride 10 mEq capsule, extended release 10 meq PO DAILY Qty: 30 3RF (DME) diabetic shoes See Rx Instructions .Route .MEDSUPPLY Qty: 1 1RF Rx Instructions: As directed finasteride 5 mg tablet See Rx Instructions .ROUTE .COMPLEX Qty: 90 1RF Dose Instruction: TAKE 1 TABLET BY MOUTH DAILY Rx Instructions: TAKE 1 TABLET BY MOUTH DAILY Eliquis 2.5 mg tablet See Rx Instructions .ROUTE .COMPLEX Qty: 180 1RF Dose Instruction: TAKE 1 TABLET BY MOUTH TWICE DAILY Rx Instructions: TAKE 1 TABLET BY MOUTH TWICE DAILY (DME) vaccine See Rx Instructions .Route .MEDSUPPLY Qty: 1 0RF Rx Instructions: Administer Covid and RSV vaccines furosemide 40 mg tablet See Rx Instructions .ROUTE .COMPLEX Qty: 90 0RF Dose Instruction: TAKE 1 TABLET BY MOUTH EVERY MORNING Rx Instructions: TAKE 1 TABLET BY MOUTH EVERY MORNING Changed hydroxyzine HCl 50 mg tablet 25 mg PO BID PRN (Reason: Anxiety) 30 Days Qty: 30 0RF haloperidol 5 mg tablet 2.5 mg PO HS PRN (Reason: agitation) 30 Days Qty: 30 0RF Patient Comments: takes 1/2 tab Discontinued atenolol 25 mg tablet 25 mg PO DAILY Qty: 90 5RF Date of admission: 11/15/24 15:08 Primary Care Provider: Chacho Davalos Admitting Provider: Omar Thomas Attending physician on admission: Omar Thomas Condition: Stable
== END 2024-11-18 12:35 | DRG 689 ==
LOC: ANHED 15:48 → ANH3MEDSUR 16:46
PROVIDERS: Physician Assistant; Admitting Provider Internal Medicine; Emergency Provider Emergency Medicine; PCP Family Medicine; Visit Provider Internal Medicine
DX: N39.0 Urinary tract infection, site not specified (principal); J18.9 Pneumonia, unspecified organism; I24.9 Acute ischemic heart disease, unspecified; N17.9 Acute kidney failure, unspecified; I50.9 Heart failure, unspecified; R55 Syncope and collapse; N18.31 Chronic kidney disease, stage 3a; R60.0 Localized edema; E11.40 Type 2 diabetes mellitus with diabetic neuropathy, unspecified; E11.22 Type 2 diabetes mellitus with diabetic chronic kidney disease; D63.1 Anemia in chronic kidney disease; D64.89 Other specified anemias; N40.1 Benign prostatic hyperplasia with lower urinary tract symptoms; G30.9 Alzheimer's disease, unspecified; F02.80 Dementia in other diseases classified elsewhere, unspecified severity, without behavioral disturbance, psychotic disturbance, mood disturbance, and anxiety; B96.89 Other specified bacterial agents as the cause of diseases classified elsewhere; I65.23 Occlusion and stenosis of bilateral carotid arteries; R00.1 Bradycardia, unspecified; I70.0 Atherosclerosis of aorta; Z66 Do not resuscitate; Z20.822 Contact with and (suspected) exposure to COVID-19; Z91.81 History of falling; Z86.16 Personal history of COVID-19; Z87.440 Personal history of urinary (tract) infections; Z87.891 Personal history of nicotine dependence; Z79.01 Long term (current) use of anticoagulants; Z79.02 Long term (current) use of antithrombotics/antiplatelets; Z87.19 Personal history of other diseases of the digestive system; Z86.0100 Personal history of colon polyps, unspecified; Z86.711 Personal history of pulmonary embolism; Z74.01 Bed confinement status
CPT/HCPCS: 36415; 70450; 71045; 80053; 81001; 82948; 83880; 84145; 84484; 85025; 85610; 85730; 87086; 87186; 87635; 87637; 92610; 93005; 96374; 96375; 96376; 97165; 99285; A9270; G0378; J0456; J0696; J1938; J7030; J7050

== ENCOUNTER 2024-12-25 10:28 | Emergency (ER) | payer OTHER, MEDICARE, SELFPAY ==
[2024-12-25] VITALS (49 sets, daily range): BP systolic 103–166; BP diastolic 60–130; PULSE 39–64; RESP 14–25; O2SAT 83–100
--- NOTE | ~2024-12-25 | XR_ITS ---
Examination: XR chest 1V portable Clinical History: Shortness of breath Comparison: 11/13/2024 Technique: Portable AP Findings: Heart size normal. Streaky bibasilar airspace opacities. No acute bony abnormality. IMPRESSION: 1. Bibasilar atelectasis and/or airspace disease. 2. Small effusions not excluded. Reviewed, dictated and finalized at location R. CE COMMUNICATIONS DISPATCHER
--- NOTE | 2024-12-25 10:39 | ECG_ITS ---
Test Date: 2024-12-25 10:42:39 Measurements Intervals [place] Rate: 49 P: 0 OH: 0 QRS: -28 QRSD: 127 T: 149 QT: 503 QTc: 456 Interpretive Statements PROBABLE ATRIAL FIBRILLATION WITH SLOW VENTRICULAR RESPONSE HOWEVER BASELINE ARTIFACT LIMITS INTERPRETATION BORDERLINE LEFT AXIS DEVIATION [QRS AXIS < -20] POSSIBLE RIGHT VENTRICULAR CONDUCTION DELAY [RSR (QR) IN V1/V2] ST DEVIATION AND MODERATE T-WAVE ABNORMALITY, CONSIDER LATERAL ISCHEMIA [-0.1+ mV T-WAVE IN I/aVL/V5/V6] ABNORMAL ECG Electronically Signed On 12-25-2024 16:21:11 CLIPPER MACHINE OPERATOR by Bebeto Mckeon M.D.
--- NOTE | 2024-12-25 10:46 | ED_ITS ---
HPI - General Adult General Chief complaint: Unspecified Stated complaint: ?pneumonia Time Seen by Provider: 12/25/24 10:34 Source: patient and EMS Mode of arrival: EMS Limitations: dementia History of Present Illness HPI narrative: 89 years old white male came from [facility] with lethargy, hypoxia. The report states that patient had difficulty eating and swallowing yesterday was suctioned by staff numerous of time without improvement of the oxygenation oxygen running low 80s, was placed on 4 L oxygen by nasal cannula, on arrival to the ED patient is on 100% non-rebreather oxygen saturation 100% Patient is DNR, no family member or significant other at the bedside I did try to call the power of contracts attorney and left a message. Related Data Home Medications ?Medication ?Instructions ?Recorded ?Confirmed ?Last Taken ?Type gabapentin 300 mg capsule 300 mg PO TID 05/19/2311/13 Unknown History magnesium hydroxide 400 mg/5 mL 5 ml PO DAILY PRN cons tipation 09/25/23 11/13/24 Unknown History oral suspension (Milk of Magnesia) acetaminophen 325 mg capsule 325 mg PO Q6H PRN pain (s jaycee 11/13/24 11/13/24 Unknown History score 1-3) Allergies Allergy/AdvReac Type Severity Reaction Status Date / Time lisinopril Allergy Unknown cough Verified 07/20/24 14:13 nicardipine Allergy Unknown gynecomasti Verified 07/20/24 14:13 a cimetidine Allergy Unknown Verified 07/20/24 14:13 Review of Systems 2 Review of Systems: ROS unobtainable: Yes unobtainable due to medical condition PMFSH Past Medical History Medical History COVID-19 Aortic arch atherosclerosis CTA 08.12.23 VISUALIZED AORTIC ARCH AND BRANCHING VESSELS: Mild atheromatous disease but no significant stenosis. Carotid stenosis CTA 08.12.23: RIGHT CERVICAL CAROTID SYSTEM: stenosis 80%. No carotid dissection. --LEFT CERVICAL CAROTID SYSTEM: stenosis 40%. No carotid dissection. 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 Yeast infection of the skin Groin rash Surgical History Surgical History H/O hemicolectomy ischemic colitis 2005 Family History Family History Sibling Hypertension Family history of cardiovascular disease Family history of malignant neoplasm of breast Father Patient's father is , Onset Age: 72 Carcinoma of colon Malignant neoplasm of prostate Grandparent Diabetes mellitus Family history of malignant neoplasm of esophagus Mother Depression Family history of cardiovascular disease Social History Social History Social History: Code status: DNR/DNI Healthcare power of contracts attorney: Karen Tobacco type: cigarettes Additional smoking assessment comments: A couple cigarettes a day for a few years Alcohol intake: unknown Substance use: unknown Substance use type: unknown Lack of Transportation: No Lack of Food: Never True Current Housing: I Have Housing Concerned About Future Housing: No Difficulty Paying Gas/Electric Bills: No Difficulty Paying for Meds: No Currently Unemployed: No Education: High School Diploma/GED Difficulty w/ Childcare or Family Care: No Living arrangements: halfway Additional living arrangements comments: [facility] Gender identity (if verbalized by the patient): Male Spiritual care concerns: No Agree to blood products: Yes Exam 2 Narrative: General appearance: Well-developed, well-nourished Skin: Normal color Head: Normocephalic, nontraumatic Eyes: Clear conjunctiva ENT: Oropharynx normal, ears normal, nose normal Neck: Supple, nontender Chest and respiratory: No accessory muscle use, audible gurgling without cystoscope, diminution of air entry bilaterally Heart: AFib with slow ventricular response Abdomen: Soft, nontender, no organomegaly, quiet bowel sounds Musculoskeletal: Lethargic does not follow verbal commands Neurologic: Lethargic, responsive to painful stimulation only Course Vital Signs Vital signs: Vital Signs Pulse Rate 48 L 12/25/24 10:28 Respiratory Rate 20 12/25/24 10:28 Pulse Oximetry 100 12/25/24 10:28 Oxygen Delivery Non-Rebreather Mask 11/08/25 10:28 Oxygen Flow Rate 15 12/25/24 10:28 Pulse Rate 48 L 12/25/24 18:02 Respiratory Rate 21 H 12/25/24 18:02 Blood Pressure 151/103 H 12/25/24 18:02 Pulse Oximetry 92 12/25/24 18:15 Oxygen Delivery Non-Rebreather Mask 12/25/24 10:28 Oxygen Flow Rate 15 12/25/24 10:58 Medical Decision Making MDM Narrative Medical decision making narrative: Patient came to the ED from memory care unit with lethargy, difficulty breathing, hypoxia Vital signs showing blood pressure 142/104, heart rate AFib with slow ventricular response at 48 beats per minute, saturation 100% on 100% non- rebreather Physical examination showing lethargic patient with audible gurgling, responsive to painful stimulation only Differential diagnosis pneumonia, pulmonary embolism, pleural effusion, sepsis, electrolyte imbalance, dehydration, coronary artery disease Blood workup today include CBC, CMP, coags, lipase, blood culture, CRP, showed SODIUM 147, POTASSIUM 5.5, BUN 58, CREATININE 1.3, AST 115 ALT 146, C-REACTIVE PROTEIN 4.8, PROBNP 729, EKG on arrival AFib with slow ventricular response at 49 beats per minute left axis deviation, resident conduction delay, Chest x-ray showed ATELECTASIS VERSUS INFILTRATION BLOOD GASES ON 100% NON-REBREATHER SHOWED RESPIRATORY ACIDOSIS PATIENT'S SON WHO HAVE THE POWER OF STABLE MANAGER, JAGUAR GLASS REQUESTED COMFORT MEASURES ONLY AND DO NOT TREAT ANY LAB OR IMAGING ABNORMALITIES., PHONE CALL, THE NURSE ON THE CASE/JAY CONFIRMED THE PHONE CONVERSATION. REVENUE FIELD AGENTFLEXOGRAPHIC PRESS SET UP OPERATOR CONSULT ADMIT FOR HOSPICE CARE Differential Diagnosis Differential Diagnosis: As above Vital Signs Vital Signs: Vital Signs Pulse Rate 48 L 12/25/24 10:28 Respiratory Rate 20 12/25/24 10:28 Pulse Oximetry 100 12/25/24 10:28 Oxygen Delivery Non-Rebreather Mask 12/25/24 10:28 Oxygen Flow Rate 15 12/25/24 10:28 Pulse Rate 48 L 12/25/24 18:02 Respiratory Rate 21 H 12/25/24 18:02 Blood Pressure 151/103 H 12/25/24 18:02 Pulse Oximetry 92 12/25/24 18:15 Oxygen Delivery Non-Rebreather Mask 12/25/24 10:28 Oxygen Flow Rate 15 12/25/24 10:58 Lab Data 12/25/24 11:21 Labs: Lab Results 12/25/24 12/25/24 Range/Units 11:21 11:54 PT 15.1 H (11.1-14.7) Seconds INR 1.2 APTT 50.6 H (22.3-36.8) Seconds Sodium 147 H (137-145) mmol/L Potassium 5.5 H (3.4-5.0) mmol/L Chloride 106 (98-107) mmol/L Carbon Dioxide 37 H (22-30) mmol/L Anion Gap 4 (4-12) mmol/L BUN 58 H D (9-20) mg/dL Creatinine 1.31 H (0.7-1.3) mg/dL Estim Creat Clear Calc 42 ml/min Estimated GFR 52 L (59 - ) Glucose 95 (65-110) mg/dL Lactic Acid 0.8 (0.7-2.0) mmol/L Calcium 9.6 (8.4-10.2) mg/dL Total Bilirubin 0.5 (0.2-1.3) mg/dL AST 115 H (17-59) U/L ALT 146 H (6-50) U/L Alkaline Phosphatase 120 (38-126) U/L Troponin I < 0.012 (0.000-0.034) ng/mL C-Reactive Protein 4.8 H (<1.0) mg/dL NT-Pro-B Natriuret Pep 729 H (19.9-100) pg/mL Total Protein 7.7 (6.3-8.2) g/dL Albumin 3.8 (3.5-5.1) g/dL Lipase 113 (23-300) U/L ABG Data ABG results: 12/25/24 11:30 Puncture Site Right radial ABG pH 7.252 L* ABG pCO2 87.6 H* ABG pO2 137.9 H ABG PO2/FiO2 Ratio 1.38 ABG HCO3 37.7 H ABG O2 Saturation 98.2 ABG O2 Content 19.8 ABG Base Excess 6.9 A-a Gradient 487.5 Oxyhemoglobin 96.3 Total Hemoglobin 14.5 O2 Delivery Device Non-rebreather mask O2 Liters/Min Not Reportable FiO2 100 ECG Data EKG #1: Attestation: I personally reviewed and interpreted this ECG as follows: ECG completion date: 12/25/24 Prior ECG tracings: available for review Interpretation: AFib with slow ventricular response at 49 beats per minute, left axis deviation, right ventricular conduction delay, abnormal EKG Critical Care Time Critical Care Time Critical Care Time: Yes Total Critical Care Time: 30 Discharge Plan Discharge Clinical Impression: Acute hypoxemic respiratory failure, Admission for hospice care Patient Disposition: Still a Patient Condition: Critical Patient Language: Amharic Prescriptions: No Action (DME) Diabetic shoes See Rx Instructions .Route .MEDSUPPLY Qty: 1 0RF Rx Instructions: As directed magnesium hydroxide [Milk of Magnesia] 400 mg/5 mL suspension 5 ml PO DAILY PRN (Reason: constipation) (DME) diabetic shoes See Rx Instructions .Route .MEDSUPPLY Qty: 1 0RF Rx Instructions: As directed (DME) folding wheel chair See Rx Instructions .Route .MEDSUPPLY Qty: 1 0RF Rx Instructions: As directed gabapentin 300 mg capsule 300 mg PO TID folic acid 1 mg Tablet 1 mg PO DAILY Qty: 30 0RF multivitamin with folic acid [Thera] 400 mcg Tablet 1 tablet PO QAM Qty: 30 0RF acetaminophen 325 mg capsule 325 mg PO Q6H PRN (Reason: pain (scale score 1-3)) amlodipine [Norvasc] 5 mg Tablet 5 mg PO DAILY 30 Days Qty: 30 0RF levofloxacin 750 mg tablet 750 mg PO Q48H Qty: 2 0RF Rx Instructions: Start 11/19 hydroxyzine HCl 50 mg tablet 25 mg PO BID PRN (Reason: Anxiety) 30 Days Qty: 30 0RF haloperidol 5 mg tablet 2.5 mg PO HS PRN (Reason: agitation) 30 Days Qty: 30 0RF Patient Comments: takes 1/2 tab risperidone [Risperdal] 2 mg tablet 2 mg PO QHS Qty: 90 3RF Patient Comments: takes 1/2 tab loperamide [Anti-Diarrheal (loperamide)] 2 mg tablet 2 mg PO .COMPLEX PRN (Reason: loose stool) Qty: 30 8RF Rx Instructions: 2 mg orally PRN; administer 2 after first loose stool, then 1 after each loose stool until symptoms controlled; do not exceed 8 mg per 24 hrs potassium chloride 10 mEq capsule, extended release 10 meq PO DAILY Qty: 30 3RF (DME) diabetic shoes See Rx Instructions .Route .MEDSUPPLY Qty: 1 1RF Rx Instructions: As directed finasteride 5 mg tablet See Rx Instructions .ROUTE .COMPLEX Qty: 90 1RF Dose Instruction: TAKE 1 TABLET BY MOUTH DAILY Rx Instructions: TAKE 1 TABLET BY MOUTH DAILY Eliquis 2.5 mg tablet See Rx Instructions .ROUTE .COMPLEX Qty: 180 1RF Dose Instruction: TAKE 1 TABLET BY MOUTH TWICE DAILY Rx Instructions: TAKE 1 TABLET BY MOUTH TWICE DAILY (DME) vaccine See Rx Instructions .Route .MEDSUPPLY Qty: 1 0RF Rx Instructions: Administer Covid and RSV vaccines furosemide 40 mg tablet See Rx Instructions .ROUTE .COMPLEX Qty: 90 0RF Dose Instruction: TAKE 1 TABLET BY MOUTH EVERY MORNING Rx Instructions: TAKE 1 TABLET BY MOUTH EVERY MORNING Follow-up/Referrals: Chacho Davalos MD [Primary Care Provider, Family Practice]
--- OUTSIDE RECORDS SUMMARY | 2024-12-25 11:10 | XMS_ITS | Patient Health Record ---
Author Organization [facility] [employer] Address [address] [place] [address] Care Team Providers Care Eligibility Clerk Name Role Phone Von Chambers Unavailable [phone] Allergies Allergen (clinical drug ingredient) Drug/Non Drug [...] 5 MG Tablet Oral 04/22/2023 Active Nystatin 546940 UNIT/GM Powder External 04/22/2023 Active Simvastatin 40 MG Tablet Oral 04/22/2023 Active COVID-19 mRNA Vac-Agata([employer]) 30 MCG/0.3ML Suspension Intramuscular *Reorder from [facility] [facility] [employer] Maintenance for eRx and Interaction Alerts* 04/22/2023 Active [...] 04/19/2022 Encounters Encounter Location Date Provider Diagnosis [facility] [place] [address] [facility] [address] [place] [address] 02/12/2024 Von Chambers Plan Of Treatment No Information Insurance Providers Payer Name Payer Address Payer Phone Subscriber Number Group Number Insured Name Patient Relationship to Insured Coverage Start Date Coverage End Date [facility] [address] [place] [phone] [id number] DUSTY GLASS Self - patient is the insured Medical (General) History Medical History History ICD Code Problems: Diabetic peripheral neuropathy Generalized anxiety disorder Memory impairment 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
--- OUTSIDE RECORDS SUMMARY | 2024-12-25 11:10 | XMS_ITS | Clinical Summary ---
Author Organization [email or web address] Address [address] [place] [address] Care Team Providers Care Schedule Checker Name Role Phone Fany Mcgraw MD Primary Care Provider [phone] Source Comments [email or web address],non-owned Affiliates and Associated Physician Practices is amultiple site organization consisting of ambulatory clinics and hospital sitesin [place], [place], [place] and [place]. This disclosure is being madepursuant to the Care Everywhere program and may not contain all information available regarding this patient. Last updated 17.[email or web address] Allergies Active Allergy Reactions Criticality Noted Date [...] 11:49 AM CDT Height 175.3 cm (5' 9) 12/17/2021 11:49 AM CDT Body Mass Index 34.85 12/17/2021 11:49 AM CDT Plan of Treatment Health Maintenance Due Date Last Done Comments DTAP/TDAP/TD VACCINES (1 - Tdap) 1954 PNEUMOCOCCAL VACCINE 50+ (1 of 1 - PCV) 08/29/1987 ZOSTER VACCINE (1 of 2) 08/29/1987 Respiratory Syncytial Virus (RSV) Vaccine Pt: or over 60 yrs (1 - 1-dose 75+ series) 2012 DEPRESSION SCREENING 02/18/2024 MEDICARE AWV CALENDAR YEAR 2024 COVID-19 VACCINE (1 - 2023-2 5 season) 2024 INFLUENZA VACCINE (#1) 2024 HEPATITIS B VACCINE Aged Out No [...] age to complete this topic Insurance [facility] [facility] Care Address: [id number] [place], [place] [address], [place] [address] UHC MANAGED MEDICARE ADV Advance Directives Documents on File Type Date Recorded 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
--- OUTSIDE RECORDS SUMMARY | 2024-12-25 11:10 | XMS_ITS | Patient Health Record ---
Author Organization [facility] Address [address] [place] [address] Support Name Relationship Address Phone MookieLuke Guarantor Unknown [phone] Reason For Referral No Information Medications Medication SIG (Take, Route, Frequency, Duration) Notes Start Date End Date Status Aspirin 81 81 MG Oral 02/20/2004 Ac tive Atenolol 50 MG TAKE 1 TABLET IN THE MORNING AND ONE-HALF (1/2) TABLET IN THE EVENING Oral 04/19/2016 Active CPAP 11 cm H2O *Reorder from [facility] for eRx and Interaction Alerts* 09/08/2008 Active Immunizations Vaccine Route Administration Date Status Comme nts Pneumococcal conjugate PCV 13 Unknown 08/18/2002 Administered migrated LegPatid= [id number] Date=08/18/2002 Vac= PCV series Pneumococcal conjugate PCV 13 Unknown 01/28/2004 Administered migrated LegPatid= [id number] Date=01/28/2004 Vac= PCV series Pneumococcal conjugate PCV 13 Unknown 2010 Administered migrated LegPatid= [id number] Date=2010 Vac= Pneumonia vaccine Influenza high dose > [address] 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 Wait for the treatme tn. Problem Pure hypercholesterolemia (308425331) Pure hypercholesterolemia (E78.0) 2004 Active confirmed Problem Obstructive sleep apnea syndrome (disorder) (38094881) Obstructive sleep apnea (adult) (pediatric) (G47.33) 2008 Active confirmed Problem Pruritus (444321401) Pruritus, unspecified (L29.9) Active confirmed Problem Dermatitis (364381423) Dermatitis, unspecified (L30.9) Active confirmed Problem Fibromyalgia (771674526) Fibromyalgia (M79.7) 2005 Active confirmed Problem Type II diabetes mellitus without complication (558690420) Type 2 diabetes mellitus without complications (E11.9) 2004 Active confirmed Problem Essential hypertension (11566596) Essential (primary) hypertension (I10) 2004 Active confirmed Plan Of Treatment No Information Insurance Providers Payer Name Payer Address Payer Phone Subscriber Number Group Number Insured Name Patient Relationship to Insured Coverage Start Date Coverage End Date DO NOT USE [place] [id number] Luke Damioc Self - patient is the insured [employer] [address] [place] [address] [phone] [id number] Luke Damico Self - patient is the [facility] [address] [place] [address] [id number] Luke Damico Self - patient is the insured [employer] [address] [place] [address] [phone] [id number] Luke Damico Self - patient is the insured [facility] [address] [place] [address] [id number] Luke Damico Self - patient is the insured 1 Medical (General) History Surgical History Surgery Date(Month/Year) Parotid Gland: right dissection 1980; 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 COLON. MITCH Sneed, Date of Procedure: 2004; 2011-02-15 Varicocele; 2011-02-15 Lumbar disc surgery: 1971; 2011-02-15 Lumbosacral spine surgery: L2-3 Fusion a nd decompression; 2014-04-25
[2024-12-25 11:36] LABS: Alveolar/Arterial O2 Gradient 487.5 mmHg; Fractional Inspired Oxygen 100 %; HCO3 ABG 37.7 mEq/l (22.0-26.0); Oxygen Content ABG 19.8 %vol (16.0-22.0); Oxygen Saturation ABG 98.2 % (95.0-100.0); PO2 ABG 137.9 mmHg (80.0-100.0); PO2 FiO2 Ratio Arterial Blood 1.38 %
--- NOTE | 2024-12-25 11:36 | PC.NURSE ---
Addendum entered by Esthela Grace RN 12/25/24 12:31: 1139 - two person verification on comfort measures/DNR/DNI status of the patient. spoke with patients son Balaji Damico. Dr. Fauzia DIETRICH and this RN both verified the wishes of the family. Original Note: 1139 - two person verification on comfort measures/DNR/DNI status of the patient. spoke with patients son. Dr. Fauzia DIETRICH and this RN both verified the wishes of the family.
[2024-12-25 11:39] LABS: Modified Allen's Test Pass; PCO2 ABG 87.6 mmHg (35.0-45.0); Site Drawn RIGHT RADIAL
[2024-12-25 11:50] LABS: Lipase 113 U/L (23-300)
[2024-12-25 11:54] LABS: Alanine Aminotransferase 146 U/L (6-50); Albumin Level 3.8 g/dL (3.5-5.1); Alkaline Phosphatase 120 U/L (38-126); Anion Gap 4 mmol/L (4-12); Aspartate Amino Transferase 115 U/L (17-59); Bilirubin,Total 0.5 mg/dL (0.2-1.3); Blood Urea Nitrogen 58 mg/dL (9-20); CRP 4.8 mg/dL (<1.0); Calcium 9.6 mg/dL (8.4-10.2); Carbon Dioxide 37 mmol/L (22-30); Chloride 106 mmol/L (98-107); Estimated CRCL calculation 42 ml/min; Estimated Glomerular Filt Rate 52; Glucose 95 mg/dL (65-110); Potassium 5.5 mmol/L (3.4-5.0); Sodium 147 mmol/L (137-145); Total Protein 7.7 g/dL (6.3-8.2)
[2024-12-25 11:59] LABS: NT Pro B Type Natriuretic Pept 729 pg/mL (19.9-100)
[2024-12-25 12:02] LABS: Troponin I < 0.012 ng/mL (0.000-0.034)
[2024-12-25 12:09] LABS: INR 1.2; Prothrombin Time 15.1 Seconds (11.1-14.7)
[2024-12-25 12:10] LABS: Partial Thromboplastin Time 50.6 Seconds (22.3-36.8)
--- NOTE | 2024-12-25 13:00 | PC.NURSE ---
Family at bedside. RN updated family on care.
--- NOTE | 2024-12-25 14:20 | PCCCNOTE ---
After speaking with family (2 sons) decision made to refer for hospice. [facility] contacted and nurse sent to evaluate for GIP status. Information given to [facility]y nurse and faxed.
--- NOTE | 2024-12-25 14:49 | PC.NURSE ---
[facility] hospice nurse at bedside, calling MD for orders for patient.
--- NOTE | 2024-12-25 18:13 | PC.NURSE ---
Patient brief and sheet changed.
--- OUTSIDE RECORDS SUMMARY | 2024-12-25 22:23 | XMS_ITS | Clinical Summary ---
Author Organization [facility] Address [address] [place] [address] Care Team Providers Care English Language Arts Teacher Name Role Phone Fany Mcgraw MD Primary Care Provider [phone] Source Comments [facility],non-owned Affiliates and Associated Physician Practices is amultiple site organization consisting of ambulatory clinics and hospital sitesin [place], [place], [place] and [place]. This disclosure is being madepursuant to the Care Everywhere program and may not contain all information available regarding this patient. Last updated 17.[facility] Allergies Active Allergy Reactions Criticality Noted Date [...] age to complete [place] [id number] UHC MANAGED MEDICARE ADV Advance Directives Documents on File Type Date Recorded Patient Applications Project Manager Expl anation Adv Directive/Living Will/POA 01/07/2022 12:10 PM Adv Directive/Living Will/POA 10/08/2021 2:34 PM DURABLE POA FOR HEALTHCARE DECISION MAKING Care Teams English Language Arts Teacher Relationship Specialty Start Date End Date Fany Mcgraw MD [address] [place] [address] PCP - General 10/04/21
--- NOTE | 2024-12-26 10:06 | ED.GENADULT ---
HPI - General Adult General Chief complaint: Unspecified Stated complaint: ?pneumonia Time Seen by Provider: 12/25/24 10:34 Source: patient and EMS Mode of arrival: EMS Limitations: dementia Related Data Home Medications ?Medication ?Instructions ?Recorded ?Confirmed ?Last Taken ?Type gabapentin 300 mg capsule 300 mg PO TID 05/19/23 12/25/24 Unknown History magnesium hydroxide 400 mg/5 mL 5 ml PO DAILY PRN constipation 09/25/23 12/25/24 Unknown History oral suspension (Milk of Magnesia) acetaminophen 325 mg capsule 325 mg PO Q6H PRN pain (scale 11/13/24 12/25/24 Unknown History score 1-3) hydroxyzine HCl 50 mg tablet 50 mg PO BID PRN Anxiety 12/25/24 12/25/24 Unknown History risperidone 2 mg tablet (Risperdal) 0.5 mg PO QHS 12/25/24 12/25/24 Unknown History Allergies Allergy/AdvReac Type Severity Reaction Status Date / Time lisinopril Allergy Unknown cough Verified 12/25/24 19:51 nicardipine Allergy Unknown gynecomasti Verified 12/25/24 19:51 a cimetidine Allergy Unknown Verified 12/25/24 19:51 [facility] Past Medical History Medical History COVID-19 Aortic arch atherosclerosis CTA . VISUALIZED AORTIC ARCH AND BRANCHING VESSELS: Mild atheromatous disease but no significant stenosis. Carotid stenosis CTA .24: RIGHT CERVICAL CAROTID SYSTEM: stenosis 80%. No carotid dissection. --LEFT CERVICAL CAROTID SYSTEM: stenosis 40%. No carotid dissection. 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 Yeast infection of the skin Groin rash Surgical History Surgical History H/O hemicolectomy ischemic colitis 2005 Family History Family History Sibling Hypertension Family history of cardiovascular disease Family history of malignant neoplasm of breast Father Patient's father is , Onset Age: 72 Carcinoma of colon Malignant neoplasm of prostate Grandparent Diabetes mellitus Family history of malignant neoplasm of esophagus Mother Depression Family history of cardiovascular disease Social History Social History Social History: Code status: DNR/DNI Healthcare power of link assembler: Karen Tobacco type: cigarettes Additional smoking assessment comments: A couple cigarettes a day for a few years Alcohol intake: unknown Substance use: unknown Substance use type: unknown Lack of Transportation: No Lack of Food: Never True Current Housing: I Have Housing Concerned About Future Housing: No Difficulty Paying Gas/Electric Bills: No Difficulty Paying for Meds: No Currently Unemployed: No Education: High School Diploma/GED Difficulty w/ Childcare or Family Care: No Living arrangements: long term Additional living arrangements comments: Cady NEGRON Gender identity (if verbalized by the patient): Male Spiritual care concerns: No Agree to blood products: Yes Course Vital Signs Vital signs: Vital Signs Pulse Rate 48 L 12/25/24 10:28 Respiratory Rate 20 12/25/24 10:28 Pulse Oximetry 100 12/25/24 10:28 Oxygen Delivery Non-Rebreather Mask 12/25/24 10:28 Oxygen Flow Rate 15 12/25/24 10:28 Pulse Rate 48 L 12/25/24 18:02 Respiratory Rate 21 H 12/25/24 18:02 Blood Pressure 151/103 H 12/25/24 18:02 Pulse Oximetry 92 12/25/24 18:15 Oxygen Delivery Non-Rebreather Mask 12/25/24 10:28 Oxygen Flow Rate 15 12/25/24 10:58 Medical Decision Making Vital Signs Vital Signs: Vital Signs Pulse Rate 48 L 12/25/24 10:28 Respiratory Rate 20 12/25/24 10:28 Pulse Oximetry 100 12/25/24 10:28 Oxygen Delivery Non-Rebreather Mask 12/25/24 10:28 Oxygen Flow Rate 15 12/25/24 10:28 Pulse Rate 48 L 12/25/24 18:02 Respiratory Rate 21 H 12/25/24 18:02 Blood Pressure 151/103 H 12/25/24 18:02 Pulse Oximetry 92 12/25/24 18:15 Oxygen Delivery Non-Rebreather Mask 12/25/24 10:28 Oxygen Flow Rate 15 12/25/24 10:58 Lab Data 12/25/24 11:21 Labs: Lab Results 12/25/24 12/25/24 Range/Units 11:21 11:54 PT 15.1 H (11.1-14.7) Seconds INR 1.2 APTT 50.6 H (22.3-36.8) Seconds Sodium 147 H (137-145) mmol/L Potassium 5.5 H (3.4-5.0) mmol/L Chloride 106 (98-107) mmol/L Carbon Dioxide 37 H (22-30) mmol/L Anion Gap 4 (4-12) mmol/L BUN 58 H D (9-20) mg/dL Creatinine 1.31 H (0.7-1.3) mg/dL Estim Creat Clear Calc 42 ml/min Estimated GFR 52 L (59 - ) Glucose 95 (65-110) mg/dL Lactic Acid 0.8 (0.7-2.0) mmol/L Calcium 9.6 (8.4-10.2) mg/dL Total Bilirubin 0.5 (0.2-1.3) mg/dL AST 115 H (17-59) U/L ALT 146 H (6-50) U/L Alkaline Phosphatase 120 (38-126) U/L Troponin I < 0.012 (0.000-0.034) ng/mL C-Reactive Protein 4.8 H (<1.0) mg/dL NT-Pro-B Natriuret Pep 729 H (19.9-100) pg/mL Total Protein 7.7 (6.3-8.2) g/dL Albumin 3.8 (3.5-5.1) g/dL Lipase 113 (23-300) U/L ABG Data ABG results: 12/25/24 11:30 Puncture Site Right radial ABG pH 7.252 L* ABG pCO2 87.6 H* ABG pO2 137.9 H ABG PO2/FiO2 Ratio 1.38 ABG HCO3 37.7 H ABG O2 Saturation 98.2 ABG O2 Content 19.8 ABG Base Excess 6.9 A-a Gradient 487.5 Oxyhemoglobin 96.3 Total Hemoglobin 14.5 O2 Delivery Device Non-rebreather mask O2 Liters/Min Not Reportable FiO2 100 Discharge Plan Discharge Clinical Impression: Acute hypoxemic respiratory failure, Admission for hospice care Patient Disposition: Still a Patient Condition: Critical Patient Language: Persian Prescriptions: No Action magnesium hydroxide [Milk of Magnesia] 400 mg/5 mL suspension 5 ml PO DAILY PRN (Reason: constipation) gabapentin 300 mg capsule 300 mg PO TID folic acid 1 mg Tablet 1 mg PO DAILY Qty: 30 0RF multivitamin with folic acid [Thera] 400 mcg Tablet 1 tablet PO QAM Qty: 30 0RF acetaminophen 325 mg capsule 325 mg PO Q6H PRN (Reason: pain (scale score 1-3)) amlodipine [Norvasc] 5 mg Tablet 5 mg PO DAILY 30 Days Qty: 30 0RF haloperidol 5 mg tablet 2.5 mg PO HS PRN (Reason: agitation) 30 Days Qty: 30 0RF Patient Comments: takes 1/2 tab hydroxyzine HCl 50 mg tablet 50 mg PO BID PRN (Reason: Anxiety) risperidone [Risperdal] 2 mg tablet 0.5 mg PO QHS Patient Comments: takes 1/2 tab loperamide [Anti-Diarrheal (loperamide)] 2 mg tablet 2 mg PO .COMPLEX PRN (Reason: loose stool) Qty: 30 8RF Rx Instructions: 2 mg orally PRN; administer 2 after first loose stool, then 1 after each loose stool until symptoms controlled; do not exceed 8 mg per 24 hrs potassium chloride 10 mEq capsule, extended release 10 meq PO DAILY Qty: 30 3RF finasteride 5 mg tablet See Rx Instructions .ROUTE .COMPLEX Qty: 90 1RF Dose Instruction: TAKE 1 TABLET BY MOUTH DAILY Rx Instructions: TAKE 1 TABLET BY MOUTH DAILY Eliquis 2.5 mg tablet See Rx Instructions .ROUTE .COMPLEX Qty: 180 1RF Dose Instruction: TAKE 1 TABLET BY MOUTH TWICE DAILY Rx Instructions: TAKE 1 TABLET BY MOUTH TWICE DAILY furosemide 40 mg tablet See Rx Instructions .ROUTE .COMPLEX Qty: 90 0RF Dose Instruction: TAKE 1 TABLET BY MOUTH EVERY MORNING Rx Instructions: TAKE 1 TABLET BY MOUTH EVERY MORNING Follow-up/Referrals: Chacho Davalos MD [Primary Care Provider, Family Practice]
--- OUTSIDE RECORDS SUMMARY | 2025-02-03 13:23 | XMS_ITS | Patient Health Record ---
Author Organization [facility] [employer] Address [address] [place] [address] Care Team Providers Care Bleach Boiler Packer Name Role Phone Von Chambers Unavailable [phone] Allergies Allergen (clinical drug ingredient) Drug/Non Drug [...] 5 MG Tablet Oral 04/22/2023 Active Nystatin 533418 UNIT/GM Powder External 04/22/2023 Active Simvastatin 40 MG Tablet Oral 04/22/2023 Active COVID-19 mRNA Vac-Agata([employer]) 30 MCG/0.3ML Suspension Intramuscular *Reorder from [employer] for eRx and Interaction Alerts* 04/22/2023 Active [...] 04/19/2022 Encounters Encounter Location Date Provider Diagnosis [facility] [address] 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
--- OUTSIDE RECORDS SUMMARY | 2025-02-03 13:23 | XMS_ITS | Clinical Summary ---
Author Organization [facility] [employer] Address [address] [place] [address] Care Team Providers Care Manager Of Environmental Services Name Role Phone Fany Mcgraw MD Primary Care Provider [phone] Source Comments [facility] [employer],non-owned Affiliates and Associated Physician Practices is amultiple site organization consisting of ambulatory clinics and hospital sitesin [place], [place], [place] and [place]. This disclosure is being madepursuant to the Care Everywhere program and may not contain all information available regarding this patient. Last updated 17.[facility] [employer] Allergies Active Allergy Reactions Criticality Noted Date [...] CALENDAR YEAR 2024 COVID-19 VACCINE (1 - 2024-2 6 season) 2024 INFLUENZA VACCINE (#1) 2024 HEPATITIS [...] [place] [address] [employer] MANAGED MEDICARE ADV Advance Directives Documents on File Type Date Recorded Patient Kit Assembler Expl anation Adv Directive/Living Will/POA 01/07/2022 12:10 PM Adv Directive/Living Will/POA 10/08/2021 2:34 PM DURABLE POA FOR HEALTHCARE DECISION MAKING Care Teams Manager Of Environmental Services Relationship Specialty Start Date End Date Fany Mcgraw MD [address] [place] [address] PCP - General 10/04/21
--- OUTSIDE RECORDS SUMMARY | 2025-02-03 13:23 | XMS_ITS | Patient Health Record ---
Author Organization [facility] Address [address] [facility] [address] [place] [address] Support Name Relationship Address Phone Luke Damico Guarantor Unknown [phone] Reason For Referral No Information Medications Medication SIG (Take, Route, Frequency, Duration) Notes Start Date End Date Status Aspirin 81 81 MG Oral 02/20/2004 Ac tive Atenolol 50 MG TAKE 1 TABLET IN THE MORNING AND ONE-HALF (1/2) TABLET IN THE EVENING Oral 04/19/2016 Active CPAP 11 cm H2O *Reorder from [employer] for eRx and Interaction Alerts* 09/08/2008 Active Immunizations Vaccine Route Administration Date Status Comme nts Influenza high dose > 65 [facility] IM Intramuscular 11/25/2014 Administered Pneumococcal conjugate PCV 13 Unknown 08/18/2002 Administered migrated [employer]= [id number] Date=08/18/2002 Vac= PCV series Pneumococcal conjugate PCV 13 Unknown 01/28/2004 Administered migrated [employer]= [id number] Date=01/28/2004 Vac= PCV series Pneumococcal conjugate PCV 13 Unknown 2010 Administered migrated [employer]= [id number] Date=2010 Vac= Pneumonia vaccine Problems Problem Type SNOMED Code ICD Code Onset Dates Problem Status W/U Status Risk Notes Problem Scabies (939804239) Scabies (B86) Active confir med Problem Mononeuropathy due t o type 1 diabetes mellitus (disorder) (250233274) 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 Wait for the treatme tn. Problem Pure hypercholesterolemia (539658872) Pure hypercholesterolemia (E78.0) 2004 Active confirmed Problem Obstructive sleep apnea syndrome (disorder) (28239672) Obstructive sleep apnea (adult) (pediatric) (G47.33) 2008 Active confirmed Problem Pruritus (653054776) Pruritus, unspecified (L29.9) Active confirmed Problem Dermatitis (797705722) Dermatitis, unspecified (L30.9) Active confirmed Problem Fibromyalgia (325192660) Fibromyalgia (M79.7) 2005 Active confirmed Problem Type II diabetes mellitus without complication (981601888) Type 2 diabetes mellitus without complications (E11.9) 2004 Active confirmed Problem Essential hypertension (54891363) Essential (primary) hypertension (I10) 2004 Active confirmed Plan Of Treatment No Information Insurance Providers Payer Name Payer Address Payer Phone Subscriber Number Group Number Insured Name Patient Relationship to Insured Coverage Start Date Coverage End Date DO NOT USE [place] [id number] Luke Damico Self - patient is the insured [address] [place] [address] [place] [phone] [id number] Luke Damico Self - patient is the insured [id number] [address] [place] [address] [id number] Luke Damico Self - patient is the insured [address] [place] [address] [place] [phone] [id number] Luke Damico Self - patient is the insured [facility] [address] [place] [address] [id number] Luke Damico Self - patient is the insured 1 Medical (General) History Surgical History Surgery Date(Month/Year) Parotid Gland: right dissection 1980; 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 COLON. MITCH Sneed, Date of Procedure: 2004; 2011-02-15 Varicocele; 2011-02-15 Lumbar disc surgery: 1971; 2011-02-15 Lumbosacral spine surgery: L2-3 Fusion a nd decompression; 2014-04-25
== END 2024-12-25 16:18 | disposition hospice, inpatient (51) ==
PROVIDERS: Emergency Provider Emergency Medicine; PCP Family Medicine; Visit Provider Emergency Medicine
DX: J96.01 Acute respiratory failure with hypoxia (principal); Z51.5 Encounter for palliative care; F03.90 Unspecified dementia, unspecified severity, without behavioral disturbance, psychotic disturbance, mood disturbance, and anxiety; I70.0 Atherosclerosis of aorta; I65.23 Occlusion and stenosis of bilateral carotid arteries; E11.22 Type 2 diabetes mellitus with diabetic chronic kidney disease; N18.31 Chronic kidney disease, stage 3a; E11.42 Type 2 diabetes mellitus with diabetic polyneuropathy; N40.1 Benign prostatic hyperplasia with lower urinary tract symptoms; Z66 Do not resuscitate; Z86.11 Personal history of tuberculosis; Z86.0100 Personal history of colon polyps, unspecified; Z86.16 Personal history of COVID-19; Z87.891 Personal history of nicotine dependence; Z90.49 Acquired absence of other specified parts of digestive tract; I48.91 Unspecified atrial fibrillation; R06.9 Unspecified abnormalities of breathing; Z79.899 Other long term (current) drug therapy; Z79.01 Long term (current) use of anticoagulants
CPT/HCPCS: 36415; 36600; 71045; 80053; 82805; 83605; 83690; 83880; 84484; 85018; 85610; 85730; 86140; 87040; 93005; 99285

== ENCOUNTER 2024-12-25 16:18 | HOS | payer OTHER, MEDICARE, SELFPAY ==
--- NOTE | 2024-12-25 18:35 | ADMGEN ---
This patient, Luke Damico, was admitted to Medical Room 249-01. Patient/family oriented to hospital policies and general routines including ID bracelet, bed and alarms, visiting hours, pain management, procedures, bathroom and other care routines, personal items, smoking policy, room service/diet, and visiting hours. Information on how to activate the Rapid Response Team has been discussed. Patient/Family are encouraged to report perceived risks to care and to ask questions if they do not understand what they are told or what they should do.
[2024-12-25] MEDS: SODIUM CHLORIDE 0.9% IV CONT (19:59)
[2024-12-25] MEDS: HYDROMORPHONE HCL IV CONT (19:59)
--- NOTE | 2024-12-26 03:17 | PC.NURSE ---
2:00 is the time of
--- NOTE | 2024-12-26 20:42 | P.HP_ITS ---
H&P: HPI History of Present Illness Date/Time: 12/26/24 20:42 Chief Complaint: Decreased responsiveness and hyoxemia Narrative: 89 y/o male was sent by EMS from assisted living due to decreased responsiveness and hypoxia by pulse oximetry. ED evaluation showed bilateral basilar infiltrates with possible small effusions. ABS's showed hypoxia with hypercarbia. Due to his advanced age and multiple comorbidities, including dementia, diabetes, peripheral neuropthy, CKD, and declining functional status, his family opted for inpatient hospice care for symptom management. Review of Systems Review of Systems: ROS unobtainable: Yes unobtainable due to medical condition COUNTS INCLUDE 234 BEDS AT THE [facility] Past Medical History Medical History COVID-19 Aortic arch atherosclerosis CTA 08.12.23 VISUALIZED AORTIC ARCH AND BRANCHING VESSELS: Mild atheromatous disease but no significant stenosis. Carotid stenosis CTA 08.12.23: RIGHT CERVICAL CAROTID SYSTEM: stenosis 80%. No carotid dissection. --LEFT CERVICAL CAROTID SYSTEM: stenosis 40%. No carotid dissection. 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 Yeast infection of the skin Groin rash Surgical History Surgical History H/O hemicolectomy ischemic colitis 2005 Family History Family History Sibling Hypertension Family history of cardiovascular disease Family history of malignant neoplasm of breast Father Patient's father is , Onset Age: 72 Carcinoma of colon Malignant neoplasm of prostate Grandparent Diabetes mellitus Family history of malignant neoplasm of esophagus Mother Depression Family history of cardiovascular disease Social History Social History Social History: Code status: DNR/DNI Healthcare power of rotary envelope machine operator: Karen Tobacco type: cigarettes Additional smoking assessment comments: A couple cigarettes a day for a few years Alcohol intake: unknown Substance use: unknown Substance use type: unknown Lack of Transportation: No Lack of Food: Never True Current Housing: I Have Housing Concerned About Future Housing: No Difficulty Paying Gas/Electric Bills: No Difficulty Paying for Meds: No Currently Unemployed: No Education: High School Diploma/GED Difficulty w/ Childcare or Family Care: No Living arrangements: [facility] Additional living arrangements comments: Cady NEGRON Gender identity (if verbalized by the patient): Male Spiritual care concerns: No Agree to blood products: Yes Meds Home Medications and Allergies Home Medications ?Medication ?Instructions ?Recorded ?Confirmed ?Type gabapentin 300 mg capsule 300 mg PO TID 05/19/2312/25 History folic acid 1 mg tablet 1 mg PO DAILY #30 tabs 08/2612/25/24 Rx multivitamin with folic acid 400 1 tablet PO QAM #30 t abs 08/27/23 12/25/24 Rx mcg tablet (Thera) magnesium hydroxide 400 mg/5 mL 5 ml PO DAILY PRN cons tipation 09/25/23 12/25/24 History oral suspension (Milk of Magnesia) loperamide 2 mg tablet 2 mg PO .COMPLEX PRN loose s tool 02/17/24 12/25/24 Rx (Anti-Diarrheal (loperamide)) #30 tabs potassium chloride 10 mEq 10 meq PO DAILY #30 caps 12/25/24 Rx capsule,extended release apixaban 2.5 mg tablet (Eliquis) See Rx Instructions . Route 05/24/24 12/25/24 Rx .COMPLEX #180 tabs finasteride 5 mg tablet See Rx Instructions .Route 0 05/24/24 12/25/24 Rx .COMPLEX #90 tabs furosemide 40 mg tablet See Rx Instructions .Route 0 07/14/24 12/25/24 Rx .COMPLEX #90 tabs acetaminophen 325 mg capsule 325 mg PO Q6H PRN pain (s jaycee 11/13/24 12/25/24 History score 1-3) amlodipine 5 mg tablet (Norvasc) 5 mg PO DAILY 30 days #30 tabs 11/18/24 12/25/24 Rx haloperidol 5 mg tablet 2.5 mg (1/2 x 5 mg) PO HS DC N 11/18/24 12/25/24 Rx agitation 30 days #30 tabs hydroxyzine HCl 50 mg tablet 50 mg PO BID PRN Anxiety 12/25/24 12/25/24 History risperidone 2 mg tablet (Risperdal) 0.5 mg PO QHS 10/1112/25/24 History Allergies Allergy/AdvReac Type Severity Reaction Status Date / Time lisinopril Allergy Unknown cough Verified 12/25/24 19:51 nicardipine Allergy Unknown gynecomasti Verified 12/25/24 19:51 a cimetidine Allergy Unknown Verified 12/25/24 19:51 Vital Signs Vital Signs - 24 hr 12/25/24 21:00 Oxygen Delivery Nasal Cannula Oxygen Flow Rate 3.5 Exam Narrative: prior to an opportunity for me to examine him Assessment and Plan Assessment and plan (1) Hospice care: Code(s): Z51.5 - Encounter for palliative care Status: Acute Assessment and Plan: * Meets inpatient hospice criteria due to requiring continuous IV hydromorphone to control dyspnea * PRN palliative regimen ordered (2) Acute respiratory failure with hypoxia and hypercarbia: Code(s): J96.01 - Acute respiratory failure with hypoxia; J96.02 - Acute respiratory failure with hypercapnia Status: Acute (3) CHF (congestive heart failure): Code(s): I50.9 - Heart failure, unspecified Status: Acute (4) Stage 3a chronic kidney disease (CKD): Code(s): N18.31 - Chronic kidney disease, stage 3a Status: Acute (5) Dementia: Qualifiers: Dementia type: Alzheimer's Alzheimer's disease onset: unspecified onset Dementia behavioral disturbance: without behavioral disturbance Qualified Code(s): G30.9 - Alzheimer's disease, unspecified; F02.80 - Dementia in other diseases classified elsewhere without behavioral disturbance Code(s): F03.90 - Unspecified dementia, unspecified severity, without behavioral disturbance, psychotic disturbance, mood disturbance, and anxiety Status: Acute (6) Altered mental status: Code(s): R41.82 - Altered mental status, unspecified Status: Acute (7) Peripheral neuropathy: Qualifiers: Peripheral neuropathy type: polyneuropathy, unspecified Qualified Code(s): G62.9 - Polyneuropathy, unspecified Code(s): G62.9 - Polyneuropathy, unspecified Status: Acute (8) Pneumonia: Code(s): J18.9 - Pneumonia, unspecified organism Status: Acute
--- NOTE | 2024-12-26 20:56 | PM.DDS ---
Discharge Summary Date and Time Date of : 12/26/24 Time of : 02:00 Provider Pronounced By: 2 RNs Name of First RN That Pronounced: Mathew Solano Name of Second RN That Pronounced: Caleb Price Probable Cause of Probable Cause of : Acute respiratory failure with hypoxia and hypercarbia due to congestive heart failure Summary Hospital Course: Admitted to inpatient hospice service for symptoms management. Medication were titrated to comfort. Mr. Damico peacefully. Additional Data Confirmation of as documented by pronouncing clinician: Pupillary Reflex, Palpable Pulses, Response to Stimuli, Heart Tones and Breath Sounds Name of Provider Notified: Nolan Soriano Time Provider Notified: 02:30 Provider Requests Autopsy: No Family Requests Autopsy: No Geriatric Nursing Assistant Notified: Yes Date [facility] Notified of : 12/26/24 Time [facility] Notified of : 02:25
== END 2024-12-26 02:00 | disposition expired | DRG 951 ==
PROVIDERS: Admitting Provider Internal Medicine; PCP Family Medicine; Visit Provider Internal Medicine
DX: Z51.5 Encounter for palliative care (principal); J96.01 Acute respiratory failure with hypoxia; J18.9 Pneumonia, unspecified organism; J96.02 Acute respiratory failure with hypercapnia; I50.9 Heart failure, unspecified; E11.22 Type 2 diabetes mellitus with diabetic chronic kidney disease; N18.31 Chronic kidney disease, stage 3a; F03.90 Unspecified dementia, unspecified severity, without behavioral disturbance, psychotic disturbance, mood disturbance, and anxiety; E11.42 Type 2 diabetes mellitus with diabetic polyneuropathy; I65.23 Occlusion and stenosis of bilateral carotid arteries; I70.0 Atherosclerosis of aorta; R29.6 Repeated falls; N40.1 Benign prostatic hyperplasia with lower urinary tract symptoms; R33.8 Other retention of urine; Z86.16 Personal history of COVID-19; Z86.711 Personal history of pulmonary embolism; Z79.01 Long term (current) use of anticoagulants
CPT/HCPCS: A9270; J1171